=== PATIENT | male | born 1950 | race Caucasian/White ===

== ENCOUNTER 2018-02-12 16:54 | Inpatient (IN) | payer OTHER, MEDICARE ==
--- OUTSIDE RECORDS SUMMARY | 2018-02-12 16:58 | XMS REPORT | Clinical Summary ---
:1950 Author Organization [facility] Address [address] [place] [id number] Care Team Providers Name Role Phone Asked, No Pcp Primary Care Provider Unavailable Allergies No Known Allergies Current Medications Prescription Sig. Disp. Refills Start Date End Date Status aspirin (ECOTRIN) 81 MG Take 81 mg by Active enteric coated tablet mouth daily. METOPROLOL SUCCINATE ORAL Take by mouth. Active Active Problems Problem Noted Date Abdominal aortic aneurysm (AAA) without rupture 01/07/2017 Last Assessment & Plan: Patient with known AAA of the visceral segment, prior open infrarenal repair. On most recent CTA diameter was 5.3. Asymptomatic. Patient does have an incisional hernia from prior AAA repair, but does no t want any treatment for it at this time. Obtain followup imaging to assess for enlargement Discussed importance of blood pressure control and smoking cessation If aneurysm is stable, return to clinic in 12 months with CTA Encounters Date Type Specialty Care Team Description 02/12/2018 Telephone Cardiovascular Surendra Win MD 09/04/2017 Abstract Cardiothoracic Surgery Margaret West MD after 02/11/2017 Family History Medical History Relation Name Comments Cancer Father Brain cancer Mother Relation Name Status Comments Father Mother Social History Tobacco Use Types Packs/Day Years Used Date Current Every Day Smoker Cigarettes Alcohol Use Drinks/Week oz/Week Comments Yes 2 Cans of beer 1.2 everyday Sex Assigned at Date Recorded Not on file Last Filed Vital Signs Not on file Plan of Treatment Health Maintenance Due Date Last Done Comments COLON CANCER SCREENING 2000 SHINGRIX VACCINE (#1) 2000 ZOSTER VACCINE 2010 PNEUMOCOCCAL POLYSACCHARIDE VACCINE AGE 65 AND OVER 2015 PNEUMOCOCCAL-13 2015 INFLUENZA VACCINE 04/30/2018 Results Not on fileafter 02/11/2017 Insurance Payer Benefit Plan / Group Subscriber ID Type Phone Address MEDICARE MEDICARE PART A AND B xxxxxxxxxx Medicare [facility] AAR SUPPLEMENT xxxxxxxxx Commercial Home: [address] [phone] [place] [id number] [address] [employer] Republican Self 1950 Work: [address] [place] [address] [phone] [place] [address] Home: [id number]
--- OUTSIDE RECORDS SUMMARY | 2018-02-12 16:59 | XMS REPORT | Clinical Summary ---
:1950 Author Organization [facility] Address [address] [place] [address] Phone Care Team Providers Name Role Phone Unavailable Primary Care Provider Unavailable Allergies No Known Allergies Current Medications Prescription Sig. Disp. Refills Start Date End Date Status aspirin 81 MG EC Take 81 mg by Active tablet mouth daily. multivitamin per Take 1 tablet Active tablet by mouth daily. omega-3 fatty Take 1 g by Active acids-fish oil mouth daily. 340-1,000 mg Cap per capsule amiodarone (PACERONE) Take 1 tablet 30 tablet 11 07/10/2017 Active 200 MG tablet (200 mg 8 total) by mouth daily. apixaban (ELIQUIS) 5 Take 1 tablet 60 tablet 2 07/10/2017 Active mg Tab tablet (5 mg total) by mouth 2 (two) times daily. metoprolol (TOPROL-XL) Take 1 tablet 30 tablet 11 07/11/2017 Active 100 MG 24 hr tablet (100 mg 8 total) by mouth daily. magnesium oxide Take 400 mg Active (MAG-OX) 400 mg tablet by mouth daily. losartan (COZAAR) 50 Take 25 mg by Active MG tablet mouth daily. amiodarone (PACERONE) Take 1 tablet 30 tablet 11 01/29/2017 Discontinued 200 MG tablet (200 mg 7 total) by mouth daily. atorvastatin (LIPITOR) Take 1 tablet 30 tablet 11 01/29/2017 80 MG tablet (80 mg total) 8 by mouth daily. clopidogrel (PLAVIX) Take 1 tablet 30 tablet 11 01/29/2017 Discontinued 75 mg tablet (75 mg total) 7 by mouth daily. lisinopril Take 1 tablet 30 tablet 11 01/29/2017 (PRINIVIL,ZESTRIL) 5 (5 mg total) 8 MG tablet by mouth daily. metoprolol (TOPROL-XL) Take 1 tablet 30 tablet 11 01/29/2017 Discontinued 25 MG 24 hr tablet (25 mg total) 7 by mouth daily. fluticasone-salmeterol Inhale 2 1 Inhaler 12 01/29/2017 (ADVAIR HFA) 45-21 puffs by 8 mcg/actuation inhaler mouth via inhaler 2 (two) times daily. 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 Max Daily Amount: 100 mg Active Problems Problem Noted Date KYLAH (acute kidney injury) ([facility]) due to ATN 07/02/2017 Thoracoabdominal aortic aneurysm (TAAA) without rupture ([facility]) 07/01/2017 Ischemic cardiomyopathy 01/29/2017 Prerenal azotemia 01/23/2017 Acute pulmonary insufficiency following thoracic surgery ([facility]) 01/21/2017 Cardiogenic shock ([facility]) 01/21/2017 Acute blood loss anemia 01/21/2017 Coagulopathy ([facility]) 01/21/2017 Lactic acidosis 01/21/2017 STEMI (ST elevation myocardial infarction) ([facility]) 01/18/2017 S/P AAA (abdominal aortic aneurysm) repair 09/30/1999 Overview: with Aorto Iliac bypass at [facility] Thoracoabdominal aortic aneurysm (TAAA) ([facility]) Overview: extent 4 Coronary artery disease S/P CABG (coronary artery bypass graft) COPD (chronic obstructive pulmonary disease) ([facility]) S/P BKA (below knee amputation) unilateral, left ([facility]) Atrial fibrillation ([facility]) Cancer ([facility]) Overview: partial lung left lung lobectomy 2013 Ventral hernia Encounters Date Type Specialty Care Team Description 07/23/2017 Hospital Encounter [facility] Abnormal chest sounds MD Sukh 07/23/2017 Office Visit Cardiology Homero Dubon Thoracoabdominal aortic MD Cony aneurysm (TAAA) without rupture (HCC) (Primary Dx);Post-operative state;KYLAH (acute kidney injury) (HCC) 07/23/2017 Outside Orders [facility] Abnormal chest sounds MD Sukh (Primary Dx) 07/05/2017 Orders Only General Internal Medicine 07/01/2017 - Hospital Encounter Cardiology Homero Dubon Thoracoabdominal aortic 07/10/2017 MD Cony aneurysm (TAAA) without rupture (HCC) (Primary Dx);Other emphysema (HCC);Acute pulmonary insufficiency following thoracic surgery (HCC);Paroxysmal atrial fibrillation (HCC) 07/01/2017 Procedure Pass 07/01/2017 Surgery Homero Dubon REPAIRMARCO MD THORACOABDOMINAL AORTIC W/O BYPASS (TAA) 06/30/2017 Anesthesia Event Dillan Bermudez MD 06/24/2017 Hospital Encounter Radiology Homero Dubon MD 06/24/2017 Office Visit Cardiology Homero Dubon Thoracoabdominal aortic MD Cony aneurysm (TAAA) without rupture (HCC) (Primary Dx);Coronary artery disease involving [place] coronary artery of [place] heart without angina pectoris;Cancer (HCC) 06/24/2017 Hospital Encounter Respiratory Homero Dubon MD 06/24/2017 Orders Only Homero Dubonoabdomshyla Donnelly MD aneurysm (TAAA) without rupture (HCC) 06/24/2017 Orders Only Homero Dubon MD pulmonary disease, unspecified COPD type (HCC) (Primary Dx) 06/24/2017 Orders Only Homero Dubon MD pulmonary disease, unspecified COPD type (HCC) (Primary Dx) 06/24/2017 Orders Only Homero Dubon MD pulmonary disease, unspecified COPD type (HCC) (Primary Dx) 06/21/2017 Outside Orders Homero Dubon MD 06/18/2017 Procedure Pass 06/17/2017 Office Visit Cardiology Homero Dubonoabdomshyla aortic MD Cony aneurysm (TAAA) without rupture (HCC) (Primary Dx);Coronary artery disease involving [place] coronary artery of [place] heart without angina pectoris;Chronic obstructive pulmonary disease, unspecified COPD type (HCC);Thoracic aortic aneurysm without rupture (HCC);S/P AAA (abdominal aortic aneurysm) repair;S/P CABG (coronary artery bypass graft);S/P BKA (below knee amputation) unilateral, left (HCC) 06/17/2017 Orders Only General Internal Medicine 02/19/2017 Hospital Encounter Radiology [facility] Peripheral vascular MD Sukh disease, unspecified (HCC) 02/19/2017 Hospital Encounter Radiology [facility] Peripheral vascular MD Sukh disease, unspecified (HCC) 02/13/2017 Outside Orders Central Scheduling [facility] Peripheral vascular MD Sukh disease, unspecified (HCC) (Primary Dx) after 02/11/2017 Family History Medical History Relation Name Comments Dementia Father Brain cancer Mother Hypertension Sister Relation Name Status Comments Father Alive Mother Sister Social History Tobacco Use Types Packs/Day Years Used Date Current Every Day Smoker 1 48 Smokeless Tobacco: Never Used Tobacco Cessation: Ready to Quit: Yes Alcohol Use Drinks/Week oz/Week Comments Yes 21 Cans of beer 12.6 Sex Assigned at Date Recorded Not on file Last Filed Vital Signs Vital Sign Reading Time Taken Blood Pressure 72/47 07/23/2017 12:52 PM CDT Pulse 69 07/23/2017 12:50 PM CDT Temperature 36.9 C (98.4 F) 07/23/2017 12:50 PM CDT Respiratory Rate 16 07/23/2017 12:50 PM CDT Oxygen Saturation 99% 07/23/2017 12:50 PM CDT Inhaled Oxygen Concentration - - Weight 84.8 kg (187 lb) 07/10/2017 8:23 AM CDT Height 170.2 cm (5' 7") 07/23/2017 12:50 PM CDT Body Mass Index 29.29 07/10/2017 8:23 AM CDT Plan of Treatment Health Maintenance Due Date Last Done Comments INFLUENZA VACCINE 06/30/2018 Implants Implanted Type Area Machinist Set Up Device Expiration Model / Identifier Date Serial / Lot Sternal Zipfix Ndl Strl 08.501.001.20s - [id number] Cardiovascular N/A: SYNTHES:SYNTHE 01/25/2022 08.501.001.20S / Implanted: Qty: 1 on 01/21/2017 by Cuco Barrett MD Chest S [place] / [id number] Sternal Zipfix Ndl Strl 08.501.001.20s - [id number] Cardiovascular N/A: SYNTHES:SYNTHE 11/20/2021 08.501.001.20S / Implanted: Qty: 3 on 01/21/2017 by Cuco Barrett MD Chest S [facility] / [id number] Grft Pros Gelweave 24x8mm [id number]/8 - [id number] Graft/Patch N/A: TERUMO: CARDIOV 12/28/2020 [id number] / Implanted: Qty: 1 on 07/01/2017 by Homero Dubon MD Aorta ASC SYS [id number] / [id number] Patch Vasc [place] 1.65mm 1x6in [id number] - Sx Graft/Patch N/A: CR 2021 [id number] / Implanted: Qty: 1 on 07/01/2017 by Homero Dubon MD Aorta BARD: PERIPHERA X / L VASC [id number] Mesh Sondra 2 + Ovl [id number] - [id number] Mesh N/A: WL GORE & 09/29/2019 [id number] / Implanted: Qty: 1 on 07/01/2017 by Homero Dubon MD Abdomen ASSC: MED PRDT [id number] / X Procedures Procedure Name Priority Date/Time Associated Diagnosis Comments REPAIR,ANEURYSM 07/01/2017 8:00 AM ANUERYSM THORACOABDOMINAL AORTIC CDT W/O BYPASS (TAA) after 02/11/2017 Results RHYTHM STRIP - SCAN (07/24/2017 10:52 AM)Only the most recent of3 resultswithin the time period is included.XR Chest 2 Views (07/23/2017 3:35 PM)Only the most recent of2 resultswithin the time period is included. Specimen Performing Laboratory [employer] Narrative FINAL REPORT INDICATION: R09.89 COMPARISON: July 06, 2017 TECHNIQUE: Chest radiograph, two views, PA and lateral. FINDINGS: There is a small left pleural effusion. Left retrocardiac opacity likely represents related atelectasis. Right lung is clear. Heart shadow is not enlarged. There is no pneumothorax. Osseous structures sternotomy wires. IMPRESSION: Small left pleural effusion, not significantly changed. Signed: Sebastian Peña MD Report Verified Date/Time:07/23/2017 16:21:16 Reading Location: [address] Radiology Reading Room Procedure Note Interface, External Ris In - 07/23/2017 4:23 PM CDT FINAL REPORT INDICATION: R09.89 COMPARISON: July 06, 2017 TECHNIQUE: Chest radiograph, two views, PA and lateral. FINDINGS: There is a small left pleural effusion. Left retrocardiac opacity likely represents related atelectasis. Right lung is clear. Heart shadow is not enlarged. There is no pneumothorax. Osseous structures sternotomy wires. IMPRESSION: Small left pleural effusion, not significantly changed. Signed: Sebastian Peña MD Report Verified Date/Time: 07/23/2017 16:21:16 Reading Location: [address] Radiology Reading Room with platelet count + automated diff (07/23/2017 1:55 PM)Only the most recent of12 resultswithin the time period is included. Component Value Ref Range WBC 12.0 (H) 3.5 - 10.5 K/L RBC 3.98 (L) 4.63 - 6.08 M/L Hemoglobin 11.0 (L) 13.7 - 17.5 GM/DL Hematocrit 34.4 (L) 40.1 - 51.0 % MCV 86.4 79.0 - 92.2 fL MCH 27.6 25.7 - 32.2 pg MCHC 32.0 (L) 32.3 - 36.5 GM/DL RDW 17.7 (H) 11.6 - 14.4 % Platelets 467 (H) 150 - 450 K/CU MM MPV 8.9 (L) 9.4 - 12.4 fL nRBC 0 0 - 0 /100 WBC % Neutros 68 % % Lymphs 22 % % Monos 8 % % Eos 2 % % Baso 0 % # Neutros 8.12 (H) 1.78 - 5.38 K/L # Lymphs 2.57 1.32 - 3.57 K/L # Monos 0.91 (H) 0.30 - 0.82 K/L # Eos 0.23 0.04 - 0.54 K/L # Baso 0.05 0.01 - 0.08 K/L Immature Granulocytes-Relative 1 0 - 1 % Specimen Performing Laboratory Blood [address] [address] CBC with platelet count + automated diff (07/23/2017 1:55 PM)Only the most recent of12 resultswithin the time period is included. Specimen Performing Laboratory Blood Narrative The following orders were created for panel order CBC with platelet count + automated diff. Procedure Abnormality Status --------- ------ CBC with platelet count ...[[id number]]AbnormalFinal result Please view results for these tests on the individual orders. Basic Metabolic Panel (07/23/2017 1:55 PM)Only the most recent of12 resultswithin the time period is included. Component Value Ref Range Sodium 135 (L) 136 - 145 meq/L Potassium 5.0Comment: Specimen slightly hemolyzed 3.5 - 5.1 meq/L Chloride 100 98 - 107 meq/L CO2 23 22 - 29 meq/L BUN 21 7 - 21 mg/dL Creatinine 1.42 (H)Comment: Specimen slightly hemolyzed 0.57 - 1.25 mg/dL Glucose 98 70 - 105 mg/dL Calcium 9.7 8.4 - 10.2 mg/dL EGFR 50Comment: ESTIMATED GFR IS NOT ACCURATE mL/min/1.73 sq m CREATININE CLEARANCE IN PREDICTING GLOMERULAR FILTRATION RATE. ESTIMATED GFR IS NOT APPLICABLE FOR DIALYSIS PATIENTS. Specimen Performing Laboratory Blood [address] [address] POC-Glucose meter (07/10/2017 11:33 AM)Only the most recent of29 resultswithin the time period is included. Component Value Ref Range POC-Glucose Meter 146 (H)Comment: TESTED AT [address] 70 - 110 mg/[place] [address] Specimen Performing Laboratory Blood [address] [address] Calcium, Ionized (07/10/2017 4:39 AM)Only the most recent of12 resultswithin the time period is included. Component Value Ref Range Calcium, Ion 1.12 1.12 - 1.27 mmol/L pH, Blood 7.34 Specimen Performing Laboratory Blood - Arm, [address] [address] Magnesium (07/10/2017 4:39 AM)Only the most recent of10 resultswithin the time period is included. Component Value Ref Range Magnesium 1.8 1.6 - 2.6 mg/dL Specimen Performing Laboratory Blood - Arm, [address] [address] TRANSFUSION SERVICE REPORT - SCAN (07/06/2017 5:32 PM)Only the most recent of5 resultswithin the time period is included.XR chest 1 view portable / bedside ( 7:54 AM)Only the most recent of6 resultswithin the time period is included. Specimen Performing Laboratory [facility] Narrative FINAL REPORT Chest one view AP 07/06/2017 8:04 AM CLINICAL INDICATION: s/p TAAA COMPARISON: 07/05/2017 IMPRESSION: There is a small volume left pleural effusion. Opacity in the left lung base may reflect atelectasis or pneumonia. The right lung is well aerated. Cardiomediastinal contours are stable. The central pulmonary vasculature is not engorged. Cardiac support hardware is unchanged in position. Signed: Young Graham MD Report Verified Date/Time:07/06/2017 08:04:38 Reading Location: [address] Neuro Reading Room Procedure Note Interface, External Ris In - 07/06/2017 12:00 PM CDT FINAL REPORT Chest one view AP 07/06/2017 8:04 AM CLINICAL INDICATION: s/p TAAA COMPARISON: 07/05/2017 IMPRESSION: There is a small volume left pleural effusion. Opacity in the left lung base may reflect atelectasis or pneumonia. The right lung is well aerated. Cardiomediastinal contours are stable. The central pulmonary vasculature is not engorged. Cardiac support hardware is unchanged in position. Signed: Young Graham MD Report Verified Date/Time: 07/06/2017 08:04:38 Reading Location: [facility] B1 C013V Neuro Reading Room Prepare Leuko-Red RBC (07/05/2017 11:54 PM) Component Value Ref Range CROSSMATCH COMPATIBLE Unit ABO A Pos UNIT NUMBER [id number] Status TRANSFUSED Blood Bank Product RED BLOOD CELLS PRODUCT CODE T0594R06 Specimen Performing Laboratory Other [employer] [place] ECG 12 lead (07/05/2017 3:55 PM)Only the most recent of2 resultswithin the time period is included. Specimen Performing Laboratory [employer] Narrative Ventricular Rate 115 BPM Atrial Rate 337 BPM QRS Duration 78 ms Q-T Interval 282 ms QTC Calculation(Bazett) 390 ms P [place] 252 degrees R [place] -20 degrees T [place] 229 degrees Atrial flutter with variable A-V block Septal infarct (cited on or before 17-JUN-2017) Nonspecific T wave abnormality Abnormal ECG When compared with ECG of 17-JUN-2017 13:31, Atrial flutter has replaced Sinus rhythm Vent. rate has increased BY49 BPM Non-specific change in ST segment in Anterior leads Nonspecific T wave abnormality now seen Confirmed by MD ADAM, FRANCINE ([id number]) on 07/06/2017 6:26:17 AM Procedure Note Interface, External Ris In - 07/06/2017 6:26 AM CDT Ventricular Rate 115 BPM Atrial Rate 337 BPM QRS Duration 78 ms Q-T Interval 282 ms QTC Calculation(Bazett) 390 ms P [place] 252 degrees R [place] -20 degrees T [place] 229 degrees Atrial flutter with variable A-V block Septal infarct (cited on or before 17-JUN-2017) Nonspecific T wave abnormality Abnormal ECG When compared with ECG of 17-JUN-2017 13:31, Atrial flutter has replaced Sinus rhythm Vent. rate has increased BY 49 BPM Non-specific change in ST segment in Anterior leads Nonspecific T wave abnormality now seen Confirmed by MD ADAM, FRANCINE ([id number]) on 07/06/2017 6:26:17 AM Lactic acid, venous, whole blood (07/05/2017 4:03 AM)Only the most recent of2 resultswithin the time period is included. Component Value Ref Range Lactate, Venous 0.8Comment: Specimen slightly hemolyzed 0.5 - 2.2 mmol/L Specimen Performing Laboratory Blood - Arm, Right [address] [address] Narrative Effective 02/01/2016: Units/Reference Range Change New: 0.5-2.2 mmol/LPrevious: 5-20 mg/dL Specimen moderately icteric Hemoglobin and hematocrit (07/04/2017 12:06 PM) Component Value Ref Range Hemoglobin 8.3 (L) 13.7 - 17.5 GM/DL Hematocrit 25.4 (L) 40.1 - 51.0 % Specimen Performing Laboratory Blood - Central Venous Line [address] [address] Lactic acid, arterial, whole blood (07/04/2017 12:06 PM)Only the most recent of5 resultswithin the time period is included. Component Value Ref Range Lactate, Art 2.5 (H) 0.5 - 2.2 mmol/L Specimen Performing Laboratory Blood, Arterial - Central Venous Line [address] [address] Narrative Effective 02/01/2016: Units/Reference Range Change New: 0.5-2.2 mmol/LPrevious: 5-20 mg/dL Specimen slightly icteric Transfuse Leuko-Red RBC (07/04/2017 9:34 AM)Only the most recent of2 resultswithin the time period is included.Oxygen saturation, measured (2016 4:53 AM)Only the most recent of3 resultswithin the time period is included. Component Value Ref Range O2 Saturation (Measured) 64.7 % Specimen Performing Laboratory Blood [address] [address] Phosphorus (07/04/2017 4:53 AM)Only the most recent of3 resultswithin the time period is included. Component Value Ref Range Phosphorus 3.3 2.3 - 4.7 mg/dL Specimen Performing Laboratory Blood [address] [address] Prepare RBC (07/02/2017 11:54 PM)Only the most recent of2 resultswithin the time period is included. Component Value Ref Range CROSSMATCH COMPATIBLE Unit ABO A Pos UNIT NUMBER [id number] Status RETURNED FROM ISSUE Blood Bank Product RED BLOOD CELLS PRODUCT CODE C3736W29 CROSSMATCH COMPATIBLE Unit ABO A Pos UNIT NUMBER [id number] Status TRANSFUSED Blood Bank Product RED BLOOD CELLS PRODUCT CODE G0115I63 CROSSMATCH COMPATIBLE Unit ABO A Pos UNIT NUMBER [id number] Status TRANSFUSED Blood Bank Product RED BLOOD CELLS PRODUCT CODE [id number] CROSSMATCH COMPATIBLE Unit ABO A Pos UNIT NUMBER [id number] Status RETURNED FROM ISSUE Blood Bank Product RED BLOOD CELLS PRODUCT CODE L0355G74 Specimen Performing Laboratory [employer] [place] Blood gas, arterial (07/02/2017 8:12 AM)Only the most recent of10 resultswithin the time period is included. Component Value Ref Range pH, Arterial 7.45 7.35 - 7.45 pCO2, Arterial 37 35 - 45 mmHg pO2, Arterial 203 (H) 80 - 90 mmHg O2 Sat, Arterial 99.4 (H) 96.0 - 97.0 % HCO3, Arterial 25 21 - 29 mmol/L Base Excess, Arterial 1.2 -2.0 - 3.0 mmol/L Patient Temperature 37.2 C FIO2 40.0 % Specimen Performing Laboratory Blood, Arterial - Line, Arterial [address] [address] Potassium (07/01/2017 7:30 PM) Component Value Ref Range Potassium 4.4Comment: Specimen moderately hemolyzed 3.5 - 5.1 meq/L Specimen Performing Laboratory Blood [address] [address] Prepare plasma (07/01/2017 6:10 PM) Component Value Ref Range Unit ABO A Pos UNIT NUMBER [id number] Status RETURNED FROM ISSUE Blood Bank Product FFP PRODUCT CODE J8033V53 Unit ABO A Pos UNIT NUMBER [id number] Status RETURNED FROM ISSUE Blood Bank Product FFP PRODUCT CODE M6055K80 Unit ABO A Pos UNIT NUMBER [id number] Status RETURNED FROM ISSUE Blood Bank Product FFP PRODUCT CODE S2350D10 Unit ABO A Pos UNIT NUMBER [id number] Status RETURNED FROM ISSUE Blood Bank Product FFP PRODUCT CODE I5756G41 Specimen Performing Laboratory [employer] [place] Potassium-Stat Lab (07/01/2017 3:44 PM)Only the most recent of8 resultswithin the time period is included. Component Value Ref Range Potassium 5.0 3.6 - 5.5 meq/L Specimen Performing Laboratory Blood, Arterial [address] [address] aPTT (07/01/2017 3:44 PM)Only the most recent of2 resultswithin the time period is included. Component Value Ref Range PTT 34.5 22.5 - 36.0 seconds Specimen Performing Laboratory Blood [address] [address] Prothromin time/INR (07/01/2017 3:44 PM)Only the most recent of3 resultswithin the time period is included. Component Value Ref Range Protime 18.3 (H) 11.7 - 14.7 seconds INR 1.5 <=5.9 Specimen Performing Laboratory Blood [address] [address] Narrative RECOMMENDED COUMADIN/WARFARIN INR THERAPY RANGES STANDARD DOSE: 2.0 - 3.0 Includes: PROPHYLAXIS for venous thrombosis, systemic embolization; TREATMENT for venous thrombosis and/or pulmonary embolus. HIGH RISK: Target INR is 2.5-3.5 for patients with mechanical heart valves. Fibrinogen (07/01/2017 3:44 PM)Only the most recent of2 resultswithin the time period is included. Component Value Ref Range Fibrinogen 220 (L) 225 - 434 mg/dl Specimen Performing Laboratory Blood [address] [address] RRL Critical Labs (ABG,NA,K,H&H,GLU) (07/01/2017 2:32 PM)Only the most recent of7 resultswithin the time period is included. Specimen Performing Laboratory Blood, Arterial Narrative The following orders were created for panel order RRL Critical Labs (ABG,NA,K,H&H,GLU). Procedure Abnormality Status --------- ------ Blood gas, arterial[[id number]]AbnormalFinal result Sodium Na-Stat Lab[[id number]] AbnormalFinal result Potassium-Stat Lab[[id number]] NormalFinal result Glucose-Stat Lab[[id number]] AbnormalFinal result HGB/HCT (H&H)-Stat Lab[[id number]] Abnormal Final result Please view results for these tests on the individual orders. Sodium Na-Stat Lab (07/01/2017 2:32 PM)Only the most recent of7 resultswithin the time period is included. Component Value Ref Range Sodium 134 (L) 135 - 148 meq/L Specimen Performing Laboratory Blood, [address] [address] Glucose-Stat Lab (07/01/2017 2:32 PM)Only the most recent of7 resultswithin the time period is included. Component Value Ref Range Glucose 173 (H) 70 - 110 mg/dL Specimen Performing Laboratory Blood, [address] [address] HGB/HCT (H&H)-Stat Lab (07/01/2017 2:32 PM)Only the most recent of7 resultswithin the time period is included. Component Value Ref Range Hemoglobin 9.8 (L) 13.0 - 16.8 g/dL Hematocrit 29.0 (L) 40.0 - 50.0 % Specimen Performing Laboratory Blood, [address] [address] Tissue Exam (07/01/2017 2:30 PM) Component Value Ref Range Case Report Surgical Pathology Report Case: [id number] Authorizing Provider:Homero Dubon MD Collected: 07/01/2017 1430 Ordering Location: [facility] Received: 07/02/2017 0831 PERIOPERATIVE SERVICES Pathologist: Garrett Carrillo MD Specimen:Aneurysm, PRODUCTS/PIECES FROMTHORACOABDOMINAL AORTIC ANEURYSM DIAGNOSIS AORTA, THORACOABDOMINAL, ANEURYSMECTOMY: FIBRIN AND DYSTROPHIC CALCIFICATION, CONSISTENT WITH ANEURYSM CONTENTS FRAGMENTS OF SKELETAL MUSCLE AND FIBROADIPOSE TISSUE WITH ACUTE HEMORRHAGE Signing Pathologist Direct Phone Line: [phone] CPT Code(s) 95597 CLINICAL HISTORY Aneurysm thoracoabdominal aortic aneurysm SPECIMEN SOURCE Aneurysm pieces GROSS DESCRIPTION The specimen is received in a formalin-filled container labeled with the patient's information and labeled "aneurysm tissue pieces" and consists of multiple fragments of botello-morris hemorrhagic soft tissue measuring 8 x 7 x 3 cm in aggregate. Water Truck Driver sections are submitted in A1 and A2. CG/ew MICROSCOPIC DESCRIPTION Performed Specimen Performing Laboratory Tissue - Aneurysm [facility] [address] Platelet count (07/01/2017 12:56 PM) Component Value Ref Range Platelets 81 (L) 150 - 450 K/CU MM Specimen Performing Laboratory Blood [address] [address] POC ACTIVATED CLOTTING TIME (07/01/2017 12:46 PM)Only the most recent of2 resultswithin the time period is included. Component Value Ref Range Activated Clotting Time 98Comment: TESTED AT [address] sec [address] Specimen Performing Laboratory Blood [address] [address] Thromboelastograph (TEG) (07/01/2017 12:37 PM) Component Value Ref Range TEG Activated Clotting Time 6.0 4.0 - 7.0 minutes TEG Fibrinogen Activity 46.8 (L) 61.0 - 73.0 degrees TEG Platelet Aggregation 52.5 (L) 55.0 - 65.0 MM TEG-H Activated Clotting Time 6.6 4.0 - 7.0 minutes TEG-H Fibrinogen Activity 62.2 61.0 - 73.0 degrees TEG-H Platelet Aggregation 49.5 (L) 55.0 - 65.0 MM Specimen Performing Laboratory Blood [address] [address] PULMONARY FUNCTION - SCAN (06/24/2017 4:00 PM)Pulmonary Funct Lab Spirometry ( 06/24/2017 12:33 PM) David Mcginnis, GUEST RELATIONS MANAGER, BACK TENDER 06/24/2017 12:[address] [facility] PFT CHARTING REPORT Infection Control/Hand Hygiene procedures followed throughout the encounter with patient: Yes Patient Identification Method: Patient name verified on armband, and Medical record on armband, Is the order complete?: Yes Account ID#: [id number] Patient Name: Yusef Rudd Birthdate: 1950 Age: 66 y.o.Sex: male Admission Date: 06/24/2017Patient Status: Outpatient Reasons/Symptom for having the Test?: surgical clearance Type of study/treatment ordered by physician: Spirometry Lab Results Component Value Date HGB 11.9 (L) 06/17/2017 Ranges: Adult Male 13 - 16.8 g/dlAdult Female 12 - 15 g/dl 6 Minute Walk (read only) 01/29/2017 02/06/2017 06/17/2017 Pulse 86 70 72 SpO2 96 99 99 Study Date: 06/24/17Study Time: 1224 ASSESSMENT History & Physical Mode of Arrival: Wheel chair Pulse: 76Resp: 18SPO2: 99 %on ra Pain Assessment Pain:None TESTING/THERAPEUTICS Medications ordered or required for procedure: N/A PT EDUCATION/INSTRUCTIONS Barriers to learning: No known barriers to learning. Learning need identified: Yes, Patient/Family/Guradian was informed of the ordered study by the physician Barriers to performing study or treatment: Patient has no known disability to perform the study or treatment. DISCHARGE The study was completed in accordance with the physician's order and patient released from the lab without adverse outcome. Type and screen only for all CV and Non-CV procedures (06/17/2017 1:43 PM) Component Value Ref Range ABO/RH AUTOMATED (BEAKER) A POSITIVE Ab Scrn NEGATIVE Specimen Performing Laboratory Blood [address] [address] BUN (06/17/2017 1:43 PM) Component Value Ref Range BUN 14 7 - 21 mg/dL Specimen Performing Laboratory [address] [address] Hemoglobin A1c (Obtain on all cardiothoracic surgery cases) (06/17/2017 1:43 PM ) Component Value Ref Range Hemoglobin A1C 5.5 4.3 - 6.1 % Specimen Performing Laboratory [address] [address] Creatinine (06/17/2017 1:43 PM) Component Value Ref Range Creatinine 0.78 0.57 - 1.25 mg/dL EGFR 100Comment: ESTIMATED GFR IS NOT ACCURATE mL/min/1.73 sq m CREATININE CLEARANCE IN PREDICTING GLOMERULAR FILTRATION RATE. ESTIMATED GFR IS NOT APPLICABLE FOR DIALYSIS PATIENTS. Specimen Performing Laboratory [address] [address] Electrolytes (06/17/2017 1:43 PM) Component Value Ref Range Sodium 138 136 - 145 meq/L Potassium 4.2 3.5 - 5.1 meq/L Chloride 104 98 - 107 meq/L CO2 27 22 - 29 meq/L Specimen Performing Laboratory Blood [facility] [address] [address] CTA chest (02/19/2017 1:29 PM) Specimen Performing Laboratory [facility] Narrative Addendum Begins REPORT STATUS:A Addendum: February 19, 2017 at 2020 hours I have reviewed the CT images for this study and I concur with the nonvascular imaging findings as dictated. Signed: Dane Griggs MD Report Verified Date/Time:02/19/2017 20:16:59 Reading Location: [place] [id number] Angio Body Reading Room Addendum Ends FINAL REPORT CT angiography of the thoracoabdominal aorta and pelvic arteries, 19 Feb 2017 COMPARISON: None available INDICATION: This is a 66 years old male, with a diagnosis of aortic aneurysm presents for assessment. This study is performed in an attempt to avoid invasive procedure. TECHNIQUE: Spiral acquisition before and during contrast administration using a Julita multidetector CT scanner. Multiplanar 3-D volume rendering reformation was performed using an independent workstation interactively by the dictating physician and the 3-D specialist. The amount of contrast used and method of administration can be found in scanned Epic document. This exam was performed according to our departmental dose-optimisation programme, which includes automated exposure control, adjustment of the mA and/or kV according to patient size and/or use of iterative reconstruction technique. FINDINGS: VASCULAR: The central pulmonary artery is normal in calibre. The cardiac chamber demonstrate normal atrioventricular and ventriculoarterial concordance, systemic and pulmonary venous return. The left ventricle is normal in size. Diffuse coronary artery calcification is identified. Patient is post coronary artery bypass surgery a RAYA graft is identified, connecting to the LAD territory. A saphenous graft is identified, connecting most likely to the OM territory. Another saphenous graft is seen, connecting to the RCA territory. These grafts are patent. Regarding the aorta, descending thoracic aorta, transverse arch, and descending thoracic aorta has calcific and noncalcific atherosclerosis identified. No aneurysmal dilation is seen at the thoracic level. Arch vessel branching pattern is normal and the visualized arch vessels are widely patent proximally. In the abdominal aorta, dilation is identified at the superior mesenteric level that extends down into the proximal infrarenal level. Thereafter, a tubular bypass graft is identified in the distal infrarenal level of the abdominal aorta, likely represent an aortobiiliac bypass graft, connecting to the distal common iliac arteries. Please correlate with operative report. No proximal or distal anastomotic stenosis is identified. Thereafter, the external iliac and the common femoral arteries are seen to be patent. At the the takeoff of the right external iliac artery image 337, there is calcific and noncalcific atherosclerosis seen, and the minimum diameter is 3.7 x 4.6 mm in diameter. Increasing calcification is seen in the right common femoral artery, and at the right femoral head, at image 383, with minimum diameter of 4.4 x 10.4 mm. The right SFA is unremarkable. In the left, the left external iliac artery has mild to moderate calcific atherosclerosis is identified extending into the left common femoral artery. The left SFA is patent. At the left femoral head image 375, the minimum luminal diameter of the left common femoral artery is 6.6 x 6.4 mm in diameter and the minimum luminal diameter image 326 measure approximately 4.3 x 8.3 mm, and the level of the proximal left external iliac artery. The length of the dilation of the abdominal aorta is approximately 10 cm. The maximum diameter is located in the proximal infrarenal level, by multiplanar reformation, measure approximately 5.1 x 5.2 cm. See snapshot for details. Quantitative dimensions of the aorta are as follows: 3.5 cm at the aortic root; 3.2 cm at the proximal ascending thoracic aorta; 3.3 cm at the mid ascending thoracic aorta; 3.1 cm at the distal ascending thoracic aorta; 2.7 cm at the distal transverse arch; 2.9 cm at the proximal descending thoracic aorta; 2.8 cm at the mid descending thoracic aorta; and 2.9 cm just above the diaphragmatic hiatus. In the abdomen, at the superior mesenteric level, the aorta measure 2.8 x 3.2 cm in diameter; 2.5 x 3.6 cm at the takeoff of the celiac axis; 4.1 x 4.1 cm at the takeoff of the SMA; 4.3 x 4.3 cm at the renal level; 5.1 x 5.2 cm at the proximal infrarenal level. NONVASCULAR: The visualised thyroid gland appears grossly unremarkable. The chest wall and mediastinum has no acute abnormality seen. Patient is post median sternotomy. Only minimal pericardial fluid is identified. In the lung windows, no obvious endobronchial lesion is seen. Moderately large left pleural effusions identified with trace effusion identified in the right. Dependent changes are seen. Pulmonary vasculature appears to be minimally prominent. No pneumothorax is identified. No suspicious pulmonary nodule is noted. There are minimal emphysematous changes seen in the left and right upper lobes. In the abdomen, the liver and spleen appears unremarkable. The liver edge is smooth. No abnormal enhancing structure is identified. The adrenal glands are not enlarged. The gallbladder and pancreas appears unremarkable. No acute renal pathology is seen and no hydronephrosis or perirenal fluid collection is identified. Bowel is not well assessed by CT angiography as enteric contrast is not given. No obvious bowel dilation is identified. The appendix appears unremarkable. Multiple fat-containing ventral hernia is identified. There is also a small ventral hernia is seen with loops of bowel present with no incarceration or strangulation present. No free air or free fluid seen abdomen and pelvis. Bilateral fat-containing inguinal hernia is seen, right greater than left. The prostate gland is prominent with punctate calcification identified. The bladder appears unremarkable. No significant retroperitoneal adenopathy is identified. In the bony windows, no acute bony pathology is seen. Mild reduction in vertebral height is identified, T12 level. CONCLUSIONS: 1.No acute pathology is identified in the thoracoabdominal level and the thoracic aorta, is normal in course and calibre. There is mild calcific and noncalcific atherosclerosis seen especially in the descending thoracic aorta. In the abdominal aorta, dilation is identified at the superior mesenteric extending down into the proximal infrarenal level,with maximum diameter of approximately 5.1 x 5.2 cm at the proximal infrarenal level. Peripheral intraluminal thrombus is identified, as expected. The radiology department requires follow duration to be dictated, however, the ordering physician is the [employer] of the [facility] and no recommendation is needed as appropriate follow-up /intervention will be arranged. No acute aortic pathology is seen and no dissection or contained rupture is identified. 2.Coronary atherosclerosis. Patient is post coronary artery bypass surgery as detailed above with total of three grafts identified. 3.Moderate to large left pleural effusion and trace right pleural effusion. Pulmonary vasculature could be somewhat prominent. Mild pulmonary emphysematous changes. 4.Other findings as described above. 5.An addendum will be dictated by the [employer] Radiologist regarding the nonvascular findings. Signed: Ludin Araujo MD Report Verified Date/Time:02/19/2017 14:14:01 Reading Location: [facility] P047 Cardiology MRI Procedure Note Interface, External Ris In - 02/19/2017 8:19 PM CDT Addendum Begins REPORT STATUS:A Addendum: February 19, 2017 at 2020 hours I have reviewed the CT images for this study and I concur with the nonvascular imaging findings as dictated. Signed: Dane Griggs MD Report Verified Date/Time: 02/19/2017 20:16:59 Reading Location: [facility] P048 Angio Body Reading Room Addendum Ends FINAL REPORT CT angiography of the thoracoabdominal aorta and pelvic arteries, 19 Feb 2017 COMPARISON: None available INDICATION: This is a 66 years old male, with a diagnosis of aortic aneurysm presents for assessment. This study is performed in an attempt to avoid invasive procedure. TECHNIQUE: Spiral acquisition before and during contrast administration using a Julita multidetector CT scanner. Multiplanar 3-D volume rendering reformation was performed using an independent workstation interactively by the dictating physician and the 3-D specialist. The amount of contrast used and method of administration can be found in scanned Epic document. This exam was performed according to our departmental dose-optimisation programme, which includes automated exposure control, adjustment of the mA and/or kV according to patient size and/or use of iterative reconstruction technique. FINDINGS: VASCULAR: The central pulmonary artery is normal in calibre. The cardiac chamber demonstrate normal atrioventricular and ventriculoarterial concordance, systemic and pulmonary venous return. The left ventricle is normal in size. Diffuse coronary artery calcification is identified. Patient is post coronary artery bypass surgery a RAYA graft is identified, connecting to the LAD territory. A saphenous graft is identified, connecting most likely to the OM territory. Another saphenous graft is seen, connecting to the RCA territory. These grafts are patent. Regarding the aorta, descending thoracic aorta, transverse arch, and descending thoracic aorta has calcific and noncalcific atherosclerosis identified. No aneurysmal dilation is seen at the thoracic level. Arch vessel branching pattern is normal and the visualized arch vessels are widely patent proximally. In the abdominal aorta, dilation is identified at the superior mesenteric level that extends down into the proximal infrarenal level. Thereafter, a tubular bypass graft is identified in the distal infrarenal level of the abdominal aorta, likely represent an aortobiiliac bypass graft, connecting to the distal common iliac arteries. Please correlate with operative report. No proximal or distal anastomotic stenosis is identified. Thereafter, the external iliac and the common femoral arteries are seen to be patent. At the the takeoff of the right external iliac artery image 337, there is calcific and noncalcific atherosclerosis seen, and the minimum diameter is 3.7 x 4.6 mm in diameter. Increasing calcification is seen in the right common femoral artery, and at the right femoral head, at image 383, with minimum diameter of 4.4 x 10.4 mm. The right SFA is unremarkable. In the left, the left external iliac artery has mild to moderate calcific atherosclerosis is identified extending into the left common femoral artery. The left SFA is patent. At the left femoral head image 375, the minimum luminal diameter of the left common femoral artery is 6.6 x 6.4 mm in diameter and the minimum luminal diameter image 326 measure approximately 4.3 x 8.3 mm, and the level of the proximal left external iliac artery. The length of the dilation of the abdominal aorta is approximately 10 cm. The maximum diameter is located in the proximal infrarenal level, by multiplanar reformation, measure approximately 5.1 x 5.2 cm. See snapshot for details. Quantitative dimensions of the aorta are as follows: 3.5 cm at the aortic root; 3.2 cm at the proximal ascending thoracic aorta; 3.3 cm at the mid ascending thoracic aorta; 3.1 cm at the distal ascending thoracic aorta; 2.7 cm at the distal transverse arch; 2.9 cm at the proximal descending thoracic aorta; 2.8 cm at the mid descending thoracic aorta; and 2.9 cm just above the diaphragmatic hiatus. In the abdomen, at the superior mesenteric level, the aorta measure 2.8 x 3.2 cm in diameter; 2.5 x 3.6 cm at the takeoff of the celiac axis; 4.1 x 4.1 cm at the takeoff of the SMA; 4.3 x 4.3 cm at the renal level; 5.1 x 5.2 cm at the proximal infrarenal level. NONVASCULAR: The visualised thyroid gland appears grossly unremarkable. The chest wall and mediastinum has no acute abnormality seen. Patient is post median sternotomy. Only minimal pericardial fluid is identified. In the lung windows, no obvious endobronchial lesion is seen. Moderately large left pleural effusions identified with trace effusion identified in the right. Dependent changes are seen. Pulmonary vasculature appears to be minimally prominent. No pneumothorax is identified. No suspicious pulmonary nodule is noted. There are minimal emphysematous changes seen in the left and right upper lobes. In the abdomen, the liver and spleen appears unremarkable. The liver edge is smooth. No abnormal enhancing structure is identified. The adrenal glands are not enlarged. The gallbladder and pancreas appears unremarkable. No acute renal pathology is seen and no hydronephrosis or perirenal fluid collection is identified. Bowel is not well assessed by CT angiography as enteric contrast is not given. No obvious bowel dilation is identified. The appendix appears unremarkable. Multiple fat-containing ventral hernia is identified. There is also a small ventral hernia is seen with loops of bowel present with no incarceration or strangulation present. No free air or free fluid seen abdomen and pelvis. Bilateral fat-containing inguinal hernia is seen, right greater than left. The prostate gland is prominent with punctate calcification identified. The bladder appears unremarkable. No significant retroperitoneal adenopathy is identified. In the bony windows, no acute bony pathology is seen. Mild reduction in vertebral height is identified, T12 level. CONCLUSIONS: 1. No acute pathology is identified in the thoracoabdominal level and the thoracic aorta, is normal in course and calibre. There is mild calcific and noncalcific atherosclerosis seen especially in the descending thoracic aorta. In the abdominal aorta, dilation is identified at the superior mesenteric extending down into the proximal infrarenal level, with maximum diameter of approximately 5.1 x 5.2 cm at the proximal infrarenal level. Peripheral intraluminal thrombus is identified, as expected. The radiology department requires follow duration to be dictated, however, the ordering physician is the [employer] of the [facility] and no recommendation is needed as appropriate follow-up /intervention will be arranged. No acute aortic pathology is seen and no dissection or contained rupture is identified. 2. Coronary atherosclerosis. Patient is post coronary artery bypass surgery as detailed above with total of three grafts identified. 3. Moderate to large left pleural effusion and trace right pleural effusion. Pulmonary vasculature could be somewhat prominent. Mild pulmonary emphysematous changes. 4. Other findings as described above. 5. An addendum will be dictated by the [employer] Radiologist regarding the nonvascular findings. Signed: Ludin Araujo MD Report Verified Date/Time: 02/19/2017 14:14:01 Reading Location: [facility] B1 P047 Cardiology MRI abdomen & pelvis (02/19/2017 1:29 PM) Specimen Performing Laboratory [employer] Narrative Addendum Begins REPORT STATUS:A Addendum: February 19, 2017 at 2020 hours I have reviewed the CT images for this study and I concur with the nonvascular imaging findings as dictated. Signed: Dane Griggs MD Report Verified Date/Time:02/19/2017 20:16:59 Reading Location: [facility] P048 Angio Body Reading Room Addendum Ends FINAL REPORT CT angiography of the thoracoabdominal aorta and pelvic arteries, 19 Feb 2017 COMPARISON: None available INDICATION: This is a 66 years old male, with a diagnosis of aortic aneurysm presents for assessment. This study is performed in an attempt to avoid invasive procedure. TECHNIQUE: Spiral acquisition before and during contrast administration using a Julita multidetector CT scanner. Multiplanar 3-D volume rendering reformation was performed using an independent workstation interactively by the dictating physician and the 3-D specialist. The amount of contrast used and method of administration can be found in scanned Epic document. This exam was performed according to our departmental dose-optimisation programme, which includes automated exposure control, adjustment of the mA and/or kV according to patient size and/or use of iterative reconstruction technique. FINDINGS: VASCULAR: The central pulmonary artery is normal in calibre. The cardiac chamber demonstrate normal atrioventricular and ventriculoarterial concordance, systemic and pulmonary venous return. The left ventricle is normal in size. Diffuse coronary artery calcification is identified. Patient is post coronary artery bypass surgery a RAYA graft is identified, connecting to the LAD territory. A saphenous graft is identified, connecting most likely to the OM territory. Another saphenous graft is seen, connecting to the RCA territory. These grafts are patent. Regarding the aorta, descending thoracic aorta, transverse arch, and descending thoracic aorta has calcific and noncalcific atherosclerosis identified. No aneurysmal dilation is seen at the thoracic level. Arch vessel branching pattern is normal and the visualized arch vessels are widely patent proximally. In the abdominal aorta, dilation is identified at the superior mesenteric level that extends down into the proximal infrarenal level. Thereafter, a tubular bypass graft is identified in the distal infrarenal level of the abdominal aorta, likely represent an aortobiiliac bypass graft, connecting to the distal common iliac arteries. Please correlate with operative report. No proximal or distal anastomotic stenosis is identified. Thereafter, the external iliac and the common femoral arteries are seen to be patent. At the the takeoff of the right external iliac artery image 337, there is calcific and noncalcific atherosclerosis seen, and the minimum diameter is 3.7 x 4.6 mm in diameter. Increasing calcification is seen in the right common femoral artery, and at the right femoral head, at image 383, with minimum diameter of 4.4 x 10.4 mm. The right SFA is unremarkable. In the left, the left external iliac artery has mild to moderate calcific atherosclerosis is identified extending into the left common femoral artery. The left SFA is patent. At the left femoral head image 375, the minimum luminal diameter of the left common femoral artery is 6.6 x 6.4 mm in diameter and the minimum luminal diameter image 326 measure approximately 4.3 x 8.3 mm, and the level of the proximal left external iliac artery. The length of the dilation of the abdominal aorta is approximately 10 cm. The maximum diameter is located in the proximal infrarenal level, by multiplanar reformation, measure approximately 5.1 x 5.2 cm. See snapshot for details. Quantitative dimensions of the aorta are as follows: 3.5 cm at the aortic root; 3.2 cm at the proximal ascending thoracic aorta; 3.3 cm at the mid ascending thoracic aorta; 3.1 cm at the distal ascending thoracic aorta; 2.7 cm at the distal transverse arch; 2.9 cm at the proximal descending thoracic aorta; 2.8 cm at the mid descending thoracic aorta; and 2.9 cm just above the diaphragmatic hiatus. In the abdomen, at the superior mesenteric level, the aorta measure 2.8 x 3.2 cm in diameter; 2.5 x 3.6 cm at the takeoff of the celiac axis; 4.1 x 4.1 cm at the takeoff of the SMA; 4.3 x 4.3 cm at the renal level; 5.1 x 5.2 cm at the proximal infrarenal level. NONVASCULAR: The visualised thyroid gland appears grossly unremarkable. The chest wall and mediastinum has no acute abnormality seen. Patient is post median sternotomy. Only minimal pericardial fluid is identified. In the lung windows, no obvious endobronchial lesion is seen. Moderately large left pleural effusions identified with trace effusion identified in the right. Dependent changes are seen. Pulmonary vasculature appears to be minimally prominent. No pneumothorax is identified. No suspicious pulmonary nodule is noted. There are minimal emphysematous changes seen in the left and right upper lobes. In the abdomen, the liver and spleen appears unremarkable. The liver edge is smooth. No abnormal enhancing structure is identified. The adrenal glands are not enlarged. The gallbladder and pancreas appears unremarkable. No acute renal pathology is seen and no hydronephrosis or perirenal fluid collection is identified. Bowel is not well assessed by CT angiography as enteric contrast is not given. No obvious bowel dilation is identified. The appendix appears unremarkable. Multiple fat-containing ventral hernia is identified. There is also a small ventral hernia is seen with loops of bowel present with no incarceration or strangulation present. No free air or free fluid seen abdomen and pelvis. Bilateral fat-containing inguinal hernia is seen, right greater than left. The prostate gland is prominent with punctate calcification identified. The bladder appears unremarkable. No significant retroperitoneal adenopathy is identified. In the bony windows, no acute bony pathology is seen. Mild reduction in vertebral height is identified, T12 level. CONCLUSIONS: 1.No acute pathology is identified in the thoracoabdominal level and the thoracic aorta, is normal in course and calibre. There is mild calcific and noncalcific atherosclerosis seen especially in the descending thoracic aorta. In the abdominal aorta, dilation is identified at the superior mesenteric extending down into the proximal infrarenal level,with maximum diameter of approximately 5.1 x 5.2 cm at the proximal infrarenal level. Peripheral intraluminal thrombus is identified, as expected. The radiology department requires follow duration to be dictated, however, the ordering physician is the [employer] of the [place] [facility] [place] and no recommendation is needed as appropriate follow-up /intervention will be arranged. No acute aortic pathology is seen and no dissection or contained rupture is identified. 2.Coronary atherosclerosis. Patient is post coronary artery bypass surgery as detailed above with total of three grafts identified. 3.Moderate to large left pleural effusion and trace right pleural effusion. Pulmonary vasculature could be somewhat prominent. Mild pulmonary emphysematous changes. 4.Other findings as described above. 5.An addendum will be dictated by the [employer] Radiologist regarding the nonvascular findings. Signed: Ludin Araujo MD Report Verified Date/Time:02/19/2017 14:14:01 Reading Location: [facility] P047 Cardiology MRI Procedure Note Interface, External Ris In - 02/19/2017 8:19 PM CDT Addendum Begins REPORT STATUS:A Addendum: February 19, 2017 at 2020 hours I have reviewed the CT images for this study and I concur with the nonvascular imaging findings as dictated. Signed: Dane Griggs MD Report Verified Date/Time: 02/19/2017 20:16:59 Reading Location: [facility] P048 Angio Body Reading Room Addendum Ends FINAL REPORT CT angiography of the thoracoabdominal aorta and pelvic arteries, 19 Feb 2017 COMPARISON: None available INDICATION: This is a 66 years old male, with a diagnosis of aortic aneurysm presents for assessment. This study is performed in an attempt to avoid invasive procedure. TECHNIQUE: Spiral acquisition before and during contrast administration using a Julita multidetector CT scanner. Multiplanar 3-D volume rendering reformation was performed using an independent workstation interactively by the dictating physician and the 3-D specialist. The amount of contrast used and method of administration can be found in scanned Epic document. This exam was performed according to our departmental dose-optimisation programme, which includes automated exposure control, adjustment of the mA and/or kV according to patient size and/or use of iterative reconstruction technique. FINDINGS: VASCULAR: The central pulmonary artery is normal in calibre. The cardiac chamber demonstrate normal atrioventricular and ventriculoarterial concordance, systemic and pulmonary venous return. The left ventricle is normal in size. Diffuse coronary artery calcification is identified. Patient is post coronary artery bypass surgery a RAYA graft is identified, connecting to the LAD territory. A saphenous graft is identified, connecting most likely to the OM territory. Another saphenous graft is seen, connecting to the RCA territory. These grafts are patent. Regarding the aorta, descending thoracic aorta, transverse arch, and descending thoracic aorta has calcific and noncalcific atherosclerosis identified. No aneurysmal dilation is seen at the thoracic level. Arch vessel branching pattern is normal and the visualized arch vessels are widely patent proximally. In the abdominal aorta, dilation is identified at the superior mesenteric level that extends down into the proximal infrarenal level. Thereafter, a tubular bypass graft is identified in the distal infrarenal level of the abdominal aorta, likely represent an aortobiiliac bypass graft, connecting to the distal common iliac arteries. Please correlate with operative report. No proximal or distal anastomotic stenosis is identified. Thereafter, the external iliac and the common femoral arteries are seen to be patent. At the the takeoff of the right external iliac artery image 337, there is calcific and noncalcific atherosclerosis seen, and the minimum diameter is 3.7 x 4.6 mm in diameter. Increasing calcification is seen in the right common femoral artery, and at the right femoral head, at image 383, with minimum diameter of 4.4 x 10.4 mm. The right SFA is unremarkable. In the left, the left external iliac artery has mild to moderate calcific atherosclerosis is identified extending into the left common femoral artery. The left SFA is patent. At the left femoral head image 375, the minimum luminal diameter of the left common femoral artery is 6.6 x 6.4 mm in diameter and the minimum luminal diameter image 326 measure approximately 4.3 x 8.3 mm, and the level of the proximal left external iliac artery. The length of the dilation of the abdominal aorta is approximately 10 cm. The maximum diameter is located in the proximal infrarenal level, by multiplanar reformation, measure approximately 5.1 x 5.2 cm. See snapshot for details. Quantitative dimensions of the aorta are as follows: 3.5 cm at the aortic root; 3.2 cm at the proximal ascending thoracic aorta; 3.3 cm at the mid ascending thoracic aorta; 3.1 cm at the distal ascending thoracic aorta; 2.7 cm at the distal transverse arch; 2.9 cm at the proximal descending thoracic aorta; 2.8 cm at the mid descending thoracic aorta; and 2.9 cm just above the diaphragmatic hiatus. In the abdomen, at the superior mesenteric level, the aorta measure 2.8 x 3.2 cm in diameter; 2.5 x 3.6 cm at the takeoff of the celiac axis; 4.1 x 4.1 cm at the takeoff of the SMA; 4.3 x 4.3 cm at the renal level; 5.1 x 5.2 cm at the proximal infrarenal level. NONVASCULAR: The visualised thyroid gland appears grossly unremarkable. The chest wall and mediastinum has no acute abnormality seen. Patient is post median sternotomy. Only minimal pericardial fluid is identified. In the lung windows, no obvious endobronchial lesion is seen. Moderately large left pleural effusions identified with trace effusion identified in the right. Dependent changes are seen. Pulmonary vasculature appears to be minimally prominent. No pneumothorax is identified. No suspicious pulmonary nodule is noted. There are minimal emphysematous changes seen in the left and right upper lobes. In the abdomen, the liver and spleen appears unremarkable. The liver edge is smooth. No abnormal enhancing structure is identified. The adrenal glands are not enlarged. The gallbladder and pancreas appears unremarkable. No acute renal pathology is seen and no hydronephrosis or perirenal fluid collection is identified. Bowel is not well assessed by CT angiography as enteric contrast is not given. No obvious bowel dilation is identified. The appendix appears unremarkable. Multiple fat-containing ventral hernia is identified. There is also a small ventral hernia is seen with loops of bowel present with no incarceration or strangulation present. No free air or free fluid seen abdomen and pelvis. Bilateral fat-containing inguinal hernia is seen, right greater than left. The prostate gland is prominent with punctate calcification identified. The bladder appears unremarkable. No significant retroperitoneal adenopathy is identified. In the bony windows, no acute bony pathology is seen. Mild reduction in vertebral height is identified, T12 level. CONCLUSIONS: 1. No acute pathology is identified in the thoracoabdominal level and the thoracic aorta, is normal in course and calibre. There is mild calcific and noncalcific atherosclerosis seen especially in the descending thoracic aorta. In the abdominal aorta, dilation is identified at the superior mesenteric extending down into the proximal infrarenal level, with maximum diameter of approximately 5.1 x 5.2 cm at the proximal infrarenal level. Peripheral intraluminal thrombus is identified, as expected. The radiology department requires follow duration to be dictated, however, the ordering physician is the [employer] of the [facility] and no recommendation is needed as appropriate follow-up /intervention will be arranged. No acute aortic pathology is seen and no dissection or contained rupture is identified. 2. Coronary atherosclerosis. Patient is post coronary artery bypass surgery as detailed above with total of three grafts identified. 3. Moderate to large left pleural effusion and trace right pleural effusion. Pulmonary vasculature could be somewhat prominent. Mild pulmonary emphysematous changes. 4. Other findings as described above. 5. An addendum will be dictated by the [employer] Radiologist regarding the nonvascular findings. Signed: Ludin Araujo MD Report Verified Date/Time: 02/19/2017 14:14:01 Reading Location: [place] [id number] Cardiology MRI -Creatinine (02/19/2017 12:50 PM) Component Value Ref Range POC-Creatinine 1.0Comment: TESTED AT [address] 0.6 - 1.3 mg/dL [address] POC-EGFR 75 mL/min/1.73M2 Specimen Performing Laboratory Blood [facility] [address] [address] after 02/11/2017
--- OUTSIDE RECORDS SUMMARY | 2018-02-12 17:01 | XMS REPORT ---
:1950 [facility] Address [address] [place] [address] [address] [place] [address] Care Team Providers Name Role Phone SHANE DUBON Unavailable Unavailable TED FARAH Unavailable Unavailable Problems This patient has no known problems. Allergies, Adverse Reactions, Alerts This patient has no known allergies or adverse reactions. Medications This patient has no known medications. Results Test Description Test Time Test Comments Text Results Atomic Results Result Comments RAD, CHEST, 2 2017-07-23 16:21:00 Reason for FINAL REPORT PATIENT ID: VIEWS Exam:->R09.89 [id number] INDICATION: R09.89 COMPARISON: July 06, 2017 TECHNIQUE: Chest radiograph, two views, PA and lateral. FINDINGS:There is a small left pleural effusion. Left retrocardiac opacity likely represents related atelectasis. Right lung is clear. Heart shadow is not enlarged. There is no pneumothorax. Osseous structures sternotomy wires. IMPRESSION: Small left pleural effusion, not significantly changed. Signed: Sebastian Humphrey MDReport Verified Date/Time: 07/23/2017 16:21:16 Reading Location: [address] Radiology Reading Room C METABOLIC PANEL 2017-07-23 14:18:00 Test Item Value Reference Range Comments SODIUM (BEAKER) (test 135 meq/L 136-145 zdci=417) POTASSIUM (BEAKER) (test 5.0 meq/L 3.5-5.1 Specimen slightly hemolyzed lbey=136) CHLORIDE (BEAKER) (test 100 meq/L 98-107 agcc=497) CO2 (BEAKER) (test bxhv=728) 23 meq/L 22-29 BLOOD UREA NITROGEN (BEAKER) 21 mg/dL 7-21 (test wiga=618) CREATININE (BEAKER) (test 1.42 mg/dL 0.57-1.25 Specimen slightly hemolyzed bggj=719) GLUCOSE RANDOM (BEAKER) 98 mg/dL 70-105 (test frrg=919) CALCIUM (BEAKER) (test 9.7 mg/dL 8.4-10.2 vosj=326) EGFR (BEAKER) (test 50 mL/min/1.73 sq m ESTIMATED GFR IS NOT szrp=7126) ACCURATE CREATININE CLEARANCE IN PREDICTING GLOMERULAR FILTRATION RATE. ESTIMATED GFR IS NOT APPLICABLE FOR DIALYSIS PATIENTS. CBC W/PLT COUNT & AUTO [id number] 14:01:00 Test Item Value Reference Range Comments WHITE BLOOD CELL COUNT (BEAKER) (test gjsx=341) 12.0 K/ L 3.5-10.5 RED BLOOD CELL COUNT (BEAKER) (test ugbl=653) 3.98 M/ L 4.63-6.08 HEMOGLOBIN (BEAKER) (test szuy=702) 11.0 GM/DL 13.7-17.5 HEMATOCRIT (BEAKER) (test icgc=743) 34.4 % 40.1-51.0 MEAN CORPUSCULAR VOLUME (BEAKER) (test ejwv=060) 86.4 fL 79.0-92.2 MEAN CORPUSCULAR HEMOGLOBIN (BEAKER) (test 27.6 pg 25.7-32.2 gtdn=115) MEAN CORPUSCULAR HEMOGLOBIN CONC (BEAKER) (test 32.0 GM/DL 32.3-36.5 dwdn=928) RED CELL DISTRIBUTION WIDTH (BEAKER) (test 17.7 % 11.6-14.4 dbac=773) PLATELET COUNT (BEAKER) (test tlnw=058) 467 K/CU MM 150-450 MEAN PLATELET VOLUME (BEAKER) (test mdhl=921) 8.9 fL 9.4-12.4 NUCLEATED RED BLOOD CELLS (BEAKER) (test 0 /100 WBC 0-0 izfj=321) NEUTROPHILS RELATIVE PERCENT (BEAKER) (test 68 % dvfd=378) LYMPHOCYTES RELATIVE PERCENT (BEAKER) (test 22 % yfra=997) MONOCYTES RELATIVE PERCENT (BEAKER) (test 8 % rmor=409) EOSINOPHILS RELATIVE PERCENT (BEAKER) (test 2 % gmni=939) BASOPHILS RELATIVE PERCENT (BEAKER) (test 0 % mopw=533) NEUTROPHILS ABSOLUTE COUNT (BEAKER) (test 8.12 K/ L 1.78-5.38 qesk=972) LYMPHOCYTES ABSOLUTE COUNT (BEAKER) (test 2.57 K/ L 1.32-3.57 bvwv=754) MONOCYTES ABSOLUTE COUNT (BEAKER) (test 0.91 K/ L 0.30-0.82 tztd=225) EOSINOPHILS ABSOLUTE COUNT (BEAKER) (test 0.23 K/ L 0.04-0.54 dxph=880) BASOPHILS ABSOLUTE COUNT (BEAKER) (test 0.05 K/ L 0.01-0.08 dgye=086) IMMATURE GRANULOCYTES-RELATIVE PERCENT (BEAKER) 1 % 0-1 (test mhkv=6515) POCT-GLUCOSE [id number] 12:03:00 Test Item Value Reference Range Comments POC-GLUCOSE METER (BEAKER) 146 mg/dL 70-110 TESTED AT [address] (test hcuh=3384) [facility] [address] POCT-GLUCOSE [id number] 08:34:00 Test Item Value Reference Range Comments POC-GLUCOSE METER (BEAKER) 112 mg/dL 70-110 TESTED AT [address] (test bcdu=9069) [facility] [address] CBC W/PLT COUNT & AUTO [id number] 06:14:00 Test Item Value Reference Range Comments WHITE BLOOD CELL COUNT (BEAKER) (test laaw=212) 13.9 K/ L 3.5-10.5 RED BLOOD CELL COUNT (BEAKER) (test yshv=413) 3.58 M/ L 4.63-6.08 HEMOGLOBIN (BEAKER) (test enfe=666) 9.8 GM/DL 13.7-17.5 HEMATOCRIT (BEAKER) (test jklh=642) 30.7 % 40.1-51.0 MEAN CORPUSCULAR VOLUME (BEAKER) (test xkqe=287) 85.8 fL 79.0-92.2 MEAN CORPUSCULAR HEMOGLOBIN (BEAKER) (test 27.4 pg 25.7-32.2 ipua=252) MEAN CORPUSCULAR HEMOGLOBIN CONC (BEAKER) (test 31.9 GM/DL 32.3-36.5 flui=091) RED CELL DISTRIBUTION WIDTH (BEAKER) (test 17.6 % 11.6-14.4 okgy=498) PLATELET COUNT (BEAKER) (test bqxf=227) 355 K/CU MM 150-450 MEAN PLATELET VOLUME (BEAKER) (test orlj=472) 9.7 fL 9.4-12.4 NUCLEATED RED BLOOD CELLS (BEAKER) (test 0 /100 WBC 0-0 udcv=590) NEUTROPHILS RELATIVE PERCENT (BEAKER) (test 77 % bkww=005) LYMPHOCYTES RELATIVE PERCENT (BEAKER) (test 12 % zskw=575) MONOCYTES RELATIVE PERCENT (BEAKER) (test 8 % mrhm=230) EOSINOPHILS RELATIVE PERCENT (BEAKER) (test 2 % gcuv=585) BASOPHILS RELATIVE PERCENT (BEAKER) (test 0 % sktu=966) NEUTROPHILS ABSOLUTE COUNT (BEAKER) (test 10.76 K/ L 1.78-5.38 ojmr=065) LYMPHOCYTES ABSOLUTE COUNT (BEAKER) (test 1.61 K/ L 1.32-3.57 syrp=210) MONOCYTES ABSOLUTE COUNT (BEAKER) (test 1.12 K/ L 0.30-0.82 ynyg=649) EOSINOPHILS ABSOLUTE COUNT (BEAKER) (test 0.25 K/ L 0.04-0.54 cine=886) BASOPHILS ABSOLUTE COUNT (BEAKER) (test 0.03 K/ L 0.01-0.08 pzfo=401) IMMATURE GRANULOCYTES-RELATIVE PERCENT (BEAKER) 1 % 0-1 (test imse=4281) CALCIUM, [id number] 05:42:00 Test Item Value Reference Range Comments CALCIUM IONIZED (BEAKER) (test tjwd=471) 1.12 mmol/L 1.12-1.27 PH, BLOOD (BEAKER) (test hidy=9295) 7.34 [id number] 05:27:00 Test Item Value Reference Range Comments MAGNESIUM (BEAKER) (test jmvm=626) 1.8 mg/dL 1.6-2.6 BASIC METABOLIC [id number] 05:27:00 Test Item Value Reference Range Comments SODIUM (BEAKER) (test 135 meq/L 136-145 gkjb=005) POTASSIUM (BEAKER) (test 4.1 meq/L 3.5-5.1 crue=116) CHLORIDE (BEAKER) (test 102 meq/L 98-107 bwmy=202) CO2 (BEAKER) (test 25 meq/L 22-29 frpy=682) BLOOD UREA NITROGEN 27 mg/dL 7-21 (BEAKER) (test vqcg=802) CREATININE (BEAKER) (test 1.65 mg/dL 0.57-1.25 ddgj=727) GLUCOSE RANDOM (BEAKER) 94 mg/dL 70-105 (test ekwm=183) CALCIUM (BEAKER) (test 8.8 mg/dL 8.4-10.2 pinv=471) EGFR (BEAKER) (test 42 mL/min/1.73 sq m ESTIMATED GFR IS NOT olcj=6489) ACCURATE CREATININE CLEARANCE IN PREDICTING GLOMERULAR FILTRATION RATE. ESTIMATED GFR IS NOT APPLICABLE FOR DIALYSIS PATIENTS. Specimen slightly ictericPOCT-GLUCOSE [id number] 21:23:00 Test Item Value Reference Range Comments POC-GLUCOSE METER (BEAKER) 123 mg/dL 70-110 TESTED AT [address] (test mhzm=4670) [place] [id number] POCT-GLUCOSE [id number] 17:46:00 Test Item Value Reference Range Comments POC-GLUCOSE METER (BEAKER) 122 mg/dL 70-110 TESTED AT [address] (test chdh=8505) [place] [id number] POCT-GLUCOSE [id number] 07:54:00 Test Item Value Reference Range Comments POC-GLUCOSE METER (BEAKER) 123 mg/dL 70-110 TESTED AT [address] (test yrjx=5741) [facility] [address] CBC W/PLT COUNT & AUTO [id number] 07:43:00 Test Item Value Reference Range Comments WHITE BLOOD CELL COUNT (BEAKER) (test umnk=702) 13.6 K/ L 3.5-10.5 RED BLOOD CELL COUNT (BEAKER) (test qfwf=612) 3.32 M/ L 4.63-6.08 HEMOGLOBIN (BEAKER) (test sglk=816) 9.3 GM/DL 13.7-17.5 HEMATOCRIT (BEAKER) (test ilxm=025) 28.8 % 40.1-51.0 MEAN CORPUSCULAR VOLUME (BEAKER) (test gutb=066) 86.7 fL 79.0-92.2 MEAN CORPUSCULAR HEMOGLOBIN (BEAKER) (test 28.0 pg 25.7-32.2 jxfl=975) MEAN CORPUSCULAR HEMOGLOBIN CONC (BEAKER) (test 32.3 GM/DL 32.3-36.5 ihvn=183) RED CELL DISTRIBUTION WIDTH (BEAKER) (test 17.4 % 11.6-14.4 dlde=548) PLATELET COUNT (BEAKER) (test awce=142) 294 K/CU MM 150-450 MEAN PLATELET VOLUME (BEAKER) (test lzpy=072) 9.9 fL 9.4-12.4 NUCLEATED RED BLOOD CELLS (BEAKER) (test 0 /100 WBC 0-0 fvzn=968) NEUTROPHILS RELATIVE PERCENT (BEAKER) (test 78 % hzdu=155) LYMPHOCYTES RELATIVE PERCENT (BEAKER) (test 9 % jnvr=398) MONOCYTES RELATIVE PERCENT (BEAKER) (test 10 % sxbk=969) EOSINOPHILS RELATIVE PERCENT (BEAKER) (test 2 % lwxt=572) BASOPHILS RELATIVE PERCENT (BEAKER) (test 0 % lptb=851) NEUTROPHILS ABSOLUTE COUNT (BEAKER) (test 10.64 K/ L 1.78-5.38 uvlx=442) LYMPHOCYTES ABSOLUTE COUNT (BEAKER) (test 1.25 K/ L 1.32-3.57 gtxt=933) MONOCYTES ABSOLUTE COUNT (BEAKER) (test 1.31 K/ L 0.30-0.82 jqod=063) EOSINOPHILS ABSOLUTE COUNT (BEAKER) (test 0.26 K/ L 0.04-0.54 dkqc=584) BASOPHILS ABSOLUTE COUNT (BEAKER) (test 0.05 K/ L 0.01-0.08 ddlf=784) IMMATURE GRANULOCYTES-RELATIVE PERCENT (BEAKER) 1 % 0-1 (test tcpe=7987) CALCIUM, [id number] 07:03:00 Test Item Value Reference Range Comments CALCIUM IONIZED (BEAKER) (test jmym=953) 1.14 mmol/L 1.12-1.27 PH, BLOOD (BEAKER) (test abqg=7725) 7.34 [id number] 06:24:00 Test Item Value Reference Range Comments MAGNESIUM (BEAKER) (test dygi=492) 1.8 mg/dL 1.6-2.6 BASIC METABOLIC [id number] 06:24:00 Test Item Value Reference Range Comments SODIUM (BEAKER) (test 135 meq/L 136-145 cwch=413) POTASSIUM (BEAKER) (test 4.8 meq/L 3.5-5.1 cesr=881) CHLORIDE (BEAKER) (test 102 meq/L 98-107 qsyx=695) CO2 (BEAKER) (test 24 meq/L 22-29 zypv=145) BLOOD UREA NITROGEN 31 mg/dL 7-21 (BEAKER) (test myot=945) CREATININE (BEAKER) (test 1.60 mg/dL 0.57-1.25 fisw=034) GLUCOSE RANDOM (BEAKER) 98 mg/dL 70-105 (test hnwc=963) CALCIUM (BEAKER) (test 8.7 mg/dL 8.4-10.2 fdwi=790) EGFR (BEAKER) (test 43 mL/min/1.73 sq m ESTIMATED GFR IS NOT stmg=6029) ACCURATE CREATININE CLEARANCE IN PREDICTING GLOMERULAR FILTRATION RATE. ESTIMATED GFR IS NOT APPLICABLE FOR DIALYSIS PATIENTS. Specimen slightly ictericPOCT-GLUCOSE [id number] 22:16:00 Test Item Value Reference Range Comments POC-GLUCOSE METER (BEAKER) 137 mg/dL 70-110 TESTED AT [address] (test dhqy=6134) [place] [address] POCT-GLUCOSE [id number] 17:15:00 Test Item Value Reference Range Comments POC-GLUCOSE METER (BEAKER) 139 mg/dL 70-110 TESTED AT [address] (test pxpz=8274) [place] [address] POCT-GLUCOSE [id number] 12:40:00 Test Item Value Reference Range Comments POC-GLUCOSE METER (BEAKER) 116 mg/dL 70-110 TESTED AT [address] (test ddev=0944) [place] [address] POCT-GLUCOSE [id number] 12:03:00 Test Item Value Reference Range Comments POC-GLUCOSE METER (BEAKER) 99 mg/dL 70-110 TESTED AT [address] (test zgfo=2430) [place] [id number] CALCIUM, [id number] 05:08:00 Test Item Value Reference Range Comments CALCIUM IONIZED (BEAKER) (test lurx=345) 1.05 mmol/L 1.12-1.27 PH, BLOOD (BEAKER) (test wuxf=4227) 7.36 [id number] 04:49:00 Test Item Value Reference Range Comments MAGNESIUM (BEAKER) (test eteo=769) 1.9 mg/dL 1.6-2.6 BASIC METABOLIC [id number] 04:49:00 Test Item Value Reference Range Comments SODIUM (BEAKER) (test 134 meq/L 136-145 huky=567) POTASSIUM (BEAKER) (test 4.4 meq/L 3.5-5.1 chet=180) CHLORIDE (BEAKER) (test 103 meq/L 98-107 oszc=008) CO2 (BEAKER) (test 24 meq/L 22-29 ustc=217) BLOOD UREA NITROGEN 32 mg/dL 7-21 (BEAKER) (test vipe=586) CREATININE (BEAKER) (test 1.56 mg/dL 0.57-1.25 icbg=817) GLUCOSE RANDOM (BEAKER) 98 mg/dL 70-105 (test ecbj=424) CALCIUM (BEAKER) (test 8.7 mg/dL 8.4-10.2 cnux=393) EGFR (BEAKER) (test 45 mL/min/1.73 sq m ESTIMATED GFR IS NOT oibs=8998) ACCURATE CREATININE CLEARANCE IN PREDICTING GLOMERULAR FILTRATION RATE. ESTIMATED GFR IS NOT APPLICABLE FOR DIALYSIS PATIENTS. Specimen slightly ictericCBC W/PLT COUNT & AUTO [id number] 04:31 :00 Test Item Value Reference Range Comments WHITE BLOOD CELL COUNT (BEAKER) (test xeuq=757) 12.8 K/ L 3.5-10.5 RED BLOOD CELL COUNT (BEAKER) (test pxjm=816) 3.66 M/ L 4.63-6.08 HEMOGLOBIN (BEAKER) (test vesg=198) 9.8 GM/DL 13.7-17.5 HEMATOCRIT (BEAKER) (test xinp=192) 31.9 % 40.1-51.0 MEAN CORPUSCULAR VOLUME (BEAKER) (test gncq=579) 87.2 fL 79.0-92.2 MEAN CORPUSCULAR HEMOGLOBIN (BEAKER) (test 26.8 pg 25.7-32.2 lnox=728) MEAN CORPUSCULAR HEMOGLOBIN CONC (BEAKER) (test 30.7 GM/DL 32.3-36.5 hunb=174) RED CELL DISTRIBUTION WIDTH (BEAKER) (test 17.0 % 11.6-14.4 wnqu=657) PLATELET COUNT (BEAKER) (test hmqr=493) 235 K/CU MM 150-450 MEAN PLATELET VOLUME (BEAKER) (test flvr=798) 9.5 fL 9.4-12.4 NUCLEATED RED BLOOD CELLS (BEAKER) (test 0 /100 WBC 0-0 vszu=494) NEUTROPHILS RELATIVE PERCENT (BEAKER) (test 76 % xvok=507) LYMPHOCYTES RELATIVE PERCENT (BEAKER) (test 11 % zjbs=941) MONOCYTES RELATIVE PERCENT (BEAKER) (test 10 % mbcm=727) EOSINOPHILS RELATIVE PERCENT (BEAKER) (test 3 % qawk=977) BASOPHILS RELATIVE PERCENT (BEAKER) (test 0 % hoas=496) NEUTROPHILS ABSOLUTE COUNT (BEAKER) (test 9.69 K/ L 1.78-5.38 fyum=243) LYMPHOCYTES ABSOLUTE COUNT (BEAKER) (test 1.34 K/ L 1.32-3.57 zacd=051) MONOCYTES ABSOLUTE COUNT (BEAKER) (test 1.31 K/ L 0.30-0.82 kxye=683) EOSINOPHILS ABSOLUTE COUNT (BEAKER) (test 0.32 K/ L 0.04-0.54 qjrp=578) BASOPHILS ABSOLUTE COUNT (BEAKER) (test 0.04 K/ L 0.01-0.08 ftbi=340) IMMATURE GRANULOCYTES-RELATIVE PERCENT (BEAKER) 1 % 0-1 (test xqlf=4315) POCT-GLUCOSE [id number] 03:20:00 Test Item Value Reference Range Comments POC-GLUCOSE METER (BEAKER) 141 mg/dL 70-110 TESTED AT [address] (test ttie=9576) [facility] [address] POCT-GLUCOSE [id number] 18:26:00 Test Item Value Reference Range Comments POC-GLUCOSE METER (BEAKER) 101 mg/dL 70-110 TESTED AT [address] (test mbiz=6847) [facility] [address] POCT-GLUCOSE [id number] 12:14:00 Test Item Value Reference Range Comments POC-GLUCOSE METER (BEAKER) 117 mg/dL 70-110 TESTED AT [address] (test fowq=4996) [facility] [address] POCT-GLUCOSE [id number] 08:47:00 Test Item Value Reference Range Comments POC-GLUCOSE METER (BEAKER) 83 mg/dL 70-110 TESTED AT [facility] [address] (test edml=8989) [facility] [address] [id number] 07:27:00 Test Item Value Reference Range Comments MAGNESIUM (BEAKER) (test aoxp=899) 1.7 mg/dL 1.6-2.6 BASIC METABOLIC [id number] 07:27:00 Test Item Value Reference Range Comments SODIUM (BEAKER) (test 133 meq/L 136-145 htav=998) POTASSIUM (BEAKER) (test 4.2 meq/L 3.5-5.1 mmtj=076) CHLORIDE (BEAKER) (test 101 meq/L 98-107 gwqx=737) CO2 (BEAKER) (test 24 meq/L 22-29 usfc=760) BLOOD UREA NITROGEN 35 mg/dL 7-21 (BEAKER) (test lgjs=777) CREATININE (BEAKER) (test 1.69 mg/dL 0.57-1.25 lzvk=077) GLUCOSE RANDOM (BEAKER) 77 mg/dL 70-105 (test odkt=149) CALCIUM (BEAKER) (test 8.4 mg/dL 8.4-10.2 xxpn=389) EGFR (BEAKER) (test 41 mL/min/1.73 sq m ESTIMATED GFR IS NOT ylxw=6152) ACCURATE CREATININE CLEARANCE IN PREDICTING GLOMERULAR FILTRATION RATE. ESTIMATED GFR IS NOT APPLICABLE FOR DIALYSIS PATIENTS. Specimen slightly ictericCALCIUM, [id number] 06:39:00 Test Item Value Reference Range Comments CALCIUM IONIZED (BEAKER) (test fykj=541) 1.13 mmol/L 1.12-1.27 PH, BLOOD (BEAKER) (test pdth=2778) 7.35 CBC W/PLT COUNT & AUTO [id number] 06:06:00 Test Item Value Reference Range Comments WHITE BLOOD CELL COUNT (BEAKER) (test tddm=759) 13.4 K/ L 3.5-10.5 RED BLOOD CELL COUNT (BEAKER) (test wwle=781) 3.31 M/ L 4.63-6.08 HEMOGLOBIN (BEAKER) (test krjj=330) 9.2 GM/DL 13.7-17.5 HEMATOCRIT (BEAKER) (test dngp=875) 28.4 % 40.1-51.0 MEAN CORPUSCULAR VOLUME (BEAKER) (test xuzw=583) 85.8 fL 79.0-92.2 MEAN CORPUSCULAR HEMOGLOBIN (BEAKER) (test 27.8 pg 25.7-32.2 inwz=518) MEAN CORPUSCULAR HEMOGLOBIN CONC (BEAKER) (test 32.4 GM/DL 32.3-36.5 vefu=637) RED CELL DISTRIBUTION WIDTH (BEAKER) (test 16.5 % 11.6-14.4 ttfr=975) PLATELET COUNT (BEAKER) (test jngf=838) 194 K/CU MM 150-450 MEAN PLATELET VOLUME (BEAKER) (test gwxz=354) 9.7 fL 9.4-12.4 NUCLEATED RED BLOOD CELLS (BEAKER) (test 0 /100 WBC 0-0 jpyx=892) NEUTROPHILS RELATIVE PERCENT (BEAKER) (test 77 % vztk=669) LYMPHOCYTES RELATIVE PERCENT (BEAKER) (test 9 % tric=144) MONOCYTES RELATIVE PERCENT (BEAKER) (test 10 % dzsi=948) EOSINOPHILS RELATIVE PERCENT (BEAKER) (test 3 % zjnc=457) BASOPHILS RELATIVE PERCENT (BEAKER) (test 0 % fjnc=263) NEUTROPHILS ABSOLUTE COUNT (BEAKER) (test 10.27 K/ L 1.78-5.38 rsgz=995) LYMPHOCYTES ABSOLUTE COUNT (BEAKER) (test 1.21 K/ L 1.32-3.57 yvtl=304) MONOCYTES ABSOLUTE COUNT (BEAKER) (test 1.36 K/ L 0.30-0.82 btho=074) EOSINOPHILS ABSOLUTE COUNT (BEAKER) (test 0.36 K/ L 0.04-0.54 beai=559) BASOPHILS ABSOLUTE COUNT (BEAKER) (test 0.03 K/ L 0.01-0.08 rypw=573) IMMATURE GRANULOCYTES-RELATIVE PERCENT (BEAKER) 1 % 0-1 (test mdgf=3162) POCT-GLUCOSE [id number] 21:14:00 Test Item Value Reference Range Comments POC-GLUCOSE METER (BEAKER) 104 mg/dL 70-110 TESTED AT [address] (test vrgw=2482) [facility] [address] POCT-GLUCOSE [id number] 17:12:00 Test Item Value Reference Range Comments POC-GLUCOSE METER (BEAKER) 104 mg/dL 70-110 TESTED AT [address] (test rlmj=1962) [facility] [address] POCT-GLUCOSE [id number] 13:43:00 Test Item Value Reference Range Comments POC-GLUCOSE METER (BEAKER) 116 mg/dL 70-110 TESTED AT [address] (test buhu=7355) [facility] [address] RAD, CHEST, 1 VIEW, NON [id number] 08:04:00Reason for exam:->s/p TAAAFINAL REPORT Chest one view AP 07/06/2017 8:04 AM CLINICAL INDICATION: s/p TAAA COMPARISON: 07/05/2017 IMPRESSION: There is a small volume left pleural effusion. Opacity in the left lung base may reflect atelectasis or pneumonia. The right lung is well aerated. Cardiomediastinal contours are stable. The central pulmonary vasculature is not engorged. Cardiac support hardware is unchanged in position. Signed: Young Walden Verified Date/Time: 07/06/2017 08:04:38 Reading Location: [address] Neuro Reading Room POCT-GLUCOSE [id number] 07:56:00 Test Item Value Reference Range Comments POC-GLUCOSE METER (BEAKER) 111 mg/dL 70-110 TESTED AT [address] (test nise=1467) [facility] [address] CALCIUM, [id number] 06:33:00 Test Item Value Reference Range Comments CALCIUM IONIZED (BEAKER) (test rwkf=171) 1.14 mmol/L 1.12-1.27 PH, BLOOD (BEAKER) (test rqmh=9295) 7.35 [id number] 06:17:00 Test Item Value Reference Range Comments MAGNESIUM (BEAKER) (test xulh=874) 1.9 mg/dL 1.6-2.6 BASIC METABOLIC [id number] 06:17:00 Test Item Value Reference Range Comments SODIUM (BEAKER) (test 136 meq/L 136-145 gdmy=385) POTASSIUM (BEAKER) (test 3.9 meq/L 3.5-5.1 comw=715) CHLORIDE (BEAKER) (test 104 meq/L 98-107 ttdz=149) CO2 (BEAKER) (test 24 meq/L 22-29 lpso=063) BLOOD UREA NITROGEN 37 mg/dL 7-21 (BEAKER) (test xpvx=421) CREATININE (BEAKER) (test 1.88 mg/dL 0.57-1.25 ehoe=712) GLUCOSE RANDOM (BEAKER) 90 mg/dL 70-105 (test syxw=959) CALCIUM (BEAKER) (test 8.6 mg/dL 8.4-10.2 tgjn=333) EGFR (BEAKER) (test 36 mL/min/1.73 sq m ESTIMATED GFR IS NOT fjui=3714) ACCURATE CREATININE CLEARANCE IN PREDICTING GLOMERULAR FILTRATION RATE. ESTIMATED GFR IS NOT APPLICABLE FOR DIALYSIS PATIENTS. Specimen slightly ictericCBC W/PLT COUNT & AUTO [id number] 06:10 :00 Test Item Value Reference Range Comments WHITE BLOOD CELL COUNT (BEAKER) (test zgkh=918) 15.0 K/ L 3.5-10.5 RED BLOOD CELL COUNT (BEAKER) (test lmyt=297) 3.26 M/ L 4.63-6.08 HEMOGLOBIN (BEAKER) (test jlpe=126) 9.0 GM/DL 13.7-17.5 HEMATOCRIT (BEAKER) (test acfa=598) 28.1 % 40.1-51.0 MEAN CORPUSCULAR VOLUME (BEAKER) (test waop=629) 86.2 fL 79.0-92.2 MEAN CORPUSCULAR HEMOGLOBIN (BEAKER) (test 27.6 pg 25.7-32.2 rxci=647) MEAN CORPUSCULAR HEMOGLOBIN CONC (BEAKER) (test 32.0 GM/DL 32.3-36.5 beof=723) RED CELL DISTRIBUTION WIDTH (BEAKER) (test 16.2 % 11.6-14.4 poaq=924) PLATELET COUNT (BEAKER) (test ahbh=819) 163 K/CU MM 150-450 MEAN PLATELET VOLUME (BEAKER) (test ljit=029) 9.4 fL 9.4-12.4 NUCLEATED RED BLOOD CELLS (BEAKER) (test 0 /100 WBC 0-0 bkru=795) NEUTROPHILS RELATIVE PERCENT (BEAKER) (test 78 % dalf=445) LYMPHOCYTES RELATIVE PERCENT (BEAKER) (test 10 % lwjs=135) MONOCYTES RELATIVE PERCENT (BEAKER) (test 9 % tslm=150) EOSINOPHILS RELATIVE PERCENT (BEAKER) (test 2 % uzzh=873) BASOPHILS RELATIVE PERCENT (BEAKER) (test 0 % lkiu=643) NEUTROPHILS ABSOLUTE COUNT (BEAKER) (test 11.72 K/ L 1.78-5.38 ozrs=981) LYMPHOCYTES ABSOLUTE COUNT (BEAKER) (test 1.46 K/ L 1.32-3.57 lypp=359) MONOCYTES ABSOLUTE COUNT (BEAKER) (test 1.41 K/ L 0.30-0.82 oazv=994) EOSINOPHILS ABSOLUTE COUNT (BEAKER) (test 0.27 K/ L 0.04-0.54 brdq=677) BASOPHILS ABSOLUTE COUNT (BEAKER) (test 0.03 K/ L 0.01-0.08 ljdl=809) IMMATURE GRANULOCYTES-RELATIVE PERCENT (BEAKER) 1 % 0-1 (test sopw=5819) POCT-GLUCOSE [id number] 21:07:00 Test Item Value Reference Range Comments POC-GLUCOSE METER (BEAKER) 124 mg/dL 70-110 TESTED AT [facility] [address] [place] [address] (test nhgw=4625) [facility] [address] TISSUE [id number] 17:34:00Surgical Pathology Report Case: [id number] Authorizing Provider: Shane Dubon MD Collected: 07/01/2017 1430 Ordering Location: [facility] Received: 07/02/2017 0831 PERIOPERATIVE SERVICES Pathologist: Garrett Carrillo MD Specimen: Aneurysm, 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 [employer] Supervisor sections are submitted in A1 and A2. CG/ew PerformedPOCT-GLUCOSE [id number] 16:59:00 Test Item Value Reference Range Comments POC-GLUCOSE METER (BEAKER) 113 mg/dL 70-110 TESTED AT [facility] [address] [facility] (test mzza=1758) [facility] [address] POCT-GLUCOSE [id number] 12:45:00 Test Item Value Reference Range Comments POC-GLUCOSE METER (BEAKER) 103 mg/dL 70-110 TESTED AT [address] (test meza=7987) [place] [id number] POCT-GLUCOSE [id number] 11:19:00 Test Item Value Reference Range Comments POC-GLUCOSE METER (BEAKER) 95 mg/dL 70-110 TESTED AT [address] (test fffp=0241) [place] [address] RAD, CHEST, 1 VIEW, NON [id number] 09:26:00Reason for exam:->s/p TAAAFINAL REPORT COMPARISON: 07/04/2017 TECHNIQUE: Single view of the chest FINDINGS: Interval removal of nasogastric tube. Small left pleural effusion with adjacent airspace disease identified. There is mild vascular congestion. Cardiac silhouette is enlarged. Postsurgical changes in the mediastinum noted. Right internal jugular sheath since central line noted. Signed: Elliot Rinconeport Verified Date/Time: 07/05/2017 09:26:58 Reading Location: [facility] Radiology Reading Room CALCIUM, [id number] 06:23:00 Test Item Value Reference Range Comments CALCIUM IONIZED (BEAKER) (test gjhr=329) 1.09 mmol/L 1.12-1.27 PH, BLOOD (BEAKER) (test ljtn=6740) 7.43 LACTIC ACID, VENOUS, WHOLE [id number] 05:54:00 Test Item Value Reference Range Comments LACTATE BLOOD VENOUS (2) 0.8 mmol/L 0.5-2.2 Specimen slightly hemolyzed (BEAKER) (test sjjy=3339) Effective 02/01/2016: Units/Reference Range ChangeNew: 0.5-2.2 mmol/L Previous: 5 -20 mg/dLSpecimen moderately ictericCBC W/PLT COUNT & AUTO [id number] 05:34:00 Test Item Value Reference Range Comments WHITE BLOOD CELL COUNT (BEAKER) (test zaiz=990) 14.8 K/ L 3.5-10.5 RED BLOOD CELL COUNT (BEAKER) (test lkqd=607) 3.14 M/ L 4.63-6.08 HEMOGLOBIN (BEAKER) (test vdos=083) 8.7 GM/DL 13.7-17.5 HEMATOCRIT (BEAKER) (test qmnr=834) 27.3 % 40.1-51.0 MEAN CORPUSCULAR VOLUME (BEAKER) (test cbqc=120) 86.9 fL 79.0-92.2 MEAN CORPUSCULAR HEMOGLOBIN (BEAKER) (test 27.7 pg 25.7-32.2 oszm=006) MEAN CORPUSCULAR HEMOGLOBIN CONC (BEAKER) (test 31.9 GM/DL 32.3-36.5 ibfg=019) RED CELL DISTRIBUTION WIDTH (BEAKER) (test 15.9 % 11.6-14.4 opoz=830) PLATELET COUNT (BEAKER) (test ykvj=506) 120 K/CU MM 150-450 MEAN PLATELET VOLUME (BEAKER) (test uyyn=921) 10.0 fL 9.4-12.4 NUCLEATED RED BLOOD CELLS (BEAKER) (test 0 /100 WBC 0-0 nqiv=343) NEUTROPHILS RELATIVE PERCENT (BEAKER) (test 80 % ivrv=003) LYMPHOCYTES RELATIVE PERCENT (BEAKER) (test 9 % rtub=682) MONOCYTES RELATIVE PERCENT (BEAKER) (test 10 % gzer=019) EOSINOPHILS RELATIVE PERCENT (BEAKER) (test 1 % klbm=881) BASOPHILS RELATIVE PERCENT (BEAKER) (test 0 % uzqa=345) NEUTROPHILS ABSOLUTE COUNT (BEAKER) (test 11.76 K/ L 1.78-5.38 ntcs=310) LYMPHOCYTES ABSOLUTE COUNT (BEAKER) (test 1.27 K/ L 1.32-3.57 cgjq=246) MONOCYTES ABSOLUTE COUNT (BEAKER) (test 1.40 K/ L 0.30-0.82 gmmw=870) EOSINOPHILS ABSOLUTE COUNT (BEAKER) (test 0.15 K/ L 0.04-0.54 agqd=191) BASOPHILS ABSOLUTE COUNT (BEAKER) (test 0.01 K/ L 0.01-0.08 otkh=575) IMMATURE GRANULOCYTES-RELATIVE PERCENT (BEAKER) 1 % 0-1 (test ipsj=8551) [id number] 05:27:00 Test Item Value Reference Range Comments MAGNESIUM (BEAKER) (test gtdc=799) 2.0 mg/dL 1.6-2.6 BASIC METABOLIC [id number] 05:27:00 Test Item Value Reference Range Comments SODIUM (BEAKER) (test 136 meq/L 136-145 hzzx=112) POTASSIUM (BEAKER) (test 4.1 meq/L 3.5-5.1 dylx=397) CHLORIDE (BEAKER) (test 105 meq/L 98-107 voyt=360) CO2 (BEAKER) (test 25 meq/L 22-29 eoxu=896) BLOOD UREA NITROGEN 36 mg/dL 7-21 (BEAKER) (test ryel=591) CREATININE (BEAKER) (test 2.12 mg/dL 0.57-1.25 ghbk=165) GLUCOSE RANDOM (BEAKER) 95 mg/dL 70-105 (test wmlo=273) CALCIUM (BEAKER) (test 8.4 mg/dL 8.4-10.2 vrsn=817) EGFR (BEAKER) (test 31 mL/min/1.73 sq m ESTIMATED GFR IS NOT wrbo=4439) ACCURATE CREATININE CLEARANCE IN PREDICTING GLOMERULAR FILTRATION RATE. ESTIMATED GFR IS NOT APPLICABLE FOR DIALYSIS PATIENTS. Specimen moderately ictericLACTIC ACID, VENOUS, WHOLE [id number] 23:53:00 Test Item Value Reference Range Comments LACTATE BLOOD VENOUS (2) (BEAKER) (test 1.2 mmol/L 0.5-2.2 qggd=0398) Effective 02/01/2016: Units/Reference Range ChangeNew: 0.5-2.2 mmol/L Previous: 5 -20 mg/dLSpecimen moderately ictericPOCT-GLUCOSE [id number] 20:40:00 Test Item Value Reference Range Comments POC-GLUCOSE METER (BEAKER) 134 mg/dL 70-110 TESTED AT [facility] [address] [facility] (test ohcv=4069) [facility] [address] LACTIC ACID, ARTERIAL, WHOLE [id number] 13:18:00 Test Item Value Reference Range Comments LACTATE BLOOD ARTERIAL (2) (BEAKER) (test 2.5 mmol/L 0.5-2.2 mfbd=4604) Effective 02/01/2016: Units/Reference Range ChangeNew: 0.5-2.2 mmol/L Previous: 5 -20 mg/dLSpecimen slightly ictericPOCT-GLUCOSE [id number] 12:54:00 Test Item Value Reference Range Comments POC-GLUCOSE METER (BEAKER) 82 mg/dL 70-110 TESTED AT [address] (test rlkr=0331) [place] [address] HEMOGLOBIN AND [id number] 12:36:00 Test Item Value Reference Range Comments HEMOGLOBIN (BEAKER) (test trcn=756) 8.3 GM/DL 13.7-17.5 HEMATOCRIT (BEAKER) (test zzjd=412) 25.4 % 40.1-51.0 POCT-GLUCOSE [id number] 09:16:00 Test Item Value Reference Range Comments POC-GLUCOSE METER (BEAKER) 103 mg/dL 70-110 TESTED AT [address] (test enyq=8591) [place] [address] RAD, CHEST, 1 VIEW, NON [id number] 07:28:00Reason for exam:->s/p TAAAFINAL REPORT Chest one view compared to July 03 Discussion: Pulmonary congestion is noted. There is ill-defined opacity left lung base probably atelectasis. Correlate clinically for infection. No effusion or pneumothorax. IMPRESSIONS: Left base opacity is worse. Signed: Dane Rock Verified Date/Time: 07/04/2017 07:28:18 Reading Location: [facility] Radiology Reading Room CBC W/PLT COUNT & AUTO [id number] 05:41:00 Test Item Value Reference Range Comments WHITE BLOOD CELL COUNT (BEAKER) (test zncb=716) 14.9 K/ L 3.5-10.5 RED BLOOD CELL COUNT (BEAKER) (test eqdu=988) 2.58 M/ L 4.63-6.08 HEMOGLOBIN (BEAKER) (test tapy=151) 7.1 GM/DL 13.7-17.5 HEMATOCRIT (BEAKER) (test ctme=370) 23.0 % 40.1-51.0 MEAN CORPUSCULAR VOLUME (BEAKER) (test ikcm=702) 89.1 fL 79.0-92.2 MEAN CORPUSCULAR HEMOGLOBIN (BEAKER) (test 27.5 pg 25.7-32.2 mkae=918) MEAN CORPUSCULAR HEMOGLOBIN CONC (BEAKER) (test 30.9 GM/DL 32.3-36.5 weio=836) RED CELL DISTRIBUTION WIDTH (BEAKER) (test 15.6 % 11.6-14.4 ucvx=481) PLATELET COUNT (BEAKER) (test ogfh=865) 90 K/CU MM 150-450 MEAN PLATELET VOLUME (BEAKER) (test xhhk=220) 10.2 fL 9.4-12.4 NUCLEATED RED BLOOD CELLS (BEAKER) (test 0 /100 WBC 0-0 ffnn=122) NEUTROPHILS RELATIVE PERCENT (BEAKER) (test 83 % tfbi=033) LYMPHOCYTES RELATIVE PERCENT (BEAKER) (test 6 % nrcv=128) MONOCYTES RELATIVE PERCENT (BEAKER) (test 8 % qeyy=839) EOSINOPHILS RELATIVE PERCENT (BEAKER) (test 1 % xiyi=973) BASOPHILS RELATIVE PERCENT (BEAKER) (test 0 % lels=998) NEUTROPHILS ABSOLUTE COUNT (BEAKER) (test 12.27 K/ L 1.78-5.38 dcjz=688) LYMPHOCYTES ABSOLUTE COUNT (BEAKER) (test 0.95 K/ L 1.32-3.57 mzdm=063) MONOCYTES ABSOLUTE COUNT (BEAKER) (test ghyc=948) 1.18 K/ L 0.30-0.82 EOSINOPHILS ABSOLUTE COUNT (BEAKER) (test 0.12 K/ L 0.04-0.54 zsof=093) BASOPHILS ABSOLUTE COUNT (BEAKER) (test vrbr=203) 0.02 K/ L 0.01-0.08 IMMATURE GRANULOCYTES-RELATIVE PERCENT (BEAKER) 2 % 0-1 (test qntk=3947) LACTIC ACID, ARTERIAL, WHOLE [id number] 05:38:00 Test Item Value Reference Range Comments LACTATE BLOOD ARTERIAL (2) (BEAKER) (test 2.4 mmol/L 0.5-2.2 mjfp=6034) Effective 02/01/2016: Units/Reference Range ChangeNew: 0.5-2.2 mmol/L Previous: 5 -20 mg/dLSpecimen slightly [id number] 05:37:00 Test Item Value Reference Range Comments PHOSPHORUS (BEAKER) (test ausl=231) 3.3 mg/dL 2.3-4.7 [id number] 05:37:00 Test Item Value Reference Range Comments MAGNESIUM (BEAKER) (test hafm=741) 1.9 mg/dL 1.6-2.6 BASIC METABOLIC [id number] 05:37:00 Test Item Value Reference Range Comments SODIUM (BEAKER) (test 141 meq/L 136-145 vlgc=691) POTASSIUM (BEAKER) (test 4.2 meq/L 3.5-5.1 apro=054) CHLORIDE (BEAKER) (test 108 meq/L 98-107 imdn=627) CO2 (BEAKER) (test 26 meq/L 22-29 wmrf=219) BLOOD UREA NITROGEN 29 mg/dL 7-21 (BEAKER) (test qxxt=550) CREATININE (BEAKER) (test 2.09 mg/dL 0.57-1.25 yrya=445) GLUCOSE RANDOM (BEAKER) 89 mg/dL 70-105 (test hgoy=902) CALCIUM (BEAKER) (test 8.1 mg/dL 8.4-10.2 ryxw=258) EGFR (BEAKER) (test 32 mL/min/1.73 sq m ESTIMATED GFR IS NOT qcbj=1328) ACCURATE CREATININE CLEARANCE IN PREDICTING GLOMERULAR FILTRATION RATE. ESTIMATED GFR IS NOT APPLICABLE FOR DIALYSIS PATIENTS. Specimen slightly ictericCALCIUM, [id number] 05:23:00 Test Item Value Reference Range Comments CALCIUM IONIZED (BEAKER) (test gpkk=586) 1.11 mmol/L 1.12-1.27 PH, BLOOD (BEAKER) (test ttos=4424) 7.36 OXYGEN SATURATION, [id number] 05:17:00 Test Item Value Reference Range Comments O2 SATURATION (MEASURED) (BEAKER) (test wvst=3571) 64.7 % LACTIC ACID, ARTERIAL, WHOLE [id number] 10:17:00 Test Item Value Reference Range Comments LACTATE BLOOD ARTERIAL (2) (BEAKER) (test 1.3 mmol/L 0.5-2.2 cdse=0537) Effective 02/01/2016: Units/Reference Range ChangeNew: 0.5-2.2 mmol/L Previous: 5 -20 mg/dLRAD, CHEST, 1 VIEW, NON [id number] 09:38:00Reason for exam:->pl effusionShould this be performed at the bedside?->YesFINAL REPORT Chest one view compared to July 02 Discussion: NG tube and left- sided chest tubes in place. No gross effusion or pneumothorax. Mild pulmonary congestion. Signed: Dane [place] Verified Date/Time: 07/03/2017 09:38: 50 Reading Location: [facility] Radiology Reading Room POCT-GLUCOSE [id number] 06:15:00 Test Item Value Reference Range Comments POC-GLUCOSE METER (BEAKER) 118 mg/dL 70-110 TESTED AT [address] (test wgzw=3616) [facility] [address] BASIC METABOLIC [id number] 04:19:00 Test Item Value Reference Range Comments SODIUM (BEAKER) (test 142 meq/L 136-145 yzsp=065) POTASSIUM (BEAKER) (test 4.0 meq/L 3.5-5.1 ycyz=501) CHLORIDE (BEAKER) (test 108 meq/L 98-107 xffw=722) CO2 (BEAKER) (test 26 meq/L 22-29 ajwx=859) BLOOD UREA NITROGEN 24 mg/dL 7-21 (BEAKER) (test qqep=298) CREATININE (BEAKER) (test 2.35 mg/dL 0.57-1.25 bbdy=517) GLUCOSE RANDOM (BEAKER) 105 mg/dL 70-105 (test jool=125) CALCIUM (BEAKER) (test 8.1 mg/dL 8.4-10.2 odta=183) EGFR (BEAKER) (test 28 mL/min/1.73 sq m ESTIMATED GFR IS NOT nkln=2893) ACCURATE CREATININE CLEARANCE IN PREDICTING GLOMERULAR FILTRATION RATE. ESTIMATED GFR IS NOT APPLICABLE FOR DIALYSIS PATIENTS. [id number] 04:18:00 Test Item Value Reference Range Comments PHOSPHORUS (BEAKER) (test enhm=046) 4.9 mg/dL 2.3-4.7 [id number] 04:18:00 Test Item Value Reference Range Comments MAGNESIUM (BEAKER) (test cqfv=265) 1.9 mg/dL 1.6-2.6 CBC W/PLT COUNT & AUTO [id number] 04:05:00 Test Item Value Reference Range Comments WHITE BLOOD CELL COUNT (BEAKER) (test yfep=453) 13.4 K/ L 3.5-10.5 RED BLOOD CELL COUNT (BEAKER) (test okjt=799) 3.00 M/ L 4.63-6.08 HEMOGLOBIN (BEAKER) (test thpa=852) 8.0 GM/DL 13.7-17.5 HEMATOCRIT (BEAKER) (test tbav=138) 26.2 % 40.1-51.0 MEAN CORPUSCULAR VOLUME (BEAKER) (test diya=194) 87.3 fL 79.0-92.2 MEAN CORPUSCULAR HEMOGLOBIN (BEAKER) (test 26.7 pg 25.7-32.2 woei=071) MEAN CORPUSCULAR HEMOGLOBIN CONC (BEAKER) (test 30.5 GM/DL 32.3-36.5 flve=075) RED CELL DISTRIBUTION WIDTH (BEAKER) (test 15.0 % 11.6-14.4 vuwh=784) PLATELET COUNT (BEAKER) (test svzs=347) 76 K/CU MM 150-450 MEAN PLATELET VOLUME (BEAKER) (test jtlf=238) 9.5 fL 9.4-12.4 NUCLEATED RED BLOOD CELLS (BEAKER) (test 0 /100 WBC 0-0 keum=605) NEUTROPHILS RELATIVE PERCENT (BEAKER) (test 82 % yprk=208) LYMPHOCYTES RELATIVE PERCENT (BEAKER) (test 8 % olgu=144) MONOCYTES RELATIVE PERCENT (BEAKER) (test 8 % ugcp=105) EOSINOPHILS RELATIVE PERCENT (BEAKER) (test 1 % prkv=050) BASOPHILS RELATIVE PERCENT (BEAKER) (test 0 % hobm=018) NEUTROPHILS ABSOLUTE COUNT (BEAKER) (test 10.99 K/ L 1.78-5.38 rruh=179) LYMPHOCYTES ABSOLUTE COUNT (BEAKER) (test 1.05 K/ L 1.32-3.57 zviq=656) MONOCYTES ABSOLUTE COUNT (BEAKER) (test wetr=368) 1.06 K/ L 0.30-0.82 EOSINOPHILS ABSOLUTE COUNT (BEAKER) (test 0.17 K/ L 0.04-0.54 bgsu=899) BASOPHILS ABSOLUTE COUNT (BEAKER) (test aoyz=608) 0.02 K/ L 0.01-0.08 IMMATURE GRANULOCYTES-RELATIVE PERCENT (BEAKER) 1 % 0-1 (test hmzf=4252) POCT-GLUCOSE [id number] 17:58:00 Test Item Value Reference Range Comments POC-GLUCOSE METER (BEAKER) 137 mg/dL 70-110 TESTED AT [address] (test ozcb=7800) [place] [id number] POCT-GLUCOSE [id number] 12:03:00 Test Item Value Reference Range Comments POC-GLUCOSE METER (BEAKER) 134 mg/dL 70-110 TESTED AT [address] (test xttx=0942) [place] [id number] BLOOD GAS, [id number] 08:45:00 Test Item Value Reference Range Comments PH ARTERIAL (BEAKER) (test gqcg=287) 7.45 7.35-7.45 PCO2 ARTERIAL (BEAKER) (test rjgr=176) 37 mmHg 35-45 PO2 ARTERIAL (BEAKER) (test pufy=089) 203 mmHg 80-90 O2 SATURATION ARTERIAL (BEAKER) (test nfph=692) 99.4 % 96.0-97.0 HCO3 ARTERIAL (BEAKER) (test heli=386) 25 mmol/L 21-29 BASE EXCESS ARTERIAL (BEAKER) (test qxay=318) 1.2 mmol/L -2.0-3.0 PATIENT TEMPERATURE (BEAKER) (test zslp=4213) 37.2 C FIO2 (BEAKER) (test rpik=5952) 40.0 % RAD, CHEST, 1 VIEW, NON [id number] 08:42:00Reason for exam:->s/p TAAAShould this be performed at the bedside?->YesFINAL REPORT Chest one view. Clinical history: s/p TAAA Comparison: 07/01/2017 Discussion: A frontal chest is provided. Lines and tubes are unchanged. Stable cardiomediastinal contours. No new consolidation. No pneumothorax, probable small right pleural effusion. Signed: Fortino Maxwell Verified Date/Time: 11/2016 08:42:08 Reading Location: [facility] Radiology ReadingRoom BASIC METABOLIC [id number] 06:14:00 Test Item Value Reference Range Comments SODIUM (BEAKER) (test 140 meq/L 136-145 agap=417) POTASSIUM (BEAKER) (test 4.6 meq/L 3.5-5.1 ultr=744) CHLORIDE (BEAKER) (test 104 meq/L 98-107 zrpx=961) CO2 (BEAKER) (test 23 meq/L 22-29 hzxq=628) BLOOD UREA NITROGEN 20 mg/dL 7-21 (BEAKER) (test hytw=941) CREATININE (BEAKER) (test 2.40 mg/dL 0.57-1.25 lypq=535) GLUCOSE RANDOM (BEAKER) 144 mg/dL 70-105 (test srsn=856) CALCIUM (BEAKER) (test 8.7 mg/dL 8.4-10.2 trfe=111) EGFR (BEAKER) (test 27 mL/min/1.73 sq m ESTIMATED GFR IS NOT ywhj=8701) ACCURATE CREATININE CLEARANCE IN PREDICTING GLOMERULAR FILTRATION RATE. ESTIMATED GFR IS NOT APPLICABLE FOR DIALYSIS PATIENTS. Specimen slightly ictericCBC W/PLT COUNT & AUTO [id number] 06:10 :00 Test Item Value Reference Range Comments WHITE BLOOD CELL COUNT (BEAKER) (test qftv=701) 12.2 K/ L 3.5-10.5 RED BLOOD CELL COUNT (BEAKER) (test wwco=429) 3.51 M/ L 4.63-6.08 HEMOGLOBIN (BEAKER) (test yepm=630) 9.7 GM/DL 13.7-17.5 HEMATOCRIT (BEAKER) (test nvwx=133) 29.9 % 40.1-51.0 MEAN CORPUSCULAR VOLUME (BEAKER) (test ukfh=505) 85.2 fL 79.0-92.2 MEAN CORPUSCULAR HEMOGLOBIN (BEAKER) (test 27.6 pg 25.7-32.2 vyom=594) MEAN CORPUSCULAR HEMOGLOBIN CONC (BEAKER) (test 32.4 GM/DL 32.3-36.5 tjdu=405) RED CELL DISTRIBUTION WIDTH (BEAKER) (test 14.9 % 11.6-14.4 pmnp=411) PLATELET COUNT (BEAKER) (test ujxc=470) 78 K/CU MM 150-450 MEAN PLATELET VOLUME (BEAKER) (test clgk=617) 10.0 fL 9.4-12.4 NUCLEATED RED BLOOD CELLS (BEAKER) (test 0 /100 WBC 0-0 rahb=399) NEUTROPHILS RELATIVE PERCENT (BEAKER) (test 82 % gqsn=769) LYMPHOCYTES RELATIVE PERCENT (BEAKER) (test 9 % zonp=838) MONOCYTES RELATIVE PERCENT (BEAKER) (test 8 % auoy=707) EOSINOPHILS RELATIVE PERCENT (BEAKER) (test 0 % itxf=447) BASOPHILS RELATIVE PERCENT (BEAKER) (test 0 % osiu=540) NEUTROPHILS ABSOLUTE COUNT (BEAKER) (test 9.97 K/ L 1.78-5.38 hmha=309) LYMPHOCYTES ABSOLUTE COUNT (BEAKER) (test 1.14 K/ L 1.32-3.57 mzno=041) MONOCYTES ABSOLUTE COUNT (BEAKER) (test bbmh=708) 0.98 K/ L 0.30-0.82 EOSINOPHILS ABSOLUTE COUNT (BEAKER) (test 0.00 K/ L 0.04-0.54 reyp=660) BASOPHILS ABSOLUTE COUNT (BEAKER) (test mice=866) 0.03 K/ L 0.01-0.08 IMMATURE GRANULOCYTES-RELATIVE PERCENT (BEAKER) 1 % 0-1 (test ejbt=2775) [id number] 06:09:00 Test Item Value Reference Range Comments MAGNESIUM (BEAKER) (test dwfx=418) 2.2 mg/dL 1.6-2.6 LACTIC ACID, ARTERIAL, WHOLE [id number] 06:01:00 Test Item Value Reference Range Comments LACTATE BLOOD ARTERIAL (2) 2.6 mmol/L 0.5-2.2 Specimen slightly hemolyzed (BEAKER) (test uvpz=1464) Effective 02/01/2016: Units/Reference Range ChangeNew: 0.5-2.2 mmol/L Previous: 5 -20 mg/dLPOCT-GLUCOSE [id number] 05:59:00 Test Item Value Reference Range Comments POC-GLUCOSE METER (BEAKER) 146 mg/dL 70-110 TESTED AT [address] (test rrcp=2512) [facility] [address] BLOOD GAS, [id number] 05:36:00 Test Item Value Reference Range Comments PH ARTERIAL (BEAKER) (test liyx=932) 7.44 7.35-7.45 PCO2 ARTERIAL (BEAKER) (test fxkl=094) 38 mmHg 35-45 PO2 ARTERIAL (BEAKER) (test qvtf=437) 180 mmHg 80-90 O2 SATURATION ARTERIAL (BEAKER) (test ugju=196) 99.3 % 96.0-97.0 HCO3 ARTERIAL (BEAKER) (test grsz=137) 25 mmol/L 21-29 BASE EXCESS ARTERIAL (BEAKER) (test abds=490) 0.7 mmol/L -2.0-3.0 PATIENT TEMPERATURE (BEAKER) (test xipc=1485) 37.1 C FIO2 (BEAKER) (test nvqn=5248) 60.0 % If A-Line onlyCALCIUM, [id number] 05:36:00 Test Item Value Reference Range Comments CALCIUM IONIZED (BEAKER) (test itlw=789) 1.07 mmol/L 1.12-1.27 PH, BLOOD (BEAKER) (test louz=7605) 7.44 OXYGEN SATURATION, [id number] 05:35:00 Test Item Value Reference Range Comments O2 SATURATION (MEASURED) (BEAKER) (test mtca=2137) 74.1 % POCT-GLUCOSE [id number] 02:13:00 Test Item Value Reference Range Comments POC-GLUCOSE METER (BEAKER) 149 mg/dL 70-110 TESTED AT [address] (test kxof=2248) [facility] [address] [id number] 20:01:00 Test Item Value Reference Range Comments POTASSIUM (BEAKER) (test 4.4 meq/L 3.5-5.1 Specimen moderately hemolyzed vqin=300) BASIC METABOLIC [id number] 20:01:00 Test Item Value Reference Range Comments SODIUM (BEAKER) (test 140 meq/L 136-145 keqf=429) POTASSIUM (BEAKER) (test 4.4 meq/L 3.5-5.1 Specimen moderately kgin=845) hemolyzed CHLORIDE (BEAKER) (test 106 meq/L 98-107 ebug=796) CO2 (BEAKER) (test 21 meq/L 22-29 xuvl=717) BLOOD UREA NITROGEN 16 mg/dL 7-21 (BEAKER) (test tfkj=068) CREATININE (BEAKER) (test 1.84 mg/dL 0.57-1.25 Specimen moderately sizn=124) hemolyzed GLUCOSE RANDOM (BEAKER) 191 mg/dL 70-105 (test vebr=113) CALCIUM (BEAKER) (test 9.3 mg/dL 8.4-10.2 qqix=228) EGFR (BEAKER) (test 37 mL/min/1.73 sq m ESTIMATED GFR IS NOT bkyo=5710) ACCURATE CREATININE CLEARANCE IN PREDICTING GLOMERULAR FILTRATION RATE. ESTIMATED GFR IS NOT APPLICABLE FOR DIALYSIS PATIENTS. Specimen slightly ictericCBC W/PLT COUNT & AUTO [id number] 20:01 :00 Test Item Value Reference Range Comments WHITE BLOOD CELL COUNT (BEAKER) (test rvtc=140) 10.1 K/ L 3.5-10.5 RED BLOOD CELL COUNT (BEAKER) (test pdnr=265) 3.40 M/ L 4.63-6.08 HEMOGLOBIN (BEAKER) (test tqar=510) 9.4 GM/DL 13.7-17.5 HEMATOCRIT (BEAKER) (test xijy=874) 28.9 % 40.1-51.0 MEAN CORPUSCULAR VOLUME (BEAKER) (test tkyl=489) 85.0 fL 79.0-92.2 MEAN CORPUSCULAR HEMOGLOBIN (BEAKER) (test 27.6 pg 25.7-32.2 jfzg=149) MEAN CORPUSCULAR HEMOGLOBIN CONC (BEAKER) (test 32.5 GM/DL 32.3-36.5 okkn=026) RED CELL DISTRIBUTION WIDTH (BEAKER) (test 14.6 % 11.6-14.4 zggc=415) PLATELET COUNT (BEAKER) (test shnb=679) 79 K/CU MM 150-450 MEAN PLATELET VOLUME (BEAKER) (test kzhc=816) 9.3 fL 9.4-12.4 NUCLEATED RED BLOOD CELLS (BEAKER) (test 0 /100 WBC 0-0 goys=131) NEUTROPHILS RELATIVE PERCENT (BEAKER) (test 79 % ocby=543) LYMPHOCYTES RELATIVE PERCENT (BEAKER) (test 11 % akuh=204) MONOCYTES RELATIVE PERCENT (BEAKER) (test 9 % jfil=127) EOSINOPHILS RELATIVE PERCENT (BEAKER) (test 0 % ugoj=941) BASOPHILS RELATIVE PERCENT (BEAKER) (test 0 % nlzx=216) NEUTROPHILS ABSOLUTE COUNT (BEAKER) (test 7.93 K/ L 1.78-5.38 eirg=530) LYMPHOCYTES ABSOLUTE COUNT (BEAKER) (test 1.11 K/ L 1.32-3.57 flef=897) MONOCYTES ABSOLUTE COUNT (BEAKER) (test vkjl=378) 0.94 K/ L 0.30-0.82 EOSINOPHILS ABSOLUTE COUNT (BEAKER) (test 0.02 K/ L 0.04-0.54 yvoo=017) BASOPHILS ABSOLUTE COUNT (BEAKER) (test fpgy=158) 0.01 K/ L 0.01-0.08 IMMATURE GRANULOCYTES-RELATIVE PERCENT (BEAKER) 1 % 0-1 (test cbgn=9167) [id number] 17:16:00 Test Item Value Reference Range Comments MAGNESIUM (BEAKER) (test 2.3 mg/dL 1.6-2.6 Specimen moderately hemolyzed mlwb=830) [id number] 17:16:00 Test Item Value Reference Range Comments PHOSPHORUS (BEAKER) (test 4.5 mg/dL 2.3-4.7 Specimen moderately hemolyzed hock=550) BASIC METABOLIC [id number] 17:16:00 Test Item Value Reference Range Comments SODIUM (BEAKER) (test 140 meq/L 136-145 iucn=748) POTASSIUM (BEAKER) (test 5.1 meq/L 3.5-5.1 Specimen moderately zjrw=314) hemolyzed CHLORIDE (BEAKER) (test 108 meq/L 98-107 xdba=334) CO2 (BEAKER) (test 22 meq/L 22-29 jxqf=837) BLOOD UREA NITROGEN 15 mg/dL 7-21 (BEAKER) (test ssoa=807) CREATININE (BEAKER) (test 1.42 mg/dL 0.57-1.25 Specimen moderately vuuo=257) hemolyzed GLUCOSE RANDOM (BEAKER) 146 mg/dL 70-105 (test kswy=459) CALCIUM (BEAKER) (test 9.3 mg/dL 8.4-10.2 rjlh=536) EGFR (BEAKER) (test 50 mL/min/1.73 sq m ESTIMATED GFR IS NOT seef=5626) ACCURATE CREATININE CLEARANCE IN PREDICTING GLOMERULAR FILTRATION RATE. ESTIMATED GFR IS NOT APPLICABLE FOR DIALYSIS PATIENTS. LACTIC ACID, ARTERIAL, WHOLE [id number] 17:13:00 Test Item Value Reference Range Comments LACTATE BLOOD ARTERIAL (2) 3.7 mmol/L 0.5-2.2 Specimen moderately hemolyzed (BEAKER) (test jyig=8854) Effective 02/01/2016: Units/Reference Range ChangeNew: 0.5-2.2 mmol/L Previous: 5 -20 mg/[id number] 17:06:00 Test Item Value Reference Range Comments ACTIVATED CLOTTING TIME (BEAKER) 98 sec TESTED AT [facility] [address] [facility] (test ccod=696) [facility] [address] [id number] 17:06:00 Test Item Value Reference Range Comments ACTIVATED CLOTTING TIME 235 sec TESTED AT [facility] [address] [place] [address] (BEAKER) (test qqqg=453) [facility] [address] RAD, CHEST, 1 VIEW, NON [id number] 16:50:00Reason for exam:->immediate post abdominal aneurysm repair/intubationShould this be performed at the bedside ?->YesFINAL REPORT Chest one view. Clinical history: immediate post abdominal aneurysm repair/intubation Comparison: June 24, 2017 Discussion: A frontal chest is provided. ET is approximately 5 cm above the manasa. A feeding tube terminates in the gastric fundus. There is a left- sided chest tube. There is a small right-sided pleural effusion. No definite pneumothorax. Status post median sternotomy. There is mild left chest wall subcutaneous emphysema. Signed: Fortino Maxwell MDReportVerified Date/Time: 2016 16:50:22 Reading Location: [address] Consult Reading Room [id number] 16:44:00 Test Item Value Reference Range Comments FIBRINOGEN LEVEL (BEAKER) (test hcwk=730) 220 mg/dl 225-434 [id number] 16:44:00 Test Item Value Reference Range Comments PARTIAL THROMBOPLASTIN TIME (BEAKER) (test 34.5 seconds 22.5-36.0 iyqv=104) PROTHROMBIN TIME/[id number] 16:43:00 Test Item Value Reference Range Comments PROTIME (BEAKER) (test bpva=943) 18.3 seconds 11.7-14.7 INR (BEAKER) (test hucb=376) 1.5 <=5.9 RECOMMENDED COUMADIN/WARFARIN INR THERAPY RANGESSTANDARD DOSE: 2.0 - 3.0 Includes: PROPHYLAXIS forvenous thrombosis, systemic embolization; TREATMENT for venous thrombosis and/or pulmonary embolus.HIGH RISK: Target INR is 2.5-3.5 for patients with mechanical heart valves.OXYGEN SATURATION, [id number] 15:57:00 Test Item Value Reference Range Comments O2 SATURATION (MEASURED) (BEAKER) (test qnbm=1238) 67.9 % CALCIUM, [id number] 15:55:00 Test Item Value Reference Range Comments CALCIUM IONIZED (BEAKER) (test kzpt=007) 1.18 mmol/L 1.12-1.27 PH, BLOOD (BEAKER) (test wykh=0749) 7.47 POTASSIUM-STAT [id number] 15:55:00 Test Item Value Reference Range Comments POTASSIUM (BEAKER) (test fbdr=280) 5.0 meq/L 3.6-5.5 BLOOD GAS, [id number] 15:55:00 Test Item Value Reference Range Comments PH ARTERIAL (BEAKER) (test qvmn=830) 7.47 7.35-7.45 PCO2 ARTERIAL (BEAKER) (test ipir=704) 32 mmHg 35-45 PO2 ARTERIAL (BEAKER) (test hyse=700) 226 mmHg 80-90 O2 SATURATION ARTERIAL (BEAKER) (test toau=829) 99.6 % 96.0-97.0 HCO3 ARTERIAL (BEAKER) (test lbbh=018) 23 mmol/L 21-29 BASE EXCESS ARTERIAL (BEAKER) (test vdsl=616) -0.4 mmol/L -2.0-3.0 PATIENT TEMPERATURE (BEAKER) (test ybtm=6007) 36.6 C FIO2 (BEAKER) (test qoog=7426) 60.0 % BLOOD GAS, [id number] 14:39:00 Test Item Value Reference Range Comments PH ARTERIAL (BEAKER) (test ecxq=682) 7.47 7.35-7.45 PCO2 ARTERIAL (BEAKER) (test qfmu=231) 33 mmHg 35-45 PO2 ARTERIAL (BEAKER) (test tecj=408) 418 mmHg 80-90 O2 SATURATION ARTERIAL (BEAKER) (test udbj=521) 99.9 % 96.0-97.0 HCO3 ARTERIAL (BEAKER) (test phus=235) 23 mmol/L 21-29 BASE EXCESS ARTERIAL (BEAKER) (test cggt=325) -0.3 mmol/L -2.0-3.0 PATIENT TEMPERATURE (BEAKER) (test tatq=3098) 36.0 C FIO2 (BEAKER) (test wjfm=4111) 100.0 % SODIUM NA-STAT [id number] 14:39:00 Test Item Value Reference Range Comments SODIUM (BEAKER) (test hnxc=605) 134 meq/L 135-148 GLUCOSE-STAT [id number] 14:39:00 Test Item Value Reference Range Comments GLUCOSE RANDOM (BEAKER) (test gokt=137) 173 mg/dL 70-110 HGB/HCT (H&H) - STAT [id number] 14:39:00 Test Item Value Reference Range Comments HEMOGLOBIN (BEAKER) (test cxiy=529) 9.8 g/dL 13.0-16.8 HEMATOCRIT (BEAKER) (test hrwc=419) 29.0 % 40.0-50.0 POTASSIUM-STAT [id number] 14:37:00 Test Item Value Reference Range Comments POTASSIUM (BEAKER) (test yxja=259) 5.2 meq/L 3.6-5.5 THROMBOELASTOGRAPH (TEG)[id number] 14:23:00 Test Item Value Reference Range Comments TEG ACTIVATED CLOTTING TIME (BEAKER) (test 6.0 minutes 4.0-7.0 buht=7381) TEG FIBRINOGEN ACTIVITY (BEAKER) (test 46.8 degrees 61.0-73.0 faie=1223) TEG PLT. AGGREGATION (BEAKER) (test psig=2460) 52.5 MM 55.0-65.0 TGH ACTIVATED CLOTTING TIME (BEAKER) (test 6.6 minutes 4.0-7.0 feox=2077) TGH FIBRINOGEN ACTIVITY (BEAKER) (test 62.2 degrees 61.0-73.0 nqkf=4423) TGH PLT. AGGREGATION (BEAKER) (test xidn=9485) 49.5 MM 55.0-65.0 BLOOD GAS, [id number] 13:54:00 Test Item Value Reference Range Comments PH ARTERIAL (BEAKER) (test lprh=564) 7.40 7.35-7.45 PCO2 ARTERIAL (BEAKER) (test gwfl=858) 37 mmHg 35-45 PO2 ARTERIAL (BEAKER) (test bedq=679) 340 mmHg 80-90 O2 SATURATION ARTERIAL (BEAKER) (test uryl=925) 99.8 % 96.0-97.0 HCO3 ARTERIAL (BEAKER) (test dtxb=971) 22 mmol/L 21-29 BASE EXCESS ARTERIAL (BEAKER) (test pmry=751) -2.5 mmol/L -2.0-3.0 PATIENT TEMPERATURE (BEAKER) (test eqdg=6926) 36.0 C FIO2 (BEAKER) (test oqan=1669) 100.0 % SODIUM NA-STAT [id number] 13:54:00 Test Item Value Reference Range Comments SODIUM (BEAKER) (test xyqk=635) 133 meq/L 135-148 GLUCOSE-STAT [id number] 13:54:00 Test Item Value Reference Range Comments GLUCOSE RANDOM (BEAKER) (test ljzq=258) 199 mg/dL 70-110 HGB/HCT (H&H) - STAT [id number] 13:54:00 Test Item Value Reference Range Comments HEMOGLOBIN (BEAKER) (test voky=654) 9.8 g/dL 13.0-16.8 HEMATOCRIT (BEAKER) (test sprj=580) 29.0 % 40.0-50.0 CALCIUM, [id number] 13:51:00 Test Item Value Reference Range Comments CALCIUM IONIZED (BEAKER) (test mnxr=521) 1.20 mmol/L 1.12-1.27 PH, BLOOD (BEAKER) (test bryz=4302) 7.38 POTASSIUM-STAT [id number] 13:51:00 Test Item Value Reference Range Comments POTASSIUM (BEAKER) (test ndus=796) 5.0 meq/L 3.6-5.5 PROTHROMBIN [id number] 13:27:00 Test Item Value Reference Range Comments PROTIME (BEAKER) (test uehl=366) 19.7 seconds 11.7-14.7 INR (BEAKER) (test omja=775) 1.7 <=5.9 RECOMMENDED COUMADIN/WARFARIN INR THERAPY RANGESSTANDARD DOSE: 2.0 - 3.0 Includes: PROPHYLAXIS forvenous thrombosis, systemic embolization; TREATMENT for venous thrombosis and/or pulmonary embolus.HIGH RISK: Target INR is 2.5-3.5 for patients with mechanical heart valves.[id number] 13:27:00 Test Item Value Reference Range Comments PARTIAL THROMBOPLASTIN TIME (BEAKER) (test 28.3 seconds 22.5-36.0 dwgz=393) [id number] 13:27:00 Test Item Value Reference Range Comments FIBRINOGEN LEVEL (BEAKER) (test zmic=612) 223 mg/dl 225-434 PLATELET [id number] 13:13:00 Test Item Value Reference Range Comments PLATELET COUNT (BEAKER) (test qvkc=312) 81 K/CU MM 150-450 BLOOD GAS, [id number] 13:03:00 Test Item Value Reference Range Comments PH ARTERIAL (BEAKER) (test hduu=537) 7.33 7.35-7.45 PCO2 ARTERIAL (BEAKER) (test bufv=685) 41 mmHg 35-45 PO2 ARTERIAL (BEAKER) (test albh=366) 350 mmHg 80-90 O2 SATURATION ARTERIAL (BEAKER) (test vljh=225) 99.7 % 96.0-97.0 HCO3 ARTERIAL (BEAKER) (test czgn=930) 21 mmol/L 21-29 BASE EXCESS ARTERIAL (BEAKER) (test jufc=606) -4.7 mmol/L -2.0-3.0 PATIENT TEMPERATURE (BEAKER) (test iqxr=4110) 35.6 C FIO2 (BEAKER) (test jtkv=1977) 100.0 % GLUCOSE-STAT [id number] 13:03:00 Test Item Value Reference Range Comments GLUCOSE RANDOM (BEAKER) (test fege=358) 227 mg/dL 70-110 HGB/HCT (H&H) - STAT [id number] 13:03:00 Test Item Value Reference Range Comments HEMOGLOBIN (BEAKER) (test qjva=029) 8.2 g/dL 13.0-16.8 HEMATOCRIT (BEAKER) (test vfxh=009) 24.0 % 40.0-50.0 CALCIUM, [id number] 13:03:00 Test Item Value Reference Range Comments CALCIUM IONIZED (BEAKER) (test reiz=087) 1.05 mmol/L 1.12-1.27 PH, BLOOD (BEAKER) (test cbpl=7069) 7.31 SODIUM NA-STAT [id number] 13:00:00 Test Item Value Reference Range Comments SODIUM (BEAKER) (test fcdk=911) 136 meq/L 135-148 POTASSIUM-STAT [id number] 13:00:00 Test Item Value Reference Range Comments POTASSIUM (BEAKER) (test omxv=113) 4.6 meq/L 3.6-5.5 SODIUM NA-STAT [id number] 11:54:00 Test Item Value Reference Range Comments SODIUM (BEAKER) (test exmy=549) 135 meq/L 135-148 POTASSIUM-STAT [id number] 11:54:00 Test Item Value Reference Range Comments POTASSIUM (BEAKER) (test rgbg=701) 3.8 meq/L 3.6-5.5 BLOOD GAS, [id number] 11:54:00 Test Item Value Reference Range Comments PH ARTERIAL (BEAKER) (test gmzj=355) 7.31 7.35-7.45 PCO2 ARTERIAL (BEAKER) (test zyfj=861) 44 mmHg 35-45 PO2 ARTERIAL (BEAKER) (test nrsw=739) 355 mmHg 80-90 O2 SATURATION ARTERIAL (BEAKER) (test lbwi=749) 99.7 % 96.0-97.0 HCO3 ARTERIAL (BEAKER) (test vsuw=200) 22 mmol/L 21-29 BASE EXCESS ARTERIAL (BEAKER) (test pqze=922) -4.5 mmol/L -2.0-3.0 PATIENT TEMPERATURE (BEAKER) (test aygn=8002) 35.0 C FIO2 (BEAKER) (test ontw=7983) 100.0 % GLUCOSE-STAT [id number] 11:54:00 Test Item Value Reference Range Comments GLUCOSE RANDOM (BEAKER) (test ymlk=954) 373 mg/dL 70-110 HGB/HCT (H&H) - STAT [id number] 11:54:00 Test Item Value Reference Range Comments HEMOGLOBIN (BEAKER) (test zjrj=853) 8.4 g/dL 13.0-16.8 HEMATOCRIT (BEAKER) (test pchg=364) 25.0 % 40.0-50.0 BLOOD GAS, [id number] 11:32:00 Test Item Value Reference Range Comments PH ARTERIAL (BEAKER) (test ewvn=343) 7.44 7.35-7.45 PCO2 ARTERIAL (BEAKER) (test nefv=497) 32 mmHg 35-45 PO2 ARTERIAL (BEAKER) (test pkdy=013) 333 mmHg 80-90 O2 SATURATION ARTERIAL (BEAKER) (test nsbr=421) 99.8 % 96.0-97.0 HCO3 ARTERIAL (BEAKER) (test eond=659) 21 mmol/L 21-29 BASE EXCESS ARTERIAL (BEAKER) (test qrbu=255) -2.9 mmol/L -2.0-3.0 PATIENT TEMPERATURE (BEAKER) (test egrz=8458) 35.0 C FIO2 (BEAKER) (test imgi=6262) 100.0 % SODIUM NA-STAT [id number] 11:32:00 Test Item Value Reference Range Comments SODIUM (BEAKER) (test pepz=505) 133 meq/L 135-148 GLUCOSE-STAT [id number] 11:32:00 Test Item Value Reference Range Comments GLUCOSE RANDOM (BEAKER) (test bqfi=714) 148 mg/dL 70-110 HGB/HCT (H&H) - STAT [id number] 11:32:00 Test Item Value Reference Range Comments HEMOGLOBIN (BEAKER) (test sjys=471) 9.8 g/dL 13.0-16.8 HEMATOCRIT (BEAKER) (test fspc=585) 29.0 % 40.0-50.0 CALCIUM, [id number] 11:32:00 Test Item Value Reference Range Comments CALCIUM IONIZED (BEAKER) (test uorv=440) 0.94 mmol/L 1.12-1.27 PH, BLOOD (BEAKER) (test nnju=7533) 7.41 POTASSIUM-STAT [id number] 11:31:00 Test Item Value Reference Range Comments POTASSIUM (BEAKER) (test madu=256) 4.5 meq/L 3.6-5.5 BLOOD GAS, [id number] 11:07:00 Test Item Value Reference Range Comments PH ARTERIAL (BEAKER) (test qgdc=401) 7.40 7.35-7.45 PCO2 ARTERIAL (BEAKER) (test mtmk=422) 36 mmHg 35-45 PO2 ARTERIAL (BEAKER) (test cypk=960) 333 mmHg 80-90 O2 SATURATION ARTERIAL (BEAKER) (test cace=261) 99.7 % 96.0-97.0 HCO3 ARTERIAL (BEAKER) (test uahn=961) 22 mmol/L 21-29 BASE EXCESS ARTERIAL (BEAKER) (test ywim=228) -2.6 mmol/L -2.0-3.0 PATIENT TEMPERATURE (BEAKER) (test bfcu=2480) 35.4 C FIO2 (BEAKER) (test bsnq=3814) 100.0 % SODIUM NA-STAT [id number] 11:07:00 Test Item Value Reference Range Comments SODIUM (BEAKER) (test dpmk=079) 133 meq/L 135-148 GLUCOSE-STAT [id number] 11:07:00 Test Item Value Reference Range Comments GLUCOSE RANDOM (BEAKER) (test jlez=653) 146 mg/dL 70-110 HGB/HCT (H&H) - STAT [id number] 11:07:00 Test Item Value Reference Range Comments HEMOGLOBIN (BEAKER) (test uilo=561) 10.3 g/dL 13.0-16.8 HEMATOCRIT (BEAKER) (test kkvc=227) 30.0 % 40.0-50.0 POTASSIUM-STAT [id number] 11:04:00 Test Item Value Reference Range Comments POTASSIUM (BEAKER) (test ikrm=620) 3.9 meq/L 3.6-5.5 GLUCOSE-STAT [id number] 09:06:00 Test Item Value Reference Range Comments GLUCOSE RANDOM (BEAKER) (test ojcz=197) 103 mg/dL 70-110 POTASSIUM-STAT [id number] 09:06:00 Test Item Value Reference Range Comments POTASSIUM (BEAKER) (test zwam=100) 3.9 meq/L 3.6-5.5 BLOOD GAS, [id number] 09:06:00 Test Item Value Reference Range Comments PH ARTERIAL (BEAKER) (test mvyy=603) 7.46 7.35-7.45 PCO2 ARTERIAL (BEAKER) (test pyal=161) 35 mmHg 35-45 PO2 ARTERIAL (BEAKER) (test lszn=108) 436 mmHg 80-90 O2 SATURATION ARTERIAL (BEAKER) (test rycm=358) 99.9 % 96.0-97.0 HCO3 ARTERIAL (BEAKER) (test twde=938) 24 mmol/L 21-29 BASE EXCESS ARTERIAL (BEAKER) (test zxgy=995) 0.8 mmol/L -2.0-3.0 PATIENT TEMPERATURE (BEAKER) (test znrs=4420) 37.0 C FIO2 (BEAKER) (test lcrc=0457) 100.0 % SODIUM NA-STAT [id number] 09:06:00 Test Item Value Reference Range Comments SODIUM (BEAKER) (test heqg=690) 134 meq/L 135-148 HGB/HCT (H&H) - STAT [id number] 09:06:00 Test Item Value Reference Range Comments HEMOGLOBIN (BEAKER) (test dgnv=840) 10.8 g/dL 13.0-16.8 HEMATOCRIT (BEAKER) (test oiux=004) 32.0 % 40.0-50.0 RAD, CHEST, 2 [id number] 15:12:00Reason for Exam:->Pre-OpFINAL REPORT EXAM: Frontal and lateral chest radiograph HISTORY: Pre- op COMPARISON: 01/27/2017 IMPRESSION:Postsurgical changes of median sternotomy are noted with surgical clips in the chest as well. Minimal blunting of the left costophrenic angle suggests a small pleural effusion. No focal consolidation or pneumothorax is identified. The pulmonary vasculature does not appear engorged. The cardiac silhouette is stable. No acute osseous abnormality. A tubular curvilinear structure in the right upper lung field on the frontal view is likely external and not seen on the lateral view. Signed: Reynold Underwood MDReport Verified Date/Time: 06/24/2017 15:12:20 Reading Location: [facility] Mammo Reading Room HEMOGLOBIN [id number] 14:31:00 Test Item Value Reference Range Comments HEMOGLOBIN A1C (BEAKER) (test lqbc=948) 5.5 % 4.3-6.1 [id number] 14:24:00 Test Item Value Reference Range Comments BLOOD UREA NITROGEN (BEAKER) (test otup=535) 14 mg/dL 7-21 [id number] 14:24:00 Test Item Value Reference Range Comments SODIUM (BEAKER) (test uxgi=168) 138 meq/L 136-145 POTASSIUM (BEAKER) (test jtdu=653) 4.2 meq/L 3.5-5.1 CHLORIDE (BEAKER) (test jtoe=358) 104 meq/L 98-107 CO2 (BEAKER) (test bfpl=195) 27 meq/L 22-29 [id number] 14:24:00 Test Item Value Reference Range Comments CREATININE (BEAKER) (test 0.78 mg/dL 0.57-1.25 grik=564) EGFR (BEAKER) (test 100 mL/min/1.73 sq m ESTIMATED GFR IS NOT meaz=8072) ACCURATE CREATININE CLEARANCE IN PREDICTING GLOMERULAR FILTRATION RATE. ESTIMATED GFR IS NOT APPLICABLE FOR DIALYSIS PATIENTS. CBC W/PLT COUNT & AUTO [id number] 14:17:00 Test Item Value Reference Range Comments WHITE BLOOD CELL COUNT (BEAKER) (test xijv=354) 7.8 K/ L 3.5-10.5 RED BLOOD CELL COUNT (BEAKER) (test twhd=605) 4.33 M/ L 4.63-6.08 HEMOGLOBIN (BEAKER) (test aahz=127) 11.9 GM/DL 13.7-17.5 HEMATOCRIT (BEAKER) (test mrit=647) 37.9 % 40.1-51.0 MEAN CORPUSCULAR VOLUME (BEAKER) (test rikw=053) 87.5 fL 79.0-92.2 MEAN CORPUSCULAR HEMOGLOBIN (BEAKER) (test 27.5 pg 25.7-32.2 wiaa=974) MEAN CORPUSCULAR HEMOGLOBIN CONC (BEAKER) (test 31.4 GM/DL 32.3-36.5 reds=801) RED CELL DISTRIBUTION WIDTH (BEAKER) (test 14.8 % 11.6-14.4 bvhb=216) PLATELET COUNT (BEAKER) (test ejwy=193) 244 K/CU MM 150-450 MEAN PLATELET VOLUME (BEAKER) (test rqqa=670) 8.9 fL 9.4-12.4 NUCLEATED RED BLOOD CELLS (BEAKER) (test 0 /100 WBC 0-0 xrrr=359) NEUTROPHILS RELATIVE PERCENT (BEAKER) (test 61 % wopy=738) LYMPHOCYTES RELATIVE PERCENT (BEAKER) (test 30 % xhvk=191) MONOCYTES RELATIVE PERCENT (BEAKER) (test 6 % gazz=980) EOSINOPHILS RELATIVE PERCENT (BEAKER) (test 2 % pxgb=714) BASOPHILS RELATIVE PERCENT (BEAKER) (test 0 % vmsy=735) NEUTROPHILS ABSOLUTE COUNT (BEAKER) (test 4.74 K/ L 1.78-5.38 ctrd=452) LYMPHOCYTES ABSOLUTE COUNT (BEAKER) (test 2.33 K/ L 1.32-3.57 tent=000) MONOCYTES ABSOLUTE COUNT (BEAKER) (test 0.50 K/ L 0.30-0.82 olkz=824) EOSINOPHILS ABSOLUTE COUNT (BEAKER) (test 0.17 K/ L 0.04-0.54 iruy=909) BASOPHILS ABSOLUTE COUNT (BEAKER) (test 0.03 K/ L 0.01-0.08 bmgf=958) IMMATURE GRANULOCYTES-RELATIVE PERCENT (BEAKER) 0 % 0-1 (test kguk=8778) PROTHROMBIN [id number] 14:10:00 Test Item Value Reference Range Comments PROTIME (BEAKER) (test ohbk=475) 13.3 seconds 11.7-14.7 INR (BEAKER) (test hpqo=270) 1.0 <=5.9 RECOMMENDED COUMADIN/WARFARIN INR THERAPY RANGESSTANDARD DOSE: 2.0 - 3.0 Includes: PROPHYLAXIS forvenous thrombosis, systemic embolization; TREATMENT for venous thrombosis and/or pulmonary embolus.HIGH RISK: Target INR is 2.5-3.5 for patients with mechanical heart valves.[id number] 12:55:00 Test Item Value Reference Range Comments POC-CREATININE (BEAKER) 1.0 mg/dL 0.6-1.3 TESTED AT [facility] [address] [facility] (test kxgn=7212) [facility] [address] POC-EGFR (BEAKER) (test 75 mL/min/1.73M2 wwan=0257) CBC W/PLT COUNT & AUTO [id number] 07:38:00 Test Item Value Reference Range Comments WHITE BLOOD CELL COUNT (BEAKER) (test uszo=775) 12.1 K/ L 4.0-10.0 RED BLOOD CELL COUNT (BEAKER) (test byao=958) 3.67 M/ L 4.20-5.80 HEMOGLOBIN (BEAKER) (test pobf=950) 11.5 GM/DL 13.0-16.8 HEMATOCRIT (BEAKER) (test uhlk=083) 34.7 % 40.0-50.0 MEAN CORPUSCULAR VOLUME (BEAKER) (test cctj=198) 94.7 fL 82.0-98.0 MEAN CORPUSCULAR HEMOGLOBIN (BEAKER) (test 31.4 pg 27.0-33.0 feof=889) MEAN CORPUSCULAR HEMOGLOBIN CONC (BEAKER) (test 33.1 GM/DL 32.0-36.0 djew=711) RED CELL DISTRIBUTION WIDTH (BEAKER) (test 14.6 % 10.3-14.2 mvct=113) PLATELET COUNT (BEAKER) (test qden=413) 272 K/CU MM 150-430 MEAN PLATELET VOLUME (BEAKER) (test rjgq=952) 6.7 fL 6.5-10.5 NUCLEATED RED BLOOD CELLS (BEAKER) (test 0 /100 WBC 0-0 dehg=367) NEUTROPHILS RELATIVE PERCENT (BEAKER) (test 67 % lgpp=783) LYMPHOCYTES RELATIVE PERCENT (BEAKER) (test 18 % qear=325) MONOCYTES RELATIVE PERCENT (BEAKER) (test 10 % njox=607) EOSINOPHILS RELATIVE PERCENT (BEAKER) (test 6 % jgtn=484) BASOPHILS RELATIVE PERCENT (BEAKER) (test 0 % rvhy=993) NEUTROPHILS ABSOLUTE COUNT (BEAKER) (test 8.06 K/ L 1.80-8.00 ndkw=435) LYMPHOCYTES ABSOLUTE COUNT (BEAKER) (test 2.14 K/ L 1.48-4.50 lplg=594) MONOCYTES ABSOLUTE COUNT (BEAKER) (test 1.16 K/ L 0.00-1.30 kfxs=535) EOSINOPHILS ABSOLUTE COUNT (BEAKER) (test 0.71 K/ L 0.00-0.50 fbqh=265) BASOPHILS ABSOLUTE COUNT (BEAKER) (test 0.06 K/ L 0.00-0.20 kmtg=555) [id number] 07:03:00 Test Item Value Reference Range Comments MAGNESIUM (BEAKER) (test klqe=731) 2.0 mg/dL 1.6-2.6 BASIC METABOLIC [id number] 07:03:00 Test Item Value Reference Range Comments SODIUM (BEAKER) (test 140 meq/L 136-145 sxha=660) POTASSIUM (BEAKER) (test 3.8 meq/L 3.5-5.1 leah=350) CHLORIDE (BEAKER) (test 101 meq/L 98-107 kzbx=696) CO2 (BEAKER) (test 31 meq/L 22-29 swys=825) BLOOD UREA NITROGEN 20 mg/dL 7-21 (BEAKER) (test esgf=868) CREATININE (BEAKER) (test 0.76 mg/dL 0.57-1.25 tpjb=429) GLUCOSE RANDOM (BEAKER) 99 mg/dL 70-105 (test yxyn=394) CALCIUM (BEAKER) (test 8.6 mg/dL 8.4-10.2 ggmu=677) EGFR (BEAKER) (test 103 mL/min/1.73 sq m ESTIMATED GFR IS NOT nhej=3605) ACCURATE CREATININE CLEARANCE IN PREDICTING GLOMERULAR FILTRATION RATE. ESTIMATED GFR IS NOT APPLICABLE FOR DIALYSIS PATIENTS. BASIC METABOLIC [id number] 05:39:00 Test Item Value Reference Range Comments SODIUM (BEAKER) (test 140 meq/L 136-145 eazh=404) POTASSIUM (BEAKER) (test 3.9 meq/L 3.5-5.1 apgz=417) CHLORIDE (BEAKER) (test 103 meq/L 98-107 otyk=513) CO2 (BEAKER) (test 27 meq/L 22-29 simf=689) BLOOD UREA NITROGEN 21 mg/dL 7-21 (BEAKER) (test hpdx=919) CREATININE (BEAKER) (test 0.71 mg/dL 0.57-1.25 kqrf=086) GLUCOSE RANDOM (BEAKER) 104 mg/dL 70-105 (test psly=764) CALCIUM (BEAKER) (test 8.6 mg/dL 8.4-10.2 okbd=019) EGFR (BEAKER) (test 111 mL/min/1.73 sq m ESTIMATED GFR IS NOT acsn=5645) ACCURATE CREATININE CLEARANCE IN PREDICTING GLOMERULAR FILTRATION RATE. ESTIMATED GFR IS NOT APPLICABLE FOR DIALYSIS PATIENTS. [id number] 05:25:00 Test Item Value Reference Range Comments MAGNESIUM (BEAKER) (test exkx=991) 1.9 mg/dL 1.6-2.6 CBC W/PLT COUNT & AUTO [id number] 05:01:00 Test Item Value Reference Range Comments WHITE BLOOD CELL COUNT (BEAKER) (test bnhk=059) 11.9 K/ L 4.0-10.0 RED BLOOD CELL COUNT (BEAKER) (test zrmp=260) 3.55 M/ L 4.20-5.80 HEMOGLOBIN (BEAKER) (test wtow=636) 11.1 GM/DL 13.0-16.8 HEMATOCRIT (BEAKER) (test ufsy=494) 33.3 % 40.0-50.0 MEAN CORPUSCULAR VOLUME (BEAKER) (test lpwi=842) 93.8 fL 82.0-98.0 MEAN CORPUSCULAR HEMOGLOBIN (BEAKER) (test 31.3 pg 27.0-33.0 qwgc=377) MEAN CORPUSCULAR HEMOGLOBIN CONC (BEAKER) (test 33.4 GM/DL 32.0-36.0 joet=953) RED CELL DISTRIBUTION WIDTH (BEAKER) (test 14.5 % 10.3-14.2 cniz=881) PLATELET COUNT (BEAKER) (test azeu=400) 255 K/CU MM 150-430 MEAN PLATELET VOLUME (BEAKER) (test oejr=045) 6.5 fL 6.5-10.5 NUCLEATED RED BLOOD CELLS (BEAKER) (test 0 /100 WBC 0-0 wkhq=530) NEUTROPHILS RELATIVE PERCENT (BEAKER) (test 74 % rxrc=770) LYMPHOCYTES RELATIVE PERCENT (BEAKER) (test 13 % lxog=310) MONOCYTES RELATIVE PERCENT (BEAKER) (test 9 % jjsa=332) EOSINOPHILS RELATIVE PERCENT (BEAKER) (test 4 % ssuq=442) BASOPHILS RELATIVE PERCENT (BEAKER) (test 0 % xfih=292) NEUTROPHILS ABSOLUTE COUNT (BEAKER) (test 8.78 K/ L 1.80-8.00 qbbd=559) LYMPHOCYTES ABSOLUTE COUNT (BEAKER) (test 1.54 K/ L 1.48-4.50 wiob=710) MONOCYTES ABSOLUTE COUNT (BEAKER) (test 1.04 K/ L 0.00-1.30 fvch=393) EOSINOPHILS ABSOLUTE COUNT (BEAKER) (test 0.51 K/ L 0.00-0.50 qwto=974) BASOPHILS ABSOLUTE COUNT (BEAKER) (test 0.02 K/ L 0.00-0.20 hdsb=227) 0.00BASIC METABOLIC [id number] 17:06:00 Test Item Value Reference Range Comments SODIUM (BEAKER) (test 140 meq/L 136-145 qvvs=232) POTASSIUM (BEAKER) (test 3.9 meq/L 3.5-5.1 pesq=213) CHLORIDE (BEAKER) (test 103 meq/L 98-107 buwy=703) CO2 (BEAKER) (test 28 meq/L 22-29 akvi=107) BLOOD UREA NITROGEN 23 mg/dL 7-21 (BEAKER) (test wqcj=829) CREATININE (BEAKER) (test 0.73 mg/dL 0.57-1.25 gxik=579) GLUCOSE RANDOM (BEAKER) 103 mg/dL 70-105 (test hizb=222) CALCIUM (BEAKER) (test 8.5 mg/dL 8.4-10.2 bekd=481) EGFR (BEAKER) (test 107 mL/min/1.73 sq m ESTIMATED GFR IS NOT wjml=1772) ACCURATE CREATININE CLEARANCE IN PREDICTING GLOMERULAR FILTRATION RATE. ESTIMATED GFR IS NOT APPLICABLE FOR DIALYSIS PATIENTS. CBC W/PLT COUNT & AUTO [id number] 16:51:00 Test Item Value Reference Range Comments WHITE BLOOD CELL COUNT (BEAKER) (test udoi=477) 12.3 K/ L 4.0-10.0 RED BLOOD CELL COUNT (BEAKER) (test spnt=810) 3.56 M/ L 4.20-5.80 HEMOGLOBIN (BEAKER) (test rweh=935) 11.4 GM/DL 13.0-16.8 HEMATOCRIT (BEAKER) (test ylpm=210) 34.1 % 40.0-50.0 MEAN CORPUSCULAR VOLUME (BEAKER) (test nyre=374) 95.9 fL 82.0-98.0 MEAN CORPUSCULAR HEMOGLOBIN (BEAKER) (test 31.9 pg 27.0-33.0 mzji=468) MEAN CORPUSCULAR HEMOGLOBIN CONC (BEAKER) (test 33.3 GM/DL 32.0-36.0 ufri=843) RED CELL DISTRIBUTION WIDTH (BEAKER) (test 13.8 % 10.3-14.2 bkgx=145) PLATELET COUNT (BEAKER) (test aqeu=206) 255 K/CU MM 150-430 MEAN PLATELET VOLUME (BEAKER) (test bzax=633) 6.3 fL 6.5-10.5 NUCLEATED RED BLOOD CELLS (BEAKER) (test 0 /100 WBC 0-0 gncn=852) NEUTROPHILS RELATIVE PERCENT (BEAKER) (test 72 % oajm=321) LYMPHOCYTES RELATIVE PERCENT (BEAKER) (test 15 % ngdj=989) MONOCYTES RELATIVE PERCENT (BEAKER) (test 10 % zmse=039) EOSINOPHILS RELATIVE PERCENT (BEAKER) (test 3 % tfgc=559) BASOPHILS RELATIVE PERCENT (BEAKER) (test 0 % mvgf=790) NEUTROPHILS ABSOLUTE COUNT (BEAKER) (test 8.87 K/ L 1.80-8.00 wasx=027) LYMPHOCYTES ABSOLUTE COUNT (BEAKER) (test 1.86 K/ L 1.48-4.50 vxlt=982) MONOCYTES ABSOLUTE COUNT (BEAKER) (test 1.21 K/ L 0.00-1.30 clbu=586) EOSINOPHILS ABSOLUTE COUNT (BEAKER) (test 0.38 K/ L 0.00-0.50 mlwi=041) BASOPHILS ABSOLUTE COUNT (BEAKER) (test 0.01 K/ L 0.00-0.20 lvhc=631) 0.00BASI METABOLIC [id number] 11:59:00 Test Item Value Reference Range Comments SODIUM (BEAKER) (test 139 meq/L 136-145 kwxl=735) POTASSIUM (BEAKER) (test 4.5 meq/L 3.5-5.1 vfsl=846) CHLORIDE (BEAKER) (test 105 meq/L 98-107 iksn=402) CO2 (BEAKER) (test 23 meq/L 22-29 tlsb=648) BLOOD UREA NITROGEN 31 mg/dL 7-21 (BEAKER) (test oirz=713) CREATININE (BEAKER) (test 0.70 mg/dL 0.57-1.25 jhlp=807) GLUCOSE RANDOM (BEAKER) 135 mg/dL 70-105 (test rbyx=294) CALCIUM (BEAKER) (test 8.5 mg/dL 8.4-10.2 kyci=001) EGFR (BEAKER) (test 113 mL/min/1.73 sq m ESTIMATED GFR IS NOT ulhm=7851) ACCURATE CREATININE CLEARANCE IN PREDICTING GLOMERULAR FILTRATION RATE. ESTIMATED GFR IS NOT APPLICABLE FOR DIALYSIS PATIENTS. CBC W/PLT COUNT & AUTO [id number] 11:43:00 Test Item Value Reference Range Comments WHITE BLOOD CELL COUNT (BEAKER) (test lvom=976) 10.0 K/ L 4.0-10.0 RED BLOOD CELL COUNT (BEAKER) (test hzkz=505) 3.69 M/ L 4.20-5.80 HEMOGLOBIN (BEAKER) (test pdlo=033) 12.0 GM/DL 13.0-16.8 HEMATOCRIT (BEAKER) (test fsxk=541) 35.5 % 40.0-50.0 MEAN CORPUSCULAR VOLUME (BEAKER) (test geya=855) 96.2 fL 82.0-98.0 MEAN CORPUSCULAR HEMOGLOBIN (BEAKER) (test 32.4 pg 27.0-33.0 fwjx=418) MEAN CORPUSCULAR HEMOGLOBIN CONC (BEAKER) (test 33.7 GM/DL 32.0-36.0 sixd=783) RED CELL DISTRIBUTION WIDTH (BEAKER) (test 13.9 % 10.3-14.2 lzdg=155) PLATELET COUNT (BEAKER) (test meag=426) 216 K/CU MM 150-430 MEAN PLATELET VOLUME (BEAKER) (test dsqh=472) 7.1 fL 6.5-10.5 NUCLEATED RED BLOOD CELLS (BEAKER) (test 0 /100 WBC 0-0 dubf=631) NEUTROPHILS RELATIVE PERCENT (BEAKER) (test 73 % xaye=636) LYMPHOCYTES RELATIVE PERCENT (BEAKER) (test 16 % czfj=457) MONOCYTES RELATIVE PERCENT (BEAKER) (test 8 % ille=708) EOSINOPHILS RELATIVE PERCENT (BEAKER) (test 3 % bxng=459) BASOPHILS RELATIVE PERCENT (BEAKER) (test 0 % thfi=824) NEUTROPHILS ABSOLUTE COUNT (BEAKER) (test 7.28 K/ L 1.80-8.00 czwp=115) LYMPHOCYTES ABSOLUTE COUNT (BEAKER) (test 1.63 K/ L 1.48-4.50 tnsx=455) MONOCYTES ABSOLUTE COUNT (BEAKER) (test 0.82 K/ L 0.00-1.30 atoq=210) EOSINOPHILS ABSOLUTE COUNT (BEAKER) (test 0.25 K/ L 0.00-0.50 fuzb=981) BASOPHILS ABSOLUTE COUNT (BEAKER) (test 0.01 K/ L 0.00-0.20 snjn=636) 0.00CBC W/PLT COUNT & AUTO [id number] 06:32:00 Test Item Value Reference Range Comments WHITE BLOOD CELL COUNT (BEAKER) (test yehb=997) 13.9 K/ L 4.0-10.0 RED BLOOD CELL COUNT (BEAKER) (test wfxl=040) 3.18 M/ L 4.20-5.80 HEMOGLOBIN (BEAKER) (test vhhq=338) 10.3 GM/DL 13.0-16.8 HEMATOCRIT (BEAKER) (test wsef=822) 30.5 % 40.0-50.0 MEAN CORPUSCULAR VOLUME (BEAKER) (test rrmj=079) 96.0 fL 82.0-98.0 MEAN CORPUSCULAR HEMOGLOBIN (BEAKER) (test 32.4 pg 27.0-33.0 ngzp=881) MEAN CORPUSCULAR HEMOGLOBIN CONC (BEAKER) (test 33.7 GM/DL 32.0-36.0 lduz=527) RED CELL DISTRIBUTION WIDTH (BEAKER) (test 14.1 % 10.3-14.2 eaik=722) PLATELET COUNT (BEAKER) (test bnzj=907) 198 K/CU MM 150-430 MEAN PLATELET VOLUME (BEAKER) (test bhdy=248) 7.3 fL 6.5-10.5 NUCLEATED RED BLOOD CELLS (BEAKER) (test 0 /100 WBC 0-0 kksv=300) NEUTROPHILS RELATIVE PERCENT (BEAKER) (test 76 % wyxb=140) LYMPHOCYTES RELATIVE PERCENT (BEAKER) (test 14 % tmyf=203) MONOCYTES RELATIVE PERCENT (BEAKER) (test 9 % zqqw=736) EOSINOPHILS RELATIVE PERCENT (BEAKER) (test 2 % xlri=089) BASOPHILS RELATIVE PERCENT (BEAKER) (test 0 % yhgy=847) NEUTROPHILS ABSOLUTE COUNT (BEAKER) (test 10.50 K/ L 1.80-8.00 oith=334) LYMPHOCYTES ABSOLUTE COUNT (BEAKER) (test 1.97 K/ L 1.48-4.50 qxtr=236) MONOCYTES ABSOLUTE COUNT (BEAKER) (test 1.18 K/ L 0.00-1.30 cxyr=248) EOSINOPHILS ABSOLUTE COUNT (BEAKER) (test 0.22 K/ L 0.00-0.50 uijo=100) BASOPHILS ABSOLUTE COUNT (BEAKER) (test 0.01 K/ L 0.00-0.20 cvbl=643) [id number] 06:20:00 Test Item Value Reference Range Comments PHOSPHORUS (BEAKER) (test yurr=028) 2.1 mg/dL 2.3-4.7 Check Serum Phosphorus level 4 hours after IV phosphorus replacement or 8 hours after PO replacementcompleted.[id number] 06:20:00 Test Item Value Reference Range Comments MAGNESIUM (BEAKER) (test qzjf=990) 2.4 mg/dL 1.6-2.6 Check Serum Phosphorus level 4 hours after IV phosphorus replacement or 8 hours after PO replacementcompleted.BASIC METABOLIC [id number] 06:20:00 Test Item Value Reference Range Comments SODIUM (BEAKER) (test 139 meq/L 136-145 etrr=621) POTASSIUM (BEAKER) (test 4.5 meq/L 3.5-5.1 iyfy=320) CHLORIDE (BEAKER) (test 106 meq/L 98-107 htkz=185) CO2 (BEAKER) (test 23 meq/L 22-29 fqev=857) BLOOD UREA NITROGEN 40 mg/dL 7-21 (BEAKER) (test frut=387) CREATININE (BEAKER) (test 0.77 mg/dL 0.57-1.25 dqcy=974) GLUCOSE RANDOM (BEAKER) 111 mg/dL 70-105 (test clav=706) CALCIUM (BEAKER) (test 8.2 mg/dL 8.4-10.2 aajl=042) EGFR (BEAKER) (test 101 mL/min/1.73 sq m ESTIMATED GFR IS NOT wxyn=5944) ACCURATE CREATININE CLEARANCE IN PREDICTING GLOMERULAR FILTRATION RATE. ESTIMATED GFR IS NOT APPLICABLE FOR DIALYSIS PATIENTS. Check Serum Phosphorus level 4 hours after IV phosphorus replacement or 8 hours after PO replacementcompleted.CALCIUM, [id number] 05:53:00 Test Item Value Reference Range Comments CALCIUM IONIZED (BEAKER) (test okym=549) 1.09 mmol/L 1.12-1.27 PH, BLOOD (BEAKER) (test qnri=2199) 7.47 PLATELET AGGREGATION: DRUG [id number] 15:50:00 Test Item Value Reference Range Comments STRONG ADP RESULT(BEAKER) (test 86 % 70-94 lybm=7397) WEAK ADP RESULT(BEAKER) (test 100 % 60-91 cpft=3895) ARACHADONIC ACID RESULT(BEAKER) 17 % 63-89 (test gaeg=6935) PLATELET AGG DRUG INTERPRETATION Decreased response to (BEAKER) (test smrk=0042) arachidonic acid suggests aspirin-like effect. [id number] (BEAKER) Makeda Ly MD (test oenq=7408) (electronic signature) PLATELET COUNT AGG (BEAKER) 159 K/CU MM 150-430 (test wqcc=6845) CBC W/PLT COUNT & AUTO [id number] 04:40:00 Test Item Value Reference Range Comments WHITE BLOOD CELL COUNT (BEAKER) (test youy=120) 14.6 K/ L 4.0-10.0 RED BLOOD CELL COUNT (BEAKER) (test qghv=303) 3.13 M/ L 4.20-5.80 HEMOGLOBIN (BEAKER) (test metb=924) 9.9 GM/DL 13.0-16.8 HEMATOCRIT (BEAKER) (test cccz=107) 29.3 % 40.0-50.0 MEAN CORPUSCULAR VOLUME (BEAKER) (test rdck=575) 93.7 fL 82.0-98.0 MEAN CORPUSCULAR HEMOGLOBIN (BEAKER) (test 31.5 pg 27.0-33.0 wamd=249) MEAN CORPUSCULAR HEMOGLOBIN CONC (BEAKER) (test 33.7 GM/DL 32.0-36.0 uexg=044) RED CELL DISTRIBUTION WIDTH (BEAKER) (test 14.9 % 10.3-14.2 ucus=857) PLATELET COUNT (BEAKER) (test ywnh=983) 179 K/CU MM 150-430 MEAN PLATELET VOLUME (BEAKER) (test iony=852) 7.2 fL 6.5-10.5 NUCLEATED RED BLOOD CELLS (BEAKER) (test 0 /100 WBC 0-0 hyml=976) NEUTROPHILS RELATIVE PERCENT (BEAKER) (test 76 % vqfg=248) LYMPHOCYTES RELATIVE PERCENT (BEAKER) (test 14 % wrgm=196) MONOCYTES RELATIVE PERCENT (BEAKER) (test 9 % wobq=514) EOSINOPHILS RELATIVE PERCENT (BEAKER) (test 0 % gbuu=446) BASOPHILS RELATIVE PERCENT (BEAKER) (test 0 % ayuk=095) NEUTROPHILS ABSOLUTE COUNT (BEAKER) (test 11.20 K/ L 1.80-8.00 cmlo=285) LYMPHOCYTES ABSOLUTE COUNT (BEAKER) (test 2.09 K/ L 1.48-4.50 usem=059) MONOCYTES ABSOLUTE COUNT (BEAKER) (test 1.34 K/ L 0.00-1.30 fjdb=174) EOSINOPHILS ABSOLUTE COUNT (BEAKER) (test 0.04 K/ L 0.00-0.50 eqiq=749) BASOPHILS ABSOLUTE COUNT (BEAKER) (test 0.02 K/ L 0.00-0.20 znxl=993) [id number] 04:39:00 Test Item Value Reference Range Comments PHOSPHORUS (BEAKER) (test xslc=658) 2.7 mg/dL 2.3-4.7 Check Serum Phosphorus level 4 hours after IV phosphorus replacement or 8 hours after PO replacementcompleted.[id number] 04:39:00 Test Item Value Reference Range Comments MAGNESIUM (BEAKER) (test zzpb=678) 2.5 mg/dL 1.6-2.6 Check Serum Phosphorus level 4 hours after IV phosphorus replacement or 8 hours after PO replacementcompleted.BASIC METABOLIC [id number] 04:39:00 Test Item Value Reference Range Comments SODIUM (BEAKER) (test 142 meq/L 136-145 yebe=086) POTASSIUM (BEAKER) (test 4.5 meq/L 3.5-5.1 fnou=925) CHLORIDE (BEAKER) (test 108 meq/L 98-107 jext=444) CO2 (BEAKER) (test 24 meq/L 22-29 czye=764) BLOOD UREA NITROGEN 36 mg/dL 7-21 (BEAKER) (test btxp=919) CREATININE (BEAKER) (test 0.85 mg/dL 0.57-1.25 opof=417) GLUCOSE RANDOM (BEAKER) 125 mg/dL 70-105 (test zaxa=633) CALCIUM (BEAKER) (test 8.3 mg/dL 8.4-10.2 iber=409) EGFR (BEAKER) (test 90 mL/min/1.73 sq m ESTIMATED GFR IS NOT nbwr=5768) ACCURATE CREATININE CLEARANCE IN PREDICTING GLOMERULAR FILTRATION RATE. ESTIMATED GFR IS NOT APPLICABLE FOR DIALYSIS PATIENTS. Check Serum Phosphorus level 4 hours after IV phosphorus replacement or 8 hours after PO replacementcompleted.CALCIUM, [id number] 04:28:00 Test Item Value Reference Range Comments CALCIUM IONIZED (BEAKER) (test blvv=413) 0.96 mmol/L 1.12-1.27 PH, BLOOD (BEAKER) (test cokd=7727) 7.37 BASIC METABOLIC [id number] 15:27:00 Test Item Value Reference Range Comments SODIUM (BEAKER) (test 142 meq/L 136-145 dhcq=762) POTASSIUM (BEAKER) (test 4.3 meq/L 3.5-5.1 fdiq=320) CHLORIDE (BEAKER) (test 110 meq/L 98-107 chwb=671) CO2 (BEAKER) (test 24 meq/L 22-29 rwgr=531) BLOOD UREA NITROGEN 28 mg/dL 7-21 (BEAKER) (test hved=567) CREATININE (BEAKER) (test 0.82 mg/dL 0.57-1.25 trqo=461) GLUCOSE RANDOM (BEAKER) 121 mg/dL 70-105 (test dpyn=018) CALCIUM (BEAKER) (test 7.8 mg/dL 8.4-10.2 eovp=560) EGFR (BEAKER) (test 94 mL/min/1.73 sq m ESTIMATED GFR IS NOT wytj=5032) ACCURATE CREATININE CLEARANCE IN PREDICTING GLOMERULAR FILTRATION RATE. ESTIMATED GFR IS NOT APPLICABLE FOR DIALYSIS PATIENTS. [id number] 15:26:00 Test Item Value Reference Range Comments PHOSPHORUS (BEAKER) (test dkyi=276) 2.3 mg/dL 2.3-4.7 [id number] 15:26:00 Test Item Value Reference Range Comments MAGNESIUM (BEAKER) (test quwe=164) 2.3 mg/dL 1.6-2.6 BLOOD GAS, [id number] 13:11:00 Test Item Value Reference Range Comments PH ARTERIAL (BEAKER) (test ojtl=325) 7.45 7.35-7.45 PCO2 ARTERIAL (BEAKER) (test oqqg=362) 41 mmHg 35-45 PO2 ARTERIAL (BEAKER) (test rmsw=139) 114 mmHg 80-90 O2 SATURATION ARTERIAL (BEAKER) (test dfrh=581) 98.3 % 96.0-97.0 HCO3 ARTERIAL (BEAKER) (test ctjf=880) 27 mmol/L 21-29 BASE EXCESS ARTERIAL (BEAKER) (test qgnh=166) 3.0 mmol/L -2.0-3.0 PATIENT TEMPERATURE (BEAKER) (test gexo=0219) 37.0 C FIO2 (BEAKER) (test htwf=5275) 40.0 % POCT-GLUCOSE [id number] 12:46:00 Test Item Value Reference Range Comments POC-GLUCOSE METER (BEAKER) 128 mg/dL 70-110 TESTED AT [facility] [address] [facility] (test dhqb=0110) [facility] [address] CBC W/PLT COUNT & AUTO [id number] 03:42:00 Test Item Value Reference Range Comments WHITE BLOOD CELL COUNT (BEAKER) (test cvoq=234) 10.4 K/ L 4.0-10.0 RED BLOOD CELL COUNT (BEAKER) (test vaqr=648) 2.99 M/ L 4.20-5.80 HEMOGLOBIN (BEAKER) (test ksfk=915) 9.4 GM/DL 13.0-16.8 HEMATOCRIT (BEAKER) (test bhsk=125) 28.4 % 40.0-50.0 MEAN CORPUSCULAR VOLUME (BEAKER) (test hkcv=357) 95.3 fL 82.0-98.0 MEAN CORPUSCULAR HEMOGLOBIN (BEAKER) (test 31.5 pg 27.0-33.0 jmmb=587) MEAN CORPUSCULAR HEMOGLOBIN CONC (BEAKER) (test 33.1 GM/DL 32.0-36.0 gxrn=925) RED CELL DISTRIBUTION WIDTH (BEAKER) (test 14.4 % 10.3-14.2 jmau=966) PLATELET COUNT (BEAKER) (test xnym=786) 159 K/CU MM 150-430 MEAN PLATELET VOLUME (BEAKER) (test ycga=123) 7.1 fL 6.5-10.5 NUCLEATED RED BLOOD CELLS (BEAKER) (test 0 /100 WBC 0-0 irws=530) NEUTROPHILS RELATIVE PERCENT (BEAKER) (test 67 % sonj=638) LYMPHOCYTES RELATIVE PERCENT (BEAKER) (test 19 % dqtd=771) MONOCYTES RELATIVE PERCENT (BEAKER) (test 13 % eclt=771) EOSINOPHILS RELATIVE PERCENT (BEAKER) (test 1 % bxik=541) BASOPHILS RELATIVE PERCENT (BEAKER) (test 0 % qgah=253) NEUTROPHILS ABSOLUTE COUNT (BEAKER) (test 6.96 K/ L 1.80-8.00 uuwp=917) LYMPHOCYTES ABSOLUTE COUNT (BEAKER) (test 1.96 K/ L 1.48-4.50 ybln=810) MONOCYTES ABSOLUTE COUNT (BEAKER) (test 1.36 K/ L 0.00-1.30 nkwf=293) EOSINOPHILS ABSOLUTE COUNT (BEAKER) (test 0.08 K/ L 0.00-0.50 zwru=591) BASOPHILS ABSOLUTE COUNT (BEAKER) (test 0.02 K/ L 0.00-0.20 xeev=382) [id number] 03:37:00 Test Item Value Reference Range Comments PHOSPHORUS (BEAKER) (test yzwa=026) 3.1 mg/dL 2.3-4.7 Check Serum Phosphorus level 4 hours after IV phosphorus replacement or 8 hours after PO replacementcompleted.[id number] 03:37:00 Test Item Value Reference Range Comments MAGNESIUM (BEAKER) (test xhyo=007) 2.4 mg/dL 1.6-2.6 Check Serum Phosphorus level 4 hours after IV phosphorus replacement or 8 hours after PO replacementcompleted.BASIC METABOLIC [id number] 03:37:00 Test Item Value Reference Range Comments SODIUM (BEAKER) (test 142 meq/L 136-145 ufuc=954) POTASSIUM (BEAKER) (test 4.8 meq/L 3.5-5.1 dkhl=475) CHLORIDE (BEAKER) (test 112 meq/L 98-107 fcyl=649) CO2 (BEAKER) (test 22 meq/L 22-29 ghpb=795) BLOOD UREA NITROGEN 24 mg/dL 7-21 (BEAKER) (test ffbt=604) CREATININE (BEAKER) (test 0.82 mg/dL 0.57-1.25 asnt=446) GLUCOSE RANDOM (BEAKER) 116 mg/dL 70-105 (test qwsy=409) CALCIUM (BEAKER) (test 8.2 mg/dL 8.4-10.2 fboa=685) EGFR (BEAKER) (test 94 mL/min/1.73 sq m ESTIMATED GFR IS NOT zxzc=4994) ACCURATE CREATININE CLEARANCE IN PREDICTING GLOMERULAR FILTRATION RATE. ESTIMATED GFR IS NOT APPLICABLE FOR DIALYSIS PATIENTS. Check Serum Phosphorus level 4 hours after IV phosphorus replacement or 8 hours after PO replacementcompleted.LACTIC ACID, ARTERIAL, WHOLE [id number] 03:33 :00 Test Item Value Reference Range Comments LACTATE BLOOD ARTERIAL (2) (BEAKER) (test 0.7 mmol/L 0.5-2.2 nejn=4248) Effective 02/01/2016: Units/Reference Range ChangeNew: 0.5-2.2 mmol/L Previous: 5 -20 mg/dLBLOOD GAS, [id number] 03:15:00 Test Item Value Reference Range Comments PH ARTERIAL (BEAKER) (test dbau=389) 7.33 7.35-7.45 PCO2 ARTERIAL (BEAKER) (test xsph=572) 52 mmHg 35-45 PO2 ARTERIAL (BEAKER) (test whug=481) 107 mmHg 80-90 O2 SATURATION ARTERIAL (BEAKER) (test cryk=666) 97.5 % 96.0-97.0 HCO3 ARTERIAL (BEAKER) (test ckcd=387) 27 mmol/L 21-29 BASE EXCESS ARTERIAL (BEAKER) (test stsr=239) -0.1 mmol/L -2.0-3.0 PATIENT TEMPERATURE (BEAKER) (test qcbd=8907) 36.8 C FIO2 (BEAKER) (test aazf=6607) 40.0 % [id number] 22:25:00 Test Item Value Reference Range Comments MAGNESIUM (BEAKER) (test kdda=786) 2.2 mg/dL 1.6-2.6 BASIC METABOLIC [id number] 22:25:00 Test Item Value Reference Range Comments SODIUM (BEAKER) (test 141 meq/L 136-145 hxej=650) POTASSIUM (BEAKER) (test 4.7 meq/L 3.5-5.1 iego=951) CHLORIDE (BEAKER) (test 111 meq/L 98-107 djiu=874) CO2 (BEAKER) (test 24 meq/L 22-29 cgnm=068) BLOOD UREA NITROGEN 22 mg/dL 7-21 (BEAKER) (test kgwk=497) CREATININE (BEAKER) (test 0.79 mg/dL 0.57-1.25 fdgo=853) GLUCOSE RANDOM (BEAKER) 111 mg/dL 70-105 (test vcua=009) CALCIUM (BEAKER) (test 8.2 mg/dL 8.4-10.2 jmdd=467) EGFR (BEAKER) (test 98 mL/min/1.73 sq m ESTIMATED GFR IS NOT upki=5649) ACCURATE CREATININE CLEARANCE IN PREDICTING GLOMERULAR FILTRATION RATE. ESTIMATED GFR IS NOT APPLICABLE FOR DIALYSIS PATIENTS. LACTIC ACID, ARTERIAL, WHOLE [id number] 22:23:00 Test Item Value Reference Range Comments LACTATE BLOOD ARTERIAL (2) (BEAKER) (test 0.7 mmol/L 0.5-2.2 lejv=9869) Effective 02/01/2016: Units/Reference Range ChangeNew: 0.5-2.2 mmol/L Previous: 5 -20 mg/dLCBC W/PLT COUNT & AUTO [id number] 22:09:00 Test Item Value Reference Range Comments WHITE BLOOD CELL COUNT (BEAKER) (test pfkv=105) 9.4 K/ L 4.0-10.0 RED BLOOD CELL COUNT (BEAKER) (test lykw=663) 2.95 M/ L 4.20-5.80 HEMOGLOBIN (BEAKER) (test pywq=302) 9.3 GM/DL 13.0-16.8 HEMATOCRIT (BEAKER) (test cups=043) 27.9 % 40.0-50.0 MEAN CORPUSCULAR VOLUME (BEAKER) (test gaws=461) 94.5 fL 82.0-98.0 MEAN CORPUSCULAR HEMOGLOBIN (BEAKER) (test 31.4 pg 27.0-33.0 pftn=071) MEAN CORPUSCULAR HEMOGLOBIN CONC (BEAKER) (test 33.2 GM/DL 32.0-36.0 yklr=190) RED CELL DISTRIBUTION WIDTH (BEAKER) (test 14.4 % 10.3-14.2 nddj=736) PLATELET COUNT (BEAKER) (test johy=275) 158 K/CU MM 150-430 MEAN PLATELET VOLUME (BEAKER) (test yqxy=344) 6.9 fL 6.5-10.5 NUCLEATED RED BLOOD CELLS (BEAKER) (test 0 /100 WBC 0-0 uyey=218) NEUTROPHILS RELATIVE PERCENT (BEAKER) (test 72 % ylwp=987) LYMPHOCYTES RELATIVE PERCENT (BEAKER) (test 15 % kunp=564) MONOCYTES RELATIVE PERCENT (BEAKER) (test 12 % shsr=263) EOSINOPHILS RELATIVE PERCENT (BEAKER) (test 0 % zije=480) BASOPHILS RELATIVE PERCENT (BEAKER) (test 1 % dvcq=092) NEUTROPHILS ABSOLUTE COUNT (BEAKER) (test 6.71 K/ L 1.80-8.00 zrwk=843) LYMPHOCYTES ABSOLUTE COUNT (BEAKER) (test 1.43 K/ L 1.48-4.50 xwwd=544) MONOCYTES ABSOLUTE COUNT (BEAKER) (test 1.15 K/ L 0.00-1.30 cwuc=151) EOSINOPHILS ABSOLUTE COUNT (BEAKER) (test 0.03 K/ L 0.00-0.50 exeh=292) BASOPHILS ABSOLUTE COUNT (BEAKER) (test 0.05 K/ L 0.00-0.20 gpde=442) 0.00POCT-GLUCOSE [id number] 21:57:00 Test Item Value Reference Range Comments POC-GLUCOSE METER (BEAKER) 94 mg/dL 70-110 TESTED AT [facility] [address] [facility] (test yxxe=7106) [facility] [address] [id number] 21:35:00 Test Item Value Reference Range Comments MAGNESIUM (BEAKER) (test lccu=277) 2.2 mg/dL 1.6-2.6 BASIC METABOLIC [id number] 21:35:00 Test Item Value Reference Range Comments SODIUM (BEAKER) (test 141 meq/L 136-145 ekdi=912) POTASSIUM (BEAKER) (test 4.7 meq/L 3.5-5.1 kkkr=939) CHLORIDE (BEAKER) (test 112 meq/L 98-107 njcs=488) CO2 (BEAKER) (test 23 meq/L 22-29 udyl=473) BLOOD UREA NITROGEN 21 mg/dL 7-21 (BEAKER) (test zrud=767) CREATININE (BEAKER) (test 0.86 mg/dL 0.57-1.25 tnml=898) GLUCOSE RANDOM (BEAKER) 120 mg/dL 70-105 (test aydf=853) CALCIUM (BEAKER) (test 8.1 mg/dL 8.4-10.2 iqgc=803) EGFR (BEAKER) (test 89 mL/min/1.73 sq m ESTIMATED GFR IS NOT iqkh=0453) ACCURATE CREATININE CLEARANCE IN PREDICTING GLOMERULAR FILTRATION RATE. ESTIMATED GFR IS NOT APPLICABLE FOR DIALYSIS PATIENTS. CBC W/PLT COUNT & AUTO [id number] 21:27:00 Test Item Value Reference Range Comments WHITE BLOOD CELL COUNT (BEAKER) (test sqyl=432) 8.4 K/ L 4.0-10.0 RED BLOOD CELL COUNT (BEAKER) (test rzyo=268) 2.73 M/ L 4.20-5.80 HEMOGLOBIN (BEAKER) (test imld=370) 8.9 GM/DL 13.0-16.8 HEMATOCRIT (BEAKER) (test sbxv=256) 25.8 % 40.0-50.0 MEAN CORPUSCULAR VOLUME (BEAKER) (test izwn=236) 94.3 fL 82.0-98.0 MEAN CORPUSCULAR HEMOGLOBIN (BEAKER) (test 32.4 pg 27.0-33.0 ccie=942) MEAN CORPUSCULAR HEMOGLOBIN CONC (BEAKER) (test 34.3 GM/DL 32.0-36.0 lidn=813) RED CELL DISTRIBUTION WIDTH (BEAKER) (test 14.1 % 10.3-14.2 fjfc=441) PLATELET COUNT (BEAKER) (test yibs=295) 152 K/CU MM 150-430 MEAN PLATELET VOLUME (BEAKER) (test pptd=626) 7.3 fL 6.5-10.5 NUCLEATED RED BLOOD CELLS (BEAKER) (test 0 /100 WBC 0-0 habf=578) NEUTROPHILS RELATIVE PERCENT (BEAKER) (test 75 % epvz=733) LYMPHOCYTES RELATIVE PERCENT (BEAKER) (test 13 % rzdh=424) MONOCYTES RELATIVE PERCENT (BEAKER) (test 12 % vwna=483) EOSINOPHILS RELATIVE PERCENT (BEAKER) (test 0 % nvwg=857) BASOPHILS RELATIVE PERCENT (BEAKER) (test 0 % uaha=832) NEUTROPHILS ABSOLUTE COUNT (BEAKER) (test 6.32 K/ L 1.80-8.00 jwjf=972) LYMPHOCYTES ABSOLUTE COUNT (BEAKER) (test 1.07 K/ L 1.48-4.50 mfja=047) MONOCYTES ABSOLUTE COUNT (BEAKER) (test 0.99 K/ L 0.00-1.30 cbkr=881) EOSINOPHILS ABSOLUTE COUNT (BEAKER) (test 0.04 K/ L 0.00-0.50 iely=917) BASOPHILS ABSOLUTE COUNT (BEAKER) (test 0.01 K/ L 0.00-0.20 nasr=486) 0.00CALCIUM, [id number] 20:57:00 Test Item Value Reference Range Comments CALCIUM IONIZED (BEAKER) (test lfzo=849) 1.03 mmol/L 1.12-1.27 PH, BLOOD (BEAKER) (test qday=0434) 7.44 OXYGEN SATURATION, [id number] 20:56:00 Test Item Value Reference Range Comments O2 SATURATION (MEASURED) (BEAKER) (test xjcb=6151) 55.9 % POCT-GLUCOSE [id number] 18:32:00 Test Item Value Reference Range Comments POC-GLUCOSE METER (BEAKER) 103 mg/dL 70-110 TESTED AT [address] (test tlmr=5011) [place] [id number] POCT-GLUCOSE [id number] 18:32:00 Test Item Value Reference Range Comments POC-GLUCOSE METER (BEAKER) 113 mg/dL 70-110 TESTED AT [address] (test xwqu=5782) [facility] [address] POCT-GLUCOSE [id number] 18:32:00 Test Item Value Reference Range Comments POC-GLUCOSE METER (BEAKER) 112 mg/dL 70-110 TESTED AT [address] (test isrq=3374) [place] [id number] POCT-GLUCOSE [id number] 18:10:00 Test Item Value Reference Range Comments POC-GLUCOSE METER (BEAKER) 123 mg/dL 70-110 TESTED AT [address] (test odfz=3638) [facility] [address] HEMOGLOBIN AND [id number] 14:20:00 Test Item Value Reference Range Comments HEMOGLOBIN (BEAKER) (test inij=018) 7.2 GM/DL 13.0-16.8 HEMATOCRIT (BEAKER) (test ijwt=429) 21.3 % 40.0-50.0 POCT-GLUCOSE [id number] 10:23:00 Test Item Value Reference Range Comments POC-GLUCOSE METER (BEAKER) 118 mg/dL 70-110 TESTED AT [address] (test xfbx=9310) [facility] [address] POCT-GLUCOSE [id number] 08:58:00 Test Item Value Reference Range Comments POC-GLUCOSE METER (BEAKER) 117 mg/dL 70-110 TESTED AT [address] (test kwsn=7498) [facility] [address] POCT-GLUCOSE [id number] 08:58:00 Test Item Value Reference Range Comments POC-GLUCOSE METER (BEAKER) 124 mg/dL 70-110 TESTED AT [address] (test buxt=7741) [facility] [address] POCT-GLUCOSE [id number] 06:13:00 Test Item Value Reference Range Comments POC-GLUCOSE METER (BEAKER) 140 mg/dL 70-110 TESTED AT [address] (test qymb=7434) [facility] [address] POCT-GLUCOSE [id number] 04:36:00 Test Item Value Reference Range Comments POC-GLUCOSE METER (BEAKER) 171 mg/dL 70-110 TESTED AT [address] (test zpvb=3517) [facility] [address] [id number] 03:47:00 Test Item Value Reference Range Comments MAGNESIUM (BEAKER) (test leqv=622) 2.2 mg/dL 1.6-2.6 COMPREHENSIVE METABOLIC [id number] 03:47:00 Test Item Value Reference Range Comments TOTAL PROTEIN (BEAKER) 5.9 gm/dL 6.0-8.3 (test uzdw=882) ALBUMIN (BEAKER) (test 3.7 g/dL 3.5-5.0 keaf=1692) ALKALINE PHOSPHATASE 53 U/L 40-150 (BEAKER) (test ehzk=444) BILIRUBIN TOTAL (BEAKER) 1.0 mg/dL 0.2-1.2 (test eoaj=303) SODIUM (BEAKER) (test 140 meq/L 136-145 ywcw=096) POTASSIUM (BEAKER) (test 4.3 meq/L 3.5-5.1 qchu=940) CHLORIDE (BEAKER) (test 108 meq/L 98-107 aohf=842) CO2 (BEAKER) (test 22 meq/L 22-29 rdlv=887) BLOOD UREA NITROGEN 15 mg/dL 7-21 (BEAKER) (test pxbk=241) CREATININE (BEAKER) (test 0.96 mg/dL 0.57-1.25 zhbg=387) GLUCOSE RANDOM (BEAKER) 180 mg/dL 70-105 (test hszl=517) CALCIUM (BEAKER) (test 8.9 mg/dL 8.4-10.2 fwyd=908) AST (SGOT) (BEAKER) (test 55 U/L 5-34 rcci=008) ALT (SGPT) (BEAKER) (test 31 U/L 6-55 qqpj=889) EGFR (BEAKER) (test 78 mL/min/1.73 sq m ESTIMATED GFR IS NOT rcss=2520) ACCURATE CREATININE CLEARANCE IN PREDICTING GLOMERULAR FILTRATION RATE. ESTIMATED GFR IS NOT APPLICABLE FOR DIALYSIS PATIENTS. LACTIC ACID, ARTERIAL, WHOLE [id number] 03:41:00 Test Item Value Reference Range Comments LACTATE BLOOD ARTERIAL (2) (BEAKER) (test 3.2 mmol/L 0.5-2.2 vcbl=3564) Effective 02/01/2016: Units/Reference Range ChangeNew: 0.5-2.2 mmol/L Previous: 5 -20 mg/dLCBC W/PLT COUNT & AUTO [id number] 03:36:00 Test Item Value Reference Range Comments WHITE BLOOD CELL COUNT (BEAKER) (test nrww=518) 10.2 K/ L 4.0-10.0 RED BLOOD CELL COUNT (BEAKER) (test xikv=991) 2.51 M/ L 4.20-5.80 HEMOGLOBIN (BEAKER) (test ogvm=787) 8.4 GM/DL 13.0-16.8 HEMATOCRIT (BEAKER) (test mffs=906) 23.8 % 40.0-50.0 MEAN CORPUSCULAR VOLUME (BEAKER) (test sgoo=156) 94.7 fL 82.0-98.0 MEAN CORPUSCULAR HEMOGLOBIN (BEAKER) (test 33.6 pg 27.0-33.0 gkpf=845) MEAN CORPUSCULAR HEMOGLOBIN CONC (BEAKER) (test 35.5 GM/DL 32.0-36.0 ogol=306) RED CELL DISTRIBUTION WIDTH (BEAKER) (test 13.4 % 10.3-14.2 gquk=231) PLATELET COUNT (BEAKER) (test rnqv=821) 213 K/CU MM 150-430 MEAN PLATELET VOLUME (BEAKER) (test kjpa=826) 6.7 fL 6.5-10.5 NUCLEATED RED BLOOD CELLS (BEAKER) (test 0 /100 WBC 0-0 dxyy=657) NEUTROPHILS RELATIVE PERCENT (BEAKER) (test 80 % swkz=683) LYMPHOCYTES RELATIVE PERCENT (BEAKER) (test 7 % loee=258) MONOCYTES RELATIVE PERCENT (BEAKER) (test 12 % zrjh=181) EOSINOPHILS RELATIVE PERCENT (BEAKER) (test 0 % qavo=293) BASOPHILS RELATIVE PERCENT (BEAKER) (test 0 % aeqf=034) NEUTROPHILS ABSOLUTE COUNT (BEAKER) (test 8.20 K/ L 1.80-8.00 zklp=021) LYMPHOCYTES ABSOLUTE COUNT (BEAKER) (test 0.73 K/ L 1.48-4.50 bcer=149) MONOCYTES ABSOLUTE COUNT (BEAKER) (test 1.25 K/ L 0.00-1.30 xmul=242) EOSINOPHILS ABSOLUTE COUNT (BEAKER) (test 0.02 K/ L 0.00-0.50 cfhf=371) BASOPHILS ABSOLUTE COUNT (BEAKER) (test 0.01 K/ L 0.00-0.20 viuo=840) 0.00OXYGEN SATURATION, [id number] 03:27:00 Test Item Value Reference Range Comments O2 SATURATION (MEASURED) (BEAKER) (test pyga=3113) 62.4 % CALCIUM, [id number] 03:27:00 Test Item Value Reference Range Comments CALCIUM IONIZED (BEAKER) (test ykob=248) 1.15 mmol/L 1.12-1.27 PH, BLOOD (BEAKER) (test xavd=1389) 7.43 BLOOD GAS, [id number] 03:27:00 Test Item Value Reference Range Comments PH ARTERIAL (BEAKER) (test gdxi=335) 7.42 7.35-7.45 PCO2 ARTERIAL (BEAKER) (test ngxj=466) 38 mmHg 35-45 PO2 ARTERIAL (BEAKER) (test wkor=315) 113 mmHg 80-90 O2 SATURATION ARTERIAL (BEAKER) (test kzkw=537) 98.2 % 96.0-97.0 HCO3 ARTERIAL (BEAKER) (test izvn=366) 24 mmol/L 21-29 BASE EXCESS ARTERIAL (BEAKER) (test ykrw=871) 0.0 mmol/L -2.0-3.0 PATIENT TEMPERATURE (BEAKER) (test uzzc=2022) 37.4 C FIO2 (BEAKER) (test wolk=3737) 40.0 % HGB/HCT (H&H) - STAT [id number] 03:27:00 Test Item Value Reference Range Comments HEMOGLOBIN (BEAKER) (test yyah=488) 8.1 g/dL 13.0-16.8 HEMATOCRIT (BEAKER) (test xdew=522) 24.0 % 40.0-50.0 POCT-GLUCOSE [id number] 01:47:00 Test Item Value Reference Range Comments POC-GLUCOSE METER (BEAKER) 218 mg/dL 70-110 TESTED AT [facility] [address] [facility] (test xbie=2374) [facility] [id number] [id number] 23:12:00 Test Item Value Reference Range Comments GLUCOSE RANDOM (BEAKER) (test cohv=981) 236 mg/dL 70-105 Effective 08/17/2014: Reference Range Change-Adult onlyNew: 70-105 Previous : 70-110PRN - repeat glucose levels every 1 hour or as specified by insulin titration orders until glucose level is less than 450 mg/dLBLOOD GAS, [id number] 23:03:00 Test Item Value Reference Range Comments PH ARTERIAL (BEAKER) (test shuc=453) 7.32 7.35-7.45 PCO2 ARTERIAL (BEAKER) (test ukfy=014) 39 mmHg 35-45 PO2 ARTERIAL (BEAKER) (test qvhb=450) 129 mmHg 80-90 O2 SATURATION ARTERIAL (BEAKER) (test wiea=727) 98.5 % 96.0-97.0 HCO3 ARTERIAL (BEAKER) (test pjqx=468) 20 mmol/L 21-29 BASE EXCESS ARTERIAL (BEAKER) (test hihs=707) -5.8 mmol/L -2.0-3.0 PATIENT TEMPERATURE (BEAKER) (test mzpk=8279) 35.9 C FIO2 (BEAKER) (test fbmp=9438) 60.0 % POCT-GLUCOSE [id number] 22:42:00 Test Item Value Reference Range Comments POC-GLUCOSE METER (BEAKER) 266 mg/dL 70-110 TESTED AT [facility] [address] [facility] (test onmo=8394) [facility] [address] COMPREHENSIVE METABOLIC [id number] 22:20:00 Test Item Value Reference Range Comments TOTAL PROTEIN (BEAKER) 5.7 gm/dL 6.0-8.3 (test mkrw=857) ALBUMIN (BEAKER) (test 3.7 g/dL 3.5-5.0 gwuu=2743) ALKALINE PHOSPHATASE 54 U/L 40-150 (BEAKER) (test iimc=706) BILIRUBIN TOTAL (BEAKER) 1.4 mg/dL 0.2-1.2 (test rsqr=030) SODIUM (BEAKER) (test 141 meq/L 136-145 wuzw=449) POTASSIUM (BEAKER) (test 3.8 meq/L 3.5-5.1 xqwx=506) CHLORIDE (BEAKER) (test 109 meq/L 98-107 qmws=551) CO2 (BEAKER) (test 16 meq/L 22-29 tugh=049) BLOOD UREA NITROGEN 14 mg/dL 7-21 (BEAKER) (test wyev=871) CREATININE (BEAKER) (test 1.07 mg/dL 0.57-1.25 wzsn=941) GLUCOSE RANDOM (BEAKER) 263 mg/dL 70-105 (test nfdr=522) CALCIUM (BEAKER) (test 9.0 mg/dL 8.4-10.2 iqyc=189) AST (SGOT) (BEAKER) (test 54 U/L 5-34 ctgz=069) ALT (SGPT) (BEAKER) (test 33 U/L 6-55 cwvb=423) EGFR (BEAKER) (test 69 mL/min/1.73 sq m ESTIMATED GFR IS NOT odlq=8722) ACCURATE CREATININE CLEARANCE IN PREDICTING GLOMERULAR FILTRATION RATE. ESTIMATED GFR IS NOT APPLICABLE FOR DIALYSIS PATIENTS. CREATINE KINASE (CK)[id number] 22:20:00 Test Item Value Reference Range Comments CREATINE KINASE TOTAL (BEAKER) (test keal=724) 442 U/L 29-200 LACTIC ACID, ARTERIAL, WHOLE [id number] 20:59:00 Test Item Value Reference Range Comments LACTATE BLOOD ARTERIAL (2) 6.9 mmol/L 0.5-2.2 Specimen slightly hemolyzed (BEAKER) (test cbig=2423) Effective 02/01/2016: Units/Reference Range ChangeNew: 0.5-2.2 mmol/L Previous: 5 -20 mg/dLBLOOD GAS, [id number] 20:52:00 Test Item Value Reference Range Comments PH ARTERIAL (BEAKER) (test tlee=240) 7.32 7.35-7.45 PCO2 ARTERIAL (BEAKER) (test uult=093) 41 mmHg 35-45 PO2 ARTERIAL (BEAKER) (test tpef=166) 276 mmHg 80-90 O2 SATURATION ARTERIAL (BEAKER) (test xmgj=352) 99.6 % 96.0-97.0 HCO3 ARTERIAL (BEAKER) (test elfd=816) 21 mmol/L 21-29 BASE EXCESS ARTERIAL (BEAKER) (test hqvk=244) -5.3 mmol/L -2.0-3.0 PATIENT TEMPERATURE (BEAKER) (test zqqs=0213) 37.0 C FIO2 (BEAKER) (test lsng=0548) 100.0 % GLUCOSE-STAT [id number] 20:52:00 Test Item Value Reference Range Comments GLUCOSE RANDOM (BEAKER) (test qqxt=681) 252 mg/dL 70-110 HGB/HCT (H&H) - STAT [id number] 20:52:00 Test Item Value Reference Range Comments HEMOGLOBIN (BEAKER) (test xryu=597) 8.4 g/dL 13.0-16.8 HEMATOCRIT (BEAKER) (test uyji=992) 25.0 % 40.0-50.0 SODIUM NA-STAT [id number] 20:51:00 Test Item Value Reference Range Comments SODIUM (BEAKER) (test omzl=994) 137 meq/L 135-148 POTASSIUM-STAT [id number] 20:51:00 Test Item Value Reference Range Comments POTASSIUM (BEAKER) (test jlmv=919) 3.9 meq/L 3.6-5.5 CALCIUM, [id number] 20:51:00 Test Item Value Reference Range Comments CALCIUM IONIZED (BEAKER) (test kerh=129) 1.19 mmol/L 1.12-1.27 PH, BLOOD (BEAKER) (test cdhg=3163) 7.32 OXYGEN SATURATION, [id number] 20:48:00 Test Item Value Reference Range Comments O2 SATURATION (MEASURED) (BEAKER) (test htmo=1514) 78.1 % [id number] 18:02:00 Test Item Value Reference Range Comments PHOSPHORUS (BEAKER) (test umcb=202) 3.7 mg/dL 2.3-4.7 [id number] 18:02:00 Test Item Value Reference Range Comments MAGNESIUM (BEAKER) (test emit=686) 2.2 mg/dL 1.6-2.6 BASIC METABOLIC [id number] 18:02:00 Test Item Value Reference Range Comments SODIUM (BEAKER) (test 140 meq/L 136-145 dako=928) POTASSIUM (BEAKER) (test 3.8 meq/L 3.5-5.1 ifpr=385) CHLORIDE (BEAKER) (test 107 meq/L 98-107 esee=492) CO2 (BEAKER) (test 20 meq/L 22-29 wysu=548) BLOOD UREA NITROGEN 13 mg/dL 7-21 (BEAKER) (test dhej=165) CREATININE (BEAKER) (test 0.94 mg/dL 0.57-1.25 kdry=905) GLUCOSE RANDOM (BEAKER) 256 mg/dL 70-105 (test umau=888) CALCIUM (BEAKER) (test 9.6 mg/dL 8.4-10.2 gfgu=826) EGFR (BEAKER) (test 80 mL/min/1.73 sq m ESTIMATED GFR IS NOT kobw=4392) ACCURATE CREATININE CLEARANCE IN PREDICTING GLOMERULAR FILTRATION RATE. ESTIMATED GFR IS NOT APPLICABLE FOR DIALYSIS PATIENTS. LACTIC ACID, ARTERIAL, WHOLE [id number] 17:59:00 Test Item Value Reference Range Comments LACTATE BLOOD ARTERIAL (2) (BEAKER) (test 4.0 mmol/L 0.5-2.2 aulw=4453) Effective 02/01/2016: Units/Reference Range ChangeNew: 0.5-2.2 mmol/L Previous: 5 -20 mg/[id number] 17:52:00 Test Item Value Reference Range Comments PARTIAL THROMBOPLASTIN TIME (BEAKER) (test 35.2 seconds 22.5-36.0 fpnl=962) PROTHROMBIN TIME/[id number] 17:51:00 Test Item Value Reference Range Comments PROTIME (BEAKER) (test nzhq=882) 15.8 seconds 11.7-14.7 INR (BEAKER) (test bady=374) 1.3 <=5.9 RECOMMENDED COUMADIN/WARFARIN INR THERAPY RANGESSTANDARD DOSE: 2.0 - 3.0 Includes: PROPHYLAXIS forvenous thrombosis, systemic embolization; TREATMENT for venous thrombosis and/or pulmonary embolus.HIGH RISK: Target INR is 2.5-3.5 for patients with mechanical heart valves.[id number] 17:51:00 Test Item Value Reference Range Comments FIBRINOGEN LEVEL (BEAKER) (test khvw=416) 336 mg/dl 225-434 OXYGEN SATURATION, [id number] 17:44:00 Test Item Value Reference Range Comments O2 SATURATION (MEASURED) (BEAKER) (test fudp=9874) 76.0 % CBC W/PLT COUNT & AUTO [id number] 17:39:00 Test Item Value Reference Range Comments WHITE BLOOD CELL COUNT (BEAKER) (test hwqd=260) 13.1 K/ L 4.0-10.0 RED BLOOD CELL COUNT (BEAKER) (test jpxu=401) 2.64 M/ L 4.20-5.80 HEMOGLOBIN (BEAKER) (test zweu=986) 8.8 GM/DL 13.0-16.8 HEMATOCRIT (BEAKER) (test jnva=635) 25.3 % 40.0-50.0 MEAN CORPUSCULAR VOLUME (BEAKER) (test mjux=145) 95.7 fL 82.0-98.0 MEAN CORPUSCULAR HEMOGLOBIN (BEAKER) (test 33.2 pg 27.0-33.0 oetm=998) MEAN CORPUSCULAR HEMOGLOBIN CONC (BEAKER) (test 34.7 GM/DL 32.0-36.0 kdmu=202) RED CELL DISTRIBUTION WIDTH (BEAKER) (test 13.0 % 10.3-14.2 ezly=777) PLATELET COUNT (BEAKER) (test frbk=771) 238 K/CU MM 150-430 MEAN PLATELET VOLUME (BEAKER) (test vbjx=347) 6.4 fL 6.5-10.5 NUCLEATED RED BLOOD CELLS (BEAKER) (test 0 /100 WBC 0-0 ouhd=398) NEUTROPHILS RELATIVE PERCENT (BEAKER) (test 78 % ifvm=186) LYMPHOCYTES RELATIVE PERCENT (BEAKER) (test 9 % pzqh=812) MONOCYTES RELATIVE PERCENT (BEAKER) (test 12 % soab=277) EOSINOPHILS RELATIVE PERCENT (BEAKER) (test 1 % dect=259) BASOPHILS RELATIVE PERCENT (BEAKER) (test 0 % zayf=462) NEUTROPHILS ABSOLUTE COUNT (BEAKER) (test 10.20 K/ L 1.80-8.00 xbfy=361) LYMPHOCYTES ABSOLUTE COUNT (BEAKER) (test 1.22 K/ L 1.48-4.50 ohuw=476) MONOCYTES ABSOLUTE COUNT (BEAKER) (test 1.54 K/ L 0.00-1.30 hlrw=951) EOSINOPHILS ABSOLUTE COUNT (BEAKER) (test 0.09 K/ L 0.00-0.50 vibw=747) BASOPHILS ABSOLUTE COUNT (BEAKER) (test 0.02 K/ L 0.00-0.20 qsca=730) 0.00SODIUM NA-STAT [id number] 17:32:00 Test Item Value Reference Range Comments SODIUM (BEAKER) (test gomq=258) 137 meq/L 135-148 POTASSIUM-STAT [id number] 17:32:00 Test Item Value Reference Range Comments POTASSIUM (BEAKER) (test ryir=713) 3.7 meq/L 3.6-5.5 BLOOD GAS, [id number] 17:32:00 Test Item Value Reference Range Comments PH ARTERIAL (BEAKER) (test myei=125) 7.36 7.35-7.45 PCO2 ARTERIAL (BEAKER) (test jvij=384) 38 mmHg 35-45 PO2 ARTERIAL (BEAKER) (test jvys=592) 236 mmHg 80-90 O2 SATURATION ARTERIAL (BEAKER) (test jmrx=450) 99.5 % 96.0-97.0 HCO3 ARTERIAL (BEAKER) (test zhet=939) 22 mmol/L 21-29 BASE EXCESS ARTERIAL (BEAKER) (test sbso=607) -4.1 mmol/L -2.0-3.0 PATIENT TEMPERATURE (BEAKER) (test krfb=7975) 34.8 C FIO2 (BEAKER) (test bjhu=3401) 100.0 % GLUCOSE-STAT [id number] 17:32:00 Test Item Value Reference Range Comments GLUCOSE RANDOM (BEAKER) (test yvld=148) 239 mg/dL 70-110 HGB/HCT (H&H) - STAT [id number] 17:32:00 Test Item Value Reference Range Comments HEMOGLOBIN (BEAKER) (test ofjk=273) 8.5 g/dL 13.0-16.8 HEMATOCRIT (BEAKER) (test togc=781) 25.0 % 40.0-50.0 CALCIUM, [id number] 17:32:00 Test Item Value Reference Range Comments CALCIUM IONIZED (BEAKER) (test giwt=036) 1.23 mmol/L 1.12-1.27 PH, BLOOD (BEAKER) (test fhnl=0964) 7.33 PLATELET AGGREGATION: FUNCTION [id number] 17:09:00 Test Item Value Reference Range Comments WEAK ADP RESULT(BEAKER) (test 79 % 60-91 kklb=9315) PLATELET FUNCTION SCREEN 60-100% indicates normal INTERP (BEAKER) (test platelet function qhrm=5707) CNUF-VWHUGUGSPEI-3511 (BEAKER) Gallito Adair M.D. (electonic (test edhw=0328) signature) PLATELET COUNT AGG (BEAKER) 148 K/CU MM 150-430 (test vpcu=8041) Platelet Function Screen results may be falsely low with platelet counts<100, 000/cu mm.BLOOD GAS, [id number] 16:15:00 Test Item Value Reference Range Comments PH ARTERIAL (BEAKER) (test ecmx=772) 7.35 7.35-7.45 PCO2 ARTERIAL (BEAKER) (test gkor=318) 40 mmHg 35-45 PO2 ARTERIAL (BEAKER) (test oaos=417) 258 mmHg 80-90 O2 SATURATION ARTERIAL (BEAKER) (test frbi=122) 99.6 % 96.0-97.0 HCO3 ARTERIAL (BEAKER) (test xfca=700) 22 mmol/L 21-29 BASE EXCESS ARTERIAL (BEAKER) (test lqcb=019) -3.5 mmol/L -2.0-3.0 PATIENT TEMPERATURE (BEAKER) (test wmnn=3129) 34.8 C FIO2 (BEAKER) (test gigm=6044) 70.0 % GLUCOSE-STAT [id number] 16:15:00 Test Item Value Reference Range Comments GLUCOSE RANDOM (BEAKER) (test ooim=985) 201 mg/dL 70-110 HGB/HCT (H&H) - STAT [id number] 16:15:00 Test Item Value Reference Range Comments HEMOGLOBIN (BEAKER) (test chqt=990) 8.5 g/dL 13.0-16.8 HEMATOCRIT (BEAKER) (test tewi=926) 25.0 % 40.0-50.0 SODIUM NA-STAT [id number] 16:14:00 Test Item Value Reference Range Comments SODIUM (BEAKER) (test qcnx=717) 138 meq/L 135-148 POTASSIUM-STAT [id number] 16:14:00 Test Item Value Reference Range Comments POTASSIUM (BEAKER) (test ehan=638) 4.2 meq/L 3.6-5.5 CALCIUM, [id number] 16:14:00 Test Item Value Reference Range Comments CALCIUM IONIZED (BEAKER) (test rcts=647) 1.10 mmol/L 1.12-1.27 PH, BLOOD (BEAKER) (test reek=6436) 7.32 THROMBOELASTOGRAPH (TEG)[id number] 15:48:00 Test Item Value Reference Range Comments TEG ACTIVATED CLOTTING TIME (BEAKER) (test 5.9 minutes 4.0-7.0 ytuf=6127) TEG FIBRINOGEN ACTIVITY (BEAKER) (test 72.1 degrees 61.0-73.0 oonk=7507) TEG PLT. AGGREGATION (BEAKER) (test sdhp=9434) 66.0 MM 55.0-65.0 TEG FIBRINOLYSIS (BEAKER) (test mzwq=5276) 0.0 % 0.0-5.0 TGH ACTIVATED CLOTTING TIME (BEAKER) (test 6.4 minutes 4.0-7.0 kzdk=9339) TGH FIBRINOGEN ACTIVITY (BEAKER) (test 72.2 degrees 61.0-73.0 ogof=3096) TGH PLT. AGGREGATION (BEAKER) (test fqan=0774) 60.9 MM 55.0-65.0 TGH FIBRINOLYSIS (BEAKER) (test kgtz=6799) 0.0 % 0.0-5.0 HEPATIC FUNCTION [id number] 14:57:00 Test Item Value Reference Range Comments TOTAL PROTEIN (BEAKER) (test jqtq=569) 5.6 gm/dL 6.0-8.3 ALBUMIN (BEAKER) (test wovz=5648) 3.6 g/dL 3.5-5.0 BILIRUBIN TOTAL (BEAKER) (test khdn=660) 1.6 mg/dL 0.2-1.2 BILIRUBIN DIRECT (BEAKER) (test qrvx=708) 0.9 mg/dL 0.1-0.5 ALKALINE PHOSPHATASE (BEAKER) (test djxp=296) 52 U/L 40-150 AST (SGOT) (BEAKER) (test acgs=480) 38 U/L 5-34 ALT (SGPT) (BEAKER) (test ecsn=732) 27 U/L 6-55 BASIC METABOLIC [id number] 14:57:00 Test Item Value Reference Range Comments SODIUM (BEAKER) (test 136 meq/L 136-145 kcfu=432) POTASSIUM (BEAKER) (test 4.2 meq/L 3.5-5.1 eqai=203) CHLORIDE (BEAKER) (test 106 meq/L 98-107 kddg=811) CO2 (BEAKER) (test 20 meq/L 22-29 qlsa=112) BLOOD UREA NITROGEN 13 mg/dL 7-21 (BEAKER) (test iprh=058) CREATININE (BEAKER) (test 0.83 mg/dL 0.57-1.25 kzmn=066) GLUCOSE RANDOM (BEAKER) 155 mg/dL 70-105 (test aodv=339) CALCIUM (BEAKER) (test 9.3 mg/dL 8.4-10.2 fpka=601) EGFR (BEAKER) (test 93 mL/min/1.73 sq m ESTIMATED GFR IS NOT jmvd=1247) ACCURATE CREATININE CLEARANCE IN PREDICTING GLOMERULAR FILTRATION RATE. ESTIMATED GFR IS NOT APPLICABLE FOR DIALYSIS PATIENTS. CBC W/PLT COUNT & AUTO [id number] 14:49:00 Test Item Value Reference Range Comments WHITE BLOOD CELL COUNT (BEAKER) (test wbtb=154) 9.8 K/ L 4.0-10.0 RED BLOOD CELL COUNT (BEAKER) (test tlat=157) 2.20 M/ L 4.20-5.80 HEMOGLOBIN (BEAKER) (test doms=089) 7.5 GM/DL 13.0-16.8 HEMATOCRIT (BEAKER) (test aypt=346) 21.8 % 40.0-50.0 MEAN CORPUSCULAR VOLUME (BEAKER) (test ybiz=423) 99.2 fL 82.0-98.0 MEAN CORPUSCULAR HEMOGLOBIN (BEAKER) (test 34.2 pg 27.0-33.0 yrdj=136) MEAN CORPUSCULAR HEMOGLOBIN CONC (BEAKER) (test 34.5 GM/DL 32.0-36.0 ddtf=369) RED CELL DISTRIBUTION WIDTH (BEAKER) (test 11.6 % 10.3-14.2 kztm=030) PLATELET COUNT (BEAKER) (test mmlp=774) 135 K/CU MM 150-430 MEAN PLATELET VOLUME (BEAKER) (test riga=705) 6.1 fL 6.5-10.5 NUCLEATED RED BLOOD CELLS (BEAKER) (test 0 /100 WBC 0-0 sutg=125) NEUTROPHILS RELATIVE PERCENT (BEAKER) (test 79 % evsz=789) LYMPHOCYTES RELATIVE PERCENT (BEAKER) (test 10 % sefs=460) MONOCYTES RELATIVE PERCENT (BEAKER) (test 10 % duvn=762) EOSINOPHILS RELATIVE PERCENT (BEAKER) (test 1 % kvhb=754) BASOPHILS RELATIVE PERCENT (BEAKER) (test 0 % yvce=204) NEUTROPHILS ABSOLUTE COUNT (BEAKER) (test 7.75 K/ L 1.80-8.00 lvmn=624) LYMPHOCYTES ABSOLUTE COUNT (BEAKER) (test 0.96 K/ L 1.48-4.50 heas=410) MONOCYTES ABSOLUTE COUNT (BEAKER) (test 1.00 K/ L 0.00-1.30 ufek=929) EOSINOPHILS ABSOLUTE COUNT (BEAKER) (test 0.10 K/ L 0.00-0.50 puao=173) BASOPHILS ABSOLUTE COUNT (BEAKER) (test 0.01 K/ L 0.00-0.20 olij=210) 0.00LACTIC ACID, ARTERIAL, WHOLE [id number] 14:47:00 Test Item Value Reference Range Comments LACTATE BLOOD ARTERIAL (2) (BEAKER) (test 1.2 mmol/L 0.5-2.2 sjnr=4417) Effective 02/01/2016: Units/Reference Range ChangeNew: 0.5-2.2 mmol/L Previous: 5 -20 mg/[id number] 14:37:00 Test Item Value Reference Range Comments FIBRINOGEN LEVEL (BEAKER) (test rrwa=925) 338 mg/dl 225-434 [id number] 14:37:00 Test Item Value Reference Range Comments PARTIAL THROMBOPLASTIN TIME (BEAKER) (test 30.5 seconds 22.5-36.0 znss=836) PROTHROMBIN TIME/[id number] 14:36:00 Test Item Value Reference Range Comments PROTIME (BEAKER) (test fgvm=328) 16.7 seconds 11.7-14.7 INR (BEAKER) (test tvtj=623) 1.4 <=5.9 RECOMMENDED COUMADIN/WARFARIN INR THERAPY RANGESSTANDARD DOSE: 2.0 - 3.0 Includes: PROPHYLAXIS forvenous thrombosis, systemic embolization; TREATMENT for venous thrombosis and/or pulmonary embolus.HIGH RISK: Target INR is 2.5-3.5 for patients with mechanical heart valves.OXYGEN SATURATION, [id number] 14:31:00 Test Item Value Reference Range Comments O2 SATURATION (MEASURED) (BEAKER) (test bgjj=3456) 60.6 % BLOOD GAS, [id number] 14:30:00 Test Item Value Reference Range Comments PH ARTERIAL (BEAKER) (test wsrc=597) 7.38 7.35-7.45 PCO2 ARTERIAL (BEAKER) (test roie=824) 38 mmHg 35-45 PO2 ARTERIAL (BEAKER) (test plye=161) 201 mmHg 80-90 O2 SATURATION ARTERIAL (BEAKER) (test daiz=735) 99.4 % 96.0-97.0 HCO3 ARTERIAL (BEAKER) (test ozgm=820) 22 mmol/L 21-29 BASE EXCESS ARTERIAL (BEAKER) (test opul=192) -3.3 mmol/L -2.0-3.0 PATIENT TEMPERATURE (BEAKER) (test ykcc=2332) 37.0 C FIO2 (BEAKER) (test oyrg=6370) 100.0 % GLUCOSE-STAT [id number] 14:30:00 Test Item Value Reference Range Comments GLUCOSE RANDOM (BEAKER) (test btmc=135) 154 mg/dL 70-110 HGB/HCT (H&H) - STAT [id number] 14:30:00 Test Item Value Reference Range Comments HEMOGLOBIN (BEAKER) (test ayun=842) 7.2 g/dL 13.0-16.8 HEMATOCRIT (BEAKER) (test fboa=496) 21.0 % 40.0-50.0 SODIUM NA-STAT [id number] 14:29:00 Test Item Value Reference Range Comments SODIUM (BEAKER) (test rhkg=234) 136 meq/L 135-148 POTASSIUM-STAT [id number] 14:29:00 Test Item Value Reference Range Comments POTASSIUM (BEAKER) (test jmbp=508) 4.1 meq/L 3.6-5.5 CALCIUM, [id number] 14:29:00 Test Item Value Reference Range Comments CALCIUM IONIZED (BEAKER) (test tnnm=389) 1.27 mmol/L 1.12-1.27 PH, BLOOD (BEAKER) (test kqlp=9471) 7.38 THROMBOELASTOGRAPH (TEG)2017-01-21 14:10:00 Test Item Value Reference Range Comments TEG ACTIVATED CLOTTING TIME (BEAKER) (test 5.4 minutes 4.0-7.0 ikra=8065) TEG FIBRINOGEN ACTIVITY (BEAKER) (test 69.1 degrees 61.0-73.0 rtwh=4096) TEG PLT. AGGREGATION (BEAKER) (test xikz=2758) 65.6 MM 55.0-65.0 TGH ACTIVATED CLOTTING TIME (BEAKER) (test 5.0 minutes 4.0-7.0 thgp=6730) TGH FIBRINOGEN ACTIVITY (BEAKER) (test 71.5 degrees 61.0-73.0 fbyi=3792) TGH PLT. AGGREGATION (BEAKER) (test wdie=2115) 66.8 MM 55.0-65.0 THROMBOELASTOGRAPH (TEG)2017-01-21 13:55:00 Test Item Value Reference Range Comments TEG ACTIVATED CLOTTING TIME (BEAKER) 124.4 minutes 4.0-7.0 (test raja=5377) TEG FIBRINOGEN ACTIVITY (BEAKER) (test degrees 61.0-73.0 NO CLOT DETECTED ayxt=2208) TEG PLT. AGGREGATION (BEAKER) (test MM 55.0-65.0 NO CLOT DETECTED ycuh=6247) TEG FIBRINOLYSIS (BEAKER) (test % 0.0-5.0 NO CLOT DETECTED yhmz=2632) TGH ACTIVATED CLOTTING TIME (BEAKER) 6.3 minutes 4.0-7.0 (test tykh=5280) TGH FIBRINOGEN ACTIVITY (BEAKER) (test 71.5 degrees 61.0-73.0 rtwf=4320) TGH PLT. AGGREGATION (BEAKER) (test 59.9 MM 55.0-65.0 phbo=3771) PLATELET [id number] 13:50:00 Test Item Value Reference Range Comments PLATELET COUNT (BEAKER) (test ngrl=629) 151 K/CU MM 150-430 [id number] 13:39:00 Test Item Value Reference Range Comments PARTIAL THROMBOPLASTIN TIME (BEAKER) (test 29.5 seconds 22.5-36.0 fipq=439) [id number] 13:36:00 Test Item Value Reference Range Comments FIBRINOGEN LEVEL (BEAKER) (test fqjd=657) 373 mg/dl 225-434 PROTHROMBIN TIME/[id number] 13:34:00 Test Item Value Reference Range Comments PROTIME (BEAKER) (test omgx=734) 16.9 seconds 11.7-14.7 INR (BEAKER) (test uybp=234) 1.4 <=5.9 RECOMMENDED COUMADIN/WARFARIN INR THERAPY RANGESSTANDARD DOSE: 2.0 - 3.0 Includes: PROPHYLAXIS forvenous thrombosis, systemic embolization; TREATMENT for venous thrombosis and/or pulmonary embolus.HIGH RISK: Target INR is 2.5-3.5 for patients with mechanical heart valves.[id number] 13:25:00 Test Item Value Reference Range Comments PARTIAL THROMBOPLASTIN TIME (BEAKER) (test > seconds 22.5-36.0 mgsj=491) [id number] 13:23:00 Test Item Value Reference Range Comments ACTIVATED CLOTTING TIME 121 sec TESTED AT [facility] [address] (BEAKER) (test ihnk=797) [facility] [address] [id number] 13:23:00 Test Item Value Reference Range Comments ACTIVATED CLOTTING TIME 456 sec TESTED AT [facility] [address] (BEAKER) (test fhmt=294) [facility] [address] [id number] 13:23:00 Test Item Value Reference Range Comments ACTIVATED CLOTTING TIME 471 sec TESTED AT [facility] [address] (BEAKER) (test cjcd=490) [facility] [address] [id number] 13:23:00 Test Item Value Reference Range Comments ACTIVATED CLOTTING TIME 569 sec TESTED AT [facility] [address] (BEAKER) (test ihsa=196) [facility] [address] BLOOD GAS, [id number] 13:20:00 Test Item Value Reference Range Comments PH ARTERIAL (BEAKER) (test nbtf=254) 7.34 7.35-7.45 PCO2 ARTERIAL (BEAKER) (test poei=912) 40 mmHg 35-45 PO2 ARTERIAL (BEAKER) (test vcbf=951) 128 mmHg 80-90 O2 SATURATION ARTERIAL (BEAKER) (test obaz=018) 98.5 % 96.0-97.0 HCO3 ARTERIAL (BEAKER) (test ikwp=545) 21 mmol/L 21-29 BASE EXCESS ARTERIAL (BEAKER) (test ulxj=050) -4.7 mmol/L -2.0-3.0 PATIENT TEMPERATURE (BEAKER) (test naug=5092) 36.0 C FIO2 (BEAKER) (test giqn=2405) 50.0 % SODIUM NA-STAT [id number] 13:20:00 Test Item Value Reference Range Comments SODIUM (BEAKER) (test yymf=275) 134 meq/L 135-148 GLUCOSE-STAT [id number] 13:20:00 Test Item Value Reference Range Comments GLUCOSE RANDOM (BEAKER) (test fvkq=791) 168 mg/dL 70-110 HGB/HCT (H&H) - STAT [id number] 13:20:00 Test Item Value Reference Range Comments HEMOGLOBIN (BEAKER) (test uzao=232) 8.7 g/dL 13.0-16.8 HEMATOCRIT (BEAKER) (test koof=999) 26.0 % 40.0-50.0 CALCIUM, [id number] 13:20:00 Test Item Value Reference Range Comments CALCIUM IONIZED (BEAKER) (test fjrf=351) 1.31 mmol/L 1.12-1.27 PH, BLOOD (BEAKER) (test vrhd=5177) 7.32 POTASSIUM-STAT [id number] 13:18:00 Test Item Value Reference Range Comments POTASSIUM (BEAKER) (test hzwr=282) 3.8 meq/L 3.6-5.5 [id number] 12:41:00 Test Item Value Reference Range Comments FIBRINOGEN LEVEL (BEAKER) (test uzjs=935) 390 mg/dl 225-434 PROTHROMBIN TIME/[id number] 12:40:00 Test Item Value Reference Range Comments PROTIME (BEAKER) (test wgpa=389) 27.9 seconds 11.7-14.7 INR (BEAKER) (test hwzs=800) 2.6 <=5.9 RECOMMENDED COUMADIN/WARFARIN INR THERAPY RANGESSTANDARD DOSE: 2.0 - 3.0 Includes: PROPHYLAXIS forvenous thrombosis, systemic embolization; TREATMENT for venous thrombosis and/or pulmonary embolus.HIGH RISK: Target INR is 2.5-3.5 for patients with mechanical heart valves.POTASSIUM-STAT [id number] 12:18:00 Test Item Value Reference Range Comments POTASSIUM (BEAKER) (test edhz=090) 4.2 meq/L 3.6-5.5 BLOOD GAS, [id number] 12:18:00 Test Item Value Reference Range Comments PH ARTERIAL (BEAKER) (test znjh=594) 7.34 7.35-7.45 PCO2 ARTERIAL (BEAKER) (test nomg=257) 39 mmHg 35-45 PO2 ARTERIAL (BEAKER) (test mdds=124) 387 mmHg 80-90 O2 SATURATION ARTERIAL (BEAKER) (test jydx=811) 99.8 % 96.0-97.0 HCO3 ARTERIAL (BEAKER) (test zyvz=753) 21 mmol/L 21-29 BASE EXCESS ARTERIAL (BEAKER) (test mnbm=444) -4.4 mmol/L -2.0-3.0 PATIENT TEMPERATURE (BEAKER) (test ugec=2214) 36.3 C FIO2 (BEAKER) (test jlbt=3748) 100.0 % SODIUM NA-STAT [id number] 12:18:00 Test Item Value Reference Range Comments SODIUM (BEAKER) (test kqmh=044) 132 meq/L 135-148 GLUCOSE-STAT [id number] 12:18:00 Test Item Value Reference Range Comments GLUCOSE RANDOM (BEAKER) (test fpzp=493) 140 mg/dL 70-110 HGB/HCT (H&H) - STAT [id number] 12:18:00 Test Item Value Reference Range Comments HEMOGLOBIN (BEAKER) (test wlqm=334) 9.2 g/dL 13.0-16.8 HEMATOCRIT (BEAKER) (test jbrj=821) 27.0 % 40.0-50.0 CALCIUM, [id number] 12:18:00 Test Item Value Reference Range Comments CALCIUM IONIZED (BEAKER) (test qwmv=470) 1.11 mmol/L 1.12-1.27 PH, BLOOD (BEAKER) (test ayof=7246) 7.33 PLATELET [id number] 12:02:00 Test Item Value Reference Range Comments PLATELET COUNT (BEAKER) (test dnnu=193) 125 K/CU MM 150-430 BLOOD GAS, [id number] 11:36:00 Test Item Value Reference Range Comments PH ARTERIAL (BEAKER) (test ksiz=157) 7.36 7.35-7.45 PCO2 ARTERIAL (BEAKER) (test wnuf=462) 48 mmHg 35-45 PO2 ARTERIAL (BEAKER) (test bsex=474) 271 mmHg 80-90 O2 SATURATION ARTERIAL (BEAKER) (test llii=080) 99.6 % 96.0-97.0 HCO3 ARTERIAL (BEAKER) (test qjkd=811) 27 mmol/L 21-29 BASE EXCESS ARTERIAL (BEAKER) (test ehbc=857) 0.9 mmol/L -2.0-3.0 PATIENT TEMPERATURE (BEAKER) (test jfmv=7677) 35.9 C FIO2 (BEAKER) (test solq=1038) 65.0 % SODIUM NA-STAT [id number] 11:36:00 Test Item Value Reference Range Comments SODIUM (BEAKER) (test aygb=341) 131 meq/L 135-148 GLUCOSE-STAT [id number] 11:36:00 Test Item Value Reference Range Comments GLUCOSE RANDOM (BEAKER) (test usnr=607) 112 mg/dL 70-110 HGB/HCT (H&H) - STAT [id number] 11:36:00 Test Item Value Reference Range Comments HEMOGLOBIN (BEAKER) (test qxxm=241) 9.2 g/dL 13.0-16.8 HEMATOCRIT (BEAKER) (test qypv=038) 27.0 % 40.0-50.0 POTASSIUM-STAT [id number] 11:35:00 Test Item Value Reference Range Comments POTASSIUM (BEAKER) (test ajpn=608) 5.0 meq/L 3.6-5.5 BLOOD GAS, [id number] 11:16:00 Test Item Value Reference Range Comments PH ARTERIAL (BEAKER) (test yjcp=861) 7.35 7.35-7.45 PCO2 ARTERIAL (BEAKER) (test dmwj=265) 44 mmHg 35-45 PO2 ARTERIAL (BEAKER) (test zqib=435) 410 mmHg 80-90 O2 SATURATION ARTERIAL (BEAKER) (test tvpa=425) 99.8 % 96.0-97.0 HCO3 ARTERIAL (BEAKER) (test nibu=536) 25 mmol/L 21-29 BASE EXCESS ARTERIAL (BEAKER) (test ujwm=650) -2.1 mmol/L -2.0-3.0 PATIENT TEMPERATURE (BEAKER) (test kete=0315) 32.0 C FIO2 (BEAKER) (test ftxu=1657) 80.0 % SODIUM NA-STAT [id number] 11:16:00 Test Item Value Reference Range Comments SODIUM (BEAKER) (test qjqf=801) 130 meq/L 135-148 HGB/HCT (H&H) - STAT [id number] 11:16:00 Test Item Value Reference Range Comments HEMOGLOBIN (BEAKER) (test bisa=542) 8.6 g/dL 13.0-16.8 HEMATOCRIT (BEAKER) (test gvcw=428) 25.0 % 40.0-50.0 GLUCOSE-STAT [id number] 11:14:00 Test Item Value Reference Range Comments GLUCOSE RANDOM (BEAKER) (test rtge=961) 98 mg/dL 70-110 POTASSIUM-STAT [id number] 11:14:00 Test Item Value Reference Range Comments POTASSIUM (BEAKER) (test woza=639) 4.3 meq/L 3.6-5.5 BLOOD GAS, [id number] 10:12:00 Test Item Value Reference Range Comments PH ARTERIAL (BEAKER) (test hfom=465) 7.48 7.35-7.45 PCO2 ARTERIAL (BEAKER) (test qkex=942) 36 mmHg 35-45 PO2 ARTERIAL (BEAKER) (test bpzd=480) 230 mmHg 80-90 O2 SATURATION ARTERIAL (BEAKER) (test vood=328) 99.6 % 96.0-97.0 HCO3 ARTERIAL (BEAKER) (test oflx=876) 26 mmol/L 21-29 BASE EXCESS ARTERIAL (BEAKER) (test bjbr=878) 2.2 mmol/L -2.0-3.0 PATIENT TEMPERATURE (BEAKER) (test wpcu=4655) 35.6 C FIO2 (BEAKER) (test hkjy=9569) 100.0 % GLUCOSE-STAT [id number] 10:12:00 Test Item Value Reference Range Comments GLUCOSE RANDOM (BEAKER) (test hnzs=560) 113 mg/dL 70-110 HGB/HCT (H&H) - STAT [id number] 10:12:00 Test Item Value Reference Range Comments HEMOGLOBIN (BEAKER) (test hspc=435) 12.9 g/dL 13.0-16.8 HEMATOCRIT (BEAKER) (test kkah=720) 38.0 % 40.0-50.0 SODIUM NA-STAT [id number] 10:11:00 Test Item Value Reference Range Comments SODIUM (BEAKER) (test wjed=589) 135 meq/L 135-148 POTASSIUM-STAT [id number] 10:11:00 Test Item Value Reference Range Comments POTASSIUM (BEAKER) (test qnbh=541) 3.9 meq/L 3.6-5.5 CALCIUM, [id number] 10:11:00 Test Item Value Reference Range Comments CALCIUM IONIZED (BEAKER) (test pvhe=543) 1.11 mmol/L 1.12-1.27 PH, BLOOD (BEAKER) (test ephe=6476) 7.45 [id number] 04:33:00 Test Item Value Reference Range Comments PARTIAL THROMBOPLASTIN TIME (BEAKER) (test 95.6 seconds 22.5-36.0 faxc=704) CBC (HEMOGRAM ONLY)[id number] 04:27:00 Test Item Value Reference Range Comments WHITE BLOOD CELL COUNT (BEAKER) (test dlco=332) 10.1 K/ L 4.0-10.0 RED BLOOD CELL COUNT (BEAKER) (test fmiu=911) 4.00 M/ L 4.20-5.80 HEMOGLOBIN (BEAKER) (test ljen=762) 13.2 GM/DL 13.0-16.8 HEMATOCRIT (BEAKER) (test biop=150) 39.6 % 40.0-50.0 MEAN CORPUSCULAR VOLUME (BEAKER) (test aogd=161) 99.0 fL 82.0-98.0 MEAN CORPUSCULAR HEMOGLOBIN (BEAKER) (test 33.1 pg 27.0-33.0 ijxc=221) MEAN CORPUSCULAR HEMOGLOBIN CONC (BEAKER) (test 33.4 GM/DL 32.0-36.0 ghep=679) RED CELL DISTRIBUTION WIDTH (BEAKER) (test 11.8 % 10.3-14.2 aptk=287) PLATELET COUNT (BEAKER) (test hhxi=277) 152 K/CU MM 150-430 MEAN PLATELET VOLUME (BEAKER) (test tsjm=407) 6.7 fL 6.5-10.5 NUCLEATED RED BLOOD CELLS (BEAKER) (test 0 /100 WBC 0-0 weki=405) 0.00BASIC METABOLIC [id number] 04:19:00 Test Item Value Reference Range Comments SODIUM (BEAKER) (test 136 meq/L 136-145 lkhl=806) POTASSIUM (BEAKER) (test 3.9 meq/L 3.5-5.1 wplh=211) CHLORIDE (BEAKER) (test 102 meq/L 98-107 uqfq=755) CO2 (BEAKER) (test 23 meq/L 22-29 ycoo=093) BLOOD UREA NITROGEN 12 mg/dL 7-21 (BEAKER) (test maxk=267) CREATININE (BEAKER) (test 0.76 mg/dL 0.57-1.25 bzmf=444) GLUCOSE RANDOM (BEAKER) 107 mg/dL 70-105 (test qkqe=172) CALCIUM (BEAKER) (test 8.8 mg/dL 8.4-10.2 treb=149) EGFR (BEAKER) (test 103 mL/min/1.73 sq m ESTIMATED GFR IS NOT msdw=6556) ACCURATE CREATININE CLEARANCE IN PREDICTING GLOMERULAR FILTRATION RATE. ESTIMATED GFR IS NOT APPLICABLE FOR DIALYSIS PATIENTS. Please draw today if not done already.[id number] 01:57:00 Test Item Value Reference Range Comments COL/EPI CLOSURE TIME (BEAKER) (test dqtd=7648) 137 Seconds 78-191 COL/ADP CLOSURE TIME (BEAKER) (test imfi=6873) 77 Seconds 43-122 PLATELET COUNT AGG (BEAKER) (test tfwx=9247) 154 K/CU MM 150-430 [id number] 22:58:00 Test Item Value Reference Range Comments PARTIAL THROMBOPLASTIN TIME (BEAKER) (test 75.9 seconds 22.5-36.0 scyw=686) [id number] 18:11:00 Test Item Value Reference Range Comments PARTIAL THROMBOPLASTIN TIME (BEAKER) (test 59.2 seconds 22.5-36.0 qmis=945) PROTHROMBIN TIME/[id number] 18:10:00 Test Item Value Reference Range Comments PROTIME (BEAKER) (test wwqp=712) 14.4 seconds 11.7-14.7 INR (BEAKER) (test ofha=143) 1.1 <=5.9 RECOMMENDED COUMADIN/WARFARIN INR THERAPY RANGESSTANDARD DOSE: 2.0 - 3.0 Includes: PROPHYLAXIS forvenous thrombosis, systemic embolization; TREATMENT for venous thrombosis and/or pulmonary embolus.HIGH RISK: Target INR is 2.5-3.5 for patients with mechanical heart valves.[id number] 18:10:00 Test Item Value Reference Range Comments FIBRINOGEN LEVEL (BEAKER) (test fvjd=204) 608 mg/dl 225-434 PLATELET [id number] 18:00:00 Test Item Value Reference Range Comments PLATELET COUNT (BEAKER) (test cimq=045) 136 K/CU MM 150-430 [id number] 15:48:00 Test Item Value Reference Range Comments PARTIAL THROMBOPLASTIN TIME (BEAKER) (test 46.1 seconds 22.5-36.0 mvil=336) BASIC METABOLIC [id number] 04:49:00 Test Item Value Reference Range Comments SODIUM (BEAKER) (test 134 meq/L 136-145 dgvg=729) POTASSIUM (BEAKER) (test 4.1 meq/L 3.5-5.1 Specimen slightly vsev=745) hemolyzed CHLORIDE (BEAKER) (test 102 meq/L 98-107 xhbh=898) CO2 (BEAKER) (test 23 meq/L 22-29 dubd=330) BLOOD UREA NITROGEN 13 mg/dL 7-21 (BEAKER) (test kllx=285) CREATININE (BEAKER) (test 0.72 mg/dL 0.57-1.25 Specimen slightly fvbt=639) hemolyzed GLUCOSE RANDOM (BEAKER) 109 mg/dL 70-105 (test qhjx=834) CALCIUM (BEAKER) (test 8.5 mg/dL 8.4-10.2 rzfi=424) EGFR (BEAKER) (test 109 mL/min/1.73 sq m ESTIMATED GFR IS NOT jjlq=9642) ACCURATE CREATININE CLEARANCE IN PREDICTING GLOMERULAR FILTRATION RATE. ESTIMATED GFR IS NOT APPLICABLE FOR DIALYSIS PATIENTS. Please draw today if not done already.CBC (HEMOGRAM ONLY)2017-01-20 04:47:00 Test Item Value Reference Range Comments WHITE BLOOD CELL COUNT (BEAKER) (test nsdz=370) 9.3 K/ L 4.0-10.0 RED BLOOD CELL COUNT (BEAKER) (test jzlj=227) 3.76 M/ L 4.20-5.80 HEMOGLOBIN (BEAKER) (test gspi=708) 12.7 GM/DL 13.0-16.8 HEMATOCRIT (BEAKER) (test vcda=584) 37.1 % 40.0-50.0 MEAN CORPUSCULAR VOLUME (BEAKER) (test wjnm=199) 98.9 fL 82.0-98.0 MEAN CORPUSCULAR HEMOGLOBIN (BEAKER) (test 33.8 pg 27.0-33.0 zygm=751) MEAN CORPUSCULAR HEMOGLOBIN CONC (BEAKER) (test 34.2 GM/DL 32.0-36.0 uynb=825) RED CELL DISTRIBUTION WIDTH (BEAKER) (test 12.8 % 10.3-14.2 ylws=237) PLATELET COUNT (BEAKER) (test agox=529) 129 K/CU MM 150-430 MEAN PLATELET VOLUME (BEAKER) (test yqae=267) 7.0 fL 6.5-10.5 NUCLEATED RED BLOOD CELLS (BEAKER) (test 0 /100 WBC 0-0 kpgq=304) [id number] 04:39:00 Test Item Value Reference Range Comments PARTIAL THROMBOPLASTIN TIME (BEAKER) (test 41.2 seconds 22.5-36.0 sone=548) [id number] 18:57:00 Test Item Value Reference Range Comments PARTIAL THROMBOPLASTIN TIME (BEAKER) (test 50.1 seconds 22.5-36.0 ixen=545) [id number] 12:11:00 Test Item Value Reference Range Comments PARTIAL THROMBOPLASTIN TIME (BEAKER) (test 48.2 seconds 22.5-36.0 njlx=351) TROPONIN [id number] 07:38:00 Test Item Value Reference Range Comments TROPONIN I (BEAKER) (test mptn=237) 6.79 ng/mL 0.00-0.03 Effective 08/17/2014: Reference Range ChangeNew: 0.00-0.03 Previous 0.00- 0.15Troponin I (TnI) levels must be interpreted in the context of the presenting symptoms and the clinical findings. Elevated TnI levels indicate myocardial damage, but are not specific for ischemic heart disease. Elevated TnI levels are seen in patients with other cardiac conditions (including myocarditis and congestive heartfailure), and slight TnI elevations occur in patients with other conditions, including sepsis, renalfailure, acidosis, acute neurological disease, and persistent tachyarrhythmia.Obtain six (6) hours after initial Creatine Kinase (CK), Total and MB completed.CREATINE KINASE (CK), TOTAL AND [id number] 07:35:00 Test Item Value Reference Range Comments CREATINE KINASE TOTAL (BEAKER) (test lttd=359) 341 U/L 29-200 CREATINE KINASE-MB (BEAKER) (test tacn=536) 32.7 ng/mL 0.0-6.6 CREATINE KINASE-MB INDEX (BEAKER) (test diha=095) 9.6 % Effective 08/17/2014: CK-MB Reference Range ChangeNew: 0.0-6.6 Previous: 0.0- 4.9CK-MB Reference Range:<6.7 Normal6.7-10.0 Borderline>10.0 AbnormalObtain six (6) hours after initial Creatine Kinase (CK), Total and MB completed.Obtain six (6) hours after initial Creatine Kinase (CK), Total and MB completed.BASIC METABOLIC [id number] 04:02:00 Test Item Value Reference Range Comments SODIUM (BEAKER) (test 137 meq/L 136-145 bavj=294) POTASSIUM (BEAKER) (test 4.0 meq/L 3.5-5.1 ykmp=744) CHLORIDE (BEAKER) (test 104 meq/L 98-107 knek=833) CO2 (BEAKER) (test 24 meq/L 22-29 mcyg=475) BLOOD UREA NITROGEN 19 mg/dL 7-21 (BEAKER) (test qfby=856) CREATININE (BEAKER) (test 0.83 mg/dL 0.57-1.25 hmch=892) GLUCOSE RANDOM (BEAKER) 112 mg/dL 70-105 (test povi=249) CALCIUM (BEAKER) (test 8.4 mg/dL 8.4-10.2 vnkx=216) EGFR (BEAKER) (test 93 mL/min/1.73 sq m ESTIMATED GFR IS NOT tasi=8788) ACCURATE CREATININE CLEARANCE IN PREDICTING GLOMERULAR FILTRATION RATE. ESTIMATED GFR IS NOT APPLICABLE FOR DIALYSIS PATIENTS. [id number] 03:50:00 Test Item Value Reference Range Comments PARTIAL THROMBOPLASTIN TIME (BEAKER) (test 35.6 seconds 22.5-36.0 ojxy=122) CBC (HEMOGRAM ONLY)2017-01-19 03:46:00 Test Item Value Reference Range Comments WHITE BLOOD CELL COUNT (BEAKER) (test fhml=191) 9.8 K/ L 4.0-10.0 RED BLOOD CELL COUNT (BEAKER) (test gegb=361) 3.68 M/ L 4.20-5.80 HEMOGLOBIN (BEAKER) (test evok=877) 12.8 GM/DL 13.0-16.8 HEMATOCRIT (BEAKER) (test ngur=862) 36.6 % 40.0-50.0 MEAN CORPUSCULAR VOLUME (BEAKER) (test fbyn=571) 99.6 fL 82.0-98.0 MEAN CORPUSCULAR HEMOGLOBIN (BEAKER) (test 34.9 pg 27.0-33.0 gpxc=832) MEAN CORPUSCULAR HEMOGLOBIN CONC (BEAKER) (test 35.0 GM/DL 32.0-36.0 tpnt=762) RED CELL DISTRIBUTION WIDTH (BEAKER) (test 12.8 % 10.3-14.2 ymdb=600) PLATELET COUNT (BEAKER) (test gtxn=351) 132 K/CU MM 150-430 MEAN PLATELET VOLUME (BEAKER) (test vrmk=270) 6.6 fL 6.5-10.5 NUCLEATED RED BLOOD CELLS (BEAKER) (test 0 /100 WBC 0-0 kuas=723) 0.00TROPONIN [id number] 00:33:00 Test Item Value Reference Range Comments TROPONIN I (BEAKER) (test bhmv=244) 11.27 ng/mL 0.00-0.03 Effective 08/17/2014: Reference Range ChangeNew: 0.00-0.03 Previous 0.00- 0.15Troponin I (TnI) levels must be interpreted in the context of the presenting symptoms and the clinical findings. Elevated TnI levels indicate myocardial damage, but are not specific for ischemic heart disease. Elevated TnI levels are seen in patients with other cardiac conditions (including myocarditis and congestive heartfailure), and slight TnI elevations occur in patients with other conditions, including sepsis, renalfailure, acidosis, acute neurological disease, and persistent tachyarrhythmia.Obtain six (6) hours after initial Creatine Kinase (CK), Total and MB completed.CREATINE KINASE (CK), TOTAL AND [id number] 00:26:00 Test Item Value Reference Range Comments CREATINE KINASE TOTAL (BEAKER) (test mjte=939) 475 U/L 29-200 CREATINE KINASE-MB (BEAKER) (test decr=515) 60.7 ng/mL 0.0-6.6 CREATINE KINASE-MB INDEX (BEAKER) (test ejhw=692) 12.8 % Effective 08/17/2014: CK-MB Reference Range ChangeNew: 0.0-6.6 Previous: 0.0- 4.9CK-MB Reference Range:<6.7 Normal6.7-10.0 Borderline>10.0 AbnormalObtain six (6) hours after initial Creatine Kinase (CK), Total and MB completed.Obtain six (6) hours after initial Creatine Kinase (CK), Total and MB completed.[id number] 20:24:00 Test Item Value Reference Range Comments PARTIAL THROMBOPLASTIN TIME (BEAKER) (test 27.0 seconds 22.5-36.0 daws=273) TROPONIN [id number] 17:02:00 Test Item Value Reference Range Comments TROPONIN I (BEAKER) (test jjet=707) 7.67 ng/mL 0.00-0.03 Effective 08/17/2014: Reference Range ChangeNew: 0.00-0.03 Previous 0.00- 0.15Troponin I (TnI) levels must be interpreted in the context of the presenting symptoms and the clinical findings. Elevated TnI levels indicate myocardial damage, but are not specific for ischemic heart disease. Elevated TnI levels are seen in patients with other cardiac conditions (including myocarditis and congestive heartfailure), and slight TnI elevations occur in patients with other conditions, including sepsis, renalfailure, acidosis, acute neurological disease, and persistent tachyarrhythmia.Obtain six (6) hours after initial Creatine Kinase (CK), Total and MB completed.[id number] 14:49:00 Test Item Value Reference Range Comments PARTIAL THROMBOPLASTIN TIME (BEAKER) (test 25.1 seconds 22.5-36.0 jyzg=026) CREATINE KINASE (CK), TOTAL AND [id number] 14:43:00 Test Item Value Reference Range Comments CREATINE KINASE TOTAL (BEAKER) (test eklt=393) 434 U/L 29-200 CREATINE KINASE-MB (BEAKER) (test suqh=062) 67.9 ng/mL 0.0-6.6 CREATINE KINASE-MB INDEX (BEAKER) (test kirs=359) 15.6 % Effective 08/17/2014: CK-MB Reference Range ChangeNew: 0.0-6.6 Previous: 0.0- 4.9CK-MB Reference Range:<6.7 Normal6.7-10.0 Borderline>10.0 AbnormalObtain six (6) hours after initial Creatine Kinase (CK), Total and MB completed.Obtain six (6) hours after initial Creatine Kinase (CK), Total and MB completed.POCT-GLUCOSE [id number] 12:00:00 Test Item Value Reference Range Comments POC-GLUCOSE METER (BEAKER) 144 mg/dL 70-110 TESTED AT [facility] [address] [facility] (test ffsl=4774) [facility] [address] PT/[id number] 07:53:00 Test Item Value Reference Range Comments PROTIME (BEAKER) (test dcmn=250) 16.0 seconds 11.7-14.7 INR (BEAKER) (test iquq=350) 1.3 <=5.9 PARTIAL THROMBOPLASTIN TIME (BEAKER) (test 120.0 seconds 22.5-36.0 oxny=873) RECOMMENDED COUMADIN/WARFARIN INR THERAPY RANGESSTANDARD DOSE: 2.0 - 3.0 Includes: PROPHYLAXIS forvenous thrombosis, systemic embolization; TREATMENT for venous thrombosis and/or pulmonary embolus.HIGH RISK: Target INR is 2.5-3.5 for patients with mechanical heart valves.TROPONIN [id number] 07:50:00 Test Item Value Reference Range Comments TROPONIN I (LENOAKER) (test onmd=146) 1.44 ng/mL 0.00-0.03 Effective 08/17/2014: Reference Range ChangeNew: 0.00-0.03 Previous 0.00- 0.15Troponin I (TnI) levels must be interpreted in the context of the presenting symptoms and the clinical findings. Elevated TnI levels indicate myocardial damage, but are not specific for ischemic heart disease. Elevated TnI levels are seen in patients with other cardiac conditions (including myocarditis and congestive heartfailure), and slight TnI elevations occur in patients with other conditions, including sepsis, renalfailure, acidosis, acute neurological disease, and persistent tachyarrhythmia.CREATINE KINASE (CK), TOTAL AND [id number] 07:40:00 Test Item Value Reference Range Comments CREATINE KINASE TOTAL (BEAKER) (test etsa=801) 131 U/L 29-200 CREATINE KINASE-MB (BEAKER) (test mxmy=495) 9.9 ng/mL 0.0-6.6 CREATINE KINASE-MB INDEX (BEAKER) (test arqp=831) 7.6 % Effective 08/17/2014: CK-MB Reference Range ChangeNew: 0.0-6.6 Previous: 0.0- 4.9CK-MB Reference Range:<6.7 Normal6.7-10.0 Borderline>10.0 AbnormalB-TYPE NATRIURETIC FACTOR (BNP)2017-01-18 07:38:00 Test Item Value Reference Range Comments B-TYPE NATRIURETIC PEPTIDE (BEAKER) (test 503 pg/mL 0-100 ihwj=971) LIPID [id number] 07:33:00 Test Item Value Reference Range Comments TRIGLYCERIDES (BEAKER) (test juld=036) 137 mg/dL CHOLESTEROL (BEAKER) (test wxgz=066) 212 mg/dL HDL CHOLESTEROL (BEAKER) (test zqff=827) 32 mg/dL LDL CHOLESTEROL CALCULATED (BEAKER) (test 153 mg/dL spvz=542) Triglyceride Reference Range: Low Risk <150 Borderline 150- 199 High Risk 200-499 Very High Risk >=500Cholesterol Reference Range: Low Risk <200 Borderline 200-239 High Risk > 240HDL Cholesterol Reference Range: Low Risk >=60 High Risk <40LDL Cholesterol Reference Range: Optimal <100 Near Optimal 100-129 Borderline 130-159 High 160-189 Very High >=[id number] 07:33:00 Test Item Value Reference Range Comments SODIUM (BEAKER) (test rvkv=446) 136 meq/L 136-145 POTASSIUM (BEAKER) (test qhyq=274) 4.0 meq/L 3.5-5.1 CHLORIDE (BEAKER) (test gkxc=376) 105 meq/L 98-107 CO2 (BEAKER) (test hrfo=458) 23 meq/L 22-29 HEPATIC FUNCTION [id number] 07:33:00 Test Item Value Reference Range Comments TOTAL PROTEIN (BEAKER) (test wbua=854) 6.3 gm/dL 6.0-8.3 ALBUMIN (BEAKER) (test iuik=2465) 3.6 g/dL 3.5-5.0 BILIRUBIN TOTAL (BEAKER) (test kdkw=921) 0.6 mg/dL 0.2-1.2 BILIRUBIN DIRECT (BEAKER) (test hdht=141) 0.3 mg/dL 0.1-0.5 ALKALINE PHOSPHATASE (BEAKER) (test xcck=795) 66 U/L 40-150 AST (SGOT) (BEAKER) (test rdzx=545) 48 U/L 5-34 ALT (SGPT) (BEAKER) (test qpyp=246) 60 U/L 6-55 [id number] 07:33:00 Test Item Value Reference Range Comments GLUCOSE RANDOM (BEAKER) (test qtcf=816) 132 mg/dL 70-105 Effective 08/17/2014: Reference Range Change-Adult onlyNew: 70-105 Previous : 70-110BUN AND [id number] 07:33:00 Test Item Value Reference Range Comments BLOOD UREA NITROGEN 18 mg/dL 7-21 (BEAKER) (test sden=873) CREATININE (BEAKER) (test 0.82 mg/dL 0.57-1.25 uslq=553) EGFR (BEAKER) (test 94 mL/min/1.73 sq m ESTIMATED GFR IS NOT xhqc=0224) ACCURATE CREATININE CLEARANCE IN PREDICTING GLOMERULAR FILTRATION RATE. ESTIMATED GFR IS NOT APPLICABLE FOR DIALYSIS PATIENTS. CBC W/PLT COUNT & AUTO [id number] 07:19:00 Test Item Value Reference Range Comments WHITE BLOOD CELL COUNT (BEAKER) (test sjew=477) 10.2 K/ L 4.0-10.0 RED BLOOD CELL COUNT (BEAKER) (test nant=988) 4.09 M/ L 4.20-5.80 HEMOGLOBIN (BEAKER) (test pmez=338) 13.1 GM/DL 13.0-16.8 HEMATOCRIT (BEAKER) (test xkbk=310) 40.1 % 40.0-50.0 MEAN CORPUSCULAR VOLUME (BEAKER) (test ulva=901) 97.9 fL 82.0-98.0 MEAN CORPUSCULAR HEMOGLOBIN (BEAKER) (test 32.0 pg 27.0-33.0 mdel=034) MEAN CORPUSCULAR HEMOGLOBIN CONC (BEAKER) (test 32.6 GM/DL 32.0-36.0 cydb=177) RED CELL DISTRIBUTION WIDTH (BEAKER) (test 11.9 % 10.3-14.2 wihz=074) PLATELET COUNT (BEAKER) (test upax=925) 151 K/CU MM 150-430 MEAN PLATELET VOLUME (BEAKER) (test rsns=831) 6.5 fL 6.5-10.5 NUCLEATED RED BLOOD CELLS (BEAKER) (test 0 /100 WBC 0-0 sobh=415) NEUTROPHILS RELATIVE PERCENT (BEAKER) (test 78 % txxg=863) LYMPHOCYTES RELATIVE PERCENT (BEAKER) (test 14 % qlsu=401) MONOCYTES RELATIVE PERCENT (BEAKER) (test 7 % gcmt=239) EOSINOPHILS RELATIVE PERCENT (BEAKER) (test 1 % qtle=493) BASOPHILS RELATIVE PERCENT (BEAKER) (test 0 % jxqy=500) NEUTROPHILS ABSOLUTE COUNT (BEAKER) (test 7.92 K/ L 1.80-8.00 tbxi=150) LYMPHOCYTES ABSOLUTE COUNT (BEAKER) (test 1.45 K/ L 1.48-4.50 wokw=285) MONOCYTES ABSOLUTE COUNT (BEAKER) (test 0.69 K/ L 0.00-1.30 wtus=139) EOSINOPHILS ABSOLUTE COUNT (BEAKER) (test 0.08 K/ L 0.00-0.50 lvqo=895) BASOPHILS ABSOLUTE COUNT (BEAKER) (test 0.03 K/ L 0.00-0.20 mntu=376) [id number] 06:55:00 Test Item Value Reference Range Comments ACTIVATED CLOTTING TIME 188 sec TESTED AT [facility] [address] (BEAKER) (test mktq=309) [facility] [id number]
[2018-02-12 18:13] LABS: Absolute Monocytes 0.5 K/uL (0.1-1.3); Absolute Neutrophil 4.6 K/uL (1.8-8.0); Basophils % 0.6 % (0-1.3); Eosinophils % 2.6 % (0-4.4); Lymphocytes % 27.4 % (15.3-44.8); MCH 18.1 pg (27.0-35.0); MCV 62.3 fL (80-100); MPV 7.8 fL (7.6-11.3); Monocytes % 6.4 % (3.3-12.3); RBC Red Blood Cell Count 2.23 M/uL (4.33-5.43)
[2018-02-12 18:15] LABS: Hematocrit 13.9 % (39.6-49.0)
[2018-02-12 18:20] LABS: Potassium 4.2 mEq/L (3.6-5.0)
[2018-02-12 18:27] LABS: Albumin 3.6 g/dL (3.2-5.5); Bilirubin Direct 0.1 mg/dL (0-0.2); Bilirubin Total 0.6 mg/dL (0.3-1.2); Protein, Total 6.6 g/dL (6.0-8.3)
[2018-02-12 18:44] LABS: Blood Morphology Comment NOTED (NOT SEEN); Burr Cells 3+; Hypochromasia 2+; Platelet Estimate ADEQ; Urine White Blood Cell Casts OK
--- NOTE | 2018-02-12 18:58 | ER ---
Nurse's Notes [facility] Name: Yusef Rudd Age: 67 yrs Sex: Male : 1950 Arrival Date: 02/12/2018 Time: 17:02 Bed 25 Private MD: Diagnosis: Gastrointestinal hemorrhage, unspecified;Anemia Presentation: 02/12 17:12 Presenting complaint: Patient states: Black stool for 1 week. SOB and paleness. NAD in aj triage. Reports upper abdominal pain. Transition of care: patient was not received from another setting of care. Onset of symptoms was February 05, 2018. Care prior to arrival: None. 17:12 Method Of Arrival: Wheelchair aj 17:12 Acuity: MARY 3 aj 18:04 Initial Sepsis Screen: Does the patient meet any 2 criteria? No. Patient's initial tl3 sepsis screen is negative. Does the patient have a suspected source of infection? No. Patient's initial sepsis screen is negative. Triage Assessment: 17:15 General: Appears in no apparent distress. comfortable, Behavior is calm, cooperative, aj appropriate for age. Pain: Complains of pain in epigastric area. Neuro: Level of Consciousness is awake, alert, obeys commands, Oriented to person, place, time, situation, Appropriate for age. Respiratory: Reports shortness of breath Airway is patent Respiratory effort is even, unlabored, Respiratory pattern is regular, symmetrical, Onset: The symptoms/episode began/occurred gradually, the patient has mild shortness of breath. GI: Abdomen is round Reports upper abdominal pain, bloody stool. Derm: Skin is intact, is healthy with good turgor, Skin is pale. 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 - Social history:: Smoking status: Patient uses tobacco products, smokes one pack cigarettes per day. Screenin:58 Abuse screen: Denies threats or abuse. Nutritional screening: No deficits noted. tl3 Tuberculosis screening: No symptoms or risk factors identified. Fall Risk None identified. Assessment: 17:20 General: Appears comfortable, slender, well groomed, well developed, well nourished, tl3 Behavior is calm, cooperative, appropriate for age. Neuro: Level of Consciousness is awake, alert, obeys commands, Oriented to person, place, time, situation, none. Cardiovascular: Heart tones S1 S2 present Patient's skin is warm and dry. Rhythm is regular. Respiratory: Airway is patent Trachea midline Breath sounds are clear bilaterally. GI: No signs and/or symptoms were reported involving the gastrointestinal system. GI: No signs and/or symptoms were reported involving the gastrointestinal system. Reports bloody stool. : No signs and/or symptoms were reported regarding the genitourinary system. EENT: No signs and/or symptoms were reported regarding the EENT system. Derm: Skin is pale. Musculoskeletal: No signs and/or symptoms reported regarding the musculoskeletal system. 17:20 Respiratory: Reports shortness of breath at rest Respiratory effort is even, unlabored, tl3 Respiratory pattern is regular, symmetrical. 18:30 Reassessment: Patient appears in no apparent distress at this time. No changes from tl3 previously documented assessment. Patient and/or family updated on plan of care and expected duration. Pain level reassessed. Patient is alert, oriented x 3, equal unlabored respirations, skin warm/dry/pink. at bedside. 19:25 Reassessment: Patient appears in no apparent distress at this time. No changes from tl3 previously documented assessment. Patient and/or family updated on plan of care and expected duration. Pain level reassessed. Patient is alert, oriented x 3, equal unlabored respirations, skin warm/dry/pink. 20:00 Reassessment: Patient appears in no apparent distress at this time. Started blood tl3 transfusion, see transfusion record for vitals. 21:09 Reassessment: attempted to call report nurse is not available. tl3 Vital Signs: 17:15 BP 105 / 53; Pulse 67; Resp 19; Temp 98.8; Pulse Ox 95% on R/A; Weight 77.11 kg; Height aj 5 ft. 7 in. (170.18 cm); 17:20 BP 126 / 65; Pulse 67; Resp 18; Pulse Ox 100% on 2 lpm NC; tl3 18:30 BP 120 / 67; Pulse 70; Resp 18; Pulse Ox 100% on 2 lpm NC; tl3 19:25 BP 116 / 84; Pulse 89; Resp 18; Pulse Ox 99% on 2 lpm NC; tl3 20:00 BP 116 / 84; Pulse 81; Resp 18; Pulse Ox 100% on 2 lpm NC; tl3 17:15 Body Mass Index 26.63 (77.11 kg, 170.18 cm) ED Course: 17:02 Patient arrived in ED. mr 17:13 Triage completed. aj 17:15 Arm band placed on left wrist. Patient placed in an exam room. aj 17:19 Debby Gardner, MARCIA is Primary Nurse. tl3 17:23 Wilson Casanova PA is PHCP. jr8 17:23 Christian Ferreira MD is Attending Physician. jr8 17:58 No apparent distress. Resting quietly. Awaiting lab results. tl3 17:58 Patient has correct armband on for positive identification. Placed in gown. Bed in low tl3 position. Call light in reach. Side rails up X 1. Adult w/ patient. monitoring analyst on. Pulse ox on. NIBP on. 17:58 No provider procedures requiring assistance completed. Initial lab(s) drawn, by de, tl3 sent to lab. EKG done, reviewed by Wilson THORNTON. Inserted saline lock: 20 gauge in right forearm, using aseptic technique. Blood collected. 18:15 Notified Nurse Practitioner and/or Physician Cable Installer of a critical lab result(s), iw Hgb=4.0, Hct=13.9. 18:57 Eliot Vee MD is Hospitalizing Provider. jr8 21:03 Inserted saline lock: 20 gauge in right antecubital area, using aseptic technique. tl3 22:11 Patient admitted, IV remains in place. tl3 Administered Medications: 20:00 Drug: ProTONIX 40 mg Route: IVP; Infused Over: 3 mins; Site: right antecubital; tl3 02/13 14:29 Follow up: Response: No adverse reaction tl3 02/12 20:00 Drug: ProTONIX 8 mg/hr Route: IV; Rate: 25 ml/hr; Site: right antecubital; Delivery: tl3 Primary tubing; 02/13 14:29 Follow up: IV Status: Infusion continued upon admission tl3 Outcome: 02/12 18:57 Decision to Hospitalize by Provider. richard 22:11 Admitted to Tele accompanied by nurse, accompanied by tech, via stretcher, with oxygen, tl3 with chart, Report called to marcia blackwell 22:11 Condition: stable 22:11 Instructed on the need for admit, Demonstrated understanding of instructions. 22:12 Patient left the ED. tl3 Signatures: Alejandra Carrillo, RN Noemi Higgins Irene, RN Wilson Brunner PA PA jr8 Debby Gardner RN RN tl3
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
[2018-02-12 19:17] LABS: Urine Blood NEGATIVE (NEG); Urine Glucose NEGATIVE (NEG); Urine Protein NEGATIVE (NEG); Urine pH 5.5 (5.0-7.0)
[2018-02-12] MEDS ORDERED: NA CHLORIDE 0.9% 250 ML ONE ×3 (19:54→23:41)
[2018-02-12] MEDS ORDERED: HYDROCORTISONE SUC 100 MG INJ ONE (19:57)
[2018-02-12] MEDS ORDERED: ACETAMINOPHEN 325 MG TABLET ONE (19:57)
[2018-02-12] MEDS ORDERED: DIPHENHYDRAMINE 12.5MG/5ML LIQ ONE (19:57)
[2018-02-12] MEDS ORDERED: PANTOPRAZOLE 40 MG INJ ONE (20:13)
--- NOTE | 2018-02-12 20:33 | P.HP ---
Certification for Inpatient Patient admitted to: Inpatient With expected LOS: >2 Midnights Practitioner: I am a practitioner with admitting privileges, knowledge of patient current condition, hospital course, and medical plan of care. Services: Services provided to patient in accordance with Admission requirements found in Title 42 Section 412.3 of the Code of Federal Regulations Patient History Date of Service: 02/12/18 Reason for admission: acute blood loss anemia History of Present Illness: Mr Rudd is a 67 years old male with history of CAD, lung cancer, HTN, tobacco abuse, S/P left BKA, AAA repair anticoagulated with eliquis, who start about 1 week ago with progressive weakness, SOB and abdominal pain. He has had dark stools since the symptoms started, also 1 episode of darker emesis. He states that drinks alcohol on the weekends, about 6-12 pack beers. ER lab work remarkable for Hgb 4.0, HCT 13.9, BUN 29, Cr 1.45. Allergies No Known Drug Allergies Allergy (Unverified 12/28/14 21:16) Unknown NKDA Allergy (Uncoded 02/12/14 16:33) Unknown No Known Allerg Allergy (Uncoded 01/18/17 05:51) Unknown No Known Allergie Allergy (Uncoded 07/14/16 18:08) Unknown - Past Medical/Surgical History -: Tobacco abuse -: CAD -: HTN -: AAA repair -: BKA left - Social History Smoking Status: Current every day smoker Counseled patient to stop smoking for: less than 10 minutes Smoking therapy provided: Yes Patient receptive to therapy: No Alcohol use: Yes CD- Drugs: No Place of Residence: Home Review of Systems 10-point ROS is otherwise unremarkable Physical Examination - Physical Exam General: Alert, In no apparent distress, Other (pale) HEENT: Atraumatic, PERRLA, Mucous membr. moist/pink, EOMI, Sclerae nonicteric Neck: Supple, 2+ carotid pulse no bruit, No LAD, Without JVD or thyroid abnormality Respiratory: Clear to auscultation bilaterally, Diminished Cardiovascular: Regular rate/rhythm, Normal S1 S2 Gastrointestinal: Normal bowel sounds, No tenderness Musculoskeletal: No tenderness Integumentary: No rashes Neurological: Normal speech, Normal strength at 5/5 x4 extr, Normal tone, Normal affect Lymphatics: No axilla or inguinal lymphadenopathy - Studies Laboratory Data (last 24 hrs) 02/12/18 17:55: Creatinine 1.45 H 02/12/18 17:55: WBC 7.3, Hgb 4.0 L*, Hct 13.9 L*, Plt Count 224 02/12/18 17:55: Sodium 133 L, Potassium 4.2, BUN 28 H, Creatinine 1.39 H, Glucose 99, Total Bilirubin 0.6, AST 19, ALT 19, Alkaline Phosphatase 83, Lipase 32 Assessment and Plan - Problems (Diagnosis) (1) Acute blood loss anemia Current Visit: Yes Status: Acute (2) GIB (gastrointestinal bleeding) Current Visit: Yes Status: Acute Qualifiers: GI bleed type/associated pathology: melena Qualified Code(s): K92.1 - Melena (3) HTN (hypertension) Current Visit: Yes Status: Acute Qualifiers: Hypertension type: essential hypertension Qualified Code(s): I10 - Essential (primary) hypertension (4) CAD (coronary artery disease) Current Visit: Yes Status: Acute Qualifiers: Coronary Disease-Associated Artery/Lesion type: [place] artery [place] vs. transplanted heart: [place] heart Associated angina: without angina Qualified Code(s): I25.10 - Atherosclerotic heart disease of [place] coronary artery without angina pectoris (5) Tobacco abuse Current Visit: Yes Status: Acute - Plan The patient will be admitted to the hospital due to anemia. This is assumed as acute blood loss anemia in context of 1 week melena history, on treatment with Eliquis. He is hemodynamically stable. He will have 2 UNITS of PRBC's transfusion initially. Will check HH very close. Will order continue infusion of PPI's, will keep NPO for eventual EGD in AM. Consult Dr Carmichael. - Advance Directives Does patient have a Living Will: No Does patient have a Durable POA for Healthcare: No - Code Status/Comfort Care Code Status Assessed: Yes Code Status: Full Code
[2018-02-12] MEDS ORDERED: IPRATROPIUM BROM 0.5MG/2.5ML NEB PRN (22:30)
[2018-02-12] MEDS: NA CHLORIDE 0.9% 1,000 ML IV SCH (22:30)
[2018-02-12] MEDS ORDERED: ONDANSETRON 4 MG/2 ML VIAL IV PRN (22:30)
[2018-02-12] MEDS ORDERED: ACETAMINOPHEN 500 MG TAB PO PRN (22:30)
[2018-02-12] MEDS ORDERED: ALBUTEROL 2.5 MG/3 ML NEB SOL NEB PRN (22:30)
[2018-02-13] MEDS: NA CHLORIDE 0.9% 1,000 ML IV SCH ×3 (02:44→17:50)
[2018-02-13 06:23] LABS: Absolute Lymphocytes (CBC) 1.7 K/uL (0.7-4.9); Absolute Monocytes 0.4 K/uL (0.1-1.3); Absolute Neutrophil 4.5 K/uL (1.8-8.0); Basophils % 0.4 % (0-1.3); Hematocrit 21.5 % (39.6-49.0); Lymphocytes % 25.1 % (15.3-44.8); MCH 21.4 pg (27.0-35.0); MCV 68.8 fL (80-100); MPV 8.8 fL (7.6-11.3); Monocytes % 6.1 % (3.3-12.3); RBC Red Blood Cell Count 3.13 M/uL (4.33-5.43)
[2018-02-13 06:51] LABS: Potassium 4.4 mEq/L (3.6-5.0)
[2018-02-13] MEDS ORDERED: NA CHLORIDE 0.9% 250 ML ONE (07:58)
[2018-02-13] MEDS: PANTOPRAZOLE INJ 80 MG in NA CHLORIDE 0.9% 250 ML IV SCH ×3 (08:48→20:55)
[2018-02-13] MEDS: METOPROLOL XL 50 MG TAB PO SCH (11:23)
[2018-02-13] MEDS: ATORVASTATIN 80 MG TAB PO SCH (11:23)
[2018-02-13] MEDS ORDERED: FUROSEMIDE 20 MG/ 2ML VIAL IV ONE ×3 (12:46→17:00)
[2018-02-13] MEDS ORDERED: NA CHLORIDE 0.9% 100 ML ONE (13:22)
--- NOTE | 2018-02-13 13:32 | PN ---
Date of Progress Note: 02/13/2018 Subjective: The patient is seen and examined. Chart reviewed and case discussed with RN. The patie nt is on blood thinners, which are currently on hold. Denies any further melenic stools. The patien t awaiting GI evaluation. Denies any dizziness or lightheadedness. States his condition has improve d significantly after receiving blood. Review of Systems: Negative except as above. Medications: Reviewed. Physical Examination: Vital Signs: Temperature 98.4, heart rate 68, blood pressure 155/70, respirations 16, O2 100% on amy m air. General: Awake, alert, oriented x3. Some mild distress. Elderly male, appears older than stated ag e. CV: S1, S2. No murmurs. Regular rate and rhythm. Peripheral pulses present. Respiratory: Moving air well bilaterally. No wheezing. Gastrointestinal: Abdomen is soft, nontender, nondistended. Positive bowel sounds. No guarding or rigidity. Extremities: No clubbing, cyanosis, or edema. Neurologic: Nonfocal. Laboratory Data: Sodium 138, potassium 4.4, chloride 109, CO2 21, BUN 25, creatinine 1.21, glucose 1 04, calcium 8.9, magnesium 2. WBC 6.6, H and H 6.7 and 21.5, platelet 186, neutrophils 68.4%. Assessment And Plan: 1.Acute gastrointestinal bleed, likely lower source. The patient has melenic stools. GI has been c onsulted. We will continue with PPI. 2.Acute blood loss anemia secondary to above. We will monitor H and H, transfuse 2 more units of GA BCs. 3.Essential hypertension, stable. 4.Coronary artery disease, [place] artery and [place] heart without angina, stable. 5.Nicotine dependence with cigarette smoking. Counseled. 6.Status post AAA repair and aneurysm repair. Anticoagulated with Eliquis, is currently on hold. 7.Gastrointestinal and deep venous thrombosis prophylaxis with PPI and SCDs. No chemical anticoagul ation due to GI bleed. Appreciate GI input. /BHUPENDRA Voice ID: [id number] Report ID: [id number]
[2018-02-13] MEDS ORDERED: NA CHLORIDE 0.9% 1,000 ML ONE (14:27)
[2018-02-13] MEDS ORDERED: PROPOFOL 200 MG/20 ML VIAL IV ONE ×2 (15:13→15:39)
[2018-02-13 19:55] LABS: Hematocrit 29.3 % (39.6-49.0)
--- NOTE | 2018-02-14 02:28 | OP ---
Surgeon: Jean-Pierre Manriquez MD Procedure To Be Performed: Esophagogastroduodenoscopy. Performing Physician: Dr. Jean-Pierre Manriquez Indication For Procedure: Upper GI bleed, plan for anesthesia monitor and anesthesia care. Complexity: High due to probability of therapeutic intervention. Technique: After obtaining informed consent from the patient and explaining risks and complications which include, but are not limited to bleeding, infection, perforation, and anesthesia complication. The patient was placed in the left lateral position and sedation was given. From then on, the scope was advanced into the mouth and carefully guided up till the fourth portion of the duodenum. There was no evidence of active bleeding, possible stigmata of bleed were treated. Findings: Esophagus: No gross lesion seen in the entire esophagus. Stomach: Mild patchy erythema seen in the body and antrum. At the pylorus, actually there was a mil d stenosis with visible ulcer in the pyloric channel. Biopsies were taken from this region. There w as no visible vessel that was seen at the ulcer site. Duodenum: At the bulb, there was a collection of very small angiodysplasias. This was treated with ablation with APC. The second, third, and fourth portion of the duodenum appeared normal. Complications: None. Tolerance To Anesthesia: Excellent. Postoperative Diagnoses: Gastritis, pyloric channel ulcer, duodenal angiodysplasia. Plan: 1.Await pathology results. 2.Oral PPI b.i.d. 3.We will continue to monitor the patient carefully, especially his hemoglobin. If hemoglobin mala nues to drop, we will also need a colonoscopy as an inpatient. The patient does state that he has delgadillo d a colonoscopy before; however, we would like to exclude a lower GI pathology as well. If however h emoglobin improves and there is no more evidence of bleeding, it can be done as an outpatient basis, provided the patient is compliant with followup which is not in our hands. I did have a detailed dis cussion with the patient and the spouse about this. US/MODL Voice ID: [id number] Report ID: [id number]
[2018-02-14] MEDS: NA CHLORIDE 0.9% 1,000 ML IV SCH ×2 (03:48→16:44)
[2018-02-14] MEDS: PANTOPRAZOLE INJ 80 MG in NA CHLORIDE 0.9% 250 ML IV SCH ×2 (09:13→19:35)
[2018-02-14] MEDS: METOPROLOL XL 50 MG TAB PO SCH (09:14)
[2018-02-14] MEDS: ATORVASTATIN 80 MG TAB PO SCH (09:14)
--- NOTE | 2018-02-14 13:04 | PN ---
Date of Progress Note: 02/14/2018 Subjective: The patient seen and examined, chart reviewed, and case discussed with RN and Dr. Noe . The patient had EGD done yesterday. Feels better. Hemoglobin stable today. The patient has been taking off his remote cardiac telemetry. I explained to him that he needs to be on the telemetry to monitor for arrhythmias. He voiced understanding. Review of Systems: Negative except as above. Medications: Reviewed. Physical Examination: Vital Signs: Temperature 98.6, heart rate 67, blood pressure 171/79, respirations 16, and O2 100% on room air. General: Awake, alert, oriented x3, in no acute distress. Elderly male, appears older than stated a ge. CV: S1, S2. No murmurs. Regular rate and rhythm. Peripheral pulses present. Respiratory: Clear to auscultation bilaterally. No wheezing. No stridor. Gastrointestinal: Abdomen is soft, nontender, nondistended. Positive bowel sounds. Extremities: No clubbing, cyanosis. Edema on the right lower extremity. Musculoskeletal: Left BKA. Neurologic: Nonfocal. Laboratory Data: Sodium 138, potassium 4.4, chloride 109, CO2 21, BUN 25, creatinine 1.21, glucose 1 04, calcium 8.9, and magnesium 2. WBC 6, H and H 9.4 and 29.3. Assessment: A 67-year-old male with; 1.Acute gastrointestinal bleed. EGD showed gastric ulcer and duodenal angiodysplasia. The patient does not have any further melenic stools. Appreciate Dr. Manriquez's input. We will continue with IV PPI. 2.Acute blood loss anemia secondary to above, status post 4 units of PRBCs. H and H stable this mor manuel. We will continue to monitor. The patient may need colonoscopy if H and H drops. 3.Essential hypertension. Blood pressure mildly elevated today. The patient is on metoprolol. We will add p.r.n. medications if continues to be elevated. 4.Coronary artery disease, [place] artery and [place] heart without angina, stable. 5.Nicotine dependence, cigarette smoking, counseled. 6.Status post AAA repair and aneurysm repair. The patient is apparently on Eliquis, which is curren tly on hold due to gastrointestinal bleed. Case discussed with Dr. Noe. We will obtain records f [facility] for further details. 7.Gastrointestinal and deep venous thrombosis prophylaxis with PPI and SCDs. No chemical anticoagul ation due to gastrointestinal bleed. Plan: Monitor H and H. Discharge once cleared by consultants. For now, Rizwan is on hold. CORIN Voice ID: [id number] Report ID: [id number]
[2018-02-15] MEDS: NA CHLORIDE 0.9% 1,000 ML IV SCH ×4 (00:11→20:30)
[2018-02-15 05:26] LABS: Absolute Monocytes 0.8 K/uL (0.1-1.3); Absolute Neutrophil 6.2 K/uL (1.8-8.0); Basophils % 0.6 % (0-1.3); Eosinophils % 2.7 % (0-4.4); Hematocrit 29.4 % (39.6-49.0); Lymphocytes % 21.2 % (15.3-44.8); MCH 23.1 pg (27.0-35.0); MCV 74.2 fL (80-100); MPV 8.6 fL (7.6-11.3); Monocytes % 8.2 % (3.3-12.3); RBC Red Blood Cell Count 3.96 M/uL (4.33-5.43)
[2018-02-15] MEDS: METOPROLOL XL 50 MG TAB PO SCH (08:35)
[2018-02-15] MEDS: ATORVASTATIN 80 MG TAB PO SCH (08:35)
[2018-02-15] MEDS: PANTOPRAZOLE INJ 80 MG in NA CHLORIDE 0.9% 250 ML IV SCH ×2 (09:22→17:05)
--- NOTE | 2018-02-15 10:59 | PN ---
Date of Progress Note: 02/15/2018 Subjective: The patient is seen and examined. Chart reviewed and the case discussed with RN and Dr. Noe. The patient has been keeping his right of way agent off. However, from the strips that are av ailable he has been in sinus rhythm. No further bleeding. The patient has been doing well otherwise . Review of Systems: Negative except above. Medications: Reviewed. Physical Examination: Vital Signs: Temperature 98.2, heart rate 69, blood pressure 152/73, respirations 18, O2 saturations 100% on room air. General: Awake, alert, oriented x3. No acute distress. CV: S1, S2. Regular rate and rhythm. Peripheral pulses present. Respiratory: Clear to auscultation bilaterally. No wheezing. No stridor. No use of accessory musc les. Gastrointestinal: Abdomen is soft, nontender, nondistended. Positive bowel sounds. Extremities: No clubbing, cyanosis, or edema. Neurologic: Nonfocal. Musculoskeletal: Left BKA. Laboratory Data: Sodium 139, potassium 4, chloride 109, CO2 23, BUN 19, creatinine 1.28, glucose 97, calcium 8.5. WBC 9.2, H and H 9.1 and 29.4, and platelets 189. Assessment And Plan: A 67-year-old male with: 1.Acute gastrointestinal bleed. EGD showed gastric ulcer, duodenal angiodysplasia. No further shahnaz manpreet stools. GI on board. We will continue with IV PPI. 2.Acute blood loss anemia secondary to above, status post 4 units of PRBCs. H and H are stable. We will continue to monitor. The patient will need outpatient colonoscopy. 3.Essential hypertension, stable. 4.Coronary artery disease, [place] artery and [place] heart without angina, stable. 5.Nicotine dependence. Cigarette smoking, counseled. 6.Status post AAA repair, aneurysm repair. 7.Chronic anticoagulation. The patient is on Eliquis for unclear reasons. Remote cardiac telemetry while the patient has kept it on has shown sinus rhythm. Appreciate Dr. Noe' input. We will obt ain records from [facility] for further details to determine if the patient absolu danay requires some form of anticoagulation, currently being held due to bleed. 8.Gastrointestinal and deep venous thrombosis prophylaxis with PPI and SCDs. No chemical anticoagul ation due to gastrointestinal bleed. SA/MODL Voice ID: [id number] Report ID: [id number]
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
--- NOTE | 2018-02-15 17:18 | EKG ---
Test Date: 2018-02-15 Test Time: 09:10:50 Surgical Services Asst: ANGELICA MEASUREMENT RESULTS: Intervals: Rate: 69 WI: 262 QRSD: 92 QT: 408 QTc: 437 [place]: P: 54 WI: 262 QRS: -13 T: 43 INTERPRETIVE STATEMENTS: Sinus rhythm with 1st degree AV block Nonspecific T wave abnormality Abnormal ECG Compared to ECG 01/18/2017 04:57:39 T-wave abnormality now present Sinus tachycardia no longer present Myocardial infarct finding no longer present ST (T wave) deviation no longer present Electronically Signed On 02-15-18 17:17:42 CDT by Pelon Noe
[2018-02-15] MEDS ORDERED: PANTOPRAZOLE INJ 80 MG in NA CHLORIDE 0.9% 250 ML IV SCH (19:00)
[2018-02-16] MEDS: PANTOPRAZOLE INJ 80 MG in NA CHLORIDE 0.9% 250 ML IV SCH (01:24)
[2018-02-16 04:58] LABS: Absolute Lymphocytes (CBC) 1.7 K/uL (0.7-4.9); Absolute Monocytes 0.6 K/uL (0.1-1.3); Absolute Neutrophil 5.8 K/uL (1.8-8.0); Basophils % 0.7 % (0-1.3); Eosinophils % 3.6 % (0-4.4); Hematocrit 30.9 % (39.6-49.0); Lymphocytes % 20.3 % (15.3-44.8); MCH 23.1 pg (27.0-35.0); MCV 75.2 fL (80-100); MPV 8.8 fL (7.6-11.3); RBC Red Blood Cell Count 4.11 M/uL (4.33-5.43)
[2018-02-16 05:25] LABS: Potassium 4.4 mEq/L (3.6-5.0)
[2018-02-16] MEDS: NA CHLORIDE 0.9% 1,000 ML IV SCH ×2 (06:23→16:30)
[2018-02-16 08:09] LABS: Anisocytosis 2+; Blood Morphology Comment NOTED (NOT SEEN); Macrocytosis 1+; Platelet Estimate ADEQ; Poikilocytosis 1+
[2018-02-16] MEDS: ATORVASTATIN 80 MG TAB PO SCH (08:50)
[2018-02-16] MEDS: METOPROLOL XL 50 MG TAB PO SCH (08:50)
[2018-02-16] MEDS ORDERED: ALBUTEROL 2.5 MG/3 ML NEB SOL NEB PRN (12:00)
--- NOTE | 2018-02-16 13:20 | PN ---
Date of Progress Note: 02/16/2018 Subjective: The patient seen and examined, chart reviewed, and case discussed with RN. The patient states his blood pressure is running higher than usual. Usually runs around 107-110 systolic. Has b een running in the 150 systolic. The patient denies any pain. After confirming his medications, his metoprolol dose was incorrect, will be adjusting. Denies any pain or melenic stools. Review of Systems: Negative except as above. Medications: Reviewed. Physical Examination: Vital Signs: Temperature 98.9, heart rate 71, blood pressure 158/78, respirations 19, O2 97% on room air. General: Awake, alert, oriented x3. No acute distress. Elderly male, appears older than stated age . CV: S1, S2. No murmurs. Regular rate and rhythm. Peripheral pulses present. Respiratory: Clear to auscultation bilaterally. No wheezing. No stridor. No use of accessory musc les. Gastrointestinal: Abdomen is soft, nontender, nondistended. Positive bowel sounds. Extremities: No clubbing, cyanosis, edema. Musculoskeletal: Left BKA. Neurologic: Nonfocal. Laboratory Data: Sodium 139, potassium 4.4, chloride 111, CO2 23, BUN 14, creatinine 1.13, glucose 9 9, calcium 8.7. WBC 8.4, H and H 9.5, 30.9, platelets 191. Assessment And Plan: A 67-year-old male with; 1.Acute gastrointestinal bleed. EGD showed gastric ulcer and duodenal angiodysplasia. No further m elenic stools. Appreciate GI input. We will continue IV PPI b.i.d. 2.Acute blood loss anemia secondary to above, status post 4 units of PRBCs. Hemoglobin is stable. We will continue to monitor H and H. The patient will need outpatient colonoscopy. Anticoagulants a re on hold at this time. 3.Essential hypertension, stable. 4.Coronary artery disease. [place] artery and [place] heart without angina, stable. 5.Nicotine dependence with cigarette smoking. Counseled. 6.Status post abdominal aortic aneurysm repair and aneurysm repair. 7.Chronic anticoagulation. Unclear why patient is on Eliquis. Remote cardiac telemetry showing sin us rhythm, but with first-degree AV block. [facility] We will obtain records in a.m. Appreciate Dr. Noe's input. 8.Gastrointestinal and deep venous thrombosis prophylaxis with PPI and SCDs. No chemical anticoagul ation due to bleed. /BHUPENDRA Voice ID: [id number] Report ID: [id number]
--- NOTE | 2018-02-16 22:17 | P.PN ---
Subjective Date of Service: 02/16/18 Chief Complaint: acute blood loss anemia Physical Examination - Vital Signs Temperature: 97.6 F Blood Pressure: 152/74 Pulse: 70 Respirations: 16 Pulse Ox (%): 100 Assessment & Plan - Problems (Diagnosis) (1) Gastric ulcer Current Visit: Yes Status: Acute Qualifiers: Gastric ulcer chronicity: acute Gastric ulcer complication status: with hemorrhage Qualified Code(s): K25.0 - Acute gastric ulcer with hemorrhage (2) Angiodysplasia of duodenum Current Visit: Yes Status: Acute (3) Chronic anticoagulation Current Visit: Yes Status: Chronic (4) History of AAA (abdominal aortic aneurysm) repair Current Visit: Yes Status: Chronic (5) Anemia Current Visit: Yes Status: Acute Qualifiers: Anemia type: other cause Other causes of anemia: acute posthemorrhagic Qualified Code(s): D62 - Acute posthemorrhagic anemia (6) Acute blood loss anemia Onset Date: 02/13/18 Current Visit: Yes Status: Acute (7) CAD (coronary artery disease) Onset Date: 02/13/18 Current Visit: Yes Status: Acute Qualifiers: Coronary Disease-Associated Artery/Lesion type: [place] artery [place] vs. transplanted heart: [place] heart Associated angina: without angina Qualified Code(s): I25.10 - Atherosclerotic heart disease of [place] coronary artery without angina pectoris (8) GIB (gastrointestinal bleeding) Onset Date: 02/13/18 Current Visit: Yes Status: Acute Qualifiers: GI bleed type/associated pathology: gastric ulcer Qualified Code(s): K25.4 - Chronic or unspecified gastric ulcer with hemorrhage (9) HTN (hypertension) Onset Date: 02/13/18 Current Visit: Yes Status: Chronic Qualifiers: Hypertension type: essential hypertension Qualified Code(s): I10 - Essential (primary) hypertension (10) Tobacco abuse Onset Date: 02/13/18 Current Visit: Yes Status: Chronic
[2018-02-17] MEDS ORDERED: HYDRALAZINE HCL 20 MG/ML VIAL IV PRN (00:24)
[2018-02-17 05:29] LABS: Absolute Lymphocytes (CBC) 1.9 K/uL (0.7-4.9); Absolute Monocytes 0.7 K/uL (0.1-1.3); Absolute Neutrophil 6.1 K/uL (1.8-8.0); Basophils % 0.6 % (0-1.3); Eosinophils % 3.4 % (0-4.4); Hematocrit 30.9 % (39.6-49.0); Lymphocytes % 21.1 % (15.3-44.8); MCH 23.3 pg (27.0-35.0); MCV 75.1 fL (80-100); MPV 8.6 fL (7.6-11.3); Monocytes % 7.5 % (3.3-12.3); RBC Red Blood Cell Count 4.12 M/uL (4.33-5.43)
[2018-02-17 05:44] LABS: Potassium 3.9 mEq/L (3.6-5.0)
[2018-02-17] MEDS ORDERED: POTASSIUM 25 MEQ EFFERV TAB PO ONE (06:09)
[2018-02-17] MEDS: ATORVASTATIN 80 MG TAB PO SCH (08:16)
[2018-02-17] MEDS ORDERED: AMLODIPINE 2.5 MG TAB PO SCH (09:00)
[2018-02-17] MEDS ORDERED: METOPROLOL XL 100 MG TAB PO SCH (09:00)
--- NOTE | 2018-02-17 15:19 | P.DS ---
Admission Date: 02/12/18 Discharge Date: 02/17/18 Primary Care Provider: Dr. Rolle([place], [place]) Disposition: ROUTINE DISCHARGE Discharge Condition: GOOD Reason for Admission: acute blood loss anemia Consultations: Cardiology-Dr. Noe GI-Dr. Carmichael Procedures: EGD: Findings: Esophagus: No gross lesion seen in the entire esophagus. Stomach: Mild patchy erythema seen in the body and antrum. At the pylorus, actually there was a mild stenosis with visible ulcer in the pyloric channel. Biopsies were taken from this region. There was no visible vessel that was seen at the ulcer site. Duodenum: At the bulb, there was a collection of very small angiodysplasias. This was treated with ablation with APC. The second, third, and fourth portion of the duodenum appeared normal. Complications: None. Tolerance To Anesthesia: Excellent. Postoperative Diagnoses: Gastritis, pyloric channel ulcer, duodenal angiodysplasia. - Problems (1) Gastric ulcer Current Visit: Yes Status: Acute Qualifiers: Gastric ulcer chronicity: acute Gastric ulcer complication status: with hemorrhage Qualified Code(s): K25.0 - Acute gastric ulcer with hemorrhage (2) Angiodysplasia of duodenum Current Visit: Yes Status: Acute (3) Chronic anticoagulation Current Visit: Yes Status: Chronic (4) History of AAA (abdominal aortic aneurysm) repair Current Visit: Yes Status: Chronic (5) Anemia Current Visit: Yes Status: Acute Qualifiers: Anemia type: other cause Other causes of anemia: acute posthemorrhagic Qualified Code(s): D62 - Acute posthemorrhagic anemia (6) Acute blood loss anemia Onset Date: 02/13/18 Current Visit: Yes Status: Acute (7) CAD (coronary artery disease) Onset Date: 02/13/18 Current Visit: Yes Status: Acute Qualifiers: Coronary Disease-Associated Artery/Lesion type: [place] artery [place] vs. transplanted heart: [place] heart Associated angina: without angina Qualified Code(s): I25.10 - Atherosclerotic heart disease of [place] coronary artery without angina pectoris (8) GIB (gastrointestinal bleeding) Onset Date: 02/13/18 Current Visit: Yes Status: Acute Qualifiers: GI bleed type/associated pathology: gastric ulcer Qualified Code(s): K25.4 - Chronic or unspecified gastric ulcer with hemorrhage (9) HTN (hypertension) Onset Date: 02/13/18 Current Visit: Yes Status: Chronic Qualifiers: Hypertension type: essential hypertension Qualified Code(s): I10 - Essential (primary) hypertension (10) Tobacco abuse Onset Date: 02/13/18 Current Visit: Yes Status: Chronic (11) Atrial fibrillation Current Visit: Yes Status: Chronic Qualifiers: Atrial fibrillation type: chronic Qualified Code(s): I48.2 - Chronic atrial fibrillation Brief History of Present Illness: 67-year-old male presented with melanic stools. Patient was found to be anemic. Patient has history of chronic atrial fibrillation on chronic anti coagulation therapy. Patient suspected to have upper GI bleed. Patient was admitted for evaluation and treatment. Hospital Course: During his stay patient was found to have upper GI bleed. Patient was anemic and required 4 units of packed red blood cells. Cardiology and GI were consulted. GI proceeded with endoscopy evaluation. Endoscopy revealed gastritis, pyloric channel ulcer, duodenum angiodysplasia. During his stay. Eliquis was discontinued. Patient did well during his stay. At discharge hemoglobin remained stable. He will continue with iron supplementation. It was determined that the patient had been on chronic anti coagulation therapy for his chronic atrial fibrillation. Patient also with history of AAA repair in the past. Cardiology recommended to discontinue Eliquis at this time since the patient was in normal sinus rhythm and due to risk of bleeding. Patient will need to be off medication for at least 1 month. Patient will need a follow up with cardiology and GI to further address. Recommendation is to follow up with GI in 1-2 weeks to monitor his progress. Patient will continue with Protonix 40 mg 1 pill twice daily. Recommendation on no nonsteroidal anti- inflammatories is recommended at this time. Patient will continue with iron supplementation. Recommendation is for the patient to follow up with cardiology in 2-4 weeks to monitor his progress and consider restarting Eliquis at that time. Patient has chronic atrial fibrillation. Patient in sinus rhythm at this time. As recommended above. Cardiology recommends to discontinue Eliquis at this time. Patient will need a follow up with GI and Cardiology in 1 month and consider restarting back on Eliquis. Patient has hypertension. Medications were adjusted during his stay. At discharge patient will be on increased dose of metoprolol XL 100 mg daily. New medication Norvasc 2.5 mg 1 pill once daily has been added. Recommendation is to maintain blood pressures less than 150/80. Further adjustment can be done by his PCP. Patient has hyperlipidemia. Patient will continue with his medication. Patient with history of CAD. Recommendation is the patient follow up with cardiology as recommended above to continue his care. Vital Signs/Physical Exam: Temp Pulse Resp BP Pulse Ox 98.4 F 72 18 133/67 100 02/17/18 12:00 02/17/18 12:00 02/17/18 12:00 02/17/18 12:00 02/17/18 12:00 General: Alert, In no apparent distress, Oriented x3, Cooperative HEENT: Atraumatic Neck: Supple Respiratory: Clear to auscultation bilaterally, Normal air movement Cardiovascular: Normal pulses, Regular rate/rhythm Gastrointestinal: Normal bowel sounds, Soft and benign, Non-distended, No tenderness, No masses, No rebound, No guarding Musculoskeletal: No erythema, No tenderness, No warmth Integumentary: No tenderness/swelling, No erythema, No warmth, No cyanosis Neurological: Normal speech, Normal strength at 5/5 x4 extr, Normal tone, Normal affect Lymphatics: No axilla or inguinal lymphadenopathy Laboratory Data at Discharge: WBC 9.1 K/uL (4.3-10.9) 02/17/18 04:50 Hgb 9.6 g/dL (13.6-17.9) L 02/17/18 04:50 Hct 30.9 % (39.6-49.0) L 02/17/18 04:50 Plt Count 183 K/uL (152-406) 02/17/18 04:50 Sodium 140 mEq/L (135-145) 02/17/18 04:50 Potassium 3.9 mEq/L (3.6-5.0) 02/17/18 04:50 BUN 15 mg/dL (6-20) 02/17/18 04:50 Creatinine 1.06 mg/dL (0.61-1.24) 02/17/18 04:50 Glucose 108 mg/dL (65-120) 02/17/18 04:50 Magnesium 2.0 mg/dL (1.8-2.5) 02/13/18 05:22 Total Bilirubin 0.6 mg/dL (0.3-1.2) 02/12/18 17:55 AST 19 IU/L (10-42) 02/12/18 17:55 ALT 19 IU/L (10-60) 02/12/18 17:55 Alkaline Phosphatase 83 IU/L (42-121) 02/12/18 17:55 Lipase 32 U/L (22-51) 02/12/18 17:55 Home Medications: Atorvastatin Calcium [Lipitor] 80 mg PO DAILY 02/13/18 Latty-3S/Dha/Epa/Fish Oil [Fish Oil 1,200 mg Softgel] 1 each PO DAILY 02/13/18 Amlodipine [Norvasc*] 2.5 mg PO DAILY #30 tab 02/17/18 Metoprolol Succinate [Toprol Xl*] 100 mg PO DAILY #30 tab 02/17/18 Multivitamin with Iron [Daily Multivitamin with Iron] 1 each PO DAILY #90 tablet 02/17/18 Pantoprazole [Protonix Tab] 40 mg PO BID #60 tab 02/17/18 New Medications: Amlodipine [Norvasc*] 2.5 mg PO DAILY #30 tab Metoprolol Succinate [Toprol Xl*] 100 mg PO DAILY #30 tab Multivitamin with Iron [Daily Multivitamin with Iron] 1 each PO DAILY #90 tablet Pantoprazole [Protonix Tab] 40 mg PO BID #60 tab Patient Discharge Instructions: 1. Patient will need a follow up with PCP in 1 week to follow up this hospitalization. 2. Patient found to have upper GI bleed with noted anemia. Patient was anemic and required 4 units of packed red blood cells. Cardiology and GI were consulted. GI proceeded with endoscopy evaluation. Endoscopy revealed gastritis, pyloric channel ulcer, duodenum angiodysplasia. During his stay. Eliquis was discontinued. Patient did well during his stay. At discharge hemoglobin remained stable. He will continue with iron supplementation. It was determined that the patient had been on chronic anti coagulation therapy for his chronic atrial fibrillation. Patient also with history of AAA repair in the past. Cardiology recommended to discontinue Eliquis at this time since the patient was in normal sinus rhythm and due to risk of bleeding. Patient will need to be off medication for at least 1 month. Patient will need a follow up with cardiology and GI to further address. Recommendation is to follow up with GI in 1-2 weeks to monitor his progress. Patient will continue with Protonix 40 mg 1 pill twice daily. Recommendation on no nonsteroidal anti-inflammatories is recommended at this time. Recommendation is for the patient to follow up with cardiology in 2-4 weeks to monitor his progress and consider restarting Eliquis at that time. 3. Patient has chronic atrial fibrillation. Patient in sinus rhythm at this time. As recommended above. Cardiology recommends to discontinue Eliquis at this time. Patient will need a follow up with GI and Cardiology in 1 month and consider restarting back on Eliquis. 4. Patient has hypertension. Medications were adjusted during his stay. At discharge patient will be on increased dose of metoprolol XL 100 mg daily. New medication Norvasc 2.5 mg 1 pill once daily has been added. Recommendation is to maintain blood pressures less than 150/80. Further adjustment can be done by his PCP. 5. Patient has hyperlipidemia. Patient will continue with his medication. 6. Patient with history of CAD. Recommendation is the patient follow up with cardiology as recommended above to continue his care. Diet: AHA Activity: Fall precautions Time spent managing pt's care (in minutes): 55
== END 2018-02-17 16:21 | disposition home or self-care (01) | DRG 378 ==
LOC: ER 16:54 → 4TH 20:56
PROVIDERS: ADMIT Internal Medicine; ATTEND Internal Medicine
PROC: 0DB68ZX Excision of Stomach, Via Natural or Artificial Opening Endoscopic, Diagnostic (ICD-10-PCS; 2018-02-13)
PROC: 0W3P8ZZ Control Bleeding in Gastrointestinal Tract, Via Natural or Artificial Opening Endoscopic (ICD-10-PCS; 2018-02-13)
PROC: 30233N1 Transfusion of Nonautologous Red Blood Cells into Peripheral Vein, Percutaneous Approach (ICD-10-PCS; principal; 2018-02-13 15:00)
DX: K25.0 Acute gastric ulcer with hemorrhage (principal); D62 Acute posthemorrhagic anemia; I25.10 Atherosclerotic heart disease of native coronary artery without angina pectoris; F17.210 Nicotine dependence, cigarettes, uncomplicated; I48.2 Chronic atrial fibrillation; Z79.01 Long term (current) use of anticoagulants; K31.819 Angiodysplasia of stomach and duodenum without bleeding; I10 Essential (primary) hypertension; E78.5 Hyperlipidemia, unspecified; K29.70 Gastritis, unspecified, without bleeding; Z89.512 Acquired absence of left leg below knee
CPT/HCPCS: 36415; 80048; 80076; 81003; 83690; 83735; 85014; 85018; 85025; 86850; 86900; 86901; 88305; 88312; 93005; 96365; 96366; 99285; C9113; J0360; J1720; J1940; J7030; P9016

== ENCOUNTER 2020-02-28 09:52 | Emergency (ER) | payer OTHER, MEDICARE ==
--- OUTSIDE RECORDS SUMMARY | 2020-02-28 09:55 | XMS REPORT | Clinical Summary ---
:1950 Author Organization [facility] Address [address] [place] [address] Care Team Providers Name Role Phone Asked, Pcp Primary Care Provider Unavailable Allergies No Known Allergies Medications Medication Sig Dispensed Refills Start Date End Date Status aspirin (ECOTRIN) 81 MG Take 81 mg by 0 Active enteric coated tablet mouth daily. METOPROLOL SUCCINATE Take by mouth. 0 Active ORAL Active Problems Problem Noted Date Abdominal aortic aneurysm (AAA) without rupture 2016 Last Assessment & Plan: Patient with known AAA of the visceral segment, prior open infrarenal repair. On most recent CTA diameter was 5.3. Asymptomatic. Patient does have an incisional hernia from prior AAA repair, but does no t want any treatment for it at this time . Obtain followup imaging to assess for en largement Discussed importance of blood pressure c ontrol and smoking cessation If aneurysm is stable, return to clinic in 12 months with CTA Family History Medical History Relation Name Comments Cancer Father Brain cancer Mother Relation Name Status Comments Father Mother Social History Tobacco Use Types Packs/Day Years Used Date Current Every Day Smoker Cigarettes Alcohol Use Drinks/Week oz/Week Comments Yes 2 Cans of beer 2.0 everyday Sex Assigned at Date Recorded Not on file Job Start Date Occupation Industry Not on file Not on file Not on file Travel History Travel Start Travel End No recent travel history available. Last Filed Vital Signs Not on file Plan of Treatment Health Maintenance Due Date Last Done Comments COLONOSCOPY SCREENING 2000 SHINGLES VACCINES (#1) 2000 65+ PNEUMOCOCCAL VACCINE (1 of 2 - PCV13) 2015 INFLUENZA VACCINE 04/30/2020 Results Not on fileafter 02/27/2019 Insurance Payer Benefit Plan / Subscriber ID Effective Dates Phone Addre ss Type Group MEDICARE MEDICARE PART A xxxxxxxxxx 2015-[place] Medicare AND B t AARP AARP SUPPLEMENT xxxxxxxxx 2016-Amaya Goss t Yusef Rudd Third Alliance Party Self 1950 [facility] [facility] [address] [place], [place] (Work) [address] Advance Directives For more information, please contact: [phone] Type Date Recorded Patient Sleep Technician Explanati on Advance Directives, Living Will and Medical Power of Ecdis N Navigation Operator
--- OUTSIDE RECORDS SUMMARY | 2020-02-28 09:55 | XMS REPORT | Clinical Summary ---
:1950 Author Organization [facility] Address [address] [place] [address] Care Team Providers Name Role Phone Oscar So Unavailable Surendra Rolle DO Primary Care Provider Unavailable Allergies No Known Allergies Medications Medication Sig Dispensed Refills Start Date End Date Status aspirin 81 MG EC tablet Take 81 mg by 0 Active mouth daily. multivitamin per tablet Take 1 tablet by 0 Active mouth daily. omega-3 fatty Take 1 g by mouth 0 Active acids-fish oil daily. 340-1,000 mg Cap per capsule apixaban (ELIQUIS) 5 mg Take 1 tablet (5 60 tablet 2 7 Active Tab tablet mg total) by mouth 2 (two) times daily. magnesium oxide Take 400 mg by 0 Active (MAG-OX) 400 mg tablet mouth daily. losartan (COZAAR) 50 MG Take 25 mg by 0 Active tablet mouth daily. 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/2017 Ischemic cardiomyopathy 01/29/2017 Prerenal azotemia 01/23/2017 Acute pulmonary insufficiency following thoracic surge ry 01/21/2017 Cardiogenic shock 01/21/2017 Acute blood loss anemia 01/21/2017 Coagulopathy 01/21/2017 Lactic acidosis 01/21/2017 STEMI (ST elevation myocardial infarction) 01/18/2017 S/P AAA (abdominal aortic aneurysm) repair 09/30/1999 Overview: with [facility] Thoracoabdominal aortic aneurysm (TAAA) Overview: extent 4 Coronary artery disease S/P CABG (coronary artery bypass graft) COPD (chronic obstructive pulmonary disease) S/P BKA (below knee amputation) unilateral, left Atrial fibrillation Cancer Overview: partial lung left lung lobectomy 2014 Ventral hernia Family History Medical History Relation Name Comments [...] Date Last Done Comments COLON CANCER SCREENING COLONOSCOPY 1950 PNEUMOCOCCAL 65+ HIGH/HIGHEST RISK (1 of 2 - PCV13) 2015 MEDICARE ANNUAL WELLNESS (YEAR 2 or FIRST YEAR if no 08/31/2016 IPPE) INFLUENZA VACCINE (Season Ended) 2020 Implants Implanted Type Area Asset Protection Officer Device Shelf Model / Identifier Expiration Serial / Lot Date Sternal Zipfix Ndl Strl 08.501.001.20s - [id number] Cardiovascula r N/A: SYNTHES:SYNTHE 01/25/2022 [id number] / Implanted: Qty: 1 on 01/21/2017 by Cuco Barrett MD Chest S [facility] / [id number] Sternal Zipfix Ndl Strl 08..001.20s - [id number] Cardiovascula r N/A: SYNTHES:SYNTHE 11/20/2021 [id number] / Implanted: Qty: 3 on 01/21/2017 by Cuco Barrett MD Chest S [facility] / [id number] Grft Pros Gelweave 24x8mm [id number] - [id number] Graft/Patch N/A: TERUMO:CARDIOV 12/28/2020 [id number] / Implanted: Qty: 1 on 07/01/2017 by Homero Dubon MD Aorta ASC SYS [id number] / [id number] 2 Patch Vasc [place] 1.65mm 1x6in [id number] - Sx Graft/Patch N/A: CR 02/24/2022 [id number] / Implanted: Qty: 1 on 07/01/2017 by Homero Dubon MD Aorta BARD:PERIPHERA X / L VASC [id number] Mesh Sondra 2 + Ovl [id number] - [id number] Mesh N/A: WL GORE & 09/29/2019 [id number] / Implanted: Qty: 1 on 07/01/2017 by Homero Dubon MD Abdomen ASSC:MED PRDT [id number] / X Results Not on fileafter 02/27/2019 Insurance Payer Benefit Plan / Group Subscriber ID Type Phone A ddress MEDICARE MEDICARE A B xxxxxxxxxx Medicare MCR SUPPLEMENT/INDIVIDUAL AARP/[facility] xxxxxxxxxxx [facility] Advance Directives For more information, please contact:[address] [phone] Code Status Date Activated Date Inactivated Comments Full Code 07/01/2017 5:43 PM 07/10/2017 8:31 PM This code status was determined by: Patient Full Code 07/01/2017 5:45 AM 07/01/2017 5:43 PM This code status was determined by: Patient Full Code 01/21/2017 2:06 PM 01/29/2017 5:19 PM This code status was determined by: Patient Full Code 01/18/2017 7:45 AM 01/21/2017 2:06 PM This code status was determined by: Patient
--- OUTSIDE RECORDS SUMMARY | 2020-02-28 10:04 | XMS REPORT ---
:1950 Author Organization [facility] t Address [address] [place] [address] Care Team Providers Name Role Phone Asked, Pcp Primary Care Physician Unavailable EVELYN DUBON Attending Clinician Unavailable GUILLE FARAH Attending Clinician Unavailable EVELYN DUBON Admitting Clinician Unavailable BLAS CARMONA Admitting Clinician Unavailable Problems Condition Condition Condition Status Onset Resolution Last Treating Co mments Source Name Details Category Date Date Treatment Clinician Date Abdominal Abdominal Disease Active Last Sondra mary aortic aortic - Assessmen Methodi aneurysm aneurysm 00:00: t & Plan: st (AAA) (AAA) 00 Patient without without with rupture rupture known AAA of the visceral segment, prior open infrarena l repair. On most recent CTA diameter was 5.3. Asymptoma tic. Patient does have an incisiona l hernia from prior AAA repair, but does not want any treatment for it at this time.Obta in followup imaging to assess for enlargeme ntDiscuss ed importanc e of blood pressure control and smoking cessation If aneurysm is stable, return to clinic in 12 months with CTA Allergies, Adverse Reactions, Alerts This patient has no known allergies or adverse reactions. Family History Family Member Diagnosis Comments Start Date Stop Date Source Natural father Cancer [facility] thodi Natural mother Brain cancer [facility] Social History Social Habit Start Date Stop Date Quantity Comments Source History of Cigarette Smoker [facility] tobacco use Sex Assigned At [facility] Alcohol intake 2017-01-07 2017-01-07 Current drinker [place] [facility] [place] [place] 00:00:00 00:00:00 of alcohol (finding) Alcohol Comment 2016-08-08 2016-08-08 everyday [facility] 00:00:00 00:00:00 Smoking Status Start Date Stop Date Source Light Tobacco Smoker [facility] Current every day smoker 2017-01-07 00:00:00 Sondra Leeist Medications Ordered Filled Start Stop Current Ordering Indication Dosage Frequency Signature Comments Components Source Medication Medication Date Date Medication? Clinician (SIG) Name Name METOPROLOL Yes Take by [place] SUCCINATE 4-10 mouth. Methodi ORAL 08:59: st 28 aspirin 2015-09 Yes 81mg QD Take 81 mg [place] (ECOTRIN) 1-09 by mouth Method i 81 MG 11:30: daily. st enteric 48 coated tablet amlodipine amlodipine No amlodipine [place] 2.5 mg 2.5 mg 2.5 mg da tablet tablet tablet [facility] atorvastati atorvastati No atorvastat [place] n 80 mg n 80 mg in 80 mg da tablet tablet tablet Medical Group Complete Complete No Complete [facility] Vitamin Vitamin Vitamin [facility] magnesium magnesium No magnesium [place] 250 mg (as 250 mg (as 250 mg (as da magnesium magnesium magnesium Medical oxide) oxide) oxide) Group tablet Take tablet Take tablet by oral by oral Take by route. route. oral route. metoprolol metoprolol No metoprolol [place] succinate succinate succinate da ER 100 mg ER 100 mg ER 100 mg Medical tablet,exte tablet,exte tablet,ext Group nded nded ended release 24 release 24 release 24 hr hr hr tramadol 50 tramadol 50 No tramadol [place] mg tablet mg tablet 50 mg da tablet Medical Group Ventolin Ventolin No Ventolin [place] HFA 90 HFA 90 HFA 90 da mcg/actuati mcg/actuati mcg/actuat Medical on aerosol on aerosol ion Xena up inhaler inhaler aerosol inhaler Vital Signs Vital Name Observation Time Observation Value Comments Source BP Diastolic 2019-11-16 00:00:00 84 mm[Hg] [facility] Height 2019-11-16 00:00:00 67 [in_i] [facility] BMI (Body Mass 2019-11-16 00:00:00 29.1 kg/m2 [facility]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) Group BP Systolic 2019-11-16 00:00:00 121 mm[Hg] [facility] Body Weight 2019-11-16 00:00:00 186 [lb_av] [facility] BP Diastolic 2019-11-09 00:00:00 82 mm[Hg] [facility] Height 2019-11-09 00:00:00 67 [in_i] [facility] BMI (Body Mass 2019-11-09 00:00:00 29.1 kg/m2 [facility] Medical Index) Group BP Systolic 2019-11-09 00:00:00 118 mm[Hg] [facility] Body Weight 2019-11-09 00:00:00 186 [lb_av] [facility] BP Diastolic 2019-10-26 00:00:00 89 mm[Hg] [facility] Height 2019-10-26 00:00:00 67 [in_i] [facility] BMI (Body Mass 2019-10-26 00:00:00 30.1 kg/m2 [facility] Medical Index) Group BP Systolic 2019-10-26 00:00:00 112 mm[Hg] [facility] Body Weight 2019-10-26 00:00:00 192 [lb_av] [facility] BP Diastolic 2019-10-05 00:00:00 92 mm[Hg] [facility] Height 2019-10-05 00:00:00 67 [in_i] [facility] BMI (Body Mass 2019-10-05 00:00:00 30.1 kg/m2 [facility] Medical Index) Group BP Systolic 2019-10-05 00:00:00 110 mm[Hg] [facility] Body Weight 2019-10-05 00:00:00 192.2 [lb_av] [facility] Procedures This patient has no known procedures. Plan of Care Planned Activity Planned Date Details Comments Source Future Scheduled Test 2020-04-30 INFLUENZA VACCINE jesenia Rubi 00:00:00 [code = INFLUENZA VACCINE] Future Scheduled Test 2015 65+ PNEUMOCOCCAL [facility] 00:00:00 VACCINE (1 of 2 - PCV13) [code = 65+ PNEUMOCOCCAL VACCINE (1 of 2 - PCV13)] Future Scheduled Test 2000 COLONOSCOPY SCREENING [place] [facility] 00:00:00 [code = COLONOSCOPY SCREENING] Future Scheduled Test 2000 SHINGLES VACCINES jesenia [place] [place] 00:00:00 (#1) [code = SHINGLES VACCINES (#1)] Instructions [facility] Encounters Start End Encounter Admission Attending Care Care Encounter Source Date/Time Date/Time Type Type Clinicians Facility Department ID 2019-11-16 2019-11-16 Biju KHOURY [place] - [id number] M [facility] 00:00:00 00:00:00 Pedro, DO: [facility] sophie benavidez [address] [place], [place] [address]rda - [facility] [address], [facility] [address] , Ph. [phone] 2019-11-09 2019-11-09 Biju KHOURY [place] - [id number] M [facility] 00:00:00 00:00:00 Pedro DO: d a [address] [place], [place] [address]rda - [address], [facility] [place] [address] , Ph. [phone] 2019-10-26 2019-10-26 Biju KHOURY [place] - [id number] M [facility] 00:00:00 00:00:00 Pedro, DO: d pramod [address] [place], [place] [address] - [address], [facility] [place] [address] , Ph. [phone] 2019-10-05 2019-10-05 Biju KHOURY [place] - [id number] M [facility] 00:00:00 00:00:00 Pedro DO: d a [address] [place], [place] [address]rda - [address], [facility] [place] [address] , Ph. [phone] Results Test Description Test Time Test Comments Results Result Comments Source CBC W Auto Differential panel - Blood 2019-11-02 01:30:00 Test Item Value Reference Range Interpretation Comme nts white blood count (test code = white blood count) 9.4 K/uL 4.0- 12.3 red blood count (test code = red blood count) 4.54 M/uL 3.80-5.8 0 hemoglobin (test code = hemoglobin) 14.4 g/dL 11.7-17.2 hematocrit (test code = hematocrit) 43.5 % 35.0-51.0 Erythrocyte mean corpuscular volume [Entitic volume] (test 95.8 fL 83-100 code = 46583-5) mean corpuscular hemoglobin (test code = mean corpuscular 31.7 pg 26.8-33.4 hemoglobin) mean corpuscular HGB conc (test code = mean corpuscular HGB 33.1 g/ dL 30-35 conc) red cell distribution width (test code = red cell 13.3 % 12.0 -14.0 distribution width) platelet count (test code = platelet count) 132 K/uL 175-450 L mean platelet volume (test code = mean platelet volume) 8.9 fL 9.4-12.6 L Neutrophils.segmented/100 leukocytes in Blood (test code = 68.6 % 44.7-82.4 30994-7) Granulocytes Immature [#/volume] in Blood (test code = 0.0 K/uL 0.0-0.03 47014-9) lymphocyte% (test code = lymphocyte%) 21.5 % 10.0-50.0 mono % (test code = mono %) 8.2 % 3.9-13.4 eos % (test code = eos %) 1.2 % 0.0-6.4 Basophils/100 leukocytes in Unspecified specimen (test code 0.2 % 0.2-1.2 = 64306-6) Neutrophils.band form [#/volume] in Blood (test code = 6.43 K/uL 1.78-5.38 H 01531-0) Lymphocytes [#/volume] in Unspecified specimen by Automated 2.0 K/u L 1.32-3.57 count (test code = 22968-5) mono # (test code = mono #) 0.77 K/uL 0.30-0.82 eos # (test code = eos #) 0.11 K/uL 0.04-0.54 basophil # (test code = basophil #) 0.02 K/uL 0.01-0.08 NRBC% (test code = NRBC%) 0 /100 WBC 0-0.2 NRBC# (test code = NRBC#) 0 K/uL [facility] panel, [id number] 01:30:00 NeutrophilsBandLymphocyteMonocyteEosinophilBasophilPlatelet EstimatePlatelet MorphologyDifferential comment-PMataGreene County HospitalBasic metabolic 2000 panel - Serum or [id number] 01:30:00 Test Item Value Reference Range Interpretation Comments glucose (test code = glucose) 120 mg/dL 82-115 H Urea nitrogen [Mass/volume] in 18 mg/dL 8-23 Serum or Plasma (test code = 3094-0) osmolality calculated,serum (test 275 mOsm/kg 280-300 L code = osmolality calculated,serum) creatinine (test code = 1.1 mg/dL 0.70-1.20 creatinine) glomerular filtration rate (test >60.00 code = glomerular filtration rate) Urea nitrogen/Creatinine [Mass 16.4 12-20 Ratio] in Serum or Plasma (test code = 3097-3) sodium level (test code = sodium 136 mmol/L 135-145 level) Potassium [Moles/volume] in Body 4.2 mmol/L 3.5-5.2 fluid (test code = 2821-7) chloride level (test code = 99 mmol/L 98-108 chloride level) CO2 (test code = CO2) 25 mmol/L 21-32 anion gap (test code = anion gap) 16.2 mEq/L 12-20 calcium level (test code = 9.5 mg/dL 8.8-10.2 calcium level) [facility] W Auto Differential panel - [id number] 01:30:00 Test Item Value Reference Range Interpretation Comments white blood count (test code = 9.4 K/uL 4.0-12.3 white blood count) red blood count (test code = red 4.54 M/uL 3.80-5.80 blood count) hemoglobin (test code = 14.4 g/dL 11.7-17.2 hemoglobin) hematocrit (test code = 43.5 % 35.0-51.0 hematocrit) Erythrocyte mean corpuscular 95.8 fL 83-100 volume [Entitic volume] (test code = 76891-8) mean corpuscular hemoglobin (test 31.7 pg 26.8-33.4 code = mean corpuscular hemoglobin) mean corpuscular HGB conc (test 33.1 g/dL 30-35 code = mean corpuscular HGB conc) red cell distribution width (test 13.3 % 12.0-14.0 code = red cell distribution width) platelet count (test code = 132 K/uL 175-450 L platelet count) mean platelet volume (test code = 8.9 fL 9.4-12.6 L mean platelet volume) Neutrophils.segmented/100 68.6 % 44.7-82.4 leukocytes in Blood (test code = 00694-6) Granulocytes Immature [#/volume] 0.0 K/uL 0.0-0.03 in Blood (test code = 35146-9) lymphocyte% (test code = 21.5 % 10.0-50.0 lymphocyte%) mono % (test code = mono %) 8.2 % 3.9-13.4 eos % (test code = eos %) 1.2 % 0.0-6.4 Basophils/100 leukocytes in 0.2 % 0.2-1.2 Unspecified specimen (test code = 39138-7) Neutrophils.band form [#/volume] 6.43 K/uL 1.78-5.38 H in Blood (test code = 82797-5) Lymphocytes [#/volume] in 2.0 K/uL 1.32-3.57 Unspecified specimen by Automated count (test code = 32744-1) mono # (test code = mono #) 0.77 K/uL 0.30-0.82 eos # (test code = eos #) 0.11 K/uL 0.04-0.54 basophil # (test code = basophil 0.02 K/uL 0.01-0.08 #) NRBC% (test code = NRBC%) 0 /100 WBC 0-0.2 NRBC# (test code = NRBC#) 0 K/uL [facility] panel, [id number] 01:30:00 NeutrophilsBandLymphocyteMonocyteEosinophilBasophilPlatelet EstimatePlatelet MorphologyDifferential comment-[facility] CountyBasi metabolic 2000 panel - Serum or [id number] 01:30:00 Test Item Value Reference Range Interpretation Comments glucose (test code = glucose) 120 mg/dL 82-115 H Urea nitrogen [Mass/volume] in 18 mg/dL 8-23 Serum or Plasma (test code = 3094-0) osmolality calculated,serum (test 275 mOsm/kg 280-300 L code = osmolality calculated,serum) creatinine (test code = 1.1 mg/dL 0.70-1.20 creatinine) glomerular filtration rate (test >60.00 code = glomerular filtration rate) Urea nitrogen/Creatinine [Mass 16.4 12-20 Ratio] in Serum or Plasma (test code = 3097-3) sodium level (test code = sodium 136 mmol/L 135-145 level) Potassium [Moles/volume] in Body 4.2 mmol/L 3.5-5.2 fluid (test code = 2821-7) chloride level (test code = 99 mmol/L 98-108 chloride level) CO2 (test code = CO2) 25 mmol/L 21-32 anion gap (test code = anion gap) 16.2 mEq/L 12-20 calcium level (test code = 9.5 mg/dL 8.8-10.2 calcium level) [facility] CountyRAD, CHEST, 2 [id number] 16:21:00Reason for Exam:->R09.89FINAL REPORT INDICATION: R09.89 COMPARISON: July 06, 2017 [...] MDReport Verified Date/Time: 07/23/2017 16:21:16 Reading Location: [address] Radiology Reading Room [facility] METABOLIC [id number] 14:18:00 Test Item Value Reference Range Interpretation Comments SODIUM (BEAKER) 135 meq/L 136-145 L (test code = 381) POTASSIUM (BEAKER) 5.0 meq/L 3.5-5.1 Specimen slightly (test code = 379) hemolyzed CHLORIDE (BEAKER) 100 meq/L 98-107 (test code = 382) CO2 (BEAKER) (test 23 meq/L 22-29 code = 355) BLOOD UREA NITROGEN 21 mg/dL 7-21 (BEAKER) (test code = 354) CREATININE (BEAKER) 1.42 mg/dL 0.57-1.25 H Specimen slightly (test code = 358) hemolyzed GLUCOSE RANDOM 98 mg/dL 70-105 (BEAKER) (test code = 652) CALCIUM (BEAKER) 9.7 mg/dL 8.4-10.2 (test code = 697) EGFR (BEAKER) (test 50 mL/min/1.73 ESTIMA GIGI GFR IS code = 1092) sq m NOT ACCURATE CREATININE CLEARANCE IN PREDICTING GLOMERULAR FILTRATION RATE . ESTIMATED GFR I S NOT APPLICABLE FOR DIALYSIS PATIEN TS. CBC W/PLT COUNT & AUTO [id number] 14:01:00 Test Item Value Reference Range Interpretation Comments WHITE BLOOD CELL COUNT (BEAKER) 12.0 K/ L 3.5-10.5 H (test code = 775) RED BLOOD CELL COUNT (BEAKER) 3.98 M/ L 4.63-6.08 L (test code = 761) HEMOGLOBIN (BEAKER) (test code = 11.0 GM/DL 13.7-17.5 L 410) HEMATOCRIT (BEAKER) (test code = 34.4 % 40.1-51.0 L 411) MEAN CORPUSCULAR VOLUME (BEAKER) 86.4 fL 79.0-92.2 (test code = 753) MEAN CORPUSCULAR HEMOGLOBIN 27.6 pg 25.7-32.2 (BEAKER) (test code = 751) MEAN CORPUSCULAR HEMOGLOBIN CONC 32.0 GM/DL 32.3-36.5 L (BEAKER) (test code = 752) RED CELL DISTRIBUTION WIDTH 17.7 % 11.6-14.4 H (BEAKER) (test code = 412) PLATELET COUNT (BEAKER) (test 467 K/CU MM 150-450 H code = 756) MEAN PLATELET VOLUME (BEAKER) 8.9 fL 9.4-12.4 L (test code = 754) NUCLEATED RED BLOOD CELLS 0 /100 WBC 0-0 (BEAKER) (test code = 413) NEUTROPHILS RELATIVE PERCENT 68 % (BEAKER) (test code = 429) LYMPHOCYTES RELATIVE PERCENT 22 % (BEAKER) (test code = 430) MONOCYTES RELATIVE PERCENT 8 % (BEAKER) (test code = 431) EOSINOPHILS RELATIVE PERCENT 2 % (BEAKER) (test code = 432) BASOPHILS RELATIVE PERCENT 0 % (BEAKER) (test code = 437) NEUTROPHILS ABSOLUTE COUNT 8.12 K/ L 1.78-5.38 H (BEAKER) (test code = 670) LYMPHOCYTES ABSOLUTE COUNT 2.57 K/ L 1.32-3.57 (BEAKER) (test code = 414) MONOCYTES ABSOLUTE COUNT (BEAKER) 0.91 K/ L 0.30-0.82 H (test code = 415) EOSINOPHILS ABSOLUTE COUNT 0.23 K/ L 0.04-0.54 (BEAKER) (test code = 416) BASOPHILS ABSOLUTE COUNT (BEAKER) 0.05 K/ L 0.01-0.08 (test code = 417) IMMATURE GRANULOCYTES-RELATIVE 1 % 0-1 PERCENT (AKER) (test code = 2801) POCT-GLUCOSE [id number] 12:03:00 Test Item Value Reference Range Interpretation Comments POC-GLUCOSE METER 146 mg/dL 70-110 H TESTED AT [place] [address] ([facility]) (test code = AMOL DEAN [place] 1538) [address] POCT-GLUCOSE [id number] 08:34:00 Test Item Value Reference Range Interpretation Comments POC-GLUCOSE METER 112 mg/dL 70-110 H TESTED AT [place] [address] ([facility]) (test code = [facility] 1538) [address] CBC W/PLT COUNT & AUTO [id number] 06:14:00 Test Item Value Reference Range Interpretation Comments WHITE BLOOD CELL COUNT (BEAKER) 13.9 K/ L 3.5-10.5 H (test code = 775) RED BLOOD CELL COUNT (BEAKER) 3.58 M/ L 4.63-6.08 L (test code = 761) HEMOGLOBIN (BEAKER) (test code = 9.8 GM/DL 13.7-17.5 L 410) HEMATOCRIT (BEAKER) (test code = 30.7 % 40.1-51.0 L 411) MEAN CORPUSCULAR VOLUME (BEAKER) 85.8 fL 79.0-92.2 (test code = 753) MEAN CORPUSCULAR HEMOGLOBIN 27.4 pg 25.7-32.2 (BEAKER) (test code = 751) MEAN CORPUSCULAR HEMOGLOBIN CONC 31.9 GM/DL 32.3-36.5 L (BEAKER) (test code = 752) RED CELL DISTRIBUTION WIDTH 17.6 % 11.6-14.4 H (BEAKER) (test code = 412) PLATELET COUNT (BEAKER) (test 355 K/CU MM 150-450 code = 756) MEAN PLATELET VOLUME (BEAKER) 9.7 fL 9.4-12.4 (test code = 754) NUCLEATED RED BLOOD CELLS 0 /100 WBC 0-0 (BEAKER) (test code = 413) NEUTROPHILS RELATIVE PERCENT 77 % (BEAKER) (test code = 429) LYMPHOCYTES RELATIVE PERCENT 12 % (BEAKER) (test code = 430) MONOCYTES RELATIVE PERCENT 8 % (BEAKER) (test code = 431) EOSINOPHILS RELATIVE PERCENT 2 % (BEAKER) (test code = 432) BASOPHILS RELATIVE PERCENT 0 % (BEAKER) (test code = 437) NEUTROPHILS ABSOLUTE COUNT 10.76 K/ L 1.78-5.38 H (BEAKER) (test code = 670) LYMPHOCYTES ABSOLUTE COUNT 1.61 K/ L 1.32-3.57 (BEAKER) (test code = 414) MONOCYTES ABSOLUTE COUNT (BEAKER) 1.12 K/ L 0.30-0.82 H (test code = 415) EOSINOPHILS ABSOLUTE COUNT 0.25 K/ L 0.04-0.54 (BEAKER) (test code = 416) BASOPHILS ABSOLUTE COUNT (BEAKER) 0.03 K/ L 0.01-0.08 (test code = 417) IMMATURE GRANULOCYTES-RELATIVE 1 % 0-1 PERCENT (BEAKER) (test code = 2801) CALCIUM, [id number] 05:42:00 Test Item Value Reference Range Interpretation Comments CALCIUM IONIZED (BEAKER) (test 1.12 mmol/L 1.12-1.27 code = 698) PH, BLOOD (BEAKER) (test code = 7.34 1810) [id number] 05:27:00 Test Item Value Reference Range Interpretation Comments MAGNESIUM (BEAKER) (test code = 1.8 mg/dL 1.6-2.6 627) BASIC METABOLIC [id number] 05:27:00 Test Item Value Reference Range Interpretation Comments SODIUM (BEAKER) 135 meq/L 136-145 L (test code = 381) POTASSIUM (BEAKER) 4.1 meq/L 3.5-5.1 (test code = 379) CHLORIDE (BEAKER) 102 meq/L 98-107 (test code = 382) CO2 (BEAKER) (test 25 meq/L 22-29 code = 355) BLOOD UREA NITROGEN 27 mg/dL 7-21 H (BEAKER) (test code = 354) CREATININE (BEAKER) 1.65 mg/dL 0.57-1.25 H (test code = 358) GLUCOSE RANDOM 94 mg/dL 70-105 (BEAKER) (test code = 652) CALCIUM (BEAKER) 8.8 mg/dL 8.4-10.2 (test code = 697) EGFR (BEAKER) (test 42 mL/min/1.73 ESTIMA GIGI GFR IS code = 1092) sq m NOT ACCURATE CREATININE CLEARANCE IN PREDICTING GLOMERULAR FILTRATION RATE . ESTIMATED GFR I S NOT APPLICABLE FOR DIALYSIS PATIEN TS. Specimen slightly ictericPOCT-GLUCOSE [id number] 21:23:00 Test Item Value Reference Range Interpretation Comments POC-GLUCOSE METER 123 mg/dL 70-110 H TESTED AT [place] [address] ([facility]) (test code = [facility] 1538) [address] POCT-GLUCOSE [id number] 17:46:00 Test Item Value Reference Range Interpretation Comments POC-GLUCOSE METER 122 mg/dL 70-110 H TESTED AT [place] [address] ([facility]) (test code = [facility] 1538) [address] POCT-GLUCOSE [id number] 07:54:00 Test Item Value Reference Range Interpretation Comments POC-GLUCOSE METER 123 mg/dL 70-110 H TESTED AT [place] [address] ([facility]) (test code = [facility] 1538) [address] CBC W/PLT COUNT & AUTO [id number] 07:43:00 Test Item Value Reference Range Interpretation Comments WHITE BLOOD CELL COUNT (AKER) 13.6 K/ L 3.5-10.5 H (test code = 775) RED BLOOD CELL COUNT ([facility]) 3.32 M/ L 4.63-6.08 L (test code = 761) HEMOGLOBIN (BEAKER) (test code = 9.3 GM/DL 13.7-17.5 L 410) HEMATOCRIT ([facility]) (test code = 28.8 % 40.1-51.0 L 411) MEAN CORPUSCULAR VOLUME (BEAKER) 86.7 fL 79.0-92.2 (test code = 753) MEAN CORPUSCULAR HEMOGLOBIN 28.0 pg 25.7-32.2 (BEAKER) (test code = 751) MEAN CORPUSCULAR HEMOGLOBIN CONC 32.3 GM/DL 32.3-36.5 (BEAKER) (test code = 752) RED CELL DISTRIBUTION WIDTH 17.4 % 11.6-14.4 H (BEAKER) (test code = 412) PLATELET COUNT (BEAKER) (test 294 K/CU MM 150-450 code = 756) MEAN PLATELET VOLUME (BEAKER) 9.9 fL 9.4-12.4 (test code = 754) NUCLEATED RED BLOOD CELLS 0 /100 WBC 0-0 (BEAKER) (test code = 413) NEUTROPHILS RELATIVE PERCENT 78 % (BEAKER) (test code = 429) LYMPHOCYTES RELATIVE PERCENT 9 % (BEAKER) (test code = 430) MONOCYTES RELATIVE PERCENT 10 % (BEAKER) (test code = 431) EOSINOPHILS RELATIVE PERCENT 2 % (BEAKER) (test code = 432) BASOPHILS RELATIVE PERCENT 0 % (BEAKER) (test code = 437) NEUTROPHILS ABSOLUTE COUNT 10.64 K/ L 1.78-5.38 H (BEAKER) (test code = 670) LYMPHOCYTES ABSOLUTE COUNT 1.25 K/ L 1.32-3.57 L (BEAKER) (test code = 414) MONOCYTES ABSOLUTE COUNT (BEAKER) 1.31 K/ L 0.30-0.82 H (test code = 415) EOSINOPHILS ABSOLUTE COUNT 0.26 K/ L 0.04-0.54 (BEAKER) (test code = 416) BASOPHILS ABSOLUTE COUNT (BEAKER) 0.05 K/ L 0.01-0.08 (test code = 417) IMMATURE GRANULOCYTES-RELATIVE 1 % 0-1 PERCENT (BEAKER) (test code = 2801) CALCIUM, [id number] 07:03:00 Test Item Value Reference Range Interpretation Comments CALCIUM IONIZED (BEAKER) (test 1.14 mmol/L 1.12-1.27 code = 698) PH, BLOOD (BEAKER) (test code = 7.34 1810) [id number] 06:24:00 Test Item Value Reference Range Interpretation Comments MAGNESIUM (BEAKER) (test code = 1.8 mg/dL 1.6-2.6 627) BASIC METABOLIC [id number] 06:24:00 Test Item Value Reference Range Interpretation Comments SODIUM (BEAKER) 135 meq/L 136-145 L (test code = 381) POTASSIUM (BEAKER) 4.8 meq/L 3.5-5.1 (test code = 379) CHLORIDE (BEAKER) 102 meq/L 98-107 (test code = 382) CO2 (BEAKER) (test 24 meq/L 22-29 code = 355) BLOOD UREA NITROGEN 31 mg/dL 7-21 H (BEAKER) (test code = 354) CREATININE (BEAKER) 1.60 mg/dL 0.57-1.25 H (test code = 358) GLUCOSE RANDOM 98 mg/dL 70-105 (BEAKER) (test code = 652) CALCIUM (BEAKER) 8.7 mg/dL 8.4-10.2 (test code = 697) EGFR (BEAKER) (test 43 mL/min/1.73 ESTIMA GIGI GFR IS code = 1092) sq m NOT ACCURATE CREATININE CLEARANCE IN PREDICTING GLOMERULAR FILTRATION RATE . ESTIMATED GFR I S NOT APPLICABLE FOR DIALYSIS PATIEN TS. Specimen slightly ictericPOCT-GLUCOSE [id number] 22:16:00 Test Item Value Reference Range Interpretation Comments POC-GLUCOSE METER 137 mg/dL 70-110 H TESTED AT [facility] ([facility]) (test code = [facility] 1538) [address] POCT-GLUCOSE [id number] 17:15:00 Test Item Value Reference Range Interpretation Comments POC-GLUCOSE METER 139 mg/dL 70-110 H TESTED AT [facility] [address] ([facility]) (test code = [facility] 1538) [id number] POCT-GLUCOSE [id number] 12:40:00 Test Item Value Reference Range Interpretation Comments POC-GLUCOSE METER 116 mg/dL 70-110 H TESTED AT [facility] [address] ([facility]) (test code = [facility] 1538) [address] POCT-GLUCOSE [id number] 12:03:00 Test Item Value Reference Range Interpretation Comments POC-GLUCOSE METER 99 mg/dL 70-110 TESTED AT [place] [id number] ([facility]) (test code = [facility] [address] 1538) CALCIUM, [id number] 05:08:00 Test Item Value Reference Range Interpretation Comments CALCIUM IONIZED (BEAKER) (test 1.05 mmol/L 1.12-1.27 L code = 698) PH, BLOOD (BEAKER) (test code = 7.36 1810) [id number] 04:49:00 Test Item Value Reference Range Interpretation Comments MAGNESIUM (BEAKER) (test code = 1.9 mg/dL 1.6-2.6 627) BASIC METABOLIC [id number] 04:49:00 Test Item Value Reference Range Interpretation Comments SODIUM (BEAKER) 134 meq/L 136-145 L (test code = 381) POTASSIUM (BEAKER) 4.4 meq/L 3.5-5.1 (test code = 379) CHLORIDE (BEAKER) 103 meq/L 98-107 (test code = 382) CO2 (BEAKER) (test 24 meq/L 22-29 code = 355) BLOOD UREA NITROGEN 32 mg/dL 7-21 H (BEAKER) (test code = 354) CREATININE (BEAKER) 1.56 mg/dL 0.57-1.25 H (test code = 358) GLUCOSE RANDOM 98 mg/dL 70-105 (BEAKER) (test code = 652) CALCIUM (BEAKER) 8.7 mg/dL 8.4-10.2 (test code = 697) EGFR (BEAKER) (test 45 mL/min/1.73 ESTIMA GIGI GFR IS code = 1092) sq m NOT ACCURATE CREATININE CLEARANCE IN PREDICTING GLOMERULAR FILTRATION RATE . ESTIMATED GFR I S NOT APPLICABLE FOR DIALYSIS PATIEN TS. Specimen slightly ictericCBC W/PLT COUNT & AUTO [id number] 04:31:00 Test Item Value Reference Range Interpretation Comments WHITE BLOOD CELL COUNT (BEAKER) 12.8 K/ L 3.5-10.5 H (test code = 775) RED BLOOD CELL COUNT (BEAKER) 3.66 M/ L 4.63-6.08 L (test code = 761) HEMOGLOBIN (BEAKER) (test code = 9.8 GM/DL 13.7-17.5 L 410) HEMATOCRIT (BEAKER) (test code = 31.9 % 40.1-51.0 L 411) MEAN CORPUSCULAR VOLUME (BEAKER) 87.2 fL 79.0-92.2 (test code = 753) MEAN CORPUSCULAR HEMOGLOBIN 26.8 pg 25.7-32.2 (BEAKER) (test code = 751) MEAN CORPUSCULAR HEMOGLOBIN CONC 30.7 GM/DL 32.3-36.5 L (BEAKER) (test code = 752) RED CELL DISTRIBUTION WIDTH 17.0 % 11.6-14.4 H (BEAKER) (test code = 412) PLATELET COUNT (BEAKER) (test 235 K/CU MM 150-450 code = 756) MEAN PLATELET VOLUME (BEAKER) 9.5 fL 9.4-12.4 (test code = 754) NUCLEATED RED BLOOD CELLS 0 /100 WBC 0-0 (BEAKER) (test code = 413) NEUTROPHILS RELATIVE PERCENT 76 % (BEAKER) (test code = 429) LYMPHOCYTES RELATIVE PERCENT 11 % (BEAKER) (test code = 430) MONOCYTES RELATIVE PERCENT 10 % (BEAKER) (test code = 431) EOSINOPHILS RELATIVE PERCENT 3 % (BEAKER) (test code = 432) BASOPHILS RELATIVE PERCENT 0 % (BEAKER) (test code = 437) NEUTROPHILS ABSOLUTE COUNT 9.69 K/ L 1.78-5.38 H (BEAKER) (test code = 670) LYMPHOCYTES ABSOLUTE COUNT 1.34 K/ L 1.32-3.57 (BEAKER) (test code = 414) MONOCYTES ABSOLUTE COUNT (BEAKER) 1.31 K/ L 0.30-0.82 H (test code = 415) EOSINOPHILS ABSOLUTE COUNT 0.32 K/ L 0.04-0.54 (BEAKER) (test code = 416) BASOPHILS ABSOLUTE COUNT (BEAKER) 0.04 K/ L 0.01-0.08 (test code = 417) IMMATURE GRANULOCYTES-RELATIVE 1 % 0-1 PERCENT (BEAKER) (test code = 2807) POCT-GLUCOSE [id number] 03:20:00 Test Item Value Reference Range Interpretation Comments POC-GLUCOSE METER 141 mg/dL 70-110 H TESTED AT [place] [address] (BEAKER) (test code = AMOL SHAH 1538) [address] POCT-GLUCOSE [id number] 18:26:00 Test Item Value Reference Range Interpretation Comments POC-GLUCOSE METER 101 mg/dL 70-110 TESTED AT [place] [address] (BEAKER) (test code = AMOL Cadet [facility] 1538) [address] POCT-GLUCOSE [id number] 12:14:00 Test Item Value Reference Range Interpretation Comments POC-GLUCOSE METER 117 mg/dL 70-110 H TESTED AT [facility] 6720 (BEAKER) (test code = AMOL [employer]et [facility] 1538) [id number] POCT-GLUCOSE [id number] 08:47:00 Test Item Value Reference Range Interpretation Comments POC-GLUCOSE METER 83 mg/dL 70-110 TESTED AT [place] [address] (BEAKER) (test code = AMOL [employer]et [facility] [address] 1538) [id number] 07:27:00 Test Item Value Reference Range Interpretation Comments MAGNESIUM (BEAKER) (test code = 1.7 mg/dL 1.6-2.6 627) BASIC METABOLIC [id number] 07:27:00 Test Item Value Reference Range Interpretation Comments SODIUM (BEAKER) 133 meq/L 136-145 L (test code = 381) POTASSIUM (BEAKER) 4.2 meq/L 3.5-5.1 (test code = 379) CHLORIDE (BEAKER) 101 meq/L 98-107 (test code = 382) CO2 (BEAKER) (test 24 meq/L 22-29 code = 355) BLOOD UREA NITROGEN 35 mg/dL 7-21 H (BEAKER) (test code = 354) CREATININE (BEAKER) 1.69 mg/dL 0.57-1.25 H (test code = 358) GLUCOSE RANDOM 77 mg/dL 70-105 (BEAKER) (test code = 652) CALCIUM (BEAKER) 8.4 mg/dL 8.4-10.2 (test code = 697) EGFR (BEAKER) (test 41 mL/min/1.73 ESTIMA GIGI GFR IS code = 1092) sq m NOT ACCURATE CREATININE CLEARANCE IN PREDICTING GLOMERULAR FILTRATION RATE . ESTIMATED GFR I S NOT APPLICABLE FOR DIALYSIS PATIEN TS. Specimen slightly ictericCALCIUM, [id number] 06:39:00 Test Item Value Reference Range Interpretation Comments CALCIUM IONIZED (BEAKER) (test 1.13 mmol/L 1.12-1.27 code = 698) PH, BLOOD (BEAKER) (test code = 7.35 1810) CBC W/PLT COUNT & AUTO [id number] 06:06:00 Test Item Value Reference Range Interpretation Comments WHITE BLOOD CELL COUNT (BEAKER) 13.4 K/ L 3.5-10.5 H (test code = 775) RED BLOOD CELL COUNT (BEAKER) 3.31 M/ L 4.63-6.08 L (test code = 761) HEMOGLOBIN (BEAKER) (test code = 9.2 GM/DL 13.7-17.5 L 410) HEMATOCRIT (BEAKER) (test code = 28.4 % 40.1-51.0 L 411) MEAN CORPUSCULAR VOLUME (BEAKER) 85.8 fL 79.0-92.2 (test code = 753) MEAN CORPUSCULAR HEMOGLOBIN 27.8 pg 25.7-32.2 (BEAKER) (test code = 751) MEAN CORPUSCULAR HEMOGLOBIN CONC 32.4 GM/DL 32.3-36.5 (BEAKER) (test code = 752) RED CELL DISTRIBUTION WIDTH 16.5 % 11.6-14.4 H (BEAKER) (test code = 412) PLATELET COUNT (BEAKER) (test 194 K/CU MM 150-450 code = 756) MEAN PLATELET VOLUME (BEAKER) 9.7 fL 9.4-12.4 (test code = 754) NUCLEATED RED BLOOD CELLS 0 /100 WBC 0-0 (BEAKER) (test code = 413) NEUTROPHILS RELATIVE PERCENT 77 % (BEAKER) (test code = 429) LYMPHOCYTES RELATIVE PERCENT 9 % (BEAKER) (test code = 430) MONOCYTES RELATIVE PERCENT 10 % (BEAKER) (test code = 431) EOSINOPHILS RELATIVE PERCENT 3 % (BEAKER) (test code = 432) BASOPHILS RELATIVE PERCENT 0 % (BEAKER) (test code = 437) NEUTROPHILS ABSOLUTE COUNT 10.27 K/ L 1.78-5.38 H (BEAKER) (test code = 670) LYMPHOCYTES ABSOLUTE COUNT 1.21 K/ L 1.32-3.57 L (BEAKER) (test code = 414) MONOCYTES ABSOLUTE COUNT (BEAKER) 1.36 K/ L 0.30-0.82 H (test code = 415) EOSINOPHILS ABSOLUTE COUNT 0.36 K/ L 0.04-0.54 (BEAKER) (test code = 416) BASOPHILS ABSOLUTE COUNT (BEAKER) 0.03 K/ L 0.01-0.08 (test code = 417) IMMATURE GRANULOCYTES-RELATIVE 1 % 0-1 PERCENT ([facility]) (test code = 2801) POCT-GLUCOSE [id number] 21:14:00 Test Item Value Reference Range Interpretation Comments POC-GLUCOSE METER 104 mg/dL 70-110 TESTED AT [facility] 67 ([facility]) (test code = [facility] 1538) [address] POCT-GLUCOSE [id number] 17:12:00 Test Item Value Reference Range Interpretation Comments POC-GLUCOSE METER 104 mg/dL 70-110 TESTED AT [place] [address] ([facility]) (test code = [facility] 1538) [address] POCT-GLUCOSE [id number] 13:43:00 Test Item Value Reference Range Interpretation Comments POC-GLUCOSE METER 116 mg/dL 70-110 H TESTED AT [place] [address] ([facility]) (test code = [facility] 1538) [address] RAD, CHEST, 1 VIEW, NON [id number] 08:04:00Reason for exam:->s/p TAAA FINAL REPORT Chest one view AP 07/06/2017 8:04 AM CLINICAL INDICATION: s/p TAAA COMPARISON: 07/05/2017 IMPRESSION: There is a small volume left pleural effusion. Opacity in the left lung base may reflect atelectasis or pneumonia. The right lung is well aerated. Cardiomediastinal contours are stable. The central pulmonary vasculature is not engorged. Cardiac support hardware is unchanged in position. Signed: Young [place] Verified Date/Time: 07/06/2017 08:04:38 Reading Location: [facility] B1 C013V Neuro Reading Room -GLUCOSE [id number] 07:56:00 Test Item Value Reference Range Interpretation Comments POC-GLUCOSE METER 111 mg/dL 70-110 H TESTED AT [place] [address] ([facility]) (test code = [facility] 1538) [address] CALCIUM, [id number] 06:33:00 Test Item Value Reference Range Interpretation Comments CALCIUM IONIZED (BEAKER) (test 1.14 mmol/L 1.12-1.27 code = 698) PH, BLOOD (BEAKER) (test code = 7.35 1810) [id number] 06:17:00 Test Item Value Reference Range Interpretation Comments MAGNESIUM (BEAKER) (test code = 1.9 mg/dL 1.6-2.6 627) BASIC METABOLIC [id number] 06:17:00 Test Item Value Reference Range Interpretation Comments SODIUM (BEAKER) 136 meq/L 136-145 (test code = 381) POTASSIUM (BEAKER) 3.9 meq/L 3.5-5.1 (test code = 379) CHLORIDE (BEAKER) 104 meq/L 98-107 (test code = 382) CO2 (BEAKER) (test 24 meq/L 22-29 code = 355) BLOOD UREA NITROGEN 37 mg/dL 7-21 H (BEAKER) (test code = 354) CREATININE (BEAKER) 1.88 mg/dL 0.57-1.25 H (test code = 358) GLUCOSE RANDOM 90 mg/dL 70-105 (BEAKER) (test code = 652) CALCIUM (BEAKER) 8.6 mg/dL 8.4-10.2 (test code = 697) EGFR (BEAKER) (test 36 mL/min/1.73 ESTIMA GIGI GFR IS code = 1092) sq m NOT ACCURATE CREATININE CLEARANCE IN PREDICTING GLOMERULAR FILTRATION RATE . ESTIMATED GFR I S NOT APPLICABLE FOR DIALYSIS PATIEN TS. Specimen slightly ictericCBC W/PLT COUNT & AUTO [id number] 06:10:00 Test Item Value Reference Range Interpretation Comments WHITE BLOOD CELL COUNT (BEAKER) 15.0 K/ L 3.5-10.5 H (test code = 775) RED BLOOD CELL COUNT (BEAKER) 3.26 M/ L 4.63-6.08 L (test code = 761) HEMOGLOBIN (BEAKER) (test code = 9.0 GM/DL 13.7-17.5 L 410) HEMATOCRIT (BEAKER) (test code = 28.1 % 40.1-51.0 L 411) MEAN CORPUSCULAR VOLUME (BEAKER) 86.2 fL 79.0-92.2 (test code = 753) MEAN CORPUSCULAR HEMOGLOBIN 27.6 pg 25.7-32.2 (BEAKER) (test code = 751) MEAN CORPUSCULAR HEMOGLOBIN CONC 32.0 GM/DL 32.3-36.5 L (BEAKER) (test code = 752) RED CELL DISTRIBUTION WIDTH 16.2 % 11.6-14.4 H (BEAKER) (test code = 412) PLATELET COUNT (BEAKER) (test 163 K/CU MM 150-450 code = 756) MEAN PLATELET VOLUME (BEAKER) 9.4 fL 9.4-12.4 (test code = 754) NUCLEATED RED BLOOD CELLS 0 /100 WBC 0-0 (BEAKER) (test code = 413) NEUTROPHILS RELATIVE PERCENT 78 % (BEAKER) (test code = 429) LYMPHOCYTES RELATIVE PERCENT 10 % (BEAKER) (test code = 430) MONOCYTES RELATIVE PERCENT 9 % (BEAKER) (test code = 431) EOSINOPHILS RELATIVE PERCENT 2 % (BEAKER) (test code = 432) BASOPHILS RELATIVE PERCENT 0 % (BEAKER) (test code = 437) NEUTROPHILS ABSOLUTE COUNT 11.72 K/ L 1.78-5.38 H (BEAKER) (test code = 670) LYMPHOCYTES ABSOLUTE COUNT 1.46 K/ L 1.32-3.57 (BEAKER) (test code = 414) MONOCYTES ABSOLUTE COUNT (BEAKER) 1.41 K/ L 0.30-0.82 H (test code = 415) EOSINOPHILS ABSOLUTE COUNT 0.27 K/ L 0.04-0.54 (BEAKER) (test code = 416) BASOPHILS ABSOLUTE COUNT (BEAKER) 0.03 K/ L 0.01-0.08 (test code = 417) IMMATURE GRANULOCYTES-RELATIVE 1 % 0-1 PERCENT (BEAKER) (test code = 2801) POCT-GLUCOSE [id number] 21:07:00 Test Item Value Reference Range Interpretation Comments POC-GLUCOSE METER 124 mg/dL 70-110 H TESTED AT [facility] 6720 (BEAKER) (test code = AMOL DEAN [place] 1538) [address] TISSUE [id number] 17:34:00Surgical Pathology Report Case: [id number] Authorizing Provider: Homero Dubon MD Collected: 07/01/2017 1430 Ordering Location: [facility] Received: 07/02/2017 0831 PERIOPERATIVE SERVICES Pathologist: Garrett Carrillo MD Specimen: Aneurysm, 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, THORACOABDOMINAL, ANEURYSMECTOMY:FIBRIN AND DYSTROPHIC CALCIFICATION, CONSISTENT WITH ANEURYSM CONTENTSFRAGMENTS OF SKELETAL MUSCLE AND FIBROADIPOSE TISSUE WITH ACUTE HEMORRHAGE Signing Pathologist Direct Phone Line: [phone] signed by Garrett Carrillo MD on 07/05/2017 at 5:34 [id number] thoracoabdominal aortic aneurysm Aneurysm pieces The specimen is received in a formalin-filled container labeled with the patient's information and labeled "aneurysm tissue pieces" and consists of multiple fragments of botello- morris hemorrhagic soft tissue measuring 8 x 7 x 3 cm in aggregate. Almond Huller sections are submitted in A1 and A2. CG/ew PerformedPOCT-GLUCOSE METER 2017-07-05 16:59:00 Test Item Value Reference Range Interpretation Comments POC-GLUCOSE METER 113 mg/dL 70-110 H TESTED AT [place] [address] ([facility]) (test code = [facility] [employer] [facility] 1538) [address] POCT-GLUCOSE [id number] 12:45:00 Test Item Value Reference Range Interpretation Comments POC-GLUCOSE METER 103 mg/dL 70-110 TESTED AT [place] [address] ([facility]) ([facility] = [facility] [employer] [facility] 1538) [address] POCT-GLUCOSE [id number] 11:19:00 Test Item Value Reference Range Interpretation Comments POC-GLUCOSE METER 95 mg/dL 70-110 TESTED AT [place] [address] ([facility]) (test code = [facility] [employer] [facility] [address] 1538) RAD, CHEST, 1 VIEW, NON [id number] 09:26:00Reason for exam:->s/p TAAA FINAL REPORT COMPARISON: 07/04/2017 TECHNIQUE: Single view of the chest FINDINGS: Interval removal of nasogastric tube. Small left pleural effusion with adjacent airspace disease identified. There is mild vascular congestion. Cardiac silhouette is enlarged. Postsurgical changes in the mediastinum noted. Right internal jugular sheath since central line noted. Signed: Elliot Rincon MDReport Verified Date/Time: 07/05/2017 09:26:58 Reading Location: [facility] Radiology Reading Room CALCIUM, [id number] 06:23:00 Test Item Value Reference Range Interpretation Comments CALCIUM IONIZED (BEAKER) (test 1.09 mmol/L 1.12-1.27 L code = 698) PH, BLOOD (BEAKER) (test code = 7.43 1810) LACTIC ACID, VENOUS, WHOLE [id number] 05:54:00 Test Item Value Reference Range Interpretation Comments LACTATE BLOOD VENOUS 0.8 mmol/L 0.5-2.2 Specime n slightly (2) (BEAKER) (test hemolyzed code = 2872) Effective 02/01/2016: Units/Reference Range ChangeNew: 0.5-2.2 mmol/L Previous: 5-20 mg/dLSpecimen moderately ictericCBC W/PLT COUNT & AUTO DIFFERENTIAL 2017-07-05 05:34:00 Test Item Value Reference Range Interpretation Comments WHITE BLOOD CELL COUNT (BEAKER) 14.8 K/ L 3.5-10.5 H (test code = 775) RED BLOOD CELL COUNT (BEAKER) 3.14 M/ L 4.63-6.08 L (test code = 761) HEMOGLOBIN (BEAKER) (test code = 8.7 GM/DL 13.7-17.5 L 410) HEMATOCRIT (BEAKER) (test code = 27.3 % 40.1-51.0 L 411) MEAN CORPUSCULAR VOLUME (BEAKER) 86.9 fL 79.0-92.2 (test code = 753) MEAN CORPUSCULAR HEMOGLOBIN 27.7 pg 25.7-32.2 (BEAKER) (test code = 751) MEAN CORPUSCULAR HEMOGLOBIN CONC 31.9 GM/DL 32.3-36.5 L (BEAKER) (test code = 752) RED CELL DISTRIBUTION WIDTH 15.9 % 11.6-14.4 H (BEAKER) (test code = 412) PLATELET COUNT (BEAKER) (test 120 K/CU MM 150-450 L code = 756) MEAN PLATELET VOLUME (BEAKER) 10.0 fL 9.4-12.4 (test code = 754) NUCLEATED RED BLOOD CELLS 0 /100 WBC 0-0 (BEAKER) (test code = 413) NEUTROPHILS RELATIVE PERCENT 80 % (BEAKER) (test code = 429) LYMPHOCYTES RELATIVE PERCENT 9 % (BEAKER) (test code = 430) MONOCYTES RELATIVE PERCENT 10 % (BEAKER) (test code = 431) EOSINOPHILS RELATIVE PERCENT 1 % (BEAKER) (test code = 432) BASOPHILS RELATIVE PERCENT 0 % (BEAKER) (test code = 437) NEUTROPHILS ABSOLUTE COUNT 11.76 K/ L 1.78-5.38 H (BEAKER) (test code = 670) LYMPHOCYTES ABSOLUTE COUNT 1.27 K/ L 1.32-3.57 L (BEAKER) (test code = 414) MONOCYTES ABSOLUTE COUNT (BEAKER) 1.40 K/ L 0.30-0.82 H (test code = 415) EOSINOPHILS ABSOLUTE COUNT 0.15 K/ L 0.04-0.54 (BEAKER) (test code = 416) BASOPHILS ABSOLUTE COUNT (BEAKER) 0.01 K/ L 0.01-0.08 (test code = 417) IMMATURE GRANULOCYTES-RELATIVE 1 % 0-1 PERCENT (BEAKER) (test code = 2801) [id number] 05:27:00 Test Item Value Reference Range Interpretation Comments MAGNESIUM (BEAKER) (test code = 2.0 mg/dL 1.6-2.6 627) BASIC METABOLIC [id number] 05:27:00 Test Item Value Reference Range Interpretation Comments SODIUM (BEAKER) 136 meq/L 136-145 (test code = 381) POTASSIUM (BEAKER) 4.1 meq/L 3.5-5.1 (test code = 379) CHLORIDE (BEAKER) 105 meq/L 98-107 (test code = 382) CO2 (BEAKER) (test 25 meq/L 22-29 code = 355) BLOOD UREA NITROGEN 36 mg/dL 7-21 H (BEAKER) (test code = 354) CREATININE (BEAKER) 2.12 mg/dL 0.57-1.25 H (test code = 358) GLUCOSE RANDOM 95 mg/dL 70-105 (BEAKER) (test code = 652) CALCIUM (BEAKER) 8.4 mg/dL 8.4-10.2 (test code = 697) EGFR (BEAKER) (test 31 mL/min/1.73 ESTIMA GIGI GFR IS code = 1092) sq m NOT ACCURATE CREATININE CLEARANCE IN PREDICTING GLOMERULAR FILTRATION RATE . ESTIMATED GFR I S NOT APPLICABLE FOR DIALYSIS PATIEN TS. Specimen moderately ictericLACTIC ACID, VENOUS, WHOLE [id number] 23:53:00 Test Item Value Reference Range Interpretation Comments LACTATE BLOOD VENOUS (2) (BEAKER) 1.2 mmol/L 0.5-2.2 (test code = 2872) Effective 02/01/2016: Units/Reference Range ChangeNew: 0.5-2.2 mmol/L Previous: 5-20 mg/dLSpecimen moderately ictericPOCT-GLUCOSE [id number] 20:40:00 Test Item Value Reference Range Interpretation Comments POC-GLUCOSE METER 134 mg/dL 70-110 H TESTED AT [place] [address] ([facility]) (test code = [facility] 1538) [address] LACTIC ACID, ARTERIAL, WHOLE [id number] 13:18:00 Test Item Value Reference Range Interpretation Comments LACTATE BLOOD ARTERIAL (2) 2.5 mmol/L 0.5-2.2 H ([facility]) (test code = 2874) Effective 02/01/2016: Units/Reference Range ChangeNew: 0.5-2.2 mmol/L Previous: 5-20 mg/dLSpecimen slightly ictericPOCT-GLUCOSE [id number] 12:54:00 Test Item Value Reference Range Interpretation Comments POC-GLUCOSE METER 82 mg/dL 70-110 TESTED AT [place] [address] ([facility]) (test code = [facility] [address] 1538) HEMOGLOBIN AND [id number] 12:36:00 Test Item Value Reference Range Interpretation Comments HEMOGLOBIN ([facility]) (test code = 8.3 GM/DL 13.7-17.5 L 410) HEMATOCRIT ([facility]) (test code = 25.4 % 40.1-51.0 L 411) POCT-GLUCOSE [id number] 09:16:00 Test Item Value Reference Range Interpretation Comments POC-GLUCOSE METER 103 mg/dL 70-110 TESTED AT [place] [address] ([facility]) (test code = [facility] 1538) [address] RAD, CHEST, 1 VIEW, NON [id number] 07:28:00Reason for exam:->s/p TAAA FINAL REPORT Chest one view compared to July 03 Discussion: Pulmonary congestion is noted. There is ill-defined opacity left lung base probably atelectasis. Correlate clinically for infection. No effusion or pneumothorax. IMPRESSIONS: Left base opacity is worse. Signed: Dane Rock Verified Date/Time: 07/04/2017 07:28:18 Reading Location: [facility] Radiology Reading Room CBC W/PLT COUNT & AUTO [id number] 05:41:00 Test Item Value Reference Range Interpretation Comments WHITE BLOOD CELL COUNT (BEAKER) 14.9 K/ L 3.5-10.5 H (test code = 775) RED BLOOD CELL COUNT (BEAKER) 2.58 M/ L 4.63-6.08 L (test code = 761) HEMOGLOBIN (BEAKER) (test code = 7.1 GM/DL 13.7-17.5 L 410) HEMATOCRIT (BEAKER) (test code = 23.0 % 40.1-51.0 L 411) MEAN CORPUSCULAR VOLUME (BEAKER) 89.1 fL 79.0-92.2 (test code = 753) MEAN CORPUSCULAR HEMOGLOBIN 27.5 pg 25.7-32.2 (BEAKER) (test code = 751) MEAN CORPUSCULAR HEMOGLOBIN CONC 30.9 GM/DL 32.3-36.5 L (BEAKER) (test code = 752) RED CELL DISTRIBUTION WIDTH 15.6 % 11.6-14.4 H (BEAKER) (test code = 412) PLATELET COUNT (BEAKER) (test code 90 K/CU MM 150-450 L = 756) MEAN PLATELET VOLUME (BEAKER) 10.2 fL 9.4-12.4 (test code = 754) NUCLEATED RED BLOOD CELLS (BEAKER) 0 /100 WBC 0-0 (test code = 413) NEUTROPHILS RELATIVE PERCENT 83 % (BEAKER) (test code = 429) LYMPHOCYTES RELATIVE PERCENT 6 % (BEAKER) (test code = 430) MONOCYTES RELATIVE PERCENT 8 % (BEAKER) (test code = 431) EOSINOPHILS RELATIVE PERCENT 1 % (BEAKER) (test code = 432) BASOPHILS RELATIVE PERCENT 0 % (BEAKER) (test code = 437) NEUTROPHILS ABSOLUTE COUNT 12.27 K/ L 1.78-5.38 H (BEAKER) (test code = 670) LYMPHOCYTES ABSOLUTE COUNT 0.95 K/ L 1.32-3.57 L (BEAKER) (test code = 414) MONOCYTES ABSOLUTE COUNT (BEAKER) 1.18 K/ L 0.30-0.82 H (test code = 415) EOSINOPHILS ABSOLUTE COUNT 0.12 K/ L 0.04-0.54 (BEAKER) (test code = 416) BASOPHILS ABSOLUTE COUNT (BEAKER) 0.02 K/ L 0.01-0.08 (test code = 417) IMMATURE GRANULOCYTES-RELATIVE 2 % 0-1 H PERCENT (BEAKER) (test code = 2801) LACTIC ACID, ARTERIAL, WHOLE [id number] 05:38:00 Test Item Value Reference Range Interpretation Comments LACTATE BLOOD ARTERIAL (2) 2.4 mmol/L 0.5-2.2 H (BEAKER) (test code = 2874) Effective 02/01/2016: Units/Reference Range ChangeNew: 0.5-2.2 mmol/L Previous: 5-20 mg/dLSpecimen slightly [id number] 05:37:00 Test Item Value Reference Range Interpretation Comments PHOSPHORUS (BEAKER) (test code = 3.3 mg/dL 2.3-4.7 604) [id number] 05:37:00 Test Item Value Reference Range Interpretation Comments MAGNESIUM (BEAKER) (test code = 1.9 mg/dL 1.6-2.6 627) BASIC METABOLIC [id number] 05:37:00 Test Item Value Reference Range Interpretation Comments SODIUM (BEAKER) 141 meq/L 136-145 (test code = 381) POTASSIUM (BEAKER) 4.2 meq/L 3.5-5.1 (test code = 379) CHLORIDE (BEAKER) 108 meq/L 98-107 H (test code = 382) CO2 (BEAKER) (test 26 meq/L 22-29 code = 355) BLOOD UREA NITROGEN 29 mg/dL 7-21 H (BEAKER) (test code = 354) CREATININE (BEAKER) 2.09 mg/dL 0.57-1.25 H (test code = 358) GLUCOSE RANDOM 89 mg/dL 70-105 (BEAKER) (test code = 652) CALCIUM (BEAKER) 8.1 mg/dL 8.4-10.2 L (test code = 697) EGFR (BEAKER) (test 32 mL/min/1.73 ESTIMA GIGI GFR IS code = 1092) sq m NOT ACCURATE CREATININE CLEARANCE IN PREDICTING GLOMERULAR FILTRATION RATE . ESTIMATED GFR I S NOT APPLICABLE FOR DIALYSIS PATIEN TS. Specimen slightly ictericCALCIUM, [id number] 05:23:00 Test Item Value Reference Range Interpretation Comments CALCIUM IONIZED (BEAKER) (test 1.11 mmol/L 1.12-1.27 L code = 698) PH, BLOOD (BEAKER) (test code = 7.36 1810) OXYGEN SATURATION, [id number] 05:17:00 Test Item Value Reference Range Interpretation Comments O2 SATURATION (MEASURED) (BEAKER) 64.7 % (test code = 1455) LACTIC ACID, ARTERIAL, WHOLE [id number] 10:17:00 Test Item Value Reference Range Interpretation Comments LACTATE BLOOD ARTERIAL (2) 1.3 mmol/L 0.5-2.2 (BEAKER) (test code = 2874) Effective 02/01/2016: Units/Reference Range ChangeNew: 0.5-2.2 mmol/L Previous: 5-20 mg/dLRAD, CHEST, 1 VIEW, NON [id number] 09:38:00Reason for exam:->pl effusionShould this be performed at the bedside?->YesFINAL REPORT Chest one view compared to July 02 Discussion: NG tube and left -sided chest tubes in place. No gross effusion or pneumothorax. Mild pulmonary congestion. Signed: Dane [place] Verified Date/Time: 07/03/2017 09:38:50 Reading Location: [facility] Radiology Reading Room POCT-GLUCOSE [id number] 06:15:00 Test Item Value Reference Range Interpretation Comments POC-GLUCOSE METER 118 mg/dL 70-110 H TESTED AT [facility] [address] ([facility]) (test code = [place] 1538) [address] BASIC METABOLIC [id number] 04:19:00 Test Item Value Reference Range Interpretation Comments SODIUM (BEAKER) 142 meq/L 136-145 (test code = 381) POTASSIUM (BEAKER) 4.0 meq/L 3.5-5.1 (test code = 379) CHLORIDE (BEAKER) 108 meq/L 98-107 H (test code = 382) CO2 (BEAKER) (test 26 meq/L 22-29 code = 355) BLOOD UREA NITROGEN 24 mg/dL 7-21 H (BEAKER) (test code = 354) CREATININE (BEAKER) 2.35 mg/dL 0.57-1.25 H (test code = 358) GLUCOSE RANDOM 105 mg/dL 70-105 (BEAKER) (test code = 652) CALCIUM (BEAKER) 8.1 mg/dL 8.4-10.2 L (test code = 697) EGFR (BEAKER) (test 28 mL/min/1.73 ESTIMA GIGI GFR IS code = 1092) sq m NOT ACCURATE CREATININE CLEARANCE IN PREDICTING GLOMERULAR FILTRATION RATE . ESTIMATED GFR I S NOT APPLICABLE FOR DIALYSIS PATIDEON TS. [id number] 04:18:00 Test Item Value Reference Range Interpretation Comments PHOSPHORUS (BEAKER) (test code = 4.9 mg/dL 2.3-4.7 H 604) [id number] 04:18:00 Test Item Value Reference Range Interpretation Comments MAGNESIUM (BEAKER) (test code = 1.9 mg/dL 1.6-2.6 627) CBC W/PLT COUNT & AUTO [id number] 04:05:00 Test Item Value Reference Range Interpretation Comments WHITE BLOOD CELL COUNT (BEAKER) 13.4 K/ L 3.5-10.5 H (test code = 775) RED BLOOD CELL COUNT (BEAKER) 3.00 M/ L 4.63-6.08 L (test code = 761) HEMOGLOBIN (BEAKER) (test code = 8.0 GM/DL 13.7-17.5 L 410) HEMATOCRIT (BEAKER) (test code = 26.2 % 40.1-51.0 L 411) MEAN CORPUSCULAR VOLUME (BEAKER) 87.3 fL 79.0-92.2 (test code = 753) MEAN CORPUSCULAR HEMOGLOBIN 26.7 pg 25.7-32.2 (BEAKER) (test code = 751) MEAN CORPUSCULAR HEMOGLOBIN CONC 30.5 GM/DL 32.3-36.5 L (BEAKER) (test code = 752) RED CELL DISTRIBUTION WIDTH 15.0 % 11.6-14.4 H (BEAKER) (test code = 412) PLATELET COUNT (BEAKER) (test code 76 K/CU MM 150-450 L = 756) MEAN PLATELET VOLUME (BEAKER) 9.5 fL 9.4-12.4 (test code = 754) NUCLEATED RED BLOOD CELLS (BEAKER) 0 /100 WBC 0-0 (test code = 413) NEUTROPHILS RELATIVE PERCENT 82 % (BEAKER) (test code = 429) LYMPHOCYTES RELATIVE PERCENT 8 % (BEAKER) (test code = 430) MONOCYTES RELATIVE PERCENT 8 % (BEAKER) (test code = 431) EOSINOPHILS RELATIVE PERCENT 1 % (BEAKER) (test code = 432) BASOPHILS RELATIVE PERCENT 0 % (BEAKER) (test code = 437) NEUTROPHILS ABSOLUTE COUNT 10.99 K/ L 1.78-5.38 H (BEAKER) (test code = 670) LYMPHOCYTES ABSOLUTE COUNT 1.05 K/ L 1.32-3.57 L (BEAKER) (test code = 414) MONOCYTES ABSOLUTE COUNT (BEAKER) 1.06 K/ L 0.30-0.82 H (test code = 415) EOSINOPHILS ABSOLUTE COUNT 0.17 K/ L 0.04-0.54 (BEAKER) (test code = 416) BASOPHILS ABSOLUTE COUNT (BEAKER) 0.02 K/ L 0.01-0.08 (test code = 417) IMMATURE GRANULOCYTES-RELATIVE 1 % 0-1 PERCENT (BEAKER) (test code = 2801) POCT-GLUCOSE [id number] 17:58:00 Test Item Value Reference Range Interpretation Comments POC-GLUCOSE METER 137 mg/dL 70-110 H TESTED AT [facility] 6720 (BEAKER) (test code = [place] 1538) [id number] POCT-GLUCOSE [id number] 12:03:00 Test Item Value Reference Range Interpretation Comments POC-GLUCOSE METER 134 mg/dL 70-110 H [facility] (BEAKER) (test code = [place] 1538) [address] BLOOD GAS, [id number] 08:45:00 Test Item Value Reference Range Interpretation Comments PH ARTERIAL (BEAKER) (test code = 7.45 7.35-7.45 383) PCO2 ARTERIAL (BEAKER) (test code 37 mmHg 35-45 = 384) PO2 ARTERIAL (BEAKER) (test code = 203 mmHg 80-90 H 385) O2 SATURATION ARTERIAL (BEAKER) 99.4 % 96.0-97.0 H (test code = 386) HCO3 ARTERIAL (BEAKER) (test code 25 mmol/L 21-29 = 388) BASE EXCESS ARTERIAL (BEAKER) 1.2 mmol/L -2.0-3.0 (test code = 387) PATIENT TEMPERATURE (BEAKER) (test 37.2 C code = 1818) FIO2 (BEAKER) (test code = 1819) 40.0 % RAD, CHEST, 1 VIEW, NON [id number] 08:42:00Reason for exam:->s/p TAAAShould this be performed at the bedside?->YesFINAL REPORT Chest one view. Clinical history: s/p TAAA Comparison: 07/01/2017 Discussion: A frontal chest is provided. Lines and tubes are unchanged. Stable cardiomediastinal contours. No new consolidation. No pneumothorax, probable small right pleural effusion. Signed: Fortino Maxwell Verified Date/Time: 07/02/2017 08:42:08 Reading Location: [facility] Radiology ReadingRoom BASIC METABOLIC [id number] 06:14:00 Test Item Value Reference Range Interpretation Comments SODIUM (BEAKER) 140 meq/L 136-145 (test code = 381) POTASSIUM (BEAKER) 4.6 meq/L 3.5-5.1 (test code = 379) CHLORIDE (BEAKER) 104 meq/L 98-107 (test code = 382) CO2 (BEAKER) (test 23 meq/L 22-29 code = 355) BLOOD UREA NITROGEN 20 mg/dL 7-21 (BEAKER) (test code = 354) CREATININE (BEAKER) 2.40 mg/dL 0.57-1.25 H (test code = 358) GLUCOSE RANDOM 144 mg/dL 70-105 H (BEAKER) (test code = 652) CALCIUM (BEAKER) 8.7 mg/dL 8.4-10.2 (test code = 697) EGFR (BEAKER) (test 27 mL/min/1.73 ESTIMA GGII GFR IS code = 1092) sq m NOT ACCURATE CREATININE CLEARANCE IN PREDICTING GLOMERULAR FILTRATION RATE . ESTIMATED GFR I S NOT APPLICABLE FOR DIALYSIS PATIEN TS. Specimen slightly ictericCBC W/PLT COUNT & AUTO [id number] 06:10:00 Test Item Value Reference Range Interpretation Comments WHITE BLOOD CELL COUNT (BEAKER) 12.2 K/ L 3.5-10.5 H (test code = 775) RED BLOOD CELL COUNT (BEAKER) 3.51 M/ L 4.63-6.08 L (test code = 761) HEMOGLOBIN (BEAKER) (test code = 9.7 GM/DL 13.7-17.5 L 410) HEMATOCRIT (BEAKER) (test code = 29.9 % 40.1-51.0 L 411) MEAN CORPUSCULAR VOLUME (BEAKER) 85.2 fL 79.0-92.2 (test code = 753) MEAN CORPUSCULAR HEMOGLOBIN 27.6 pg 25.7-32.2 (BEAKER) (test code = 751) MEAN CORPUSCULAR HEMOGLOBIN CONC 32.4 GM/DL 32.3-36.5 (BEAKER) (test code = 752) RED CELL DISTRIBUTION WIDTH 14.9 % 11.6-14.4 H (BEAKER) (test code = 412) PLATELET COUNT (BEAKER) (test code 78 K/CU MM 150-450 L = 756) MEAN PLATELET VOLUME (BEAKER) 10.0 fL 9.4-12.4 (test code = 754) NUCLEATED RED BLOOD CELLS (BEAKER) 0 /100 WBC 0-0 (test code = 413) NEUTROPHILS RELATIVE PERCENT 82 % (BEAKER) (test code = 429) LYMPHOCYTES RELATIVE PERCENT 9 % (BEAKER) (test code = 430) MONOCYTES RELATIVE PERCENT 8 % (BEAKER) (test code = 431) EOSINOPHILS RELATIVE PERCENT 0 % (BEAKER) (test code = 432) BASOPHILS RELATIVE PERCENT 0 % (BEAKER) (test code = 437) NEUTROPHILS ABSOLUTE COUNT 9.97 K/ L 1.78-5.38 H (BEAKER) (test code = 670) LYMPHOCYTES ABSOLUTE COUNT 1.14 K/ L 1.32-3.57 L (BEAKER) (test code = 414) MONOCYTES ABSOLUTE COUNT (BEAKER) 0.98 K/ L 0.30-0.82 H (test code = 415) EOSINOPHILS ABSOLUTE COUNT 0.00 K/ L 0.04-0.54 L (BEAKER) (test code = 416) BASOPHILS ABSOLUTE COUNT (BEAKER) 0.03 K/ L 0.01-0.08 (test code = 417) IMMATURE GRANULOCYTES-RELATIVE 1 % 0-1 PERCENT (BEAKER) (test code = 2801) [id number] 06:09:00 Test Item Value Reference Range Interpretation Comments MAGNESIUM (BEAKER) (test code = 2.2 mg/dL 1.6-2.6 627) LACTIC ACID, ARTERIAL, WHOLE [id number] 06:01:00 Test Item Value Reference Range Interpretation Comments LACTATE BLOOD 2.6 mmol/L 0.5-2.2 H Specimen sligh tly ARTERIAL (2) (BEAKER) hemoly zed (test code = 2874) Effective 02/01/2016: Units/Reference Range ChangeNew: 0.5-2.2 mmol/L Previous: 5-20 mg/dLPOCT-GLUCOSE [id number] 05:59:00 Test Item Value Reference Range Interpretation Comments POC-GLUCOSE METER 146 mg/dL 70-110 H TESTED AT [facility] 6720 (BEAKER) (test code = [place] 1538) [address] BLOOD GAS, [id number] 05:36:00 Test Item Value Reference Range Interpretation Comments PH ARTERIAL (BEAKER) (test code = 7.44 7.35-7.45 383) PCO2 ARTERIAL (BEAKER) (test code 38 mmHg 35-45 = 384) PO2 ARTERIAL (BEAKER) (test code = 180 mmHg 80-90 H 385) O2 SATURATION ARTERIAL (BEAKER) 99.3 % 96.0-97.0 H (test code = 386) HCO3 ARTERIAL (BEAKER) (test code 25 mmol/L 21-29 = 388) BASE EXCESS ARTERIAL (BEAKER) 0.7 mmol/L -2.0-3.0 (test code = 387) PATIENT TEMPERATURE (BEAKER) (test 37.1 C code = 1818) FIO2 (BEAKER) (test code = 1819) 60.0 % If A-Line onlyCALCIUM, [id number] 05:36:00 Test Item Value Reference Range Interpretation Comments CALCIUM IONIZED (BEAKER) (test 1.07 mmol/L 1.12-1.27 L code = 698) PH, BLOOD (BEAKER) (test code = 7.44 1810) OXYGEN SATURATION, [id number] 05:35:00 Test Item Value Reference Range Interpretation Comments O2 SATURATION (MEASURED) (BEAKER) 74.1 % (test code = 1455) POCT-GLUCOSE [id number] 02:13:00 Test Item Value Reference Range Interpretation Comments POC-GLUCOSE METER 149 mg/dL 70-110 H TESTED AT [facility] 67[address] (BEAKER) (test code = [place] 1538) [address] [id number] 20:01:00 Test Item Value Reference Range Interpretation Comments POTASSIUM (BEAKER) 4.4 meq/L 3.5-5.1 Specimen moderately (test code = 379) hemolyzed BASIC METABOLIC [id number] 20:01:00 Test Item Value Reference Range Interpretation Comments SODIUM (BEAKER) 140 meq/L 136-145 (test code = 381) POTASSIUM (BEAKER) 4.4 meq/L 3.5-5.1 Specimen moderately (test code = 379) hemolyzed CHLORIDE (BEAKER) 106 meq/L 98-107 (test code = 382) CO2 (BEAKER) (test 21 meq/L 22-29 L code = 355) BLOOD UREA NITROGEN 16 mg/dL 7-21 (BEAKER) (test code = 354) CREATININE (BEAKER) 1.84 mg/dL 0.57-1.25 H Specimen moderately (test code = 358) hemolyzed GLUCOSE RANDOM 191 mg/dL 70-105 H (BEAKER) (test code = 652) CALCIUM (BEAKER) 9.3 mg/dL 8.4-10.2 (test code = 697) EGFR (BEAKER) (test 37 mL/min/1.73 ESTIMA GIGI GFR IS code = 1092) sq m NOT ACCURATE CREATININE CLEARANCE IN PREDICTING GLOMERULAR FILTRATION RATE . ESTIMATED GFR I S NOT APPLICABLE FOR DIALYSIS PATIEN TS. Specimen slightly ictericCBC W/PLT COUNT & AUTO [id number] 20:01:00 Test Item Value Reference Range Interpretation Comments WHITE BLOOD CELL COUNT (BEAKER) 10.1 K/ L 3.5-10.5 (test code = 775) RED BLOOD CELL COUNT (BEAKER) 3.40 M/ L 4.63-6.08 L (test code = 761) HEMOGLOBIN (BEAKER) (test code = 9.4 GM/DL 13.7-17.5 L 410) HEMATOCRIT (BEAKER) (test code = 28.9 % 40.1-51.0 L 411) MEAN CORPUSCULAR VOLUME (BEAKER) 85.0 fL 79.0-92.2 (test code = 753) MEAN CORPUSCULAR HEMOGLOBIN 27.6 pg 25.7-32.2 (BEAKER) (test code = 751) MEAN CORPUSCULAR HEMOGLOBIN CONC 32.5 GM/DL 32.3-36.5 (BEAKER) (test code = 752) RED CELL DISTRIBUTION WIDTH 14.6 % 11.6-14.4 H (BEAKER) (test code = 412) PLATELET COUNT (BEAKER) (test code 79 K/CU MM 150-450 L = 756) MEAN PLATELET VOLUME (BEAKER) 9.3 fL 9.4-12.4 L (test code = 754) NUCLEATED RED BLOOD CELLS (BEAKER) 0 /100 WBC 0-0 (test code = 413) NEUTROPHILS RELATIVE PERCENT 79 % (BEAKER) (test code = 429) LYMPHOCYTES RELATIVE PERCENT 11 % (BEAKER) (test code = 430) MONOCYTES RELATIVE PERCENT 9 % (BEAKER) (test code = 431) EOSINOPHILS RELATIVE PERCENT 0 % (BEAKER) (test code = 432) BASOPHILS RELATIVE PERCENT 0 % (BEAKER) (test code = 437) NEUTROPHILS ABSOLUTE COUNT 7.93 K/ L 1.78-5.38 H (BEAKER) (test code = 670) LYMPHOCYTES ABSOLUTE COUNT 1.11 K/ L 1.32-3.57 L (BEAKER) (test code = 414) MONOCYTES ABSOLUTE COUNT (BEAKER) 0.94 K/ L 0.30-0.82 H (test code = 415) EOSINOPHILS ABSOLUTE COUNT 0.02 K/ L 0.04-0.54 L (BEAKER) (test code = 416) BASOPHILS ABSOLUTE COUNT (BEAKER) 0.01 K/ L 0.01-0.08 (test code = 417) IMMATURE GRANULOCYTES-RELATIVE 1 % 0-1 PERCENT (BEAKER) (test code = 2801) [id number] 17:16:00 Test Item Value Reference Range Interpretation Comments MAGNESIUM (BEAKER) 2.3 mg/dL 1.6-2.6 Specimen moderately (test code = 627) hemolyzed [id number] 17:16:00 Test Item Value Reference Range Interpretation Comments PHOSPHORUS (BEAKER) 4.5 mg/dL 2.3-4.7 Specimen moderately (test code = 604) hemolyzed BASIC METABOLIC [id number] 17:16:00 Test Item Value Reference Range Interpretation Comments SODIUM (BEAKER) 140 meq/L 136-145 (test code = 381) POTASSIUM (BEAKER) 5.1 meq/L 3.5-5.1 Specimen moderately (test code = 379) hemolyzed CHLORIDE (BEAKER) 108 meq/L 98-107 H (test code = 382) CO2 (BEAKER) (test 22 meq/L 22-29 code = 355) BLOOD UREA NITROGEN 15 mg/dL 7-21 (BEAKER) (test code = 354) CREATININE (BEAKER) 1.42 mg/dL 0.57-1.25 H Specimen moderately (test code = 358) hemolyzed GLUCOSE RANDOM 146 mg/dL 70-105 H (BEAKER) (test code = 652) CALCIUM (BEAKER) 9.3 mg/dL 8.4-10.2 (test code = 697) EGFR (BEAKER) (test 50 mL/min/1.73 ESTIMA GIGI GFR IS code = 1092) sq m NOT ACCURATE CREATININE CLEARANCE IN PREDICTING GLOMERULAR FILTRATION RATE . ESTIMATED GFR I S NOT APPLICABLE FOR DIALYSIS PATIEN TS. LACTIC ACID, ARTERIAL, WHOLE [id number] 17:13:00 Test Item Value Reference Range Interpretation Comments LACTATE BLOOD 3.7 mmol/L 0.5-2.2 H Specimen moder ately ARTERIAL (2) (BEAKER) hemoly zed (test code = 2874) Effective 02/01/2016: Units/Reference Range ChangeNew: 0.5-2.2 mmol/L Previous: 5-20 mg/[id number] 17:06:00 Test Item Value Reference Range Interpretation Comments ACTIVATED CLOTTING TIME 98 sec TEST ED AT [place] [address] ([facility]) (test code = [place] [address]) [address] [id number] 17:06:00 Test Item Value Reference Range Interpretation Comments ACTIVATED CLOTTING TIME 235 sec TEST ED AT [facility] 67[address] ([facility]) (test code = AM[place] [facility] [address]) [address] RAD, CHEST, 1 VIEW, NON [id number] 16:50:00Reason for exam:->immediate post abdominal aneurysm repair/intubationShould this be performed at the bedside?->YesFINAL REPORT Chest one view. Clinical history: immediate post abdominal aneurysm repair/intubation Comparison: June 24, 2017 Discussion: A frontal chest is provided. ET is approximately 5 cm above the manasa. A feeding tube terminates in the gastric fundus. There is a left-sided chest tube. There is a small right-sided pleural effusion. No definite pneumothorax. Status post median sternotomy. There is mild left chest wall subcutaneous emphysema. Signed: Fortino Maxwell MDReportVerified Date/Time: 07/01/2017 16:50:22 Reading Location: [address] Consult Reading Room E lectronically signed by: FORTINO MAXWELL M.D. on 07/01/2017 04:50 PMFIBRINOGEN 2017-07-01 16:44:00 Test Item Value Reference Range Interpretation Comments FIBRINOGEN LEVEL (BEAKER) (test 220 mg/dl 225-434 L code = 658) [id number] 16:44:00 Test Item Value Reference Range Interpretation Comments PARTIAL THROMBOPLASTIN TIME 34.5 seconds 22.5-36.0 (BEAKER) (test code = 760) PROTHROMBIN [id number] 16:43:00 Test Item Value Reference Range Interpretation Comments PROTIME (BEAKER) (test code = 18.3 seconds 11.7-14.7 H 759) INR (BEAKER) (test code = 370) 1.5 <=5.9 RECOMMENDED COUMADIN/WARFARIN INR THERAPY RANGESSTANDARD DOSE: 2.0 - 3.0 Includes: PROPHYLAXIS forvenous thrombosis, systemic embolization; TREATMENT for venous thrombosis and/or pulmonary embolus.HIGH RISK: Target INR is 2.5-3.5 for patients with mechanical heart valves.OXYGEN SATURATION, [id number] 15:57:00 Test Item Value Reference Range Interpretation Comments O2 SATURATION (MEASURED) (BEAKER) 67.9 % (test code = 1455) CALCIUM, [id number] 15:55:00 Test Item Value Reference Range Interpretation Comments CALCIUM IONIZED (BEAKER) (test 1.18 mmol/L 1.12-1.27 code = 698) PH, BLOOD (BEAKER) (test code = 7.47 1810) POTASSIUM-STAT [id number] 15:55:00 Test Item Value Reference Range Interpretation Comments POTASSIUM (BEAKER) (test code = 5.0 meq/L 3.6-5.5 379) BLOOD GAS, [id number] 15:55:00 Test Item Value Reference Range Interpretation Comments PH ARTERIAL (BEAKER) (test code = 7.47 7.35-7.45 H 383) PCO2 ARTERIAL (BEAKER) (test code 32 mmHg 35-45 L = 384) PO2 ARTERIAL (BEAKER) (test code 226 mmHg 80-90 H = 385) O2 SATURATION ARTERIAL (BEAKER) 99.6 % 96.0-97.0 H (test code = 386) HCO3 ARTERIAL (BEAKER) (test code 23 mmol/L 21-29 = 388) BASE EXCESS ARTERIAL (BEAKER) -0.4 mmol/L -2.0-3.0 (test code = 387) PATIENT TEMPERATURE (BEAKER) 36.6 C (test code = 1818) FIO2 (BEAKER) (test code = 1819) 60.0 % BLOOD GAS, [id number] 14:39:00 Test Item Value Reference Range Interpretation Comments PH ARTERIAL (BEAKER) (test code = 7.47 7.35-7.45 H 383) PCO2 ARTERIAL (BEAKER) (test code 33 mmHg 35-45 L = 384) PO2 ARTERIAL (BEAKER) (test code 418 mmHg 80-90 H = 385) O2 SATURATION ARTERIAL (BEAKER) 99.9 % 96.0-97.0 H (test code = 386) HCO3 ARTERIAL (BEAKER) (test code 23 mmol/L 21-29 = 388) BASE EXCESS ARTERIAL (BEAKER) -0.3 mmol/L -2.0-3.0 (test code = 387) PATIENT TEMPERATURE (BEAKER) 36.0 C (test code = 1818) FIO2 (BEAKER) (test code = 1819) 100.0 % SODIUM NA-STAT [id number] 14:39:00 Test Item Value Reference Range Interpretation Comments SODIUM (BEAKER) (test code = 381) 134 meq/L 135-148 L GLUCOSE-STAT [id number] 14:39:00 Test Item Value Reference Range Interpretation Comments GLUCOSE RANDOM (BEAKER) (test code 173 mg/dL 70-110 H = 652) HGB/HCT (H&H) - STAT [id number] 14:39:00 Test Item Value Reference Range Interpretation Comments HEMOGLOBIN (BEAKER) (test code = 9.8 g/dL 13.0-16.8 L 410) HEMATOCRIT (BEAKER) (test code = 29.0 % 40.0-50.0 L 411) POTASSIUM-STAT [id number] 14:37:00 Test Item Value Reference Range Interpretation Comments POTASSIUM (BEAKER) (test code = 5.2 meq/L 3.6-5.5 379) THROMBOELASTOGRAPH (TEG)[id number] 14:23:00 Test Item Value Reference Range Interpretation Comments TEG ACTIVATED CLOTTING TIME 6.0 minutes 4.0-7.0 (BEAKER) (test code = 1407) TEG FIBRINOGEN ACTIVITY (BEAKER) 46.8 degrees 61.0-73.0 L (test code = 1408) TEG PLT. AGGREGATION (BEAKER) 52.5 MM 55.0-65.0 L (test code = 1409) TGH ACTIVATED CLOTTING TIME 6.6 minutes 4.0-7.0 (BEAKER) (test code = 1411) TGH FIBRINOGEN ACTIVITY (BEAKER) 62.2 degrees 61.0-73.0 (test code = 1412) TGH PLT. AGGREGATION (BEAKER) 49.5 MM 55.0-65.0 L (test code = 1413) BLOOD GAS, [id number] 13:54:00 Test Item Value Reference Range Interpretation Comments PH ARTERIAL (BEAKER) (test code = 7.40 7.35-7.45 383) PCO2 ARTERIAL (BEAKER) (test code 37 mmHg 35-45 = 384) PO2 ARTERIAL (BEAKER) (test code 340 mmHg 80-90 H = 385) O2 SATURATION ARTERIAL (BEAKER) 99.8 % 96.0-97.0 H (test code = 386) HCO3 ARTERIAL (BEAKER) (test code 22 mmol/L 21-29 = 388) BASE EXCESS ARTERIAL (BEAKER) -2.5 mmol/L -2.0-3.0 L (test code = 387) PATIENT TEMPERATURE (BEAKER) 36.0 C (test code = 1818) FIO2 (BEAKER) (test code = 1819) 100.0 % SODIUM NA-STAT [id number] 13:54:00 Test Item Value Reference Range Interpretation Comments SODIUM (BEAKER) (test code = 381) 133 meq/L 135-148 L GLUCOSE-STAT [id number] 13:54:00 Test Item Value Reference Range Interpretation Comments GLUCOSE RANDOM (BEAKER) (test code 199 mg/dL 70-110 H = 652) HGB/HCT (H&H) - STAT [id number] 13:54:00 Test Item Value Reference Range Interpretation Comments HEMOGLOBIN (BEAKER) (test code = 9.8 g/dL 13.0-16.8 L 410) HEMATOCRIT (BEAKER) (test code = 29.0 % 40.0-50.0 L 411) CALCIUM, [id number] 13:51:00 Test Item Value Reference Range Interpretation Comments CALCIUM IONIZED (BEAKER) (test 1.20 mmol/L 1.12-1.27 code = 698) PH, BLOOD (BEAKER) (test code = 7.38 1810) POTASSIUM-STAT [id number] 13:51:00 Test Item Value Reference Range Interpretation Comments POTASSIUM (BEAKER) (test code = 5.0 meq/L 3.6-5.5 379) PROTHROMBIN [id number] 13:27:00 Test Item Value Reference Range Interpretation Comments PROTIME (BEAKER) (test code = 19.7 seconds 11.7-14.7 H 759) INR (BEAKER) (test code = 370) 1.7 <=5.9 RECOMMENDED COUMADIN/WARFARIN INR THERAPY RANGESSTANDARD DOSE: 2.0 - 3.0 Includes: PROPHYLAXIS forvenous thrombosis, systemic embolization; TREATMENT for venous thrombosis and/or pulmonary embolus.HIGH RISK: Target INR is 2.5-3.5 for patients with mechanical heart valves.[id number] 13:27:00 Test Item Value Reference Range Interpretation Comments PARTIAL THROMBOPLASTIN TIME 28.3 seconds 22.5-36.0 (BEAKER) (test code = 760) [id number] 13:27:00 Test Item Value Reference Range Interpretation Comments FIBRINOGEN LEVEL (BEAKER) (test 223 mg/dl 225-434 L code = 658) PLATELET [id number] 13:13:00 Test Item Value Reference Range Interpretation Comments PLATELET COUNT (BEAKER) (test code 81 K/CU MM 150-450 L = 756) BLOOD GAS, [id number] 13:03:00 Test Item Value Reference Range Interpretation Comments PH ARTERIAL (BEAKER) (test code = 7.33 7.35-7.45 L 383) PCO2 ARTERIAL (BEAKER) (test code 41 mmHg 35-45 = 384) PO2 ARTERIAL (BEAKER) (test code 350 mmHg 80-90 H = 385) O2 SATURATION ARTERIAL (BEAKER) 99.7 % 96.0-97.0 H (test code = 386) HCO3 ARTERIAL (BEAKER) (test code 21 mmol/L 21-29 = 388) BASE EXCESS ARTERIAL (BEAKER) -4.7 mmol/L -2.0-3.0 L (test code = 387) PATIENT TEMPERATURE (BEAKER) 35.6 C (test code = 1818) FIO2 (BEAKER) (test code = 1819) 100.0 % GLUCOSE-STAT [id number] 13:03:00 Test Item Value Reference Range Interpretation Comments GLUCOSE RANDOM (BEAKER) (test code 227 mg/dL 70-110 H = 652) HGB/HCT (H&H) - STAT [id number] 13:03:00 Test Item Value Reference Range Interpretation Comments HEMOGLOBIN (BEAKER) (test code = 8.2 g/dL 13.0-16.8 L 410) HEMATOCRIT (BEAKER) (test code = 24.0 % 40.0-50.0 L 411) CALCIUM, [id number] 13:03:00 Test Item Value Reference Range Interpretation Comments CALCIUM IONIZED (BEAKER) (test 1.05 mmol/L 1.12-1.27 L code = 698) PH, BLOOD (BEAKER) (test code = 7.31 1810) SODIUM NA-STAT [id number] 13:00:00 Test Item Value Reference Range Interpretation Comments SODIUM (BEAKER) (test code = 381) 136 meq/L 135-148 POTASSIUM-STAT [id number] 13:00:00 Test Item Value Reference Range Interpretation Comments POTASSIUM (BEAKER) (test code = 4.6 meq/L 3.6-5.5 379) SODIUM NA-STAT [id number] 11:54:00 Test Item Value Reference Range Interpretation Comments SODIUM (BEAKER) (test code = 381) 135 meq/L 135-148 POTASSIUM-STAT [id number] 11:54:00 Test Item Value Reference Range Interpretation Comments POTASSIUM (BEAKER) (test code = 3.8 meq/L 3.6-5.5 379) BLOOD GAS, [id number] 11:54:00 Test Item Value Reference Range Interpretation Comments PH ARTERIAL (BEAKER) (test code = 7.31 7.35-7.45 L 383) PCO2 ARTERIAL (BEAKER) (test code 44 mmHg 35-45 = 384) PO2 ARTERIAL (BEAKER) (test code 355 mmHg 80-90 H = 385) O2 SATURATION ARTERIAL (BEAKER) 99.7 % 96.0-97.0 H (test code = 386) HCO3 ARTERIAL (BEAKER) (test code 22 mmol/L 21-29 = 388) BASE EXCESS ARTERIAL (BEAKER) -4.5 mmol/L -2.0-3.0 L (test code = 387) PATIENT TEMPERATURE (BEAKER) 35.0 C (test code = 1818) FIO2 (BEAKER) (test code = 1819) 100.0 % GLUCOSE-STAT [id number] 11:54:00 Test Item Value Reference Range Interpretation Comments GLUCOSE RANDOM (BEAKER) (test code 373 mg/dL 70-110 H = 652) HGB/HCT (H&H) - STAT [id number] 11:54:00 Test Item Value Reference Range Interpretation Comments HEMOGLOBIN (BEAKER) (test code = 8.4 g/dL 13.0-16.8 L 410) HEMATOCRIT (BEAKER) (test code = 25.0 % 40.0-50.0 L 411) BLOOD GAS, [id number] 11:32:00 Test Item Value Reference Range Interpretation Comments PH ARTERIAL (BEAKER) (test code = 7.44 7.35-7.45 383) PCO2 ARTERIAL (BEAKER) (test code 32 mmHg 35-45 L = 384) PO2 ARTERIAL (BEAKER) (test code 333 mmHg 80-90 H = 385) O2 SATURATION ARTERIAL (BEAKER) 99.8 % 96.0-97.0 H (test code = 386) HCO3 ARTERIAL (BEAKER) (test code 21 mmol/L 21-29 = 388) BASE EXCESS ARTERIAL (BEAKER) -2.9 mmol/L -2.0-3.0 L (test code = 387) PATIENT TEMPERATURE (BEAKER) 35.0 C (test code = 1818) FIO2 (BEAKER) (test code = 1819) 100.0 % SODIUM NA-STAT [id number] 11:32:00 Test Item Value Reference Range Interpretation Comments SODIUM (BEAKER) (test code = 381) 133 meq/L 135-148 L GLUCOSE-STAT [id number] 11:32:00 Test Item Value Reference Range Interpretation Comments GLUCOSE RANDOM (BEAKER) (test code 148 mg/dL 70-110 H = 652) HGB/HCT (H&H) - STAT [id number] 11:32:00 Test Item Value Reference Range Interpretation Comments HEMOGLOBIN (BEAKER) (test code = 9.8 g/dL 13.0-16.8 L 410) HEMATOCRIT (BEAKER) (test code = 29.0 % 40.0-50.0 L 411) CALCIUM, [id number] 11:32:00 Test Item Value Reference Range Interpretation Comments CALCIUM IONIZED (BEAKER) (test 0.94 mmol/L 1.12-1.27 L code = 698) PH, BLOOD (BEAKER) (test code = 7.41 1810) POTASSIUM-STAT [id number] 11:31:00 Test Item Value Reference Range Interpretation Comments POTASSIUM (BEAKER) (test code = 4.5 meq/L 3.6-5.5 379) BLOOD GAS, [id number] 11:07:00 Test Item Value Reference Range Interpretation Comments PH ARTERIAL (BEAKER) (test code = 7.40 7.35-7.45 383) PCO2 ARTERIAL (BEAKER) (test code 36 mmHg 35-45 = 384) PO2 ARTERIAL (BEAKER) (test code 333 mmHg 80-90 H = 385) O2 SATURATION ARTERIAL (BEAKER) 99.7 % 96.0-97.0 H (test code = 386) HCO3 ARTERIAL (BEAKER) (test code 22 mmol/L 21-29 = 388) BASE EXCESS ARTERIAL (BEAKER) -2.6 mmol/L -2.0-3.0 L (test code = 387) PATIENT TEMPERATURE (BEAKER) 35.4 C (test code = 1818) FIO2 (BEAKER) (test code = 1819) 100.0 % SODIUM NA-STAT [id number] 11:07:00 Test Item Value Reference Range Interpretation Comments SODIUM (BEAKER) (test code = 381) 133 meq/L 135-148 L GLUCOSE-STAT [id number] 11:07:00 Test Item Value Reference Range Interpretation Comments GLUCOSE RANDOM (BEAKER) (test code 146 mg/dL 70-110 H = 652) HGB/HCT (H&H) - STAT [id number] 11:07:00 Test Item Value Reference Range Interpretation Comments HEMOGLOBIN (BEAKER) (test code = 10.3 g/dL 13.0-16.8 L 410) HEMATOCRIT (BEAKER) (test code = 30.0 % 40.0-50.0 L 411) POTASSIUM-STAT [id number] 11:04:00 Test Item Value Reference Range Interpretation Comments POTASSIUM (BEAKER) (test code = 3.9 meq/L 3.6-5.5 379) GLUCOSE-STAT [id number] 09:06:00 Test Item Value Reference Range Interpretation Comments GLUCOSE RANDOM (BEAKER) (test code 103 mg/dL 70-110 = 652) POTASSIUM-STAT [id number] 09:06:00 Test Item Value Reference Range Interpretation Comments POTASSIUM (BEAKER) (test code = 3.9 meq/L 3.6-5.5 379) BLOOD GAS, [id number] 09:06:00 Test Item Value Reference Range Interpretation Comments PH ARTERIAL (BEAKER) (test code = 7.46 7.35-7.45 H 383) PCO2 ARTERIAL (BEAKER) (test code 35 mmHg 35-45 = 384) PO2 ARTERIAL (BEAKER) (test code = 436 mmHg 80-90 H 385) O2 SATURATION ARTERIAL (BEAKER) 99.9 % 96.0-97.0 H (test code = 386) HCO3 ARTERIAL (BEAKER) (test code 24 mmol/L 21-29 = 388) BASE EXCESS ARTERIAL (BEAKER) 0.8 mmol/L -2.0-3.0 (test code = 387) PATIENT TEMPERATURE (BEAKER) (test 37.0 C code = 1818) FIO2 (BEAKER) (test code = 1819) 100.0 % SODIUM NA-STAT [id number] 09:06:00 Test Item Value Reference Range Interpretation Comments SODIUM (BEAKER) (test code = 381) 134 meq/L 135-148 L HGB/HCT (H&H) - STAT [id number] 09:06:00 Test Item Value Reference Range Interpretation Comments HEMOGLOBIN (BEAKER) (test code = 10.8 g/dL 13.0-16.8 L 410) HEMATOCRIT (BEAKER) (test code = 32.0 % 40.0-50.0 L 411) RAD, CHEST, 2 [id number] 15:12:00Reason for Exam:->Pre-OpFINAL REPORT EXAM: Frontal and [...] MDReport Verified Date/Time: 06/24/2017 15:12:20 Reading Location: [facility] Mammo Reading Room HEMOGLOBIN [id number] 14:31:00 Test Item Value Reference Range Interpretation Comments HEMOGLOBIN A1C (BEAKER) (test code = 5.5 % 4.3-6.1 368) [id number] 14:24:00 Test Item Value Reference Range Interpretation Comments BLOOD UREA NITROGEN (BEAKER) (test 14 mg/dL 7-21 code = 354) [id number] 14:24:00 Test Item Value Reference Range Interpretation Comments SODIUM (BEAKER) (test code = 381) 138 meq/L 136-145 POTASSIUM (BEAKER) (test code = 4.2 meq/L 3.5-5.1 379) CHLORIDE (BEAKER) (test code = 382) 104 meq/L 98-107 CO2 (BEAKER) (test code = 355) 27 meq/L 22-29 [id number] 14:24:00 Test Item Value Reference Range Interpretation Comments CREATININE (BEAKER) 0.78 mg/dL 0.57-1.25 (test code = 358) EGFR (BEAKER) (test 100 mL/min/1.73 ESTIM ATED GFR IS code = 1092) sq m NOT ACCURATE CREATININE CLEARANCE IN PREDICTING GLOMERULAR FILTRATION RATE . ESTIMATED GFR I S NOT APPLICABLE FOR DIALYSIS PATIEN TS. CBC W/PLT COUNT & AUTO [id number] 14:17:00 Test Item Value Reference Range Interpretation Comments WHITE BLOOD CELL COUNT (BEAKER) 7.8 K/ L 3.5-10.5 (test code = 775) RED BLOOD CELL COUNT (BEAKER) 4.33 M/ L 4.63-6.08 L (test code = 761) HEMOGLOBIN (BEAKER) (test code = 11.9 GM/DL 13.7-17.5 L 410) HEMATOCRIT (BEAKER) (test code = 37.9 % 40.1-51.0 L 411) MEAN CORPUSCULAR VOLUME (BEAKER) 87.5 fL 79.0-92.2 (test code = 753) MEAN CORPUSCULAR HEMOGLOBIN 27.5 pg 25.7-32.2 (BEAKER) (test code = 751) MEAN CORPUSCULAR HEMOGLOBIN CONC 31.4 GM/DL 32.3-36.5 L (BEAKER) (test code = 752) RED CELL DISTRIBUTION WIDTH 14.8 % 11.6-14.4 H (BEAKER) (test code = 412) PLATELET COUNT (BEAKER) (test 244 K/CU MM 150-450 code = 756) MEAN PLATELET VOLUME (BEAKER) 8.9 fL 9.4-12.4 L (test code = 754) NUCLEATED RED BLOOD CELLS 0 /100 WBC 0-0 (BEAKER) (test code = 413) NEUTROPHILS RELATIVE PERCENT 61 % (BEAKER) (test code = 429) LYMPHOCYTES RELATIVE PERCENT 30 % (BEAKER) (test code = 430) MONOCYTES RELATIVE PERCENT 6 % (BEAKER) (test code = 431) EOSINOPHILS RELATIVE PERCENT 2 % (BEAKER) (test code = 432) BASOPHILS RELATIVE PERCENT 0 % (BEAKER) (test code = 437) NEUTROPHILS ABSOLUTE COUNT 4.74 K/ L 1.78-5.38 (BEAKER) (test code = 670) LYMPHOCYTES ABSOLUTE COUNT 2.33 K/ L 1.32-3.57 (BEAKER) (test code = 414) MONOCYTES ABSOLUTE COUNT (BEAKER) 0.50 K/ L 0.30-0.82 (test code = 415) EOSINOPHILS ABSOLUTE COUNT 0.17 K/ L 0.04-0.54 (BEAKER) (test code = 416) BASOPHILS ABSOLUTE COUNT (BEAKER) 0.03 K/ L 0.01-0.08 (test code = 417) IMMATURE GRANULOCYTES-RELATIVE 0 % 0-1 PERCENT (BEAKER) (test code = 2801) PROTHROMBIN [id number] 14:10:00 Test Item Value Reference Range Interpretation Comments PROTIME (BEAKER) (test code = 13.3 seconds 11.7-14.7 759) INR (BEAKER) (test code = 370) 1.0 <=5.9 RECOMMENDED COUMADIN/WARFARIN INR THERAPY RANGESSTANDARD DOSE: 2.0 - 3.0 Includes: PROPHYLAXIS forvenous thrombosis, systemic embolization; TREATMENT for venous thrombosis and/or pulmonary embolus.HIGH RISK: Target INR is 2.5-3.5 for patients with mechanical heart valves.[id number] 12:55:00 Test Item Value Reference Range Interpretation Comments POC-CREATININE 1.0 mg/dL 0.6-1.3 TESTED AT [facility] 6720 (BEAKER) (test [place] code = 1859) [address] POC-EGFR (BEAKER) 75 mL/min/1.73M2 (test code = 0353) CBC W/PLT COUNT & AUTO [id number] 07:38:00 Test Item Value Reference Range Interpretation Comments WHITE BLOOD CELL COUNT (BEAKER) 12.1 K/ L 4.0-10.0 H (test code = 775) RED BLOOD CELL COUNT (BEAKER) 3.67 M/ L 4.20-5.80 L (test code = 761) HEMOGLOBIN (BEAKER) (test code = 11.5 GM/DL 13.0-16.8 L 410) HEMATOCRIT (BEAKER) (test code = 34.7 % 40.0-50.0 L 411) MEAN CORPUSCULAR VOLUME (BEAKER) 94.7 fL 82.0-98.0 (test code = 753) MEAN CORPUSCULAR HEMOGLOBIN 31.4 pg 27.0-33.0 (BEAKER) (test code = 751) MEAN CORPUSCULAR HEMOGLOBIN CONC 33.1 GM/DL 32.0-36.0 (BEAKER) (test code = 752) RED CELL DISTRIBUTION WIDTH 14.6 % 10.3-14.2 H (BEAKER) (test code = 412) PLATELET COUNT (BEAKER) (test 272 K/CU MM 150-430 code = 756) MEAN PLATELET VOLUME (BEAKER) 6.7 fL 6.5-10.5 (test code = 754) NUCLEATED RED BLOOD CELLS 0 /100 WBC 0-0 (BEAKER) (test code = 413) NEUTROPHILS RELATIVE PERCENT 67 % (BEAKER) (test code = 429) LYMPHOCYTES RELATIVE PERCENT 18 % (BEAKER) (test code = 430) MONOCYTES RELATIVE PERCENT 10 % (BEAKER) (test code = 431) EOSINOPHILS RELATIVE PERCENT 6 % (BEAKER) (test code = 432) BASOPHILS RELATIVE PERCENT 0 % (BEAKER) (test code = 437) NEUTROPHILS ABSOLUTE COUNT 8.06 K/ L 1.80-8.00 H (BEAKER) (test code = 670) LYMPHOCYTES ABSOLUTE COUNT 2.14 K/ L 1.48-4.50 (BEAKER) (test code = 414) MONOCYTES ABSOLUTE COUNT (BEAKER) 1.16 K/ L 0.00-1.30 (test code = 415) EOSINOPHILS ABSOLUTE COUNT 0.71 K/ L 0.00-0.50 H (BEAKER) (test code = 416) BASOPHILS ABSOLUTE COUNT (BEAKER) 0.06 K/ L 0.00-0.20 (test code = 417) [id number] 07:03:00 Test Item Value Reference Range Interpretation Comments MAGNESIUM (BEAKER) (test code = 2.0 mg/dL 1.6-2.6 627) BASIC METABOLIC [id number] 07:03:00 Test Item Value Reference Range Interpretation Comments SODIUM (BEAKER) 140 meq/L 136-145 (test code = 381) POTASSIUM (BEAKER) 3.8 meq/L 3.5-5.1 (test code = 379) CHLORIDE (BEAKER) 101 meq/L 98-107 (test code = 382) CO2 (BEAKER) (test 31 meq/L 22-29 H code = 355) BLOOD UREA NITROGEN 20 mg/dL 7-21 (BEAKER) (test code = 354) CREATININE (BEAKER) 0.76 mg/dL 0.57-1.25 (test code = 358) GLUCOSE RANDOM 99 mg/dL 70-105 (BEAKER) (test code = 652) CALCIUM (BEAKER) 8.6 mg/dL 8.4-10.2 (test code = 697) EGFR (BEAKER) (test 103 mL/min/1.73 ESTIM ATED GFR IS code = 1092) sq m NOT ACCURATE CREATININE CLEARANCE IN PREDICTING GLOMERULAR FILTRATION RATE . ESTIMATED GFR I S NOT APPLICABLE FOR DIALYSIS PATIEN TS. BASIC METABOLIC [id number] 05:39:00 Test Item Value Reference Range Interpretation Comments SODIUM (BEAKER) 140 meq/L 136-145 (test code = 381) POTASSIUM (BEAKER) 3.9 meq/L 3.5-5.1 (test code = 379) CHLORIDE (BEAKER) 103 meq/L 98-107 (test code = 382) CO2 (BEAKER) (test 27 meq/L 22-29 code = 355) BLOOD UREA NITROGEN 21 mg/dL 7-21 (BEAKER) (test code = 354) CREATININE (BEAKER) 0.71 mg/dL 0.57-1.25 (test code = 358) GLUCOSE RANDOM 104 mg/dL 70-105 (BEAKER) (test code = 652) CALCIUM (BEAKER) 8.6 mg/dL 8.4-10.2 (test code = 697) EGFR (BEAKER) (test 111 mL/min/1.73 ESTIM ATED GFR IS code = 1092) sq m NOT ACCURATE CREATININE CLEARANCE IN PREDICTING GLOMERULAR FILTRATION RATE . ESTIMATED GFR I S NOT APPLICABLE FOR DIALYSIS PATIEN TS. [id number] 05:25:00 Test Item Value Reference Range Interpretation Comments MAGNESIUM (BEAKER) (test code = 1.9 mg/dL 1.6-2.6 627) CBC W/PLT COUNT & AUTO [id number] 05:01:00 Test Item Value Reference Range Interpretation Comments WHITE BLOOD CELL COUNT (BEAKER) 11.9 K/ L 4.0-10.0 H (test code = 775) RED BLOOD CELL COUNT (BEAKER) 3.55 M/ L 4.20-5.80 L (test code = 761) HEMOGLOBIN (BEAKER) (test code = 11.1 GM/DL 13.0-16.8 L 410) HEMATOCRIT (BEAKER) (test code = 33.3 % 40.0-50.0 L 411) MEAN CORPUSCULAR VOLUME (BEAKER) 93.8 fL 82.0-98.0 (test code = 753) MEAN CORPUSCULAR HEMOGLOBIN 31.3 pg 27.0-33.0 (BEAKER) (test code = 751) MEAN CORPUSCULAR HEMOGLOBIN CONC 33.4 GM/DL 32.0-36.0 (BEAKER) (test code = 752) RED CELL DISTRIBUTION WIDTH 14.5 % 10.3-14.2 H (BEAKER) (test code = 412) PLATELET COUNT (BEAKER) (test 255 K/CU MM 150-430 code = 756) MEAN PLATELET VOLUME (BEAKER) 6.5 fL 6.5-10.5 (test code = 754) NUCLEATED RED BLOOD CELLS 0 /100 WBC 0-0 (BEAKER) (test code = 413) NEUTROPHILS RELATIVE PERCENT 74 % (BEAKER) (test code = 429) LYMPHOCYTES RELATIVE PERCENT 13 % (BEAKER) (test code = 430) MONOCYTES RELATIVE PERCENT 9 % (BEAKER) (test code = 431) EOSINOPHILS RELATIVE PERCENT 4 % (BEAKER) (test code = 432) BASOPHILS RELATIVE PERCENT 0 % (BEAKER) (test code = 437) NEUTROPHILS ABSOLUTE COUNT 8.78 K/ L 1.80-8.00 H (BEAKER) (test code = 670) LYMPHOCYTES ABSOLUTE COUNT 1.54 K/ L 1.48-4.50 (BEAKER) (test code = 414) MONOCYTES ABSOLUTE COUNT (BEAKER) 1.04 K/ L 0.00-1.30 (test code = 415) EOSINOPHILS ABSOLUTE COUNT 0.51 K/ L 0.00-0.50 H (BEAKER) (test code = 416) BASOPHILS ABSOLUTE COUNT (BEAKER) 0.02 K/ L 0.00-0.20 (test code = 417) 0.00BASIC METABOLIC [id number] 17:06:00 Test Item Value Reference Range Interpretation Comments SODIUM (BEAKER) 140 meq/L 136-145 (test code = 381) POTASSIUM (BEAKER) 3.9 meq/L 3.5-5.1 (test code = 379) CHLORIDE (BEAKER) 103 meq/L 98-107 (test code = 382) CO2 (BEAKER) (test 28 meq/L 22-29 code = 355) BLOOD UREA NITROGEN 23 mg/dL 7-21 H (BEAKER) (test code = 354) CREATININE (BEAKER) 0.73 mg/dL 0.57-1.25 (test code = 358) GLUCOSE RANDOM 103 mg/dL 70-105 (BEAKER) (test code = 652) CALCIUM (BEAKER) 8.5 mg/dL 8.4-10.2 (test code = 697) EGFR (BEAKER) (test 107 mL/min/1.73 ESTIM ATED GFR IS code = 1092) sq m NOT ACCURATE CREATININE CLEARANCE IN PREDICTING GLOMERULAR FILTRATION RATE . ESTIMATED GFR I S NOT APPLICABLE FOR DIALYSIS PATIEN TS. CBC W/PLT COUNT & AUTO [id number] 16:51:00 Test Item Value Reference Range Interpretation Comments WHITE BLOOD CELL COUNT (BEAKER) 12.3 K/ L 4.0-10.0 H (test code = 775) RED BLOOD CELL COUNT (BEAKER) 3.56 M/ L 4.20-5.80 L (test code = 761) HEMOGLOBIN (BEAKER) (test code = 11.4 GM/DL 13.0-16.8 L 410) HEMATOCRIT (BEAKER) (test code = 34.1 % 40.0-50.0 L 411) MEAN CORPUSCULAR VOLUME (BEAKER) 95.9 fL 82.0-98.0 (test code = 753) MEAN CORPUSCULAR HEMOGLOBIN 31.9 pg 27.0-33.0 (BEAKER) (test code = 751) MEAN CORPUSCULAR HEMOGLOBIN CONC 33.3 GM/DL 32.0-36.0 (BEAKER) (test code = 752) RED CELL DISTRIBUTION WIDTH 13.8 % 10.3-14.2 (BEAKER) (test code = 412) PLATELET COUNT (BEAKER) (test 255 K/CU MM 150-430 code = 756) MEAN PLATELET VOLUME (BEAKER) 6.3 fL 6.5-10.5 L (test code = 754) NUCLEATED RED BLOOD CELLS 0 /100 WBC 0-0 (BEAKER) (test code = 413) NEUTROPHILS RELATIVE PERCENT 72 % (BEAKER) (test code = 429) LYMPHOCYTES RELATIVE PERCENT 15 % (BEAKER) (test code = 430) MONOCYTES RELATIVE PERCENT 10 % (BEAKER) (test code = 431) EOSINOPHILS RELATIVE PERCENT 3 % (BEAKER) (test code = 432) BASOPHILS RELATIVE PERCENT 0 % (BEAKER) (test code = 437) NEUTROPHILS ABSOLUTE COUNT 8.87 K/ L 1.80-8.00 H (BEAKER) (test code = 670) LYMPHOCYTES ABSOLUTE COUNT 1.86 K/ L 1.48-4.50 (BEAKER) (test code = 414) MONOCYTES ABSOLUTE COUNT (BEAKER) 1.21 K/ L 0.00-1.30 (test code = 415) EOSINOPHILS ABSOLUTE COUNT 0.38 K/ L 0.00-0.50 (BEAKER) (test code = 416) BASOPHILS ABSOLUTE COUNT (BEAKER) 0.01 K/ L 0.00-0.20 (test code = 417) 0.00BASI METABOLIC [id number] 11:59:00 Test Item Value Reference Range Interpretation Comments SODIUM (BEAKER) 139 meq/L 136-145 (test code = 381) POTASSIUM (BEAKER) 4.5 meq/L 3.5-5.1 (test code = 379) CHLORIDE (BEAKER) 105 meq/L 98-107 (test code = 382) CO2 (BEAKER) (test 23 meq/L 22-29 code = 355) BLOOD UREA NITROGEN 31 mg/dL 7-21 H (BEAKER) (test code = 354) CREATININE (BEAKER) 0.70 mg/dL 0.57-1.25 (test code = 358) GLUCOSE RANDOM 135 mg/dL 70-105 H (BEAKER) (test code = 652) CALCIUM (BEAKER) 8.5 mg/dL 8.4-10.2 (test code = 697) EGFR (BEAKER) (test 113 mL/min/1.73 ESTIM ATED GFR IS code = 1092) sq m NOT ACCURATE CREATININE CLEARANCE IN PREDICTING GLOMERULAR FILTRATION RATE . ESTIMATED GFR I S NOT APPLICABLE FOR DIALYSIS PATIEN TS. CBC W/PLT COUNT & AUTO [id number] 11:43:00 Test Item Value Reference Range Interpretation Comments WHITE BLOOD CELL COUNT (BEAKER) 10.0 K/ L 4.0-10.0 (test code = 775) RED BLOOD CELL COUNT (BEAKER) 3.69 M/ L 4.20-5.80 L (test code = 761) HEMOGLOBIN (BEAKER) (test code = 12.0 GM/DL 13.0-16.8 L 410) HEMATOCRIT (BEAKER) (test code = 35.5 % 40.0-50.0 L 411) MEAN CORPUSCULAR VOLUME (BEAKER) 96.2 fL 82.0-98.0 (test code = 753) MEAN CORPUSCULAR HEMOGLOBIN 32.4 pg 27.0-33.0 (BEAKER) (test code = 751) MEAN CORPUSCULAR HEMOGLOBIN CONC 33.7 GM/DL 32.0-36.0 (BEAKER) (test code = 752) RED CELL DISTRIBUTION WIDTH 13.9 % 10.3-14.2 (BEAKER) (test code = 412) PLATELET COUNT (BEAKER) (test 216 K/CU MM 150-430 code = 756) MEAN PLATELET VOLUME (BEAKER) 7.1 fL 6.5-10.5 (test code = 754) NUCLEATED RED BLOOD CELLS 0 /100 WBC 0-0 (BEAKER) (test code = 413) NEUTROPHILS RELATIVE PERCENT 73 % (BEAKER) (test code = 429) LYMPHOCYTES RELATIVE PERCENT 16 % (BEAKER) (test code = 430) MONOCYTES RELATIVE PERCENT 8 % (BEAKER) (test code = 431) EOSINOPHILS RELATIVE PERCENT 3 % (BEAKER) (test code = 432) BASOPHILS RELATIVE PERCENT 0 % (BEAKER) (test code = 437) NEUTROPHILS ABSOLUTE COUNT 7.28 K/ L 1.80-8.00 (BEAKER) (test code = 670) LYMPHOCYTES ABSOLUTE COUNT 1.63 K/ L 1.48-4.50 (BEAKER) (test code = 414) MONOCYTES ABSOLUTE COUNT (BEAKER) 0.82 K/ L 0.00-1.30 (test code = 415) EOSINOPHILS ABSOLUTE COUNT 0.25 K/ L 0.00-0.50 (BEAKER) (test code = 416) BASOPHILS ABSOLUTE COUNT (BEAKER) 0.01 K/ L 0.00-0.20 (test code = 417) 0.00CBC W/PLT COUNT & AUTO [id number] 06:32:00 Test Item Value Reference Range Interpretation Comments WHITE BLOOD CELL COUNT (BEAKER) 13.9 K/ L 4.0-10.0 H (test code = 775) RED BLOOD CELL COUNT (BEAKER) 3.18 M/ L 4.20-5.80 L (test code = 761) HEMOGLOBIN (BEAKER) (test code = 10.3 GM/DL 13.0-16.8 L 410) HEMATOCRIT (BEAKER) (test code = 30.5 % 40.0-50.0 L 411) MEAN CORPUSCULAR VOLUME (BEAKER) 96.0 fL 82.0-98.0 (test code = 753) MEAN CORPUSCULAR HEMOGLOBIN 32.4 pg 27.0-33.0 (BEAKER) (test code = 751) MEAN CORPUSCULAR HEMOGLOBIN CONC 33.7 GM/DL 32.0-36.0 (BEAKER) (test code = 752) RED CELL DISTRIBUTION WIDTH 14.1 % 10.3-14.2 (BEAKER) (test code = 412) PLATELET COUNT (BEAKER) (test 198 K/CU MM 150-430 code = 756) MEAN PLATELET VOLUME (BEAKER) 7.3 fL 6.5-10.5 (test code = 754) NUCLEATED RED BLOOD CELLS 0 /100 WBC 0-0 (BEAKER) (test code = 413) NEUTROPHILS RELATIVE PERCENT 76 % (BEAKER) (test code = 429) LYMPHOCYTES RELATIVE PERCENT 14 % (BEAKER) (test code = 430) MONOCYTES RELATIVE PERCENT 9 % (BEAKER) (test code = 431) EOSINOPHILS RELATIVE PERCENT 2 % (BEAKER) (test code = 432) BASOPHILS RELATIVE PERCENT 0 % (BEAKER) (test code = 437) NEUTROPHILS ABSOLUTE COUNT 10.50 K/ L 1.80-8.00 H (BEAKER) (test code = 670) LYMPHOCYTES ABSOLUTE COUNT 1.97 K/ L 1.48-4.50 (BEAKER) (test code = 414) MONOCYTES ABSOLUTE COUNT (BEAKER) 1.18 K/ L 0.00-1.30 (test code = 415) EOSINOPHILS ABSOLUTE COUNT 0.22 K/ L 0.00-0.50 (BEAKER) (test code = 416) BASOPHILS ABSOLUTE COUNT (BEAKER) 0.01 K/ L 0.00-0.20 (test code = 417) [id number] 06:20:00 Test Item Value Reference Range Interpretation Comments PHOSPHORUS (BEAKER) (test code = 2.1 mg/dL 2.3-4.7 L 604) Check Serum Phosphorus level 4 hours after IV phosphorus replacement or 8 hours after PO replacementcompleted.[id number] 06:20:00 Test Item Value Reference Range Interpretation Comments MAGNESIUM (BEAKER) (test code = 2.4 mg/dL 1.6-2.6 627) Check Serum Phosphorus level 4 hours after IV phosphorus replacement or 8 hours after PO replacementcompleted.BASIC METABOLIC [id number] 06:20:00 Test Item Value Reference Range Interpretation Comments SODIUM (BEAKER) 139 meq/L 136-145 (test code = 381) POTASSIUM (BEAKER) 4.5 meq/L 3.5-5.1 (test code = 379) CHLORIDE (BEAKER) 106 meq/L 98-107 (test code = 382) CO2 (BEAKER) (test 23 meq/L 22-29 code = 355) BLOOD UREA NITROGEN 40 mg/dL 7-21 H (BEAKER) (test code = 354) CREATININE (BEAKER) 0.77 mg/dL 0.57-1.25 (test code = 358) GLUCOSE RANDOM 111 mg/dL 70-105 H (BEAKER) (test code = 652) CALCIUM (BEAKER) 8.2 mg/dL 8.4-10.2 L (test code = 697) EGFR (BEAKER) (test 101 mL/min/1.73 ESTIM ATED GFR IS code = 1092) sq m NOT ACCURATE CREATININE CLEARANCE IN PREDICTING GLOMERULAR FILTRATION RATE . ESTIMATED GFR I S NOT APPLICABLE FOR DIALYSIS PATIEN TS. Check Serum Phosphorus level 4 hours after IV phosphorus replacement or 8 hours after PO replacementcompleted.CALCIUM, [id number] 05:53:00 Test Item Value Reference Range Interpretation Comments CALCIUM IONIZED (BEAKER) (test 1.09 mmol/L 1.12-1.27 L code = 698) PH, BLOOD (BEAKER) (test code = 7.47 1810) PLATELET AGGREGATION: DRUG [id number] 15:50:00 Test Item Value Reference Range Interpretation Comments STRONG ADP 86 % 70-94 RESULT(BEAKER) (test code = 2137) WEAK ADP RESULT(BEAKER) 100 % 60-91 H (test code = 2135) ARACHADONIC ACID 17 % 63-89 L RESULT(BEAKER) (test code = 2138) PLATELET AGG DRUG Decreased response to INTERPRETATION (BEAKER) arachidonic acid (test code = 9974) suggests aspirin-like effect. [id number] Makeda Ly, (BEAKER) (test code = (electronic 9493) signature) PLATELET COUNT AGG 159 K/CU MM 150-430 (BEAKER) (test code = 5560) CBC W/PLT COUNT & AUTO [id number] 04:40:00 Test Item Value Reference Range Interpretation Comments WHITE BLOOD CELL COUNT (BEAKER) 14.6 K/ L 4.0-10.0 H (test code = 775) RED BLOOD CELL COUNT (BEAKER) 3.13 M/ L 4.20-5.80 L (test code = 761) HEMOGLOBIN (BEAKER) (test code = 9.9 GM/DL 13.0-16.8 L 410) HEMATOCRIT (BEAKER) (test code = 29.3 % 40.0-50.0 L 411) MEAN CORPUSCULAR VOLUME (BEAKER) 93.7 fL 82.0-98.0 (test code = 753) MEAN CORPUSCULAR HEMOGLOBIN 31.5 pg 27.0-33.0 (BEAKER) (test code = 751) MEAN CORPUSCULAR HEMOGLOBIN CONC 33.7 GM/DL 32.0-36.0 (BEAKER) (test code = 752) RED CELL DISTRIBUTION WIDTH 14.9 % 10.3-14.2 H (BEAKER) (test code = 412) PLATELET COUNT (BEAKER) (test 179 K/CU MM 150-430 code = 756) MEAN PLATELET VOLUME (BEAKER) 7.2 fL 6.5-10.5 (test code = 754) NUCLEATED RED BLOOD CELLS 0 /100 WBC 0-0 (BEAKER) (test code = 413) NEUTROPHILS RELATIVE PERCENT 76 % (BEAKER) (test code = 429) LYMPHOCYTES RELATIVE PERCENT 14 % (BEAKER) (test code = 430) MONOCYTES RELATIVE PERCENT 9 % (BEAKER) (test code = 431) EOSINOPHILS RELATIVE PERCENT 0 % (BEAKER) (test code = 432) BASOPHILS RELATIVE PERCENT 0 % (BEAKER) (test code = 437) NEUTROPHILS ABSOLUTE COUNT 11.20 K/ L 1.80-8.00 H (BEAKER) (test code = 670) LYMPHOCYTES ABSOLUTE COUNT 2.09 K/ L 1.48-4.50 (BEAKER) (test code = 414) MONOCYTES ABSOLUTE COUNT (BEAKER) 1.34 K/ L 0.00-1.30 H (test code = 415) EOSINOPHILS ABSOLUTE COUNT 0.04 K/ L 0.00-0.50 (BEAKER) (test code = 416) BASOPHILS ABSOLUTE COUNT (BEAKER) 0.02 K/ L 0.00-0.20 (test code = 417) [id number] 04:39:00 Test Item Value Reference Range Interpretation Comments PHOSPHORUS (BEAKER) (test code = 2.7 mg/dL 2.3-4.7 604) Check Serum Phosphorus level 4 hours after IV phosphorus replacement or 8 hours after PO replacementcompleted.[id number] 04:39:00 Test Item Value Reference Range Interpretation Comments MAGNESIUM (BEAKER) (test code = 2.5 mg/dL 1.6-2.6 627) Check Serum Phosphorus level 4 hours after IV phosphorus replacement or 8 hours after PO replacementcompleted.BASIC METABOLIC [id number] 04:39:00 Test Item Value Reference Range Interpretation Comments SODIUM (BEAKER) 142 meq/L 136-145 (test code = 381) POTASSIUM (BEAKER) 4.5 meq/L 3.5-5.1 (test code = 379) CHLORIDE (BEAKER) 108 meq/L 98-107 H (test code = 382) CO2 (BEAKER) (test 24 meq/L 22-29 code = 355) BLOOD UREA NITROGEN 36 mg/dL 7-21 H (BEAKER) (test code = 354) CREATININE (BEAKER) 0.85 mg/dL 0.57-1.25 (test code = 358) GLUCOSE RANDOM 125 mg/dL 70-105 H (BEAKER) (test code = 652) CALCIUM (BEAKER) 8.3 mg/dL 8.4-10.2 L (test code = 697) EGFR (BEAKER) (test 90 mL/min/1.73 ESTIMA GIGI GFR IS code = 1092) sq m NOT ACCURATE CREATININE CLEARANCE IN PREDICTING GLOMERULAR FILTRATION RATE . ESTIMATED GFR I S NOT APPLICABLE FOR DIALYSIS PATIEN TS. Check Serum Phosphorus level 4 hours after IV phosphorus replacement or 8 hours after PO replacementcompleted.CALCIUM, [id number] 04:28:00 Test Item Value Reference Range Interpretation Comments CALCIUM IONIZED (BEAKER) (test 0.96 mmol/L 1.12-1.27 L code = 698) PH, BLOOD (BEAKER) (test code = 7.37 1810) BASIC METABOLIC [id number] 15:27:00 Test Item Value Reference Range Interpretation Comments SODIUM (BEAKER) 142 meq/L 136-145 (test code = 381) POTASSIUM (BEAKER) 4.3 meq/L 3.5-5.1 (test code = 379) CHLORIDE (BEAKER) 110 meq/L 98-107 H (test code = 382) CO2 (BEAKER) (test 24 meq/L 22-29 code = 355) BLOOD UREA NITROGEN 28 mg/dL 7-21 H (BEAKER) (test code = 354) CREATININE (BEAKER) 0.82 mg/dL 0.57-1.25 (test code = 358) GLUCOSE RANDOM 121 mg/dL 70-105 H (BEAKER) (test code = 652) CALCIUM (BEAKER) 7.8 mg/dL 8.4-10.2 L (test code = 697) EGFR (BEAKER) (test 94 mL/min/1.73 ESTIMA GIGI GFR IS code = 1092) sq m NOT ACCURATE CREATININE CLEARANCE IN PREDICTING GLOMERULAR FILTRATION RATE . ESTIMATED GFR I S NOT APPLICABLE FOR DIALYSIS PATIEN TS. [id number] 15:26:00 Test Item Value Reference Range Interpretation Comments PHOSPHORUS (BEAKER) (test code = 2.3 mg/dL 2.3-4.7 604) [id number] 15:26:00 Test Item Value Reference Range Interpretation Comments MAGNESIUM (BEAKER) (test code = 2.3 mg/dL 1.6-2.6 627) BLOOD GAS, [id number] 13:11:00 Test Item Value Reference Range Interpretation Comments PH ARTERIAL (BEAKER) (test code = 7.45 7.35-7.45 383) PCO2 ARTERIAL (BEAKER) (test code 41 mmHg 35-45 = 384) PO2 ARTERIAL (BEAKER) (test code = 114 mmHg 80-90 H 385) O2 SATURATION ARTERIAL (BEAKER) 98.3 % 96.0-97.0 H (test code = 386) HCO3 ARTERIAL (BEAKER) (test code 27 mmol/L 21-29 = 388) BASE EXCESS ARTERIAL (BEAKER) 3.0 mmol/L -2.0-3.0 (test code = 387) PATIENT TEMPERATURE (BEAKER) (test 37.0 C code = 1818) FIO2 (BEAKER) (test code = 1819) 40.0 % POCT-GLUCOSE [id number] 12:46:00 Test Item Value Reference Range Interpretation Comments POC-GLUCOSE METER 128 mg/dL 70-110 H TESTED AT [facility] 6720 (BEAKER) (test code = [place] 1538) [address] CBC W/PLT COUNT & AUTO [id number] 03:42:00 Test Item Value Reference Range Interpretation Comments WHITE BLOOD CELL COUNT (BEAKER) 10.4 K/ L 4.0-10.0 H (test code = 775) RED BLOOD CELL COUNT (BEAKER) 2.99 M/ L 4.20-5.80 L (test code = 761) HEMOGLOBIN (BEAKER) (test code = 9.4 GM/DL 13.0-16.8 L 410) HEMATOCRIT (BEAKER) (test code = 28.4 % 40.0-50.0 L 411) MEAN CORPUSCULAR VOLUME (BEAKER) 95.3 fL 82.0-98.0 (test code = 753) MEAN CORPUSCULAR HEMOGLOBIN 31.5 pg 27.0-33.0 (BEAKER) (test code = 751) MEAN CORPUSCULAR HEMOGLOBIN CONC 33.1 GM/DL 32.0-36.0 (BEAKER) (test code = 752) RED CELL DISTRIBUTION WIDTH 14.4 % 10.3-14.2 H (BEAKER) (test code = 412) PLATELET COUNT (BEAKER) (test 159 K/CU MM 150-430 code = 756) MEAN PLATELET VOLUME (BEAKER) 7.1 fL 6.5-10.5 (test code = 754) NUCLEATED RED BLOOD CELLS 0 /100 WBC 0-0 (BEAKER) (test code = 413) NEUTROPHILS RELATIVE PERCENT 67 % (BEAKER) (test code = 429) LYMPHOCYTES RELATIVE PERCENT 19 % (BEAKER) (test code = 430) MONOCYTES RELATIVE PERCENT 13 % (BEAKER) (test code = 431) EOSINOPHILS RELATIVE PERCENT 1 % (BEAKER) (test code = 432) BASOPHILS RELATIVE PERCENT 0 % (BEAKER) (test code = 437) NEUTROPHILS ABSOLUTE COUNT 6.96 K/ L 1.80-8.00 (BEAKER) (test code = 670) LYMPHOCYTES ABSOLUTE COUNT 1.96 K/ L 1.48-4.50 (BEAKER) (test code = 414) MONOCYTES ABSOLUTE COUNT (BEAKER) 1.36 K/ L 0.00-1.30 H (test code = 415) EOSINOPHILS ABSOLUTE COUNT 0.08 K/ L 0.00-0.50 (BEAKER) (test code = 416) BASOPHILS ABSOLUTE COUNT (BEAKER) 0.02 K/ L 0.00-0.20 (test code = 417) [id number] 03:37:00 Test Item Value Reference Range Interpretation Comments PHOSPHORUS (BEAKER) (test code = 3.1 mg/dL 2.3-4.7 604) Check Serum Phosphorus level 4 hours after IV phosphorus replacement or 8 hours after PO replacementcompleted.[id number] 03:37:00 Test Item Value Reference Range Interpretation Comments MAGNESIUM (BEAKER) (test code = 2.4 mg/dL 1.6-2.6 627) Check Serum Phosphorus level 4 hours after IV phosphorus replacement or 8 hours after PO replacementcompleted.BASIC METABOLIC [id number] 03:37:00 Test Item Value Reference Range Interpretation Comments SODIUM (BEAKER) 142 meq/L 136-145 (test code = 381) POTASSIUM (BEAKER) 4.8 meq/L 3.5-5.1 (test code = 379) CHLORIDE (BEAKER) 112 meq/L 98-107 H (test code = 382) CO2 (BEAKER) (test 22 meq/L 22-29 code = 355) BLOOD UREA NITROGEN 24 mg/dL 7-21 H (BEAKER) (test code = 354) CREATININE (BEAKER) 0.82 mg/dL 0.57-1.25 (test code = 358) GLUCOSE RANDOM 116 mg/dL 70-105 H (BEAKER) (test code = 652) CALCIUM (BEAKER) 8.2 mg/dL 8.4-10.2 L (test code = 697) EGFR (BEAKER) (test 94 mL/min/1.73 ESTIMA GIGI GFR IS code = 1092) sq m NOT ACCURATE CREATININE CLEARANCE IN PREDICTING GLOMERULAR FILTRATION RATE . ESTIMATED GFR I S NOT APPLICABLE FOR DIALYSIS PATIEN TS. Check Serum Phosphorus level 4 hours after IV phosphorus replacement or 8 hours after PO replacementcompleted.LACTIC ACID, ARTERIAL, WHOLE [id number] 03:33:00 Test Item Value Reference Range Interpretation Comments LACTATE BLOOD ARTERIAL (2) 0.7 mmol/L 0.5-2.2 (BEAKER) (test code = 2874) Effective 02/01/2016: Units/Reference Range ChangeNew: 0.5-2.2 mmol/L Previous: 5-20 mg/dLBLOOD GAS, [id number] 03:15:00 Test Item Value Reference Range Interpretation Comments PH ARTERIAL (BEAKER) (test code = 7.33 7.35-7.45 L 383) PCO2 ARTERIAL (BEAKER) (test code 52 mmHg 35-45 H = 384) PO2 ARTERIAL (BEAKER) (test code 107 mmHg 80-90 H = 385) O2 SATURATION ARTERIAL (BEAKER) 97.5 % 96.0-97.0 H (test code = 386) HCO3 ARTERIAL (BEAKER) (test code 27 mmol/L 21-29 = 388) BASE EXCESS ARTERIAL (BEAKER) -0.1 mmol/L -2.0-3.0 (test code = 387) PATIENT TEMPERATURE (BEAKER) 36.8 C (test code = 1818) FIO2 (BEAKER) (test code = 1819) 40.0 % [id number] 22:25:00 Test Item Value Reference Range Interpretation Comments MAGNESIUM (BEAKER) (test code = 2.2 mg/dL 1.6-2.6 627) BASIC METABOLIC [id number] 22:25:00 Test Item Value Reference Range Interpretation Comments SODIUM (BEAKER) 141 meq/L 136-145 (test code = 381) POTASSIUM (BEAKER) 4.7 meq/L 3.5-5.1 (test code = 379) CHLORIDE (BEAKER) 111 meq/L 98-107 H (test code = 382) CO2 (BEAKER) (test 24 meq/L 22-29 code = 355) BLOOD UREA NITROGEN 22 mg/dL 7-21 H (BEAKER) (test code = 354) CREATININE (BEAKER) 0.79 mg/dL 0.57-1.25 (test code = 358) GLUCOSE RANDOM 111 mg/dL 70-105 H (BEAKER) (test code = 652) CALCIUM (BEAKER) 8.2 mg/dL 8.4-10.2 L (test code = 697) EGFR (BEAKER) (test 98 mL/min/1.73 ESTIMA GIGI GFR IS code = 1092) sq m NOT ACCURATE CREATININE CLEARANCE IN PREDICTING GLOMERULAR FILTRATION RATE . ESTIMATED GFR I S NOT APPLICABLE FOR DIALYSIS PATIEN TS. LACTIC ACID, ARTERIAL, WHOLE [id number] 22:23:00 Test Item Value Reference Range Interpretation Comments LACTATE BLOOD ARTERIAL (2) 0.7 mmol/L 0.5-2.2 (BEAKER) (test code = 2874) Effective 02/01/2016: Units/Reference Range ChangeNew: 0.5-2.2 mmol/L Previous: 5-20 mg/dLCBC W/PLT COUNT & AUTO [id number] 22:09:00 Test Item Value Reference Range Interpretation Comments WHITE BLOOD CELL COUNT (BEAKER) 9.4 K/ L 4.0-10.0 (test code = 775) RED BLOOD CELL COUNT (BEAKER) 2.95 M/ L 4.20-5.80 L (test code = 761) HEMOGLOBIN (BEAKER) (test code = 9.3 GM/DL 13.0-16.8 L 410) HEMATOCRIT (BEAKER) (test code = 27.9 % 40.0-50.0 L 411) MEAN CORPUSCULAR VOLUME (BEAKER) 94.5 fL 82.0-98.0 (test code = 753) MEAN CORPUSCULAR HEMOGLOBIN 31.4 pg 27.0-33.0 (BEAKER) (test code = 751) MEAN CORPUSCULAR HEMOGLOBIN CONC 33.2 GM/DL 32.0-36.0 (BEAKER) (test code = 752) RED CELL DISTRIBUTION WIDTH 14.4 % 10.3-14.2 H (BEAKER) (test code = 412) PLATELET COUNT (BEAKER) (test 158 K/CU MM 150-430 code = 756) MEAN PLATELET VOLUME (BEAKER) 6.9 fL 6.5-10.5 (test code = 754) NUCLEATED RED BLOOD CELLS 0 /100 WBC 0-0 (BEAKER) (test code = 413) NEUTROPHILS RELATIVE PERCENT 72 % (BEAKER) (test code = 429) LYMPHOCYTES RELATIVE PERCENT 15 % (BEAKER) (test code = 430) MONOCYTES RELATIVE PERCENT 12 % (BEAKER) (test code = 431) EOSINOPHILS RELATIVE PERCENT 0 % (BEAKER) (test code = 432) BASOPHILS RELATIVE PERCENT 1 % (BEAKER) (test code = 437) NEUTROPHILS ABSOLUTE COUNT 6.71 K/ L 1.80-8.00 (BEAKER) (test code = 670) LYMPHOCYTES ABSOLUTE COUNT 1.43 K/ L 1.48-4.50 L (BEAKER) (test code = 414) MONOCYTES ABSOLUTE COUNT (BEAKER) 1.15 K/ L 0.00-1.30 (test code = 415) EOSINOPHILS ABSOLUTE COUNT 0.03 K/ L 0.00-0.50 (BEAKER) (test code = 416) BASOPHILS ABSOLUTE COUNT (BEAKER) 0.05 K/ L 0.00-0.20 (test code = 417) 0.00POCT-GLUCOSE [id number] 21:57:00 Test Item Value Reference Range Interpretation Comments POC-GLUCOSE METER 94 mg/dL 70-110 TESTED AT [facility] 6720 (BEAKER) (test code = [place] [address] 1538) [id number] 21:35:00 Test Item Value Reference Range Interpretation Comments MAGNESIUM (BEAKER) (test code = 2.2 mg/dL 1.6-2.6 627) BASIC METABOLIC [id number] 21:35:00 Test Item Value Reference Range Interpretation Comments SODIUM (BEAKER) 141 meq/L 136-145 (test code = 381) POTASSIUM (BEAKER) 4.7 meq/L 3.5-5.1 (test code = 379) CHLORIDE (BEAKER) 112 meq/L 98-107 H (test code = 382) CO2 (BEAKER) (test 23 meq/L 22-29 code = 355) BLOOD UREA NITROGEN 21 mg/dL 7-21 (BEAKER) (test code = 354) CREATININE (BEAKER) 0.86 mg/dL 0.57-1.25 (test code = 358) GLUCOSE RANDOM 120 mg/dL 70-105 H (BEAKER) (test code = 652) CALCIUM (BEAKER) 8.1 mg/dL 8.4-10.2 L (test code = 697) EGFR (BEAKER) (test 89 mL/min/1.73 ESTIMA GIGI GFR IS code = 1092) sq m NOT ACCURATE CREATININE CLEARANCE IN PREDICTING GLOMERULAR FILTRATION RATE . ESTIMATED GFR I S NOT APPLICABLE FOR DIALYSIS PATIEN TS. CBC W/PLT COUNT & AUTO [id number] 21:27:00 Test Item Value Reference Range Interpretation Comments WHITE BLOOD CELL COUNT (BEAKER) 8.4 K/ L 4.0-10.0 (test code = 775) RED BLOOD CELL COUNT (BEAKER) 2.73 M/ L 4.20-5.80 L (test code = 761) HEMOGLOBIN (BEAKER) (test code = 8.9 GM/DL 13.0-16.8 L 410) HEMATOCRIT (BEAKER) (test code = 25.8 % 40.0-50.0 L 411) MEAN CORPUSCULAR VOLUME (BEAKER) 94.3 fL 82.0-98.0 (test code = 753) MEAN CORPUSCULAR HEMOGLOBIN 32.4 pg 27.0-33.0 (BEAKER) (test code = 751) MEAN CORPUSCULAR HEMOGLOBIN CONC 34.3 GM/DL 32.0-36.0 (BEAKER) (test code = 752) RED CELL DISTRIBUTION WIDTH 14.1 % 10.3-14.2 (BEAKER) (test code = 412) PLATELET COUNT (BEAKER) (test 152 K/CU MM 150-430 code = 756) MEAN PLATELET VOLUME (BEAKER) 7.3 fL 6.5-10.5 (test code = 754) NUCLEATED RED BLOOD CELLS 0 /100 WBC 0-0 (BEAKER) (test code = 413) NEUTROPHILS RELATIVE PERCENT 75 % (BEAKER) (test code = 429) LYMPHOCYTES RELATIVE PERCENT 13 % (BEAKER) (test code = 430) MONOCYTES RELATIVE PERCENT 12 % (BEAKER) (test code = 431) EOSINOPHILS RELATIVE PERCENT 0 % (BEAKER) (test code = 432) BASOPHILS RELATIVE PERCENT 0 % (BEAKER) (test code = 437) NEUTROPHILS ABSOLUTE COUNT 6.32 K/ L 1.80-8.00 (BEAKER) (test code = 670) LYMPHOCYTES ABSOLUTE COUNT 1.07 K/ L 1.48-4.50 L (BEAKER) (test code = 414) MONOCYTES ABSOLUTE COUNT (BEAKER) 0.99 K/ L 0.00-1.30 (test code = 415) EOSINOPHILS ABSOLUTE COUNT 0.04 K/ L 0.00-0.50 (BEAKER) (test code = 416) BASOPHILS ABSOLUTE COUNT (BEAKER) 0.01 K/ L 0.00-0.20 (test code = 417) 0.00CALCIUM, [id number] 20:57:00 Test Item Value Reference Range Interpretation Comments CALCIUM IONIZED (BEAKER) (test 1.03 mmol/L 1.12-1.27 L code = 698) PH, BLOOD (BEAKER) (test code = 7.44 1810) OXYGEN SATURATION, [id number] 20:56:00 Test Item Value Reference Range Interpretation Comments O2 SATURATION (MEASURED) (BEAKER) 55.9 % (test code = 1455) POCT-GLUCOSE [id number] 18:32:00 Test Item Value Reference Range Interpretation Comments POC-GLUCOSE METER 103 mg/dL 70-110 TESTED AT [facility] 67 ([facility]) (test code = [place] 1538) [address] POCT-GLUCOSE [id number] 18:32:00 Test Item Value Reference Range Interpretation Comments POC-GLUCOSE METER 113 mg/dL 70-110 H TESTED AT [facility] 6720 ([facility]) (test code = [place] 1538) [address] POCT-GLUCOSE [id number] 18:32:00 Test Item Value Reference Range Interpretation Comments POC-GLUCOSE METER 112 mg/dL 70-110 H TESTED AT [place] [address] ([facility]) (test code = AM[place] 1538) [address] POCT-GLUCOSE [id number] 18:10:00 Test Item Value Reference Range Interpretation Comments POC-GLUCOSE METER 123 mg/dL 70-110 H TESTED AT [place] [address] ([facility]) (test code = AM[facility] [place] [facility] 1538) [address] HEMOGLOBIN AND [id number] 14:20:00 Test Item Value Reference Range Interpretation Comments HEMOGLOBIN ([facility]) (test code = 7.2 GM/DL 13.0-16.8 L 410) HEMATOCRIT ([facility]) (test code = 21.3 % 40.0-50.0 L 411) POCT-GLUCOSE [id number] 10:23:00 Test Item Value Reference Range Interpretation Comments POC-GLUCOSE METER 118 mg/dL 70-110 H TESTED AT [place] [address] ([facility]) (test code = [place] [facility] 1538) [address] POCT-GLUCOSE [id number] 08:58:00 Test Item Value Reference Range Interpretation Comments POC-GLUCOSE METER 117 mg/dL 70-110 H TESTED AT [place] [address] ([facility]) (test code = [place] [facility] 1538) [address] POCT-GLUCOSE [id number] 08:58:00 Test Item Value Reference Range Interpretation Comments POC-GLUCOSE METER 124 mg/dL 70-110 H TESTED AT [place] [address] ([facility]) (test code = [place] [facility] 1538) [address] POCT-GLUCOSE [id number] 06:13:00 Test Item Value Reference Range Interpretation Comments POC-GLUCOSE METER 140 mg/dL 70-110 H TESTED AT [place] [address] ([facility]) (test code = [place] [facility] 1538) [address] POCT-GLUCOSE [id number] 04:36:00 Test Item Value Reference Range Interpretation Comments POC-GLUCOSE METER 171 mg/dL 70-110 H TESTED AT [place] [address] ([facility]) (test code = [place] [facility] 1538) [address] [id number] 03:47:00 Test Item Value Reference Range Interpretation Comments MAGNESIUM (BEAKER) (test code = 2.2 mg/dL 1.6-2.6 627) COMPREHENSIVE METABOLIC [id number] 03:47:00 Test Item Value Reference Range Interpretation Comments TOTAL PROTEIN 5.9 gm/dL 6.0-8.3 L (BEAKER) (test code = 770) ALBUMIN (BEAKER) 3.7 g/dL 3.5-5.0 (test code = 1145) ALKALINE PHOSPHATASE 53 U/L 40-150 (BEAKER) (test code = 346) BILIRUBIN TOTAL 1.0 mg/dL 0.2-1.2 (BEAKER) (test code = 377) SODIUM (BEAKER) (test 140 meq/L 136-145 code = 381) POTASSIUM (BEAKER) 4.3 meq/L 3.5-5.1 (test code = 379) CHLORIDE (BEAKER) 108 meq/L 98-107 H (test code = 382) CO2 (BEAKER) (test 22 meq/L 22-29 code = 355) BLOOD UREA NITROGEN 15 mg/dL 7-21 (BEAKER) (test code = 354) CREATININE (BEAKER) 0.96 mg/dL 0.57-1.25 (test code = 358) GLUCOSE RANDOM 180 mg/dL 70-105 H (BEAKER) (test code = 652) CALCIUM (BEAKER) 8.9 mg/dL 8.4-10.2 (test code = 697) AST (SGOT) (BEAKER) 55 U/L 5-34 H (test code = 353) ALT (SGPT) (BEAKER) 31 U/L 6-55 (test code = 347) EGFR (BEAKER) (test 78 mL/min/1.73 ESTIMA GIGI GFR IS code = 1092) sq m NOT ACCURATE CREATININE CLEARANCE IN PREDICTING GLOMERULAR FILTRATION RATE . ESTIMATED GFR I S NOT APPLICABLE FOR DIALYSIS PATIEN TS. LACTIC ACID, ARTERIAL, WHOLE [id number] 03:41:00 Test Item Value Reference Range Interpretation Comments LACTATE BLOOD ARTERIAL (2) 3.2 mmol/L 0.5-2.2 H (BEAKER) (test code = 2874) Effective 02/01/2016: Units/Reference Range ChangeNew: 0.5-2.2 mmol/L Previous: 5-20 mg/dLCBC W/PLT COUNT & AUTO [id number] 03:36:00 Test Item Value Reference Range Interpretation Comments WHITE BLOOD CELL COUNT (BEAKER) 10.2 K/ L 4.0-10.0 H (test code = 775) RED BLOOD CELL COUNT (BEAKER) 2.51 M/ L 4.20-5.80 L (test code = 761) HEMOGLOBIN (BEAKER) (test code = 8.4 GM/DL 13.0-16.8 L 410) HEMATOCRIT (BEAKER) (test code = 23.8 % 40.0-50.0 L 411) MEAN CORPUSCULAR VOLUME (BEAKER) 94.7 fL 82.0-98.0 (test code = 753) MEAN CORPUSCULAR HEMOGLOBIN 33.6 pg 27.0-33.0 H (BEAKER) (test code = 751) MEAN CORPUSCULAR HEMOGLOBIN CONC 35.5 GM/DL 32.0-36.0 (BEAKER) (test code = 752) RED CELL DISTRIBUTION WIDTH 13.4 % 10.3-14.2 (BEAKER) (test code = 412) PLATELET COUNT (BEAKER) (test 213 K/CU MM 150-430 code = 756) MEAN PLATELET VOLUME (BEAKER) 6.7 fL 6.5-10.5 (test code = 754) NUCLEATED RED BLOOD CELLS 0 /100 WBC 0-0 (BEAKER) (test code = 413) NEUTROPHILS RELATIVE PERCENT 80 % (BEAKER) (test code = 429) LYMPHOCYTES RELATIVE PERCENT 7 % (BEAKER) (test code = 430) MONOCYTES RELATIVE PERCENT 12 % (BEAKER) (test code = 431) EOSINOPHILS RELATIVE PERCENT 0 % (BEAKER) (test code = 432) BASOPHILS RELATIVE PERCENT 0 % (BEAKER) (test code = 437) NEUTROPHILS ABSOLUTE COUNT 8.20 K/ L 1.80-8.00 H (BEAKER) (test code = 670) LYMPHOCYTES ABSOLUTE COUNT 0.73 K/ L 1.48-4.50 L (BEAKER) (test code = 414) MONOCYTES ABSOLUTE COUNT (BEAKER) 1.25 K/ L 0.00-1.30 (test code = 415) EOSINOPHILS ABSOLUTE COUNT 0.02 K/ L 0.00-0.50 (BEAKER) (test code = 416) BASOPHILS ABSOLUTE COUNT (BEAKER) 0.01 K/ L 0.00-0.20 (test code = 417) 0.00OXYGEN SATURATION, [id number] 03:27:00 Test Item Value Reference Range Interpretation Comments O2 SATURATION (MEASURED) (BEAKER) 62.4 % (test code = 1455) CALCIUM, [id number] 03:27:00 Test Item Value Reference Range Interpretation Comments CALCIUM IONIZED (BEAKER) (test 1.15 mmol/L 1.12-1.27 code = 698) PH, BLOOD (BEAKER) (test code = 7.43 1810) BLOOD GAS, [id number] 03:27:00 Test Item Value Reference Range Interpretation Comments PH ARTERIAL (BEAKER) (test code = 7.42 7.35-7.45 383) PCO2 ARTERIAL (BEAKER) (test code 38 mmHg 35-45 = 384) PO2 ARTERIAL (BEAKER) (test code = 113 mmHg 80-90 H 385) O2 SATURATION ARTERIAL (BEAKER) 98.2 % 96.0-97.0 H (test code = 386) HCO3 ARTERIAL (BEAKER) (test code 24 mmol/L 21-29 = 388) BASE EXCESS ARTERIAL (BEAKER) 0.0 mmol/L -2.0-3.0 (test code = 387) PATIENT TEMPERATURE (BEAKER) (test 37.4 C code = 1818) FIO2 (BEAKER) (test code = 1819) 40.0 % HGB/HCT (H&H) - STAT [id number] 03:27:00 Test Item Value Reference Range Interpretation Comments HEMOGLOBIN (BEAKER) (test code = 8.1 g/dL 13.0-16.8 L 410) HEMATOCRIT (BEAKER) (test code = 24.0 % 40.0-50.0 L 411) POCT-GLUCOSE [id number] 01:47:00 Test Item Value Reference Range Interpretation Comments POC-GLUCOSE METER 218 mg/dL 70-110 H TESTED AT [facility] 6720 (BEAKER) (test code = [place] [address] 1538) [id number] 23:12:00 Test Item Value Reference Range Interpretation Comments GLUCOSE RANDOM (BEAKER) (test code 236 mg/dL 70-105 H = 652) Effective 08/17/2014: Reference Range Change-Adult onlyNew: 70-105 Previous: 70-110PRN - repeat glucose levels every 1 hour or as specified by insulin titration orders until glucose level is less than 450 mg/dLBLOOD GAS, ARTERIAL 2017-01-21 23:03:00 Test Item Value Reference Range Interpretation Comments PH ARTERIAL (BEAKER) (test code = 7.32 7.35-7.45 L 383) PCO2 ARTERIAL (BEAKER) (test code 39 mmHg 35-45 = 384) PO2 ARTERIAL (BEAKER) (test code 129 mmHg 80-90 H = 385) O2 SATURATION ARTERIAL (BEAKER) 98.5 % 96.0-97.0 H (test code = 386) HCO3 ARTERIAL (BEAKER) (test code 20 mmol/L 21-29 L = 388) BASE EXCESS ARTERIAL (BEAKER) -5.8 mmol/L -2.0-3.0 L (test code = 387) PATIENT TEMPERATURE (BEAKER) 35.9 C (test code = 1818) FIO2 (BEAKER) (test code = 1819) 60.0 % POCT-GLUCOSE [id number] 22:42:00 Test Item Value Reference Range Interpretation Comments POC-GLUCOSE METER 266 mg/dL 70-110 H TESTED AT [facility] 6720 (BEAKER) (test code = [place] 1538) [id number] COMPREHENSIVE METABOLIC [id number] 22:20:00 Test Item Value Reference Range Interpretation Comments TOTAL PROTEIN 5.7 gm/dL 6.0-8.3 L (BEAKER) (test code = 770) ALBUMIN (BEAKER) 3.7 g/dL 3.5-5.0 (test code = 1145) ALKALINE PHOSPHATASE 54 U/L 40-150 (BEAKER) (test code = 346) BILIRUBIN TOTAL 1.4 mg/dL 0.2-1.2 H (BEAKER) (test code = 377) SODIUM (BEAKER) (test 141 meq/L 136-145 code = 381) POTASSIUM (BEAKER) 3.8 meq/L 3.5-5.1 (test code = 379) CHLORIDE (BEAKER) 109 meq/L 98-107 H (test code = 382) CO2 (BEAKER) (test 16 meq/L 22-29 L code = 355) BLOOD UREA NITROGEN 14 mg/dL 7-21 (BEAKER) (test code = 354) CREATININE (BEAKER) 1.07 mg/dL 0.57-1.25 (test code = 358) GLUCOSE RANDOM 263 mg/dL 70-105 H (BEAKER) (test code = 652) CALCIUM (BEAKER) 9.0 mg/dL 8.4-10.2 (test code = 697) AST (SGOT) (BEAKER) 54 U/L 5-34 H (test code = 353) ALT (SGPT) (BEAKER) 33 U/L 6-55 (test code = 347) EGFR (BEAKER) (test 69 mL/min/1.73 ESTIMA GIGI GFR IS code = 1092) sq m NOT ACCURATE CREATININE CLEARANCE IN PREDICTING GLOMERULAR FILTRATION RATE . ESTIMATED GFR I S NOT APPLICABLE FOR DIALYSIS PATIEN TS. CREATINE KINASE (CK)2017-01-21 22:20:00 Test Item Value Reference Range Interpretation Comments CREATINE KINASE TOTAL (BEAKER) (test 442 U/L 29-200 H code = 380) LACTIC ACID, ARTERIAL, WHOLE [id number] 20:59:00 Test Item Value Reference Range Interpretation Comments LACTATE BLOOD 6.9 mmol/L 0.5-2.2 H Specimen sligh tly ARTERIAL (2) (BEAKER) hemoly zed (test code = 2874) Effective 02/01/2016: Units/Reference Range ChangeNew: 0.5-2.2 mmol/L Previous: 5-20 mg/dLBLOOD GAS, [id number] 20:52:00 Test Item Value Reference Range Interpretation Comments PH ARTERIAL (BEAKER) (test code = 7.32 7.35-7.45 L 383) PCO2 ARTERIAL (BEAKER) (test code 41 mmHg 35-45 = 384) PO2 ARTERIAL (BEAKER) (test code 276 mmHg 80-90 H = 385) O2 SATURATION ARTERIAL (BEAKER) 99.6 % 96.0-97.0 H (test code = 386) HCO3 ARTERIAL (BEAKER) (test code 21 mmol/L 21-29 = 388) BASE EXCESS ARTERIAL (BEAKER) -5.3 mmol/L -2.0-3.0 L (test code = 387) PATIENT TEMPERATURE (BEAKER) 37.0 C (test code = 1818) FIO2 (BEAKER) (test code = 1819) 100.0 % GLUCOSE-STAT [id number] 20:52:00 Test Item Value Reference Range Interpretation Comments GLUCOSE RANDOM (BEAKER) (test code 252 mg/dL 70-110 H = 652) HGB/HCT (H&H) - STAT [id number] 20:52:00 Test Item Value Reference Range Interpretation Comments HEMOGLOBIN (BEAKER) (test code = 8.4 g/dL 13.0-16.8 L 410) HEMATOCRIT (BEAKER) (test code = 25.0 % 40.0-50.0 L 411) SODIUM NA-STAT [id number] 20:51:00 Test Item Value Reference Range Interpretation Comments SODIUM (BEAKER) (test code = 381) 137 meq/L 135-148 POTASSIUM-STAT [id number] 20:51:00 Test Item Value Reference Range Interpretation Comments POTASSIUM (BEAKER) (test code = 3.9 meq/L 3.6-5.5 379) CALCIUM, [id number] 20:51:00 Test Item Value Reference Range Interpretation Comments CALCIUM IONIZED (BEAKER) (test 1.19 mmol/L 1.12-1.27 code = 698) PH, BLOOD (BEAKER) (test code = 7.32 1810) OXYGEN SATURATION, [id number] 20:48:00 Test Item Value Reference Range Interpretation Comments O2 SATURATION (MEASURED) (BEAKER) 78.1 % (test code = 1455) [id number] 18:02:00 Test Item Value Reference Range Interpretation Comments PHOSPHORUS (BEAKER) (test code = 3.7 mg/dL 2.3-4.7 604) [id number] 18:02:00 Test Item Value Reference Range Interpretation Comments MAGNESIUM (BEAKER) (test code = 2.2 mg/dL 1.6-2.6 627) BASIC METABOLIC [id number] 18:02:00 Test Item Value Reference Range Interpretation Comments SODIUM (BEAKER) 140 meq/L 136-145 (test code = 381) POTASSIUM (BEAKER) 3.8 meq/L 3.5-5.1 (test code = 379) CHLORIDE (BEAKER) 107 meq/L 98-107 (test code = 382) CO2 (BEAKER) (test 20 meq/L 22-29 L code = 355) BLOOD UREA NITROGEN 13 mg/dL 7-21 (BEAKER) (test code = 354) CREATININE (BEAKER) 0.94 mg/dL 0.57-1.25 (test code = 358) GLUCOSE RANDOM 256 mg/dL 70-105 H (BEAKER) (test code = 652) CALCIUM (BEAKER) 9.6 mg/dL 8.4-10.2 (test code = 697) EGFR (BEAKER) (test 80 mL/min/1.73 ESTIMA GIGI GFR IS code = 1092) sq m NOT ACCURATE CREATININE CLEARANCE IN PREDICTING GLOMERULAR FILTRATION RATE . ESTIMATED GFR I S NOT APPLICABLE FOR DIALYSIS PATIEN TS. LACTIC ACID, ARTERIAL, WHOLE [id number] 17:59:00 Test Item Value Reference Range Interpretation Comments LACTATE BLOOD ARTERIAL (2) 4.0 mmol/L 0.5-2.2 H (BEAKER) (test code = 2874) Effective 02/01/2016: Units/Reference Range ChangeNew: 0.5-2.2 mmol/L Previous: 5-20 mg/[id number] 17:52:00 Test Item Value Reference Range Interpretation Comments PARTIAL THROMBOPLASTIN TIME 35.2 seconds 22.5-36.0 (BEAKER) (test code = 760) PROTHROMBIN TIME/[id number] 17:51:00 Test Item Value Reference Range Interpretation Comments PROTIME (BEAKER) (test code = 15.8 seconds 11.7-14.7 H 759) INR (BEAKER) (test code = 370) 1.3 <=5.9 RECOMMENDED COUMADIN/WARFARIN INR THERAPY RANGESSTANDARD DOSE: 2.0 - 3.0 Includes: PROPHYLAXIS forvenous thrombosis, systemic embolization; TREATMENT for venous thrombosis and/or pulmonary embolus.HIGH RISK: Target INR is 2.5-3.5 for patients with mechanical heart valves.[id number] 17:51:00 Test Item Value Reference Range Interpretation Comments FIBRINOGEN LEVEL (BEAKER) (test 336 mg/dl 225-434 code = 658) OXYGEN SATURATION, [id number] 17:44:00 Test Item Value Reference Range Interpretation Comments O2 SATURATION (MEASURED) (BEAKER) 76.0 % (test code = 0595) CBC W/PLT COUNT & AUTO [id number] 17:39:00 Test Item Value Reference Range Interpretation Comments WHITE BLOOD CELL COUNT (BEAKER) 13.1 K/ L 4.0-10.0 H (test code = 775) RED BLOOD CELL COUNT (BEAKER) 2.64 M/ L 4.20-5.80 L (test code = 761) HEMOGLOBIN (BEAKER) (test code = 8.8 GM/DL 13.0-16.8 L 410) HEMATOCRIT (BEAKER) (test code = 25.3 % 40.0-50.0 L 411) MEAN CORPUSCULAR VOLUME (BEAKER) 95.7 fL 82.0-98.0 (test code = 753) MEAN CORPUSCULAR HEMOGLOBIN 33.2 pg 27.0-33.0 H (BEAKER) (test code = 751) MEAN CORPUSCULAR HEMOGLOBIN CONC 34.7 GM/DL 32.0-36.0 (BEAKER) (test code = 752) RED CELL DISTRIBUTION WIDTH 13.0 % 10.3-14.2 (BEAKER) (test code = 412) PLATELET COUNT (BEAKER) (test 238 K/CU MM 150-430 code = 756) MEAN PLATELET VOLUME (BEAKER) 6.4 fL 6.5-10.5 L (test code = 754) NUCLEATED RED BLOOD CELLS 0 /100 WBC 0-0 (BEAKER) (test code = 413) NEUTROPHILS RELATIVE PERCENT 78 % (BEAKER) (test code = 429) LYMPHOCYTES RELATIVE PERCENT 9 % (BEAKER) (test code = 430) MONOCYTES RELATIVE PERCENT 12 % (BEAKER) (test code = 431) EOSINOPHILS RELATIVE PERCENT 1 % (BEAKER) (test code = 432) BASOPHILS RELATIVE PERCENT 0 % (BEAKER) (test code = 437) NEUTROPHILS ABSOLUTE COUNT 10.20 K/ L 1.80-8.00 H (BEAKER) (test code = 670) LYMPHOCYTES ABSOLUTE COUNT 1.22 K/ L 1.48-4.50 L (BEAKER) (test code = 414) MONOCYTES ABSOLUTE COUNT (BEAKER) 1.54 K/ L 0.00-1.30 H (test code = 415) EOSINOPHILS ABSOLUTE COUNT 0.09 K/ L 0.00-0.50 (BEAKER) (test code = 416) BASOPHILS ABSOLUTE COUNT (BEAKER) 0.02 K/ L 0.00-0.20 (test code = 417) 0.00SODIUM NA-STAT [id number] 17:32:00 Test Item Value Reference Range Interpretation Comments SODIUM (BEAKER) (test code = 381) 137 meq/L 135-148 POTASSIUM-STAT [id number] 17:32:00 Test Item Value Reference Range Interpretation Comments POTASSIUM (BEAKER) (test code = 3.7 meq/L 3.6-5.5 379) BLOOD GAS, [id number] 17:32:00 Test Item Value Reference Range Interpretation Comments PH ARTERIAL (BEAKER) (test code = 7.36 7.35-7.45 383) PCO2 ARTERIAL (BEAKER) (test code 38 mmHg 35-45 = 384) PO2 ARTERIAL (BEAKER) (test code 236 mmHg 80-90 H = 385) O2 SATURATION ARTERIAL (BEAKER) 99.5 % 96.0-97.0 H (test code = 386) HCO3 ARTERIAL (BEAKER) (test code 22 mmol/L 21-29 = 388) BASE EXCESS ARTERIAL (BEAKER) -4.1 mmol/L -2.0-3.0 L (test code = 387) PATIENT TEMPERATURE (BEAKER) 34.8 C (test code = 1818) FIO2 (BEAKER) (test code = 1819) 100.0 % GLUCOSE-STAT [id number] 17:32:00 Test Item Value Reference Range Interpretation Comments GLUCOSE RANDOM (BEAKER) (test code 239 mg/dL 70-110 H = 652) HGB/HCT (H&H) - STAT [id number] 17:32:00 Test Item Value Reference Range Interpretation Comments HEMOGLOBIN (BEAKER) (test code = 8.5 g/dL 13.0-16.8 L 410) HEMATOCRIT (BEAKER) (test code = 25.0 % 40.0-50.0 L 411) CALCIUM, [id number] 17:32:00 Test Item Value Reference Range Interpretation Comments CALCIUM IONIZED (BEAKER) (test 1.23 mmol/L 1.12-1.27 code = 698) PH, BLOOD (BEAKER) (test code = 7.33 1810) PLATELET AGGREGATION: FUNCTION [id number] 17:09:00 Test Item Value Reference Range Interpretation Comments WEAK ADP 79 % 60-91 RESULT(BEAKER) (test code = 2135) PLATELET FUNCTION 60-100% indicates SCREEN INTERP (BEAKER) normal platelet (test code = 2173) function [id number] Gallito Adair M.D. (BEAKER) (test code = (electonic signature) 1555) PLATELET COUNT AGG 148 K/CU MM 150-430 L (BEAKER) (test code = 2656) Platelet Function Screen results may be falsely low with platelet counts<100,000/cu mm.BLOOD GAS, [id number] 16:15:00 Test Item Value Reference Range Interpretation Comments PH ARTERIAL (BEAKER) (test code = 7.35 7.35-7.45 383) PCO2 ARTERIAL (BEAKER) (test code 40 mmHg 35-45 = 384) PO2 ARTERIAL (BEAKER) (test code 258 mmHg 80-90 H = 385) O2 SATURATION ARTERIAL (BEAKER) 99.6 % 96.0-97.0 H (test code = 386) HCO3 ARTERIAL (BEAKER) (test code 22 mmol/L 21-29 = 388) BASE EXCESS ARTERIAL (BEAKER) -3.5 mmol/L -2.0-3.0 L (test code = 387) PATIENT TEMPERATURE (BEAKER) 34.8 C (test code = 1818) FIO2 (BEAKER) (test code = 1819) 70.0 % GLUCOSE-STAT [id number] 16:15:00 Test Item Value Reference Range Interpretation Comments GLUCOSE RANDOM (BEAKER) (test code 201 mg/dL 70-110 H = 652) HGB/HCT (H&H) - STAT [id number] 16:15:00 Test Item Value Reference Range Interpretation Comments HEMOGLOBIN (BEAKER) (test code = 8.5 g/dL 13.0-16.8 L 410) HEMATOCRIT (BEAKER) (test code = 25.0 % 40.0-50.0 L 411) SODIUM NA-STAT [id number] 16:14:00 Test Item Value Reference Range Interpretation Comments SODIUM (BEAKER) (test code = 381) 138 meq/L 135-148 POTASSIUM-STAT [id number] 16:14:00 Test Item Value Reference Range Interpretation Comments POTASSIUM (BEAKER) (test code = 4.2 meq/L 3.6-5.5 379) CALCIUM, [id number] 16:14:00 Test Item Value Reference Range Interpretation Comments CALCIUM IONIZED (BEAKER) (test 1.10 mmol/L 1.12-1.27 L code = 698) PH, BLOOD (BEAKER) (test code = 7.32 1810) THROMBOELASTOGRAPH (TEG)2017-01-21 15:48:00 Test Item Value Reference Range Interpretation Comments TEG ACTIVATED CLOTTING TIME 5.9 minutes 4.0-7.0 (BEAKER) (test code = 1407) TEG FIBRINOGEN ACTIVITY (BEAKER) 72.1 degrees 61.0-73.0 (test code = 1408) TEG PLT. AGGREGATION (BEAKER) 66.0 MM 55.0-65.0 H (test code = 1409) TEG FIBRINOLYSIS (BEAKER) (test 0.0 % 0.0-5.0 code = 1410) TGH ACTIVATED CLOTTING TIME 6.4 minutes 4.0-7.0 (BEAKER) (test code = 1411) TGH FIBRINOGEN ACTIVITY (BEAKER) 72.2 degrees 61.0-73.0 (test code = 1412) TGH PLT. AGGREGATION (BEAKER) 60.9 MM 55.0-65.0 (test code = 1413) TGH FIBRINOLYSIS (BEAKER) (test 0.0 % 0.0-5.0 code = 1414) HEPATIC FUNCTION [id number] 14:57:00 Test Item Value Reference Range Interpretation Comments TOTAL PROTEIN (BEAKER) (test code = 5.6 gm/dL 6.0-8.3 L 770) ALBUMIN (BEAKER) (test code = 1145) 3.6 g/dL 3.5-5.0 BILIRUBIN TOTAL (BEAKER) (test code 1.6 mg/dL 0.2-1.2 H = 377) BILIRUBIN DIRECT (BEAKER) (test 0.9 mg/dL 0.1-0.5 H code = 706) ALKALINE PHOSPHATASE (BEAKER) (test 52 U/L 40-150 code = 346) AST (SGOT) (BEAKER) (test code = 38 U/L 5-34 H 353) ALT (SGPT) (BEAKER) (test code = 27 U/L 6-55 347) BASIC METABOLIC [id number] 14:57:00 Test Item Value Reference Range Interpretation Comments SODIUM (BEAKER) 136 meq/L 136-145 (test code = 381) POTASSIUM (BEAKER) 4.2 meq/L 3.5-5.1 (test code = 379) CHLORIDE (BEAKER) 106 meq/L 98-107 (test code = 382) CO2 (BEAKER) (test 20 meq/L 22-29 L code = 355) BLOOD UREA NITROGEN 13 mg/dL 7-21 (BEAKER) (test code = 354) CREATININE (BEAKER) 0.83 mg/dL 0.57-1.25 (test code = 358) GLUCOSE RANDOM 155 mg/dL 70-105 H (BEAKER) (test code = 652) CALCIUM (BEAKER) 9.3 mg/dL 8.4-10.2 (test code = 697) EGFR (BEAKER) (test 93 mL/min/1.73 ESTIMA GIGI GFR IS code = 1092) sq m NOT ACCURATE CREATININE CLEARANCE IN PREDICTING GLOMERULAR FILTRATION RATE . ESTIMATED GFR I S NOT APPLICABLE FOR DIALYSIS PATIEN TS. CBC W/PLT COUNT & AUTO [id number] 14:49:00 Test Item Value Reference Range Interpretation Comments WHITE BLOOD CELL COUNT (BEAKER) 9.8 K/ L 4.0-10.0 (test code = 775) RED BLOOD CELL COUNT (BEAKER) 2.20 M/ L 4.20-5.80 L (test code = 761) HEMOGLOBIN (BEAKER) (test code = 7.5 GM/DL 13.0-16.8 L 410) HEMATOCRIT (BEAKER) (test code = 21.8 % 40.0-50.0 L 411) MEAN CORPUSCULAR VOLUME (BEAKER) 99.2 fL 82.0-98.0 H (test code = 753) MEAN CORPUSCULAR HEMOGLOBIN 34.2 pg 27.0-33.0 H (BEAKER) (test code = 751) MEAN CORPUSCULAR HEMOGLOBIN CONC 34.5 GM/DL 32.0-36.0 (BEAKER) (test code = 752) RED CELL DISTRIBUTION WIDTH 11.6 % 10.3-14.2 (BEAKER) (test code = 412) PLATELET COUNT (BEAKER) (test 135 K/CU MM 150-430 L code = 756) MEAN PLATELET VOLUME (BEAKER) 6.1 fL 6.5-10.5 L (test code = 754) NUCLEATED RED BLOOD CELLS 0 /100 WBC 0-0 (BEAKER) (test code = 413) NEUTROPHILS RELATIVE PERCENT 79 % (BEAKER) (test code = 429) LYMPHOCYTES RELATIVE PERCENT 10 % (BEAKER) (test code = 430) MONOCYTES RELATIVE PERCENT 10 % (BEAKER) (test code = 431) EOSINOPHILS RELATIVE PERCENT 1 % (BEAKER) (test code = 432) BASOPHILS RELATIVE PERCENT 0 % (BEAKER) (test code = 437) NEUTROPHILS ABSOLUTE COUNT 7.75 K/ L 1.80-8.00 (BEAKER) (test code = 670) LYMPHOCYTES ABSOLUTE COUNT 0.96 K/ L 1.48-4.50 L (BEAKER) (test code = 414) MONOCYTES ABSOLUTE COUNT (BEAKER) 1.00 K/ L 0.00-1.30 (test code = 415) EOSINOPHILS ABSOLUTE COUNT 0.10 K/ L 0.00-0.50 (BEAKER) (test code = 416) BASOPHILS ABSOLUTE COUNT (BEAKER) 0.01 K/ L 0.00-0.20 (test code = 417) 0.00LACTIC ACID, ARTERIAL, WHOLE [id number] 14:47:00 Test Item Value Reference Range Interpretation Comments LACTATE BLOOD ARTERIAL (2) 1.2 mmol/L 0.5-2.2 (BEAKER) (test code = 2874) Effective 02/01/2016: Units/Reference Range ChangeNew: 0.5-2.2 mmol/L Previous: 5-20 mg/[id number] 14:37:00 Test Item Value Reference Range Interpretation Comments FIBRINOGEN LEVEL (BEAKER) (test 338 mg/dl 225-434 code = 658) [id number] 14:37:00 Test Item Value Reference Range Interpretation Comments PARTIAL THROMBOPLASTIN TIME 30.5 seconds 22.5-36.0 (BEAKER) (test code = 760) PROTHROMBIN TIME/[id number] 14:36:00 Test Item Value Reference Range Interpretation Comments PROTIME (BEAKER) (test code = 16.7 seconds 11.7-14.7 H 759) INR (BEAKER) (test code = 370) 1.4 <=5.9 RECOMMENDED COUMADIN/WARFARIN INR THERAPY RANGESSTANDARD DOSE: 2.0 - 3.0 Includes: PROPHYLAXIS forvenous thrombosis, systemic embolization; TREATMENT for venous thrombosis and/or pulmonary embolus.HIGH RISK: Target INR is 2.5-3.5 for patients with mechanical heart valves.OXYGEN SATURATION, [id number] 14:31:00 Test Item Value Reference Range Interpretation Comments O2 SATURATION (MEASURED) (BEAKER) 60.6 % (test code = 1455) BLOOD GAS, [id number] 14:30:00 Test Item Value Reference Range Interpretation Comments PH ARTERIAL (BEAKER) (test code = 7.38 7.35-7.45 383) PCO2 ARTERIAL (BEAKER) (test code 38 mmHg 35-45 = 384) PO2 ARTERIAL (BEAKER) (test code 201 mmHg 80-90 H = 385) O2 SATURATION ARTERIAL (BEAKER) 99.4 % 96.0-97.0 H (test code = 386) HCO3 ARTERIAL (BEAKER) (test code 22 mmol/L 21-29 = 388) BASE EXCESS ARTERIAL (BEAKER) -3.3 mmol/L -2.0-3.0 L (test code = 387) PATIENT TEMPERATURE (BEAKER) 37.0 C (test code = 1818) FIO2 (BEAKER) (test code = 1819) 100.0 % GLUCOSE-STAT [id number] 14:30:00 Test Item Value Reference Range Interpretation Comments GLUCOSE RANDOM (BEAKER) (test code 154 mg/dL 70-110 H = 652) HGB/HCT (H&H) - STAT [id number] 14:30:00 Test Item Value Reference Range Interpretation Comments HEMOGLOBIN (BEAKER) (test code = 7.2 g/dL 13.0-16.8 L 410) HEMATOCRIT (BEAKER) (test code = 21.0 % 40.0-50.0 L 411) SODIUM NA-STAT [id number] 14:29:00 Test Item Value Reference Range Interpretation Comments SODIUM (BEAKER) (test code = 381) 136 meq/L 135-148 POTASSIUM-STAT [id number] 14:29:00 Test Item Value Reference Range Interpretation Comments POTASSIUM (BEAKER) (test code = 4.1 meq/L 3.6-5.5 379) CALCIUM, [id number] 14:29:00 Test Item Value Reference Range Interpretation Comments CALCIUM IONIZED (BEAKER) (test 1.27 mmol/L 1.12-1.27 code = 698) PH, BLOOD (BEAKER) (test code = 7.38 1810) THROMBOELASTOGRAPH (TEG)2017-01-21 14:10:00 Test Item Value Reference Range Interpretation Comments TEG ACTIVATED CLOTTING TIME 5.4 minutes 4.0-7.0 (BEAKER) (test code = 1407) TEG FIBRINOGEN ACTIVITY (BEAKER) 69.1 degrees 61.0-73.0 (test code = 1408) TEG PLT. AGGREGATION (BEAKER) 65.6 MM 55.0-65.0 H (test code = 1409) TGH ACTIVATED CLOTTING TIME 5.0 minutes 4.0-7.0 (BEAKER) (test code = 1411) TGH FIBRINOGEN ACTIVITY (BEAKER) 71.5 degrees 61.0-73.0 (test code = 1412) TGH PLT. AGGREGATION (BEAKER) 66.8 MM 55.0-65.0 H (test code = 1413) THROMBOELASTOGRAPH (TEG)2017-01-21 13:55:00 Test Item Value Reference Range Interpretation Comments TEG ACTIVATED CLOTTING 124.4 minutes 4.0-7.0 H TIME (BEAKER) (test code = 1407) TEG FIBRINOGEN ACTIVITY degrees 61.0-73.0 NO C LOT DETECTED (BEAKER) (test code = 1408) TEG PLT. AGGREGATION MM 55.0-65.0 NO CLOT DETECTED (BEAKER) (test code = 1409) TEG FIBRINOLYSIS % 0.0-5.0 NO CLOT DET ECTED (BEAKER) (test code = 1410) TGH ACTIVATED CLOTTING 6.3 minutes 4.0-7.0 TIME (BEAKER) (test code = 1411) TGH FIBRINOGEN ACTIVITY 71.5 degrees 61.0-73.0 (BEAKER) (test code = 1412) TGH PLT. AGGREGATION 59.9 MM 55.0-65.0 (BEAKER) (test code = 1413) PLATELET [id number] 13:50:00 Test Item Value Reference Range Interpretation Comments PLATELET COUNT (BEAKER) (test 151 K/CU MM 150-430 code = 756) [id number] 13:39:00 Test Item Value Reference Range Interpretation Comments PARTIAL THROMBOPLASTIN TIME 29.5 seconds 22.5-36.0 ([facility]) (test code = 760) [id number] 13:36:00 Test Item Value Reference Range Interpretation Comments FIBRINOGEN LEVEL ([facility]) (test 373 mg/dl 225-434 code = 658) PROTHROMBIN [id number] 13:34:00 Test Item Value Reference Range Interpretation Comments PROTIME ([facility]) (test code = 16.9 seconds 11.7-14.7 H 759) INR ([facility]) (test code = 370) 1.4 <=5.9 RECOMMENDED COUMADIN/WARFARIN INR THERAPY RANGESSTANDARD DOSE: 2.0 - 3.0 Includes: PROPHYLAXIS forvenous thrombosis, systemic embolization; TREATMENT for venous thrombosis and/or pulmonary embolus.HIGH RISK: Target INR is 2.5-3.5 for patients with mechanical heart valves.[id number] 13:25:00 Test Item Value Reference Range Interpretation Comments PARTIAL THROMBOPLASTIN TIME > seconds 22.5-36.0 HH ([facility]) (test code = 760) [id number] 13:23:00 Test Item Value Reference Range Interpretation Comments ACTIVATED CLOTTING TIME 121 sec TEST ED AT [place] [id number] ([facility]) (test code = [facility]) [id number] 13:23:00 Test Item Value Reference Range Interpretation Comments ACTIVATED CLOTTING TIME 456 sec TEST ED AT [place] [address] ([facility]) (test code = AM[facility] [place] [address]) [address] [id number] 13:23:00 Test Item Value Reference Range Interpretation Comments ACTIVATED CLOTTING TIME 471 sec TEST ED AT [place] [address] ([facility]) (test code = [facility] [address]) [id number] 13:23:00 Test Item Value Reference Range Interpretation Comments ACTIVATED CLOTTING TIME 569 sec TEST ED AT [place] [address] ([facility]) (test code = [facility] [place] [address]) [address] BLOOD GAS, [id number] 13:20:00 Test Item Value Reference Range Interpretation Comments PH ARTERIAL (BEAKER) (test code = 7.34 7.35-7.45 L 383) PCO2 ARTERIAL (BEAKER) (test code 40 mmHg 35-45 = 384) PO2 ARTERIAL (BEAKER) (test code 128 mmHg 80-90 H = 385) O2 SATURATION ARTERIAL (BEAKER) 98.5 % 96.0-97.0 H (test code = 386) HCO3 ARTERIAL (BEAKER) (test code 21 mmol/L 21-29 = 388) BASE EXCESS ARTERIAL (BEAKER) -4.7 mmol/L -2.0-3.0 L (test code = 387) PATIENT TEMPERATURE (BEAKER) 36.0 C (test code = 1818) FIO2 (BEAKER) (test code = 1819) 50.0 % SODIUM NA-STAT [id number] 13:20:00 Test Item Value Reference Range Interpretation Comments SODIUM (BEAKER) (test code = 381) 134 meq/L 135-148 L GLUCOSE-STAT [id number] 13:20:00 Test Item Value Reference Range Interpretation Comments GLUCOSE RANDOM (BEAKER) (test code 168 mg/dL 70-110 H = 652) HGB/HCT (H&H) - STAT [id number] 13:20:00 Test Item Value Reference Range Interpretation Comments HEMOGLOBIN (BEAKER) (test code = 8.7 g/dL 13.0-16.8 L 410) HEMATOCRIT (BEAKER) (test code = 26.0 % 40.0-50.0 L 411) CALCIUM, [id number] 13:20:00 Test Item Value Reference Range Interpretation Comments CALCIUM IONIZED (BEAKER) (test 1.31 mmol/L 1.12-1.27 H code = 698) PH, BLOOD (BEAKER) (test code = 7.32 1810) POTASSIUM-STAT [id number] 13:18:00 Test Item Value Reference Range Interpretation Comments POTASSIUM (BEAKER) (test code = 3.8 meq/L 3.6-5.5 379) [id number] 12:41:00 Test Item Value Reference Range Interpretation Comments FIBRINOGEN LEVEL (BEAKER) (test 390 mg/dl 225-434 code = 658) PROTHROMBIN [id number] 12:40:00 Test Item Value Reference Range Interpretation Comments PROTIME (BEAKER) (test code = 27.9 seconds 11.7-14.7 H 759) INR (BEAKER) (test code = 370) 2.6 <=5.9 RECOMMENDED COUMADIN/WARFARIN INR THERAPY RANGESSTANDARD DOSE: 2.0 - 3.0 Includes: PROPHYLAXIS forvenous thrombosis, systemic embolization; TREATMENT for venous thrombosis and/or pulmonary embolus.HIGH RISK: Target INR is 2.5-3.5 for patients with mechanical heart valves.POTASSIUM-STAT [id number] 12:18:00 Test Item Value Reference Range Interpretation Comments POTASSIUM (BEAKER) (test code = 4.2 meq/L 3.6-5.5 379) BLOOD GAS, [id number] 12:18:00 Test Item Value Reference Range Interpretation Comments PH ARTERIAL (BEAKER) (test code = 7.34 7.35-7.45 L 383) PCO2 ARTERIAL (BEAKER) (test code 39 mmHg 35-45 = 384) PO2 ARTERIAL (BEAKER) (test code 387 mmHg 80-90 H = 385) O2 SATURATION ARTERIAL (BEAKER) 99.8 % 96.0-97.0 H (test code = 386) HCO3 ARTERIAL (BEAKER) (test code 21 mmol/L 21-29 = 388) BASE EXCESS ARTERIAL (BEAKER) -4.4 mmol/L -2.0-3.0 L (test code = 387) PATIENT TEMPERATURE (BEAKER) 36.3 C (test code = 1818) FIO2 (BEAKER) (test code = 1819) 100.0 % SODIUM NA-STAT [id number] 12:18:00 Test Item Value Reference Range Interpretation Comments SODIUM (BEAKER) (test code = 381) 132 meq/L 135-148 L GLUCOSE-STAT [id number] 12:18:00 Test Item Value Reference Range Interpretation Comments GLUCOSE RANDOM (BEAKER) (test code 140 mg/dL 70-110 H = 652) HGB/HCT (H&H) - STAT [id number] 12:18:00 Test Item Value Reference Range Interpretation Comments HEMOGLOBIN (BEAKER) (test code = 9.2 g/dL 13.0-16.8 L 410) HEMATOCRIT (BEAKER) (test code = 27.0 % 40.0-50.0 L 411) CALCIUM, [id number] 12:18:00 Test Item Value Reference Range Interpretation Comments CALCIUM IONIZED (BEAKER) (test 1.11 mmol/L 1.12-1.27 L code = 698) PH, BLOOD (BEAKER) (test code = 7.33 1810) PLATELET [id number] 12:02:00 Test Item Value Reference Range Interpretation Comments PLATELET COUNT (BEAKER) (test 125 K/CU MM 150-430 L code = 756) BLOOD GAS, [id number] 11:36:00 Test Item Value Reference Range Interpretation Comments PH ARTERIAL (BEAKER) (test code = 7.36 7.35-7.45 383) PCO2 ARTERIAL (BEAKER) (test code 48 mmHg 35-45 H = 384) PO2 ARTERIAL (BEAKER) (test code = 271 mmHg 80-90 H 385) O2 SATURATION ARTERIAL (BEAKER) 99.6 % 96.0-97.0 H (test code = 386) HCO3 ARTERIAL (BEAKER) (test code 27 mmol/L 21-29 = 388) BASE EXCESS ARTERIAL (BEAKER) 0.9 mmol/L -2.0-3.0 (test code = 387) PATIENT TEMPERATURE (BEAKER) (test 35.9 C code = 1818) FIO2 (BEAKER) (test code = 1819) 65.0 % SODIUM NA-STAT [id number] 11:36:00 Test Item Value Reference Range Interpretation Comments SODIUM (BEAKER) (test code = 381) 131 meq/L 135-148 L GLUCOSE-STAT [id number] 11:36:00 Test Item Value Reference Range Interpretation Comments GLUCOSE RANDOM (BEAKER) (test code 112 mg/dL 70-110 H = 652) HGB/HCT (H&H) - STAT [id number] 11:36:00 Test Item Value Reference Range Interpretation Comments HEMOGLOBIN (BEAKER) (test code = 9.2 g/dL 13.0-16.8 L 410) HEMATOCRIT (BEAKER) (test code = 27.0 % 40.0-50.0 L 411) POTASSIUM-STAT [id number] 11:35:00 Test Item Value Reference Range Interpretation Comments POTASSIUM (BEAKER) (test code = 5.0 meq/L 3.6-5.5 379) BLOOD GAS, [id number] 11:16:00 Test Item Value Reference Range Interpretation Comments PH ARTERIAL (BEAKER) (test code = 7.35 7.35-7.45 383) PCO2 ARTERIAL (BEAKER) (test code 44 mmHg 35-45 = 384) PO2 ARTERIAL (BEAKER) (test code 410 mmHg 80-90 H = 385) O2 SATURATION ARTERIAL (BEAKER) 99.8 % 96.0-97.0 H (test code = 386) HCO3 ARTERIAL (BEAKER) (test code 25 mmol/L 21-29 = 388) BASE EXCESS ARTERIAL (BEAKER) -2.1 mmol/L -2.0-3.0 L (test code = 387) PATIENT TEMPERATURE (BEAKER) 32.0 C (test code = 1818) FIO2 (BEAKER) (test code = 1819) 80.0 % SODIUM NA-STAT [id number] 11:16:00 Test Item Value Reference Range Interpretation Comments SODIUM (BEAKER) (test code = 381) 130 meq/L 135-148 L HGB/HCT (H&H) - STAT [id number] 11:16:00 Test Item Value Reference Range Interpretation Comments HEMOGLOBIN (BEAKER) (test code = 8.6 g/dL 13.0-16.8 L 410) HEMATOCRIT (BEAKER) (test code = 25.0 % 40.0-50.0 L 411) GLUCOSE-STAT [id number] 11:14:00 Test Item Value Reference Range Interpretation Comments GLUCOSE RANDOM (BEAKER) (test code = 98 mg/dL 70-110 652) POTASSIUM-STAT [id number] 11:14:00 Test Item Value Reference Range Interpretation Comments POTASSIUM (BEAKER) (test code = 4.3 meq/L 3.6-5.5 379) BLOOD GAS, [id number] 10:12:00 Test Item Value Reference Range Interpretation Comments PH ARTERIAL (BEAKER) (test code = 7.48 7.35-7.45 H 383) PCO2 ARTERIAL (BEAKER) (test code 36 mmHg 35-45 = 384) PO2 ARTERIAL (BEAKER) (test code = 230 mmHg 80-90 H 385) O2 SATURATION ARTERIAL (BEAKER) 99.6 % 96.0-97.0 H (test code = 386) HCO3 ARTERIAL (BEAKER) (test code 26 mmol/L 21-29 = 388) BASE EXCESS ARTERIAL (BEAKER) 2.2 mmol/L -2.0-3.0 (test code = 387) PATIENT TEMPERATURE (BEAKER) (test 35.6 C code = 1818) FIO2 (BEAKER) (test code = 1819) 100.0 % GLUCOSE-STAT [id number] 10:12:00 Test Item Value Reference Range Interpretation Comments GLUCOSE RANDOM (BEAKER) (test code 113 mg/dL 70-110 H = 652) HGB/HCT (H&H) - STAT [id number] 10:12:00 Test Item Value Reference Range Interpretation Comments HEMOGLOBIN (BEAKER) (test code = 12.9 g/dL 13.0-16.8 L 410) HEMATOCRIT (BEAKER) (test code = 38.0 % 40.0-50.0 L 411) SODIUM NA-STAT [id number] 10:11:00 Test Item Value Reference Range Interpretation Comments SODIUM (BEAKER) (test code = 381) 135 meq/L 135-148 POTASSIUM-STAT [id number] 10:11:00 Test Item Value Reference Range Interpretation Comments POTASSIUM (BEAKER) (test code = 3.9 meq/L 3.6-5.5 379) CALCIUM, [id number] 10:11:00 Test Item Value Reference Range Interpretation Comments CALCIUM IONIZED (BEAKER) (test 1.11 mmol/L 1.12-1.27 L code = 698) PH, BLOOD (BEAKER) (test code = 7.45 1810) [id number] 04:33:00 Test Item Value Reference Range Interpretation Comments PARTIAL THROMBOPLASTIN TIME 95.6 seconds 22.5-36.0 H (BEAKER) (test code = 760) CBC (HEMOGRAM ONLY)[id number] 04:27:00 Test Item Value Reference Range Interpretation Comments WHITE BLOOD CELL COUNT (BEAKER) 10.1 K/ L 4.0-10.0 H (test code = 775) RED BLOOD CELL COUNT (BEAKER) 4.00 M/ L 4.20-5.80 L (test code = 761) HEMOGLOBIN (BEAKER) (test code = 13.2 GM/DL 13.0-16.8 410) HEMATOCRIT (BEAKER) (test code = 39.6 % 40.0-50.0 L 411) MEAN CORPUSCULAR VOLUME (BEAKER) 99.0 fL 82.0-98.0 H (test code = 753) MEAN CORPUSCULAR HEMOGLOBIN 33.1 pg 27.0-33.0 H (BEAKER) (test code = 751) MEAN CORPUSCULAR HEMOGLOBIN CONC 33.4 GM/DL 32.0-36.0 (BEAKER) (test code = 752) RED CELL DISTRIBUTION WIDTH 11.8 % 10.3-14.2 (BEAKER) (test code = 412) PLATELET COUNT (BEAKER) (test 152 K/CU MM 150-430 code = 756) MEAN PLATELET VOLUME (BEAKER) 6.7 fL 6.5-10.5 (test code = 754) NUCLEATED RED BLOOD CELLS 0 /100 WBC 0-0 (BEAKER) (test code = 413) 0.00BASIC METABOLIC [id number] 04:19:00 Test Item Value Reference Range Interpretation Comments SODIUM (BEAKER) 136 meq/L 136-145 (test code = 381) POTASSIUM (BEAKER) 3.9 meq/L 3.5-5.1 (test code = 379) CHLORIDE (BEAKER) 102 meq/L 98-107 (test code = 382) CO2 (BEAKER) (test 23 meq/L 22-29 code = 355) BLOOD UREA NITROGEN 12 mg/dL 7-21 (BEAKER) (test code = 354) CREATININE (BEAKER) 0.76 mg/dL 0.57-1.25 (test code = 358) GLUCOSE RANDOM 107 mg/dL 70-105 H (BEAKER) (test code = 652) CALCIUM (BEAKER) 8.8 mg/dL 8.4-10.2 (test code = 697) EGFR (BEAKER) (test 103 mL/min/1.73 ESTIM ATED GFR IS code = 1092) sq m NOT ACCURATE CREATININE CLEARANCE IN PREDICTING GLOMERULAR FILTRATION RATE . ESTIMATED GFR I S NOT APPLICABLE FOR DIALYSIS PATIEN TS. Please draw today if not done already.[id number] 01:57:00 Test Item Value Reference Range Interpretation Comments COL/EPI CLOSURE TIME (BEAKER) 137 Seconds 78-191 (test code = 1801) COL/ADP CLOSURE TIME (BEAKER) 77 Seconds 43-122 (test code = 1802) PLATELET COUNT AGG (BEAKER) (test 154 K/CU MM 150-430 code = 2656) [id number] 22:58:00 Test Item Value Reference Range Interpretation Comments PARTIAL THROMBOPLASTIN TIME 75.9 seconds 22.5-36.0 H (BEAKER) (test code = 760) [id number] 18:11:00 Test Item Value Reference Range Interpretation Comments PARTIAL THROMBOPLASTIN TIME 59.2 seconds 22.5-36.0 H (BEAKER) (test code = 760) PROTHROMBIN [id number] 18:10:00 Test Item Value Reference Range Interpretation Comments PROTIME (BEAKER) (test code = 14.4 seconds 11.7-14.7 759) INR (BEAKER) (test code = 370) 1.1 <=5.9 RECOMMENDED COUMADIN/WARFARIN INR THERAPY RANGESSTANDARD DOSE: 2.0 - 3.0 Includes: PROPHYLAXIS forvenous thrombosis, systemic embolization; TREATMENT for venous thrombosis and/or pulmonary embolus.HIGH RISK: Target INR is 2.5-3.5 for patients with mechanical heart valves.[id number] 18:10:00 Test Item Value Reference Range Interpretation Comments FIBRINOGEN LEVEL (BEAKER) (test 608 mg/dl 225-434 H code = 658) PLATELET [id number] 18:00:00 Test Item Value Reference Range Interpretation Comments PLATELET COUNT (BEAKER) (test 136 K/CU MM 150-430 L code = 756) [id number] 15:48:00 Test Item Value Reference Range Interpretation Comments PARTIAL THROMBOPLASTIN TIME 46.1 seconds 22.5-36.0 H (BEAKER) (test code = 760) BASIC METABOLIC [id number] 04:49:00 Test Item Value Reference Range Interpretation Comments SODIUM (BEAKER) 134 meq/L 136-145 L (test code = 381) POTASSIUM (BEAKER) 4.1 meq/L 3.5-5.1 Specimen slightly (test code = 379) hemolyzed CHLORIDE (BEAKER) 102 meq/L 98-107 (test code = 382) CO2 (BEAKER) (test 23 meq/L 22-29 code = 355) BLOOD UREA NITROGEN 13 mg/dL 7-21 (BEAKER) (test code = 354) CREATININE (BEAKER) 0.72 mg/dL 0.57-1.25 Specimen slightly (test code = 358) hemolyzed GLUCOSE RANDOM 109 mg/dL 70-105 H (BEAKER) (test code = 652) CALCIUM (BEAKER) 8.5 mg/dL 8.4-10.2 (test code = 697) EGFR (BEAKER) (test 109 mL/min/1.73 ESTIM ATED GFR IS code = 1092) sq m NOT ACCURATE CREATININE CLEARANCE IN PREDICTING GLOMERULAR FILTRATION RATE . ESTIMATED GFR I S NOT APPLICABLE FOR DIALYSIS PATIEN TS. Please draw today if not done already.CBC (HEMOGRAM ONLY)2017-01-20 04:47:00 Test Item Value Reference Range Interpretation Comments WHITE BLOOD CELL COUNT (BEAKER) 9.3 K/ L 4.0-10.0 (test code = 775) RED BLOOD CELL COUNT (BEAKER) 3.76 M/ L 4.20-5.80 L (test code = 761) HEMOGLOBIN (BEAKER) (test code = 12.7 GM/DL 13.0-16.8 L 410) HEMATOCRIT (BEAKER) (test code = 37.1 % 40.0-50.0 L 411) MEAN CORPUSCULAR VOLUME (BEAKER) 98.9 fL 82.0-98.0 H (test code = 753) MEAN CORPUSCULAR HEMOGLOBIN 33.8 pg 27.0-33.0 H (BEAKER) (test code = 751) MEAN CORPUSCULAR HEMOGLOBIN CONC 34.2 GM/DL 32.0-36.0 (BEAKER) (test code = 752) RED CELL DISTRIBUTION WIDTH 12.8 % 10.3-14.2 (BEAKER) (test code = 412) PLATELET COUNT (BEAKER) (test 129 K/CU MM 150-430 L code = 756) MEAN PLATELET VOLUME (BEAKER) 7.0 fL 6.5-10.5 (test code = 754) NUCLEATED RED BLOOD CELLS 0 /100 WBC 0-0 (BEAKER) (test code = 413) [id number] 04:39:00 Test Item Value Reference Range Interpretation Comments PARTIAL THROMBOPLASTIN TIME 41.2 seconds 22.5-36.0 H (BEAKER) (test code = 760) [id number] 18:57:00 Test Item Value Reference Range Interpretation Comments PARTIAL THROMBOPLASTIN TIME 50.1 seconds 22.5-36.0 H (BEAKER) (test code = 760) [id number] 12:11:00 Test Item Value Reference Range Interpretation Comments PARTIAL THROMBOPLASTIN TIME 48.2 seconds 22.5-36.0 H (BEAKER) (test code = 760) TROPONIN [id number] 07:38:00 Test Item Value Reference Range Interpretation Comments TROPONIN I (BEAKER) (test code = 6.79 ng/mL 0.00-0.03 HH 397) Effective 08/17/2014: Reference Range ChangeNew: 0.00-0.03 Previous [...] and MB completed.CREATINE KINASE (CK), TOTAL AND MB 2017-01-19 07:35:00 Test Item Value Reference Range Interpretation Comments CREATINE KINASE TOTAL (BEAKER) 341 U/L 29-200 H (test code = 380) CREATINE KINASE-MB (BEAKER) (test 32.7 ng/mL 0.0-6.6 H code = 750) CREATINE KINASE-MB INDEX (BEAKER) 9.6 % (test code = 395) Effective 08/17/2014: CK-MB Reference Range ChangeNew: 0.0-6.6 Previous: 0.0-4.9CK-MB Reference Range:<6.7 Normal6.7-10.0 Borderline>10.0 AbnormalObtain six (6) hours after initial Creatine Kinase (CK), Total and MB completed.Obtain six (6) hours after initial Creatine Kinase (CK), Total and MB completed.BASIC METABOLIC [id number] 04:02:00 Test Item Value Reference Range Interpretation Comments SODIUM (BEAKER) 137 meq/L 136-145 (test code = 381) POTASSIUM (BEAKER) 4.0 meq/L 3.5-5.1 (test code = 379) CHLORIDE (BEAKER) 104 meq/L 98-107 (test code = 382) CO2 (BEAKER) (test 24 meq/L 22-29 code = 355) BLOOD UREA NITROGEN 19 mg/dL 7-21 (BEAKER) (test code = 354) CREATININE (BEAKER) 0.83 mg/dL 0.57-1.25 (test code = 358) GLUCOSE RANDOM 112 mg/dL 70-105 H (BEAKER) (test code = 652) CALCIUM (BEAKER) 8.4 mg/dL 8.4-10.2 (test code = 697) EGFR (BEAKER) (test 93 mL/min/1.73 ESTIMA GIGI GFR IS code = 1092) sq m NOT ACCURATE CREATININE CLEARANCE IN PREDICTING GLOMERULAR FILTRATION RATE . ESTIMATED GFR I S NOT APPLICABLE FOR DIALYSIS PATIDEON [place] [id number] 03:50:00 Test Item Value Reference Range Interpretation Comments PARTIAL THROMBOPLASTIN TIME 35.6 seconds 22.5-36.0 (BEAKER) (test code = 760) CBC (HEMOGRAM ONLY)2017-01-19 03:46:00 Test Item Value Reference Range Interpretation Comments WHITE BLOOD CELL COUNT (BEAKER) 9.8 K/ L 4.0-10.0 (test code = 775) RED BLOOD CELL COUNT (BEAKER) 3.68 M/ L 4.20-5.80 L (test code = 761) HEMOGLOBIN (BEAKER) (test code = 12.8 GM/DL 13.0-16.8 L 410) HEMATOCRIT (BEAKER) (test code = 36.6 % 40.0-50.0 L 411) MEAN CORPUSCULAR VOLUME (BEAKER) 99.6 fL 82.0-98.0 H (test code = 753) MEAN CORPUSCULAR HEMOGLOBIN 34.9 pg 27.0-33.0 H (BEAKER) (test code = 751) MEAN CORPUSCULAR HEMOGLOBIN CONC 35.0 GM/DL 32.0-36.0 (BEAKER) (test code = 752) RED CELL DISTRIBUTION WIDTH 12.8 % 10.3-14.2 (BEAKER) (test code = 412) PLATELET COUNT (BEAKER) (test 132 K/CU MM 150-430 L code = 756) MEAN PLATELET VOLUME (BEAKER) 6.6 fL 6.5-10.5 (test code = 754) NUCLEATED RED BLOOD CELLS 0 /100 WBC 0-0 (BEAKER) (test code = 413) 0.00TROPONIN [id number] 00:33:00 Test Item Value Reference Range Interpretation Comments TROPONIN I (BEAKER) (test code = 11.27 ng/mL 0.00-0.03 HH 397) Effective 08/17/2014: Reference Range ChangeNew: 0.00-0.03 Previous [...] and MB completed.CREATINE KINASE (CK), TOTAL AND MB 2017-01-19 00:26:00 Test Item Value Reference Range Interpretation Comments CREATINE KINASE TOTAL (BEAKER) 475 U/L 29-200 H (test code = 380) CREATINE KINASE-MB (BEAKER) (test 60.7 ng/mL 0.0-6.6 H code = 750) CREATINE KINASE-MB INDEX (BEAKER) 12.8 % (test code = 395) Effective 08/17/2014: CK-MB Reference Range ChangeNew: 0.0-6.6 Previous: 0.0-4.9CK-MB Reference Range:<6.7 Normal6.7-10.0 Borderline>10.0 AbnormalObtain six (6) hours after initial Creatine Kinase (CK), Total and MB completed.Obtain six (6) hours after initial Creatine Kinase (CK), Total and MB completed.[id number] 20:24:00 Test Item Value Reference Range Interpretation Comments PARTIAL THROMBOPLASTIN TIME 27.0 seconds 22.5-36.0 (BEAKER) (test code = 760) TROPONIN [id number] 17:02:00 Test Item Value Reference Range Interpretation Comments TROPONIN I (BEAKER) (test code = 7.67 ng/mL 0.00-0.03 HH 397) Effective 08/17/2014: Reference Range ChangeNew: 0.00-0.03 Previous [...] initial Creatine Kinase (CK), Total and MB completed.[id number] 14:49:00 Test Item Value Reference Range Interpretation Comments PARTIAL THROMBOPLASTIN TIME 25.1 seconds 22.5-36.0 (BEAKER) (test code = 760) CREATINE KINASE (CK), TOTAL AND [id number] 14:43:00 Test Item Value Reference Range Interpretation Comments CREATINE KINASE TOTAL (BEAKER) 434 U/L 29-200 H (test code = 380) CREATINE KINASE-MB (BEAKER) (test 67.9 ng/mL 0.0-6.6 H code = 750) CREATINE KINASE-MB INDEX (BEAKER) 15.6 % (test code = 395) Effective 08/17/2014: CK-MB Reference Range ChangeNew: 0.0-6.6 Previous: 0.0-4.9CK-MB Reference Range:<6.7 Normal6.7-10.0 Borderline>10.0 AbnormalObtain six (6) hours after initial Creatine Kinase (CK), Total and MB completed.Obtain six (6) hours after initial Creatine Kinase (CK), Total and MB completed.POCT-GLUCOSE [id number] 12:00:00 Test Item Value Reference Range Interpretation Comments POC-GLUCOSE METER 144 mg/dL 70-110 H TESTED AT [facility] [address] ([facility]) (test code = [place] 1538) [id number] 07:53:00 Test Item Value Reference Range Interpretation Comments PROTIME (KACI) (test code = 16.0 seconds 11.7-14.7 H 759) INR ([facility]) (test code = 370) 1.3 <=5.9 PARTIAL THROMBOPLASTIN TIME 120.0 seconds 22.5-36.0 H (AKER) (test code = 760) RECOMMENDED COUMADIN/WARFARIN INR THERAPY RANGESSTANDARD DOSE: 2.0 - 3.0 Includes: PROPHYLAXIS forvenous thrombosis, systemic embolization; TREATMENT for venous thrombosis and/or pulmonary embolus.HIGH RISK: Target INR is 2.5-3.5 for patients with mechanical heart valves.TROPONIN [id number] 07:50:00 Test Item Value Reference Range Interpretation Comments TROPONIN I ([facility]) (test code = 1.44 ng/mL 0.00-0.03 HH 397) Effective 08/17/2014: Reference Range ChangeNew: 0.00-0.03 Previous [...] and persistent tachyarrhythmia.CREATINE KINASE (CK), TOTAL AND MB 2017-01-18 07:40:00 Test Item Value Reference Range Interpretation Comments CREATINE KINASE TOTAL ([facility]) 131 U/L 29-200 (test code = 380) CREATINE KINASE-MB (LENOAKER) (test 9.9 ng/mL 0.0-6.6 H code = 750) CREATINE KINASE-MB INDEX ([facility]) 7.6 % (test code = 395) Effective 08/17/2014: CK-MB Reference Range ChangeNew: 0.0-6.6 Previous: 0.0-4.9CK-MB Reference Range:<6.7 Normal6.7-10.0 Borderline>10.0 AbnormalB-TYPE NATRIURETIC FACTOR (BNP)2017-01-18 07:38:00 Test Item Value Reference Range Interpretation Comments B-TYPE NATRIURETIC PEPTIDE (BEAKER) 503 pg/mL 0-100 H (test code = 700) LIPID [id number] 07:33:00 Test Item Value Reference Range Interpretation Comments TRIGLYCERIDES (BEAKER) (test code = 137 mg/dL 540) CHOLESTEROL (BEAKER) (test code = 212 mg/dL 631) HDL CHOLESTEROL (BEAKER) (test code 32 mg/dL = 976) LDL CHOLESTEROL CALCULATED (BEAKER) 153 mg/dL (test code = 633) Triglyceride Reference Range: Low Risk <150 Borderline 150-199 High Risk 200-499 Very High Risk >=500Cholesterol Reference Range: Low Risk <200 Borderline 200-239 High Risk >240HDL Cholesterol Reference Range: Low Risk >=60 High Risk <40LDL Cholesterol Reference Range: Optimal <100 Near Optimal 100-129 Borderline 130-159 High 160-189 Very High >=[id number] 07:33:00 Test Item Value Reference Range Interpretation Comments SODIUM (BEAKER) (test code = 381) 136 meq/L 136-145 POTASSIUM (BEAKER) (test code = 4.0 meq/L 3.5-5.1 379) CHLORIDE (BEAKER) (test code = 382) 105 meq/L 98-107 CO2 (BEAKER) (test code = 355) 23 meq/L 22-29 HEPATIC FUNCTION [id number] 07:33:00 Test Item Value Reference Range Interpretation Comments TOTAL PROTEIN (BEAKER) (test code = 6.3 gm/dL 6.0-8.3 770) ALBUMIN (BEAKER) (test code = 1145) 3.6 g/dL 3.5-5.0 BILIRUBIN TOTAL (BEAKER) (test code 0.6 mg/dL 0.2-1.2 = 377) BILIRUBIN DIRECT (BEAKER) (test 0.3 mg/dL 0.1-0.5 code = 706) ALKALINE PHOSPHATASE (BEAKER) (test 66 U/L 40-150 code = 346) AST (SGOT) (BEAKER) (test code = 48 U/L 5-34 H 353) ALT (SGPT) (BEAKER) (test code = 60 U/L 6-55 H 347) [id number] 07:33:00 Test Item Value Reference Range Interpretation Comments GLUCOSE RANDOM (BEAKER) (test code 132 mg/dL 70-105 H = 652) Effective 08/17/2014: Reference Range Change-Adult onlyNew: 70-105 Previous: 70-110BUN AND [id number] 07:33:00 Test Item Value Reference Range Interpretation Comments BLOOD UREA NITROGEN 18 mg/dL 7-21 (BEAKER) (test code = 354) CREATININE (BEAKER) 0.82 mg/dL 0.57-1.25 (test code = 358) EGFR (BEAKER) (test 94 mL/min/1.73 ESTIMA GIGI GFR IS code = 1092) sq m NOT ACCURATE CREATININE CLEARANCE IN PREDICTING GLOMERULAR FILTRATION RATE . ESTIMATED GFR I S NOT APPLICABLE FOR DIALYSIS PATIEN TS. CBC W/PLT COUNT & AUTO [id number] 07:19:00 Test Item Value Reference Range Interpretation Comments WHITE BLOOD CELL COUNT (BEAKER) 10.2 K/ L 4.0-10.0 H (test code = 775) RED BLOOD CELL COUNT (BEAKER) 4.09 M/ L 4.20-5.80 L (test code = 761) HEMOGLOBIN (BEAKER) (test code = 13.1 GM/DL 13.0-16.8 410) HEMATOCRIT (BEAKER) (test code = 40.1 % 40.0-50.0 411) MEAN CORPUSCULAR VOLUME (BEAKER) 97.9 fL 82.0-98.0 (test code = 753) MEAN CORPUSCULAR HEMOGLOBIN 32.0 pg 27.0-33.0 (BEAKER) (test code = 751) MEAN CORPUSCULAR HEMOGLOBIN CONC 32.6 GM/DL 32.0-36.0 (BEAKER) (test code = 752) RED CELL DISTRIBUTION WIDTH 11.9 % 10.3-14.2 (BEAKER) (test code = 412) PLATELET COUNT (BEAKER) (test 151 K/CU MM 150-430 code = 756) MEAN PLATELET VOLUME (BEAKER) 6.5 fL 6.5-10.5 (test code = 754) NUCLEATED RED BLOOD CELLS 0 /100 WBC 0-0 (BEAKER) (test code = 413) NEUTROPHILS RELATIVE PERCENT 78 % (BEAKER) (test code = 429) LYMPHOCYTES RELATIVE PERCENT 14 % (BEAKER) (test code = 430) MONOCYTES RELATIVE PERCENT 7 % (BEAKER) (test code = 431) EOSINOPHILS RELATIVE PERCENT 1 % (BEAKER) (test code = 432) BASOPHILS RELATIVE PERCENT 0 % (BEAKER) (test code = 437) NEUTROPHILS ABSOLUTE COUNT 7.92 K/ L 1.80-8.00 (BEAKER) (test code = 670) LYMPHOCYTES ABSOLUTE COUNT 1.45 K/ L 1.48-4.50 L (BEAKER) (test code = 414) MONOCYTES ABSOLUTE COUNT (BEAKER) 0.69 K/ L 0.00-1.30 (test code = 415) EOSINOPHILS ABSOLUTE COUNT 0.08 K/ L 0.00-0.50 (BEAKER) (test code = 416) BASOPHILS ABSOLUTE COUNT (BEAKER) 0.03 K/ L 0.00-0.20 (test code = 417) [id number] 06:55:00 Test Item Value Reference Range Interpretation Comments ACTIVATED CLOTTING TIME 188 sec TEST ED AT [facility] [address] (BEAKER) (test code = [place] 441) [id number]
[2020-02-28 10:30] LABS: Absolute Lymphocytes (CBC) 1.1 K/uL (0.7-4.9); Basophils % 0.4 % (0-1.3); Lymphocytes % 14.6 % (15.3-44.8); MPV 6.8 fL (7.6-11.3); RBC Red Blood Cell Count 4.87 M/uL (4.33-5.43)
[2020-02-28 10:36] LABS: Protime INR 0.97
[2020-02-28 10:48] LABS: ALT/SGPT 46 U/L (12-78); AST/SGOT 39 U/L (15-37); Albumin 3.8 g/dL (3.4-5.0); Alkaline Phosphatase 112 U/L (45-117); BUN Blood Urea Nitrogen 8 mg/dL (7-18); Bicarbonate 26 mmol/L (21-32); Bilirubin Direct 0.2 mg/dL (0-0.2); Bilirubin Total 0.8 mg/dL (0.2-1.0); Glucose Level 105 mg/dL (74-106); NT PRO-BNP 371 pg/mL (<125); Potassium 4.3 mmol/L (3.5-5.1); Protein, Total 7.6 g/dL (6.4-8.2); Sodium Level 129 mmol/L (136-145); Troponin (Emerg Dept Use Only) < 0.02 ng/mL (0.0-0.045)
--- NOTE | 2020-02-28 11:22 | RAD REPORT ---
EXAM DESCRIPTION: Betty Single View02/28/2020 10:42 am CLINICAL HISTORY: Chest pain COMPARISON: 2016 FINDINGS: Postsurgical changes involve the chest The lungs appear clear of acute infiltrate. The heart is normal size IMPRESSION: No acute abnormalities displayed
--- NOTE | 2020-02-28 14:04 | EKG ---
Test Date: 2020-02-28 Test Time: 10:15:26 Environmental Consultant: STEFANY MEASUREMENT RESULTS: Intervals: Rate: 67 VA: 258 QRSD: 128 QT: 408 QTc: 431 [place]: P: 81 VA: 258 QRS: -45 T: 23 INTERPRETIVE STATEMENTS: Sinus rhythm with 1st degree AV block Left axis deviation Right bundle branch block Septal infarct, age undetermined Abnormal ECG Compared to ECG 02/15/2018 09:10:50 Electronically Signed On 02-28-20 14:03:39 CDT by Anthony Lagos
[2020-02-28 14:24] VITALS: TEMP 98.8
[2020-02-28 14:26] VITALS: O2SAT 98
[2020-02-28 14:27] VITALS: BP 135/69
--- NOTE | 2020-02-29 18:57 | ER ---
Nurse's Notes [facility] Name: Yusef Rudd Age: 69 yrs Sex: Male : 1950 Arrival Date: 02/28/2020 Time: 09:54 Bed 6 Private MD: Diagnosis: Chest pain, unspecified Presentation: 02/27 10:00 Chief complaint: Patient states: had two episodes of right sided chest pain this iw morning ,lasted about an hour , now is resolved , hx of IA several years ago. Coronavirus screen: Proceed with normal triage. Patient denies a cough. Patient denies shortness of breath or difficulty breathing. Patient denies measured and/or subjective temperature greater than 100.4F prior to today's visit. Patient denies travel on a cruise ship or to a country the [facility] currently lists as an affected area. Patient denies contact with known and/or suspected case of COVID-19. Ebola Screen: Patient negative for fever greater than or equal to 101.5 degrees Fahrenheit, and additional compatible Ebola Virus Disease symptoms Patient denies exposure to infectious person. Patient denies travel to an Ebola-affected area in the 21 days before illness onset. No symptoms or risks identified at this time. Initial Sepsis Screen: Does the patient meet any 2 criteria? No. Patient's initial sepsis screen is negative. Does the patient have a suspected source of infection? No. Patient's initial sepsis screen is negative. Risk Assessment: Do you want to hurt yourself or someone else? Patient reports no desire to harm self or others. Note took bactrim for the first time this morning for infection in left leg. Onset of symptoms was February 28, 2020. 10:00 Method Of Arrival: Wheelchair iw 10:00 Acuity: MARY 3 iw Triage Assessment: 10:15 General: Appears in no apparent distress. comfortable, well groomed, well developed, sv Behavior is calm, cooperative, appropriate for age. Pain: Denies pain. Neuro: Level of Consciousness is awake, alert, obeys commands, Oriented to person, place, time, situation, Moves all extremities. Full function Gait is steady. Cardiovascular: Patient's skin is warm and dry. Pulses are palpable in right radial artery and left radial artery Rhythm is sinus rhythm Chest pain is denied. Respiratory: Airway is patent Respiratory effort is even, unlabored, Respiratory pattern is regular, symmetrical. Derm: Skin is intact, Skin is pink, warm \T\ dry. Musculoskeletal: Amputation of L BKA. 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 - Social history:: Smoking status: Patient reports the use of cigarette tobacco products, smokes one pack cigarettes per day. Screenin:20 Abuse screen: Denies threats or abuse. Denies injuries from another. Nutritional sv screening: No deficits noted. Tuberculosis screening: No symptoms or risk factors identified. Fall Risk None identified. Assessment: 10:38 Reassessment: Patient appears in no apparent distress at this time. No changes from sv previously documented assessment. Patient and/or family updated on plan of care and expected duration. Pain level reassessed. Patient is alert, oriented x 3, equal unlabored respirations, skin warm/dry/pink. 12:00 Reassessment: Patient appears in no apparent distress at this time. No changes from sv previously documented assessment. Patient and/or family updated on plan of care and expected duration. Pain level reassessed. Patient is alert, oriented x 3, equal unlabored respirations, skin warm/dry/pink. 13:23 Reassessment: Repeat troponin sent. sv 13:23 Reassessment: Patient appears in no apparent distress at this time. No changes from sv previously documented assessment. Patient and/or family updated on plan of care and expected duration. Pain level reassessed. Patient is alert, oriented x 3, equal unlabored respirations, skin warm/dry/pink. 14:11 Reassessment: Patient appears in no apparent distress at this time. No changes from sv previously documented assessment. Patient and/or family updated on plan of care and expected duration. Pain level reassessed. Patient is alert, oriented x 3, equal unlabored respirations, skin warm/dry/pink. Vital Signs: 10:00 BP 159 / 82; Pulse 72; Resp 20 S; Temp 98.8; Pulse Ox 100% on R/A; Weight 81.65 kg; iw Height 5 ft. 6 in. (167.64 cm); Pain 0/10; 10:26 BP 130 / 73; Pulse 65; Resp 19; Pulse Ox 100% ; sv 11:37 BP 152 / 77; Pulse 61; Resp 15; Pulse Ox 100% ; sv 12:23 BP 145 / 72; Pulse 72; Resp 20; Pulse Ox 98% on R/A; sv 13:23 BP 135 / 69; Pulse 59; Resp 15; Pulse Ox 98% ; sv 10:00 Body Mass Index 29.05 (81.65 kg, 167.64 cm) iw ED Course: 09:54 Patient arrived in ED. ag5 10:00 Venita Castillo RN is Primary Nurse. sv 10:03 Triage completed. iw 10:08 Isidro Wynne NP is PHCP. pm1 10:08 Christian Ferreira MD is Attending Physician. pm1 10:15 Arm band placed on Patient placed in an exam room, on a stretcher, on monitoring engineer, sv on pulse oximetry. 10:20 Inserted saline lock: 20 gauge in right antecubital area, using aseptic technique. sv Blood collected. Flushed right antecubital with 5 ml normal saline. Patient maintains SpO2 saturation greater than 95% on room air. 10:20 Patient has correct armband on for positive identification. Placed in gown. Bed in low sv position. Call light in reach. Side rails up X2. monitoring engineer on. Pulse ox on. NIBP on. Door closed. Head of bed elevated. 10:22 EKG done, by ED staff, reviewed by Isidro Wynne NP. sv 10:26 Awaiting lab results, Awaiting for x-ray. sv 10:38 X-ray(s) taken. sv 10:42 XRAY Chest (1 view) In Process Unspecified. EDMS 14:11 No provider procedures requiring assistance completed. IV discontinued, intact, sv bleeding controlled, No redness/swelling at site. Pressure dressing applied. Administered Medications: No medications were administered Outcome: 13:55 Discharge ordered by . pm1 14:11 Discharged to home via wheelchair, with family, with his prosthetic leg on himself. sv 14:11 Condition: stable 14:11 Discharge instructions given to patient, Instructed on discharge instructions, follow up and referral plans. Demonstrated understanding of instructions, follow-up care. 14:12 Patient left the ED. sv Signatures: Dispatcher [employer] EDMS Jonathan, Venita, Charissa Turk RN, Isidro Chang RN, SPEECH LANG PATH THERAPIST SPEECH LANG PATH THERAPIST pm1 Jose Clark ag5
--- NOTE | 2020-02-29 18:57 | EDPHYS ---
Physician Documentation [facility] Name: Yusef Rudd Age: 69 yrs Sex: Male : 1950 Arrival Date: 02/28/2020 Time: 09:54 Bed 6 Private MD: ED Physician Christian Ferreira HPI: 02/27 10:15 This 69 yrs old Male presents to ER via Wheelchair with complaints of Chest pm1 Pain. 10:15 The patient or guardian reports chest pain that is located primarily in the right upper pm1 quadrant of abdomen. Onset: today, at 07:00. The pain does not radiate. Associated signs and symptoms: The patient has no apparent associated signs or symptoms, Pertinent negatives: cough, diaphoresis, dizziness, headache, nausea, palpitations, shortness of breath, vomiting. Duration: The patient or guardian reports a single episode, that is now resolved, that lasted 1 hour(s). Modifying factors: The symptoms are alleviated by nothing. the symptoms are aggravated by Possibly from taking Bactrim DS today for first time today. Severity of pain: in the emergency department the pain has resolved. The patient has been recently seen by a physician: the patient's primary care provider, with different complaint(s), prescribed antibiotics for possible left stump cellulitis. 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 - Social history:: Smoking status: Patient reports the use of cigarette tobacco products, smokes one pack cigarettes per day. ROS: 10:15 Constitutional: Negative for fever, chills, and weight loss, Neck: Negative for injury, pm1 pain, and swelling, Respiratory: Negative for shortness of breath, cough, wheezing, and pleuritic chest pain. 10:15 Cardiovascular: Negative for chest pain, palpitations, and edema, Back: Negative for injury and pain, : Negative for injury, bleeding, discharge, and swelling, MS/Extremity: Negative for injury and deformity, Skin: Negative for injury, rash, and discoloration, Neuro: Negative for headache, weakness, numbness, tingling, and seizure. 10:15 Abdomen/GI: Positive for abdominal pain, of the right upper quadrant, Negative for nausea, vomiting, and diarrhea. Exam: 10:15 Constitutional: This is a well developed, well nourished patient who is awake, alert, pm1 and in no acute distress. Head/Face: Normocephalic, atraumatic. Neck: Trachea midline, no thyromegaly or masses palpated, and no cervical lymphadenopathy. Supple, full range of motion without nuchal rigidity, or vertebral point tenderness. No Meningismus. Chest/axilla: Normal chest wall appearance and motion. Nontender with no deformity. No lesions are appreciated. Cardiovascular: Regular rate and rhythm with a normal S1 and S2. No gallops, murmurs, or rubs. Normal PMI, no JVD. No pulse deficits. Respiratory: Lungs have equal breath sounds bilaterally, clear to auscultation and percussion. No rales, rhonchi or wheezes noted. No increased work of breathing, no retractions or nasal flaring. Abdomen/GI: Soft, non-tender, with normal bowel sounds. No distension or tympany. No guarding or rebound. No evidence of tenderness throughout. Back: No spinal tenderness. No costovertebral tenderness. Full range of motion. Skin: Warm, dry with normal turgor. Normal color with no rashes, no lesions, and no evidence of cellulitis. MS/ Extremity: Pulses equal, no cyanosis. Neurovascular intact. Full, normal range of motion. 10:15 Neuro: Orientation: to person, place, time, situation, Mentation: is normal, appropriate for stated age, Motor: is normal, moves all fours. Vital Signs: 10:00 BP 159 / 82; Pulse 72; Resp 20 S; Temp 98.8; Pulse Ox 100% on R/A; Weight 81.65 kg; iw Height 5 ft. 6 in. (167.64 cm); Pain 0/10; 10:26 BP 130 / 73; Pulse 65; Resp 19; Pulse Ox 100% ; sv 11:37 BP 152 / 77; Pulse 61; Resp 15; Pulse Ox 100% ; sv 12:23 BP 145 / 72; Pulse 72; Resp 20; Pulse Ox 98% on R/A; sv 13:23 BP 135 / 69; Pulse 59; Resp 15; Pulse Ox 98% ; sv 10:00 Body Mass Index 29.05 (81.65 kg, 167.64 cm) iw MDM: 10:14 Patient medically screened. pm1 12:06 ED course: Patient reports to ER with complaint of chest pain but points to his RUQ as pm1 the area that was hurting previously. Patient had pain that lasted for 1 hour. Started at 7 and ended around 8. Pain has resolved and no longer present. No N/V/D. Due to patient's dementia, will order cardiac evaluation with repeat troponin. Patient's abdomen without any tenderness, CBC WNL's therefore no CT scan warranted . 13:55 Data reviewed: vital signs. Data interpreted: Pulse oximetry: on room air is 98 %. pm1 Interpretation: normal. Counseling: I had a detailed discussion with the patient and/or guardian regarding: the historical points, exam findings, and any diagnostic results supporting the discharge/admit diagnosis, lab results, radiology results, the need for outpatient follow up, to return to the emergency department if symptoms worsen or persist or if there are any questions or concerns that arise at home. 02/27 10:14 Order name: Basic Metabolic Panel; Complete Time: 10:48 pm02/27 10:14 Order name: CBC with Diff; Complete Time: 10:41 pm02/27 10:14 Order name: LFT's; Complete Time: 10:48 pm02/27 10:14 Order name: Magnesium; Complete Time: 10:48 pm02/27 10:14 Order name: NT PRO-BNP; Complete Time: 10:48 pm02/27 10:14 Order name: PT-INR; Complete Time: 10:41 pm02/27 10:14 Order name: Troponin (emerg Dept Use Only); Complete Time: 10:48 pm02/27 10:14 Order name: XRAY Chest (1 view); Complete Time: 11:23 pm02/27 10:14 Order name: EKG; Complete Time: 10:16 pm02/27 10:14 Order name: Cardiac monitoring; Complete Time: 10:26 pm02/27 10:14 Order name: EKG - Nurse/Tech; Complete Time: 10: pm02/27 10:14 Order name: IV Saline Lock; Complete Time: 10: pm1 02/27 10:14 Order name: Labs collected and sent; Complete Time: 10:26 pm1 02/27 12:16 Order name: Troponin (emerg Dept Use Only): draw at 1320; Complete Time: 13:54 sv 02/27 10:14 Order name: O2 Per Protocol; Complete Time: 10:26 pm1 02/27 10:14 Order name: O2 Sat Monitoring; Complete Time: 10: pm1 Administered Medications: No medications were administered Disposition: 14:39 Co-signature as Attending Physician, Christian Ferreira MD I agree with the assessment and kdr plan of care. Disposition: 02/28/20 13:55 Discharged to Home. Impression: Chest pain, unspecified. - Condition is Stable. - Discharge Instructions: Nonspecific Chest Pain. - Medication Reconciliation Form, Thank You Letter, Antibiotic Education, Prescription Opioid Use form. - Follow up: Emergency Department; When: As needed; Reason: Worsening of condition. Follow up: Private Physician; When: 2 - 3 days; Reason: Recheck today's complaints, Continuance of care, Re-evaluation by your physician. - Problem is new. - Symptoms have improved. Signatures: Dispatcher [employer] Venita Love RN RN sv Rittger, Kevin, MD MD kdr Charissa Angel RN RN iw Isidro Wynne NP [employer] pm1 Corrections: (The following items were deleted from the chart) 14:12 13:55 02/28/2020 13:55 Discharged to Home. Impression: Chest pain, unspecified. sv Condition is Stable. Forms are Medication Reconciliation Form, Thank You Letter, Antibiotic Education, Prescription Opioid Use. Follow up: Emergency Department; When: As needed; Reason: Worsening of condition. Follow up: Private Physician; When: 2 - 3 days; Reason: Recheck today's complaints, Continuance of care, Re-evaluation by your physician. Problem is new. Symptoms have improved. pm1
== END 2020-02-28 14:12 | disposition home or self-care (01) ==
LOC: ER 09:52
DX: R07.9 Chest pain, unspecified (principal); R10.11 Right upper quadrant pain; I10 Essential (primary) hypertension; F17.210 Nicotine dependence, cigarettes, uncomplicated; Z85.118 Personal history of other malignant neoplasm of bronchus and lung
CPT/HCPCS: 36415; 71045; 80048; 80076; 83735; 83880; 84484; 85025; 85610; 93005; 99285